=== PATIENT | female | born 1955 | race Hispanic/Latino ===

== ENCOUNTER 2017-07-20 14:37 | Outpatient (CLI) | payer OTHER | END 2017-07-20 14:38 | disposition home or self-care (01) | LOC: PET 14:37 | DX: C34.90 Malignant neoplasm of unspecified part of unspecified bronchus or lung (principal); J44.9 Chronic obstructive pulmonary disease, unspecified; Z98.51 Tubal ligation status | CPT/HCPCS: 82962 ==

== ENCOUNTER 2017-07-27 06:50 | Outpatient (CLI) | payer OTHER | END 2017-07-27 06:51 | disposition home or self-care (01) | LOC: PET 06:50 | DX: C34.90 Malignant neoplasm of unspecified part of unspecified bronchus or lung (principal); J44.9 Chronic obstructive pulmonary disease, unspecified; Z87.891 Personal history of nicotine dependence; Z98.51 Tubal ligation status | CPT/HCPCS: 82962 ==

== ENCOUNTER 2017-07-27 10:53 | Outpatient (CLI) | payer OTHER | END 2017-07-27 10:54 | disposition home or self-care (01) | LOC: LABHHL 10:53 | DX: C34.90 Malignant neoplasm of unspecified part of unspecified bronchus or lung (principal); Z87.891 Personal history of nicotine dependence; Z98.51 Tubal ligation status; J44.9 Chronic obstructive pulmonary disease, unspecified | CPT/HCPCS: 36415 ==

== ENCOUNTER 2017-08-04 06:33 | Day surgery (SDC) | payer OTHER ==
[2017-08-04 08:17] LABS: Basophils % (Auto) 0.9 % (0.0-1.8); Eosinophils # (Auto) 0.1 K/mm3 (0.0-0.4); Eosinophils % (Auto) 2.8 % (0.0-4.3); Hematocrit 39.2 % (30.3-42.9); Hemoglobin 12.6 gm/dl (10.1-14.3); Lymphocytes # (Auto) 0.4 K/mm3 (1.2-5.4); Lymphocytes % (Auto) 10.4 % (13.4-35.0); Mean Corpuscular HGB Conc 32 % (30-34); Mean Corpuscular Hemoglobin 29 pg (28-32); Mean Corpuscular Volume 91 fl (79-97); Monocytes # (Auto) 0.4 K/mm3 (0.0-0.8); Monocytes % (Auto) 11.5 % (0.0-7.3); Platelet Count 199 K/mm3 (140-440); Red Blood Count 4.31 M/mm3 (3.65-5.03); Red Cell Distribution Width 14.3 % (13.2-15.2)
[2017-08-04 08:28] LABS: INR 0.84 (0.87-1.13)
[2017-08-04 08:29] LABS: Partial Thromboplastin Time 22.5 Sec. (24.2-36.6)
[2017-08-04 08:31] LABS: BUN/Creatinine Ratio 24; Blood Urea Nitrogen 12 mg/dL (7-17); Calcium 8.5 mg/dL (8.4-10.2); Hemolysis Index 5
[2017-08-04] MEDS ORDERED: VERSED ONE (10:15)
[2017-08-04] MEDS ORDERED: NACL 0.9% 500 ML IR ONE (10:15)
[2017-08-04] MEDS ORDERED: XYLOCAINE 1%/ EPI 1:100,000 INFILTRATI ONE (10:16)
[2017-08-04] MEDS ORDERED: NACL 0.9% 250ML 250 ML ONE (10:16)
[2017-08-04] MEDS ORDERED: SUBLIMAZE ONE (10:16)
[2017-08-04] MEDS ORDERED: XYLOCAINE 2% INFILTRATI ONE (10:16)
[2017-08-04] MEDS ORDERED: VANCOMYCIN/NS 1 GM/250 ML 1 GM/250 ML BAG IV SCH (11:00)
[2017-08-04] MEDS ORDERED: ZOFRAN ONE ×2 (11:13→11:29)
--- NOTE | 2017-08-04 11:25 | Short Stay Summary ---
Short Stay Documentation Date of service: 08/04/17 Narrative H&P: 61 year old female with malignant right pleural effusion who presents for tunneled pleural catheter placement. - History Principal diagnosis: Malignant pleural effusion Past Medical History: cancer Social history: smoking - Allergies and Medications Current Medications: Allergies codeine Allergy (Verified 03/10/15 04:45) Hives Penicillins Allergy (Verified 03/10/15 04:45) Hives Home Medications Medication Instructions Recorded Confirmed Last Taken Type Acetaminophen [Acetaminophen TAB] 650 mg PO Q4H PRN #30 tablet 06/09/17 Unknown Rx Pravastatin [Pravachol] 20 mg PO QDAY #30 06/09/17 08/04/17 08/03/17 Rx Sertraline [Zoloft] 25 mg PO QDAY #30 06/09/17 08/04/17 08/03/17 Rx metFORMIN [Glucophage] 500 mg PO BID #60 tablet 06/09/17 08/04/17 08/03/17 Rx Furosemide [Lasix] 20 mg PO DAILY 08/04/17 08/04/17 08/03/17 History Glimepiride [Amaryl] 4 mg PO DAILY 08/04/17 08/04/17 08/03/17 History Ipratropium/Albuterol Sulfate 1 spray IH BID 08/04/17 08/04/17 08/03/17 History [Combivent Respimat] Active Medications Vancomycin HCl (Vancomycin/Ns 1 Gm/250 Ml) 1 gm in 250 mls @ 167.007 mls/hr IV PREOP CAREN; Protocol Stop: 08/04/17 23:59 - Physical exam General appearance: no acute distress (dysp) Lungs: Other (decreased right lung sounds) - Brief post op/procedure progress note Date of procedure: 08/04/17 Pre-op diagnosis: Malignant pleural effusion Post-op diagnosis: same Procedure: Tunneled catheter placement, right pleural cavity 850 mL fluid removed Anesthesia: local Surgeon: DELFINA ZARATE Estimated blood loss: minimal Condition: stable - Hospital course Hospital course: Tolerated procedure well. Can be discharged in 2 hrs. - Disposition Condition at discharge: Stable Disposition: [id number] TO HOME OR SELFCARE Short Stay Discharge Plan Activity: advance as tolerated Weight Bearing Status: Weight Bear as Tolerated Diet: regular Wound: keep clean and dry (CANNOT GET PLEURAL CATHETER WET, INCLUDED PACKET FOR PLEURAL FLUID REMOVAL, REMOVE FLUID DAILY OR EVERY OTHER DAY NEEDED), change dressing (DAILY) Follow up with: JUANPABLO MORALES MD [Primary Care Provider] - 7 Days
--- NOTE | 2017-08-04 11:26 | Operative Report ---
Operative Report Operative Report: EXAM: 1. Ultrasound-guided access of the right pleural cavity 2. Placement of a right sided tunneled cuffed pleural catheter (ASPIRA) 3. Removal of 850 mL of serous fluid from the right pleural cavity DATE: 08/04/17 KITCHEN DESIGNER: DELFINA ZARATE MD INDICATION: Breast cancer with malignant right-sided pleural effusion status post multiple thoracenteses with moderate right pleural effusion MEDICATIONS: Please see nursing report for full details. DEVICES: None CONTRAST: None PROCEDURE: The risks, benefits, and alternatives were discussed with the patient; written informed consent was obtained. The patient was brought to the angiography suite and placed in a supine oblique position with the right chest elevated. The patient was prepped and draped in a sterile fashion. The right pleural cavity was accessed with a 21-gauge micropuncture needle under direct ultrasound guidance. 0.018 inch wire was passed into the pleural cavity. 5 Greek transitional dilator was exchanged with the needle. Wire and inner dilator were removed. 0.035 inch Amplatz wire was advanced through the transitional dilator into the pleural cavity. Flow switch was advanced over the wire and used to lock the Amplatz wire on the transitional dilator to prevent gas exchange. An appropriate dermatotomy site was selected medial and inferior to the puncture site. The area was anesthetized with 1% lidocaine. The track was anesthetized with 1% lidocaine. Dermatotomy was made. The ASPIRA catheter was connected to the metal tunneler and used to tunnel from the dermatotomy to the pleural puncture site. Over the Amplatz wire, the pleural puncture site was dilated with ultimate placement of a peel-away sheath and removal of the wire and introducer. The catheter was advanced through the pleural peel-away sheath into the pleura. The sheath was peeled away. The catheter was clamped and the plastic stiffener was removed. The catheter was cut and attached to the appropriate hub. The puncture site was then closed with 3-0 Vicryl and 4-0 Vicryl with overlying Dermabond and Steri-Strips. Sterile dressing consisting of 4 x 4 and Tegaderm were applied. 850 mL of serous fluid was drained through the catheter. The patient had minimal residual fluid remaining. The catheter was secured with 2-0 Ethilon. Sterile dressing consisting of drain gauze and overlying gauze with Tegaderm were applied to the dermatotomy site. The patient tolerated the procedure well. No immediate postprocedural complications. FINDINGS: Please see procedure note above. Ultrasound guided access of the right pleural cavity and placement of a right sided tunneled cuffed pleural catheter was performed with fluoroscopic and sonographic guidance. IMPRESSION: 1. Successful placement of a right sided tunneled cuffed pleural catheter with sonography and fluoroscopy. 2. Removal of 850 mL of serous fluid from the right pleural cavity.
[2017-08-04 14:33] VITALS: BP 117/33
== END 2017-08-04 15:00 | disposition home or self-care (01) ==
LOC: CATHLABREC 06:33
PROVIDERS: ATTEND Radiology Diagnostic Radiology
DX: C50.919 Malignant neoplasm of unspecified site of unspecified female breast (principal); J91.0 Malignant pleural effusion; E11.9 Type 2 diabetes mellitus without complications; J44.9 Chronic obstructive pulmonary disease, unspecified; Z88.0 Allergy status to penicillin; Z88.5 Allergy status to narcotic agent; Z98.890 Other specified postprocedural states; Z87.891 Personal history of nicotine dependence; Z79.01 Long term (current) use of anticoagulants; Z79.84 Long term (current) use of oral hypoglycemic drugs
CPT/HCPCS: 32550; 32555; 36415; 76937; 80048; 85025; 85610; 85730; C1729; J2250; J2405; J3010; J3370; J7050

== ENCOUNTER 2017-10-30 23:44 | Inpatient (IN) | payer OTHER ==
[2017-10-31] MEDS ORDERED: NACL 0.9% 1000 ML 1,000 ML IV ONE (00:08)
[2017-10-31] MEDS ORDERED: NACL 0.9% 1000 ML IV ONE (00:20)
[2017-10-31] MEDS ORDERED: ZOFRAN IV ONE ×2 (00:22→02:21)
--- NOTE | 2017-10-31 00:38 | Emergency Department Report ---
ED N/V/D HPI - General Chief complaint: Abdominal Pain Stated complaint: Vomiting, Diarrhea Time Seen by Provider: 10/31/17 00:18 Source: patient, family, EMS Mode of arrival: Stretcher Limitations: Other - History of Present Illness Initial comments: 62-year-old female with history of bone cancer presents to ER with nausea, vomiting, diarrhea 1 week. Patient believes symptoms are due to chemotherapy pill that she is taking. Patient reports brief episode of abdominal pain, but attributes it to the multiple episodes of vomiting that she has had. Reports chills. Pt was hypotensive with EMS. Oncologist: Dr EKLSI TSANG complaint: nausea, vomiting, diarrhea, abdominal pain -: week(s) (1) Description of Vomiting: food contents, watery Description of Diarrhea: water Associated Abdominal Pain: Yes Location: diffuse Radiation: none Severity: severe Quality: cramping Consistency: constant Improves with: none Worsens with: eating Associated Symptoms: fever/chills, nausea/vomiting, weakness. denies: chest pain - Related Data Home Medications Medication Instructions Recorded Confirmed Last Taken Gilotrif 40 mg PO DAILY 09/11/17 10/31/17 1 Day Ago ~10/30/17 Sertraline [Zoloft] 25 mg PO DAILY 09/25/17 10/31/17 1 Day Ago ~10/30/17 ALBUTEROL NEB's [Proventil 0.083% 2.5 mg IH BID 09/29/17 10/31/17 09/28/17 NEBS] Previous Rx's Medication Instructions Recorded Last Taken Type Glimepiride [Amaryl] 4 mg PO DAILY #30 tablet 09/13/17 1 Day Ago Rx ~10/30/17 Pravastatin [Pravachol] 20 mg PO QDAY #30 tablet 09/13/17 1 Day Ago Rx ~10/30/17 metFORMIN [Glucophage] 500 mg PO BID #60 tablet 09/13/17 1 Day Ago Rx ~10/30/17 Allergies Allergy/AdvReac Type Severity Reaction Status Date / Time codeine Allergy Hives Verified 03/10/15 04:45 Penicillins Allergy Hives Verified 03/10/15 04:45 ED Review of Systems ROS: Stated complaint: [place]/FALL Other details as noted in HPI Comment: All other systems reviewed and negative Constitutional: chills. denies: fever Gastrointestinal: abdominal pain, nausea, vomiting, diarrhea ED Past Medical Hx - Past Medical History Previous Medical History?: Yes Hx Diabetes: Yes Hx COPD: Yes Hx HIV: No Additional medical history: bone cancer - Surgical History Past Surgical History?: Yes Additional Surgical History: TUBAL LIGATION - Social History Smoking Status: Former Smoker Substance Use Type: None - Medications Home Medications: Home Medications Medication Instructions Recorded Confirmed Last Taken Type Gilotrif 40 mg PO DAILY 09/11/17 10/31/17 1 Day Ago History ~10/30/17 Glimepiride [Amaryl] 4 mg PO DAILY #30 tablet 09/13/17 10/31/17 1 Day Ago Rx ~10/30/17 Pravastatin [Pravachol] 20 mg PO QDAY #30 tablet 09/13/17 10/31/17 1 Day Ago Rx ~10/30/17 metFORMIN [Glucophage] 500 mg PO BID #60 tablet 09/13/17 10/31/17 1 Day Ago Rx ~10/30/17 Sertraline [Zoloft] 25 mg PO DAILY 09/25/17 10/31/17 1 Day Ago History ~10/30/17 ALBUTEROL NEB's [Proventil 0.083% 2.5 mg IH BID 09/29/17 10/31/17 09/28/17 History NEBS] ED Physical Exam - General Limitations: Other General appearance: alert, other (appears uncomfortable) - Head Head exam: Present: atraumatic, normocephalic - Eye Eye exam: Present: normal appearance - Neck Neck exam: Present: normal inspection - Respiratory Respiratory exam: Present: normal lung sounds bilaterally. Absent: respiratory distress - Cardiovascular Cardiovascular Exam: Present: regular rate, tachycardia - GI/Abdominal GI/Abdominal exam: Present: soft. Absent: distended, tenderness - Extremities Exam Extremities exam: Present: normal inspection - Neurological Exam Neurological exam: Present: alert, oriented X3 - Psychiatric Psychiatric exam: Present: normal affect, normal mood - Skin Skin exam: Present: warm, dry, intact, normal color ED Course Vital Signs 10/31/17 10/31/17 10/31/17 00:00 00:02 00:36 Temperature 94.2 F L Pulse Rate 111 H 111 H Respiratory 22 24 20 Rate Blood Pressure 106/85 106/85 Blood Pressure 106/85 [Right] O2 Sat by Pulse 100 Oximetry 10/31/17 10/31/17 10/31/17 01:00 02:00 03:00 Temperature Pulse Rate 108 H 105 H 101 H Respiratory 15 20 18 Rate Blood Pressure 109/56 125/62 107/46 Blood Pressure [Right] O2 Sat by Pulse 100 100 Oximetry 10/31/17 10/31/17 10/31/17 03:08 04:00 05:02 Temperature 97.8 F Pulse Rate 97 H 91 H Respiratory 23 20 Rate Blood Pressure 93/47 Blood Pressure 115/56 [Right] O2 Sat by Pulse 100 100 Oximetry ED Medical Decision Making - Lab Data Result diagrams: 10/31/17 00:23 10/31/17 00:23 - Medical Decision Making 62-year-old female with intractable nausea, vomiting and diarrhea likely due to chemotherapeutic drugs. Patient had recent admission for same. Today's labs show hypokalemia and acute renal failure. IV fluids administered. Initially had elevation in lactic acid of 3, now improved to 1. Vital signs improved. Blood cultures drawn, antibiotics given. Pt admitted to hospitalist. - Differential Diagnosis dehydration, ARF hypokalemia, Critical Care Time: Yes Critical care time in (mins) excluding proc time.: 35 Critical care attestation.: If time is entered above; I have spent that time in minutes in the direct care of this critically ill patient, excluding procedure time. Critical Care Time: 35 minutes ED Disposition Clinical Impression: Intractable vomiting with nausea, Diarrhea, Hypokalemia, Acute renal failure ( ARF) Disposition: OP ADMIT IP TO THIS HOSP Is pt being admited?: Yes Condition: Fair Time of Disposition: 03:04
[2017-10-31 00:42] LABS: Basophils # (Auto) 0.1 K/mm3 (0.0-0.1); Basophils % (Auto) 0.5 % (0.0-1.8); Eosinophils % (Auto) 0.1 % (0.0-4.3); Hematocrit 41.4 % (30.3-42.9); Hemoglobin 14.4 gm/dl (10.1-14.3); Lymphocytes # (Auto) 0.9 K/mm3 (1.2-5.4); Lymphocytes % (Auto) 5.7 % (13.4-35.0); Mean Corpuscular HGB Conc 35 % (30-34); Mean Corpuscular Hemoglobin 30 pg (28-32); Mean Corpuscular Volume 86 fl (79-97); Monocytes # (Auto) 0.8 K/mm3 (0.0-0.8); Monocytes % (Auto) 5.5 % (0.0-7.3); Platelet Count 359 K/mm3 (140-440); Red Blood Count 4.84 M/mm3 (3.65-5.03); Red Cell Distribution Width 16.8 % (13.2-15.2)
--- NOTE | 2017-10-31 01:16 | XRay Report ---
FINAL REPORT EXAM: XR CHEST 1V AP HISTORY: weakness TECHNIQUE: A portable upright view the chest was obtained and compared to the study of 06/06/2017. FINDINGS: There are residual increased markings in the right lung base secondary to residual infiltrate versus scarring. The left lung is clear. The lungs are not congested. The heart size is normal. The bones and soft tissues otherwise do not show any acute changes. IMPRESSION: Residual increased markings left lung base representing either localized scarring versus residual infiltrate.
[2017-10-31 01:19] LABS: Calcium 7.2 mg/dL (8.4-10.2)
[2017-10-31] MEDS ORDERED: K-DUR PO ONE (01:43)
[2017-10-31] MEDS: KCL 10MEQ/100ML 10 MEQ/100 ML BAG IV SCH ×6 (02:28→16:51)
[2017-10-31] MEDS ORDERED: LEVAQUIN 500MG/100ML 500 MG/100 ML BAG IV ONE (02:51)
[2017-10-31] MEDS ORDERED: FLAGYL 500 MG/100 ML 500 MG/100 ML BAG IV ONE (02:53)
[2017-10-31 03:10] LABS: Bilirubin,Urine NEG (Negative); Blood,Urine NEG (Negative); Color,Urine Amber (Yellow); Mucus,Urine FEW /HPF; Urobilinogen,Urine < 2.0 mg/dL (<2.0)
[2017-10-31] MEDS ORDERED: TYLENOL PO PRN (04:16)
[2017-10-31] MEDS ORDERED: SODIUM CHLORIDE FLUSH SYRINGE 10 ML IV PRN (04:16)
--- NOTE | 2017-10-31 04:23 | History and Physical Report ---
History of Present Illness Date of examination: 10/31/17 History of present illness: 62-year-old white male with a history of metastatic lung cancer, diabetes, COPD , emergency room with complaints of nausea vomiting and diarrhea 5 days. She is unable to tolerate oral intake, as at least 10 episodes of diarrhea today, nonbloody. Patient states she was going to the bathroom today, sustaining a fall and passed out for less than 1 minute, complaining of generalized weakness Review of systems Constitutional: no weight loss, chills, fever Ears, eyes, nose, mouth and throat: no nasal congestion, no nasal discharge, no sinus pressure, no vision change, no red eye. Neck: No neck pain or rigidity. Cardiovascular: no chest pain, palpitations Respiratory: no cough, shortness of breath Gastrointestinal: no abdominal pain hematochezia Genitourinary : no frequency , no hematuria Musculoskeletal: no joint swelling or muscle ache Integumentary: no rash, no pruritis Neurological: no parathesias, no numbness, no focal weakness Endocrine: no cold or heat intolerance, no polyuria or polydipsia Hematologic/Lymphatic: no easy bruising, no easy bleeding, no gland swelling Allergic/Immunologic: no urticaria, no angioedema. PAST MEDICAL HISTORY: metastatic lung cancer, diabetes, COPD PAST SURGICAL HISTORY: Tubal ligation SOCIAL HISTORY: No alcohol, no drugs, tobacco FAMILY HISTORY: Hypertension Medications and Allergies Allergies Allergy/AdvReac Type Severity Reaction Status Date / Time codeine Allergy Hives Verified 03/10/15 04:45 Penicillins Allergy Hives Verified 03/10/15 04:45 Home Medications Medication Instructions Recorded Confirmed Last Taken Type Gilotrif 40 mg PO DAILY 09/11/17 10/31/17 1 Day Ago History ~10/30/17 Glimepiride [Amaryl] 4 mg PO DAILY #30 tablet 09/13/17 10/31/17 1 Day Ago Rx ~10/30/17 Pravastatin [Pravachol] 20 mg PO QDAY #30 tablet 09/13/17 10/31/17 1 Day Ago Rx ~10/30/17 metFORMIN [Glucophage] 500 mg PO BID #60 tablet 09/13/17 10/31/17 1 Day Ago Rx ~10/30/17 Sertraline [Zoloft] 25 mg PO DAILY 08/13/18 09/18/18 1 Day Ago History ~10/30/17 ALBUTEROL NEB's [Proventil 0.083% 2.5 mg IH BID 09/29/17 10/31/17 09/28/17 History NEBS] Active Meds: Active Medications Acetaminophen (Tylenol) 650 mg PO Q4H PRN PRN Reason: Pain MILD(1-3)/Fever >100.5/PIERSON Enoxaparin Sodium (Lovenox) 30 mg SUB-Q QDAY CAREN Sodium Chloride (Nacl 0.9% 1000 Ml) 1,000 mls @ 125 mls/hr IV DIRECT CAREN Levofloxacin/Dextrose (Levaquin 250mg/50ml) 250 mg in 50 mls @ 50 mls/hr IV Q48H CAREN; Protocol Metronidazole (Flagyl 500 Mg/100 Ml) 500 mg in 100 mls @ 100 mls/hr IV Q8HR CAREN ; Protocol Ondansetron HCl (Zofran) 4 mg IV Q4H PRN PRN Reason: Nausea And Vomiting Sodium Chloride (Sodium Chloride Flush Syringe 10 Ml) 10 ml IV BID CAREN Sodium Chloride (Sodium Chloride Flush Syringe 10 Ml) 10 ml IV PRN PRN PRN Reason: LINE FLUSH Exam - Physical Exam Narrative exam: Gen. appearance: Patient lying in bed, no apparent distress HEENT: Normocephalic, atraumatic, pupils equally round and reactive to light, extraocular movement intact, and no sclericterus,. No JVD or thyromegaly or nodule,neck supple, no carotid bruit ,mucous membranesdry no exudate or erythema Heart: S1, S2, regular rate and rhythm Lungs: Clear bilaterally, breathing comfortable Abdomen: Positive bowel sounds, non-tender, nondistended, no organomegaly Extremity:no edema cyanosis, clubbing Skin: no rash, dry, warm Neuro: Oriented 3, cranial nerves II-12 intact, speech is fluent, motor and sensory intact - Constitutional Vitals: Temp Pulse Resp BP Pulse Ox 94.2 F L 111 H 20 106/85 100 10/31/17 00:02 10/31/17 00:02 10/31/17 00:36 10/31/17 00:02 10/31/17 00:02 Results - Labs CBC & Chem 7: 10/31/17 00:23 10/31/17 00:23 Labs: Abnormal lab results 10/31/17 10/31/17 10/31/17 Range/Units 00:23 00:23 02:00 WBC 15.3 H (4.5-11.0) K/mm3 Hgb 14.4 H (10.1-14.3) gm/dl MCHC 35 H (30-34) % RDW 16.8 H (13.2-15.2) % Lymph % (Auto) 5.7 L (13.4-35.0) % Lymph # 0.9 L (1.2-5.4) K/mm3 Seg Neutrophils % 88.2 H (40.0-70.0) % Seg Neutrophils # 13.5 H (1.8-7.7) K/mm3 Potassium 2.2 L* (3.6-5.0) mmol/L Chloride 97.0 L (98-107) mmol/L Carbon Dioxide 11 L (22-30) mmol/L BUN 59 H (7-17) mg/dL Creatinine 8.4 H (0.7-1.2) mg/dL Glucose 300 H (65-100) mg/dL Lactic Acid 2.60 H* (0.7-2.0) mmol/L Calcium 7.2 L (8.4-10.2) mg/dL AST 46 H (5-40) units/L ALT 81 H (7-56) units/L Alkaline Phosphatase 224 H (35-129) units/L Urine WBC (Auto) (0.0-6.0) /HPF 10/31/17 10/31/17 Range/Units 02:05 02:54 WBC (4.5-11.0) K/mm3 Hgb (10.1-14.3) gm/dl MCHC (30-34) % RDW (13.2-15.2) % Lymph % (Auto) (13.4-35.0) % Lymph # (1.2-5.4) K/mm3 Seg Neutrophils % (40.0-70.0) % Seg Neutrophils # (1.8-7.7) K/mm3 Potassium (3.6-5.0) mmol/L Chloride (98-107) mmol/L Carbon Dioxide (22-30) mmol/L BUN (7-17) mg/dL Creatinine (0.7-1.2) mg/dL Glucose (65-100) mg/dL Lactic Acid 3.20 H* (0.7-2.0) mmol/L Calcium (8.4-10.2) mg/dL AST (5-40) units/L ALT (7-56) units/L Alkaline Phosphatase (35-129) units/L Urine WBC (Auto) 20.0 H (0.0-6.0) /HPF Assessment and Plan Assessment Acute renal failure Syncope secondary to dehydration Sepsis Gastroenteritis, probably viral Diabetes COPD Metastatic lung cancer Plan. Admits medicine Start IV fluid, obtain ultrasound of the kidneys, consult renal Check CT head, cardiac enzymes Start empiric Flagyl, Levaquin, follow cultures Check fingersticks, DVT prophylaxis
[2017-10-31] MEDS ORDERED: D50W (25GM) Syringe IV PRN (04:51)
[2017-10-31 05:17] LABS: Creatine Kinase MB 1.9 ng/mL (0.0-4.0)
[2017-10-31] MEDS ORDERED: REGLAN IV PRN (05:19)
--- NOTE | 2017-10-31 05:19 | Cat Scan Report ---
FINAL REPORT EXAM: CT HEAD/BRAIN WO CON HISTORY: syncope TECHNIQUE: Routine axial imaging was obtained of the brain without IV contrast. FINDINGS: There is mild volume loss. There no evidence of acute stroke or hemorrhage. The ventricular system is appropriate in size and is symmetric. The visualized sinuses are clear. The mastoid air cells reveal fluid in several of the right mastoid air cells. The left mastoid air cells are clear. The calvarium appears intact. IMPRESSION: Mild age related volume loss. No acute stroke or hemorrhage. Localized right mastoiditis.
[2017-10-31] MEDS: REGLAN IV PRN ×2 (05:48→22:37)
[2017-10-31] MEDS: NACL 0.9% 1000 ML 1,000 ML IV SCH ×2 (05:49→12:08)
[2017-10-31 06:43] LABS: Basophils % (Auto) 0.1 % (0.0-1.8); Eosinophils % (Auto) 0.1 % (0.0-4.3); Hemoglobin 11.8 gm/dl (10.1-14.3); Lymphocytes # (Auto) 0.9 K/mm3 (1.2-5.4); Lymphocytes % (Auto) 11.6 % (13.4-35.0); Mean Corpuscular HGB Conc 34 % (30-34); Mean Corpuscular Hemoglobin 29 pg (28-32); Mean Corpuscular Volume 85 fl (79-97); Monocytes # (Auto) 0.6 K/mm3 (0.0-0.8); Monocytes % (Auto) 7.9 % (0.0-7.3); Platelet Count 269 K/mm3 (140-440); Red Blood Count 4.11 M/mm3 (3.65-5.03); Red Cell Distribution Width 16.6 % (13.2-15.2)
[2017-10-31 07:16] LABS: Calcium 6.3 mg/dL (8.4-10.2)
[2017-10-31] MEDS ORDERED: MAGNESIUM SULFATE IV ONE (09:38)
[2017-10-31] MEDS ORDERED: SODIUM BICARBONATE IV ONE (09:39)
--- NOTE | 2017-10-31 09:41 | Progress Note ---
Assessment and Plan Assessment and plan: 62-year-old white male with a history of metastatic lung cancer, diabetes, COPD , emergency room with complaints of nausea vomiting and diarrhea 5 days. She is unable to tolerate oral intake, as at least 10 episodes of diarrhea today, nonbloody. Patient states she was going to the bathroom today, sustaining a fall and passed out for less than 1 minute, complaining of generalized weakness Acute renal failure Syncope secondary to dehydration Sepsis Gastroenteritis, probably viral- WITH Associated Diarrhea Recurrent fall with prior fracture Diabetes COPD Metastatic lung cancer Plan. Supportive care REPLACE ELECTROLYTES Give sodium bicarb xray right hip PT/TO EVAL CHECK STOOL FOR C-DIFF IV fluid, obtain ultrasound of the kidneys, consult renal Check CT head, cardiac enzymes Start empiric Flagyl, Levaquin, follow cultures Check fingersticks, DVT prophylaxis 20 extra minutes. The high probability of a clinically significant, sudden or life threatening deterioration of the [GI and Renal] system(s) required my full and direct attention, intervention and personal management. The aggregate critical care time was [35] minutes. This time is in addition to time spent performing reported procedures but includes the following: [X] Data Review and interpretation [X] Patient assessment and monitoring of vital signs [X] Documentation [X] Medication orders and management History Interval history: Patient seen and examined, continues to report diarrhea but improving, denies any further dizziness Hospitalist Physical - Physical exam Narrative exam: Gen. appearance: Patient lying in bed, Lethargic, PALE Appearing HEENT: Normocephalic, atraumatic, pupils equally round and reactive to light, extraocular movement intact, and no sclericterus,. No JVD or thyromegaly or nodule,neck supple, no carotid bruit ,mucous membranesdry no exudate or erythema Heart: S1, S2, regular rate and rhythm Lungs: Clear bilaterally, breathing comfortable Abdomen: Positive bowel sounds, non-tender, nondistended, no organomegaly Extremity:no edema cyanosis, clubbing Skin: no rash, dry, warm Neuro: Oriented 3, cranial nerves II-12 intact, speech is fluent, motor and sensory intac - Constitutional Vitals: Temp Pulse Resp BP Pulse Ox 97.9 F 84 18 105/45 100 10/31/17 08:10 10/31/17 08:10 10/31/17 08:10 10/31/17 08:10 10/31/17 08:10 Results - Labs CBC & Chem 7: 10/31/17 06:03 10/31/17 16:17 Labs: Laboratory Last Values WBC 7.5 K/mm3 (4.5-11.0) 10/31/17 06:03 RBC 4.11 M/mm3 (3.65-5.03) 10/31/17 06:03 Hgb 11.8 gm/dl (10.1-14.3) 10/31/17 06:03 Hct 35.0 % (30.3-42.9) D 10/31/17 06:03 MCV 85 fl (79-97) 10/31/17 06:03 MCH 29 pg (28-32) 10/31/17 06:03 MCHC 34 % (30-34) 10/31/17 06:03 RDW 16.6 % (13.2-15.2) H 10/31/17 06:03 Plt Count 269 K/mm3 (140-440) 10/31/17 06:03 Lymph % (Auto) 11.6 % (13.4-35.0) L 10/31/17 06:03 [place] % (Auto) 7.9 % (0.0-7.3) H 10/31/17 06:03 Eos % (Auto) 0.1 % (0.0-4.3) 10/31/17 06:03 Baso % (Auto) 0.1 % (0.0-1.8) 10/31/17 06:03 Lymph # 0.9 K/mm3 (1.2-5.4) L 10/31/17 06:03 [place] # 0.6 K/mm3 (0.0-0.8) 10/31/17 06:03 Eos # 0.0 K/mm3 (0.0-0.4) 10/31/17 06:03 Baso # 0.0 K/mm3 (0.0-0.1) 10/31/17 06:03 Seg Neutrophils % 80.3 % (40.0-70.0) H 10/31/17 06:03 Seg Neutrophils # 6.0 K/mm3 (1.8-7.7) 10/31/17 06:03 Sodium 142 mmol/L (137-145) 10/31/17 06:03 Potassium 2.5 mmol/L (3.6-5.0) L* 10/31/17 06:03 Chloride 109.5 mmol/L (98-107) H 10/31/17 06:03 Carbon Dioxide 10 mmol/L (22-30) L 10/31/17 06:03 Anion Gap 25 mmol/L 10/31/17 06:03 BUN 56 mg/dL (7-17) H 10/31/17 06:03 Creatinine 7.2 mg/dL (0.7-1.2) H 10/31/17 06:03 Estimated GFR 6 ml/min 10/31/17 06:03 BUN/Creatinine Ratio 8 % 10/31/17 06:03 Glucose 201 mg/dL (65-100) H 10/31/17 06:03 POC Glucose 198 (70-105) H 10/31/17 07:03 Lactic Acid 1.60 mmol/L (0.7-2.0) 10/31/17 04:43 Calcium 6.3 mg/dL (8.4-10.2) L 10/31/17 06:03 Total Bilirubin 0.70 mg/dL (0.1-1.2) 10/31/17 00:23 AST 46 units/L (5-40) H 10/31/17 00:23 ALT 81 units/L (7-56) H 10/31/17 00:23 Alkaline Phosphatase 224 units/L (35-129) H 10/31/17 00:23 Total Creatine Kinase 71 units/L (30-135) 10/31/17 04:43 CK-MB (CK-2) 1.9 ng/mL (0.0-4.0) 10/31/17 04:43 Troponin T 0.020 ng/mL (0.00-0.029) 10/31/17 04:43 Total Protein 7.4 g/dL (6.3-8.2) 10/31/17 00:23 Albumin 4.0 g/dL (3.9-5) 10/31/17 00:23 Albumin/Globulin Ratio 1.2 % 10/31/17 00:23 Urine Color [place] (Yellow) 10/31/17 02:05 Urine Turbidity Cloudy (Clear) 10/31/17 02:05 Urine pH 5.0 (5.0-7.0) 10/31/17 02:05 Ur Specific [place] 1.016 (1.003-1.030) 10/31/17 02:05 Urine Protein 100 mg/dl mg/dL (Negative) 10/31/17 02:05 Urine Glucose (UA) Neg mg/dL (Negative) 10/31/17 02:05 Urine Ketones Neg mg/dL (Negative) 10/31/17 02:05 Urine Blood Neg (Negative) 10/31/17 02:05 Urine Nitrite Neg (Negative) 10/31/17 02:05 Urine Bilirubin Neg (Negative) 10/31/17 02:05 Urine Urobilinogen < 2.0 mg/dL (<2.0) 10/31/17 02:05 Ur Leukocyte Esterase Neg (Negative) 10/31/17 02:05 Urine WBC (Auto) 20.0 /HPF (0.0-6.0) H 10/31/17 02:05 Urine RBC (Auto) 4.0 /HPF (0.0-6.0) 10/31/17 02:05 Urine Mucus Few /HPF 10/31/17 02:05 - Imaging and Cardiology Chest x-ray: image reviewed (SCARING LEFT LUNG BASE,) Imaging and Cardiology: XRAY HIP, SHOWING NUMEROUS OSTEOLYTIC LESSION. NO OCCULT FRACTURE
--- NOTE | 2017-10-31 10:01 | Consultation ---
History of Present Illness - Reason for Consult Consult date: 10/31/17 acute renal failure - History of Present Illness This is a 62 year old male who presented to the E.R with a chief complaint of Abdominal pain, Nausea, Vomiting and Diarrhea and weakness. Patient states that she has been having diarrhea, nausea and vomiting for 3 months now since she started chemotherapy but that it has gotten worse over the past 1 week. Patient reports she is on chemotherapy pill called Kushal and also received IV chemotherapy once per month and that this is her third month on chemotherapy for Lung cancer with metastasis to bone and believes that medication is causing her symptoms. Patient has history of Diabetes, COPD and Hyperlipidemia. On evaluation patient was found to be in severe renal failure with an elevated serum creatinine of 7.2 and with multiple electrolyte abnormalities. Baseline serum creatinine unknown. We are being consulted for management of this patient' s severe Acute Renal Failure. Past History Past Medical History: cancer, diabetes, hyperlipidemia, other (Fractured both ankles- no surgery was required) Past Surgical History: Other (Had drained placed in lungs and it was removed in September) Social history: no significant social history Family history: no significant family history Medications and Allergies Allergies Allergy/AdvReac Type Severity Reaction Status Date / Time codeine Allergy Hives Verified 03/10/15 04:45 Penicillins Allergy Hives Verified 03/10/15 04:45 Home Medications Medication Instructions Recorded Confirmed Last Taken Type Gilotrif 40 mg PO DAILY 09/11/17 10/31/17 1 Day Ago History ~10/30/17 Glimepiride [Amaryl] 4 mg PO DAILY #30 tablet 09/13/17 10/31/17 1 Day Ago Rx ~10/30/17 Pravastatin [Pravachol] 20 mg PO QDAY #30 tablet 09/13/17 10/31/17 1 Day Ago Rx ~10/30/17 metFORMIN [Glucophage] 500 mg PO BID #60 tablet 09/13/17 10/31/17 1 Day Ago Rx ~10/30/17 Sertraline [Zoloft] 25 mg PO DAILY 09/25/17 10/31/17 1 Day Ago History ~10/30/17 ALBUTEROL NEB's [Proventil 0.083% 2.5 mg IH BID 09/29/17 10/31/17 09/28/17 History NEBS] Active Meds: Active Medications Acetaminophen (Tylenol) 650 mg PO Q4H PRN PRN Reason: Pain MILD(1-3)/Fever >100.5/PIERSON Dextrose (D50w (25gm) Syringe) 50 ml IV PRN PRN PRN Reason: Hypoglycemia Enoxaparin Sodium (Lovenox) 30 mg SUB-Q QDAY CAREN Sodium Chloride (Nacl 0.9% 1000 Ml) 1,000 mls @ 125 mls/hr IV DIRECT CAREN Last Admin: 10/31/17 05:49 Dose: 125 mls/hr Levofloxacin/Dextrose (Levaquin 250mg/50ml) 250 mg in 50 mls @ 50 mls/hr IV Q48HR CAREN; Protocol Metronidazole (Flagyl 500 Mg/100 Ml) 500 mg in 100 mls @ 100 mls/hr IV Q8HR CAREN ; Protocol Potassium Chloride (Kcl 10meq/100ml) 10 meq in 100 mls @ 100 mls/hr IV Q1H CAREN Stop: 10/31/17 13:59 Magnesium Sulfate (Magnesium Sulfate) 1 gm IV ONCE ONE Stop: 10/31/17 09:39 Metoclopramide HCl (Reglan) 2.5 mg IV Q6H PRN PRN Reason: Nausea And Vomiting Last Admin: 10/31/17 05:48 Dose: 2.5 mg Ondansetron HCl (Zofran) 4 mg IV Q4H PRN PRN Reason: Nausea And Vomiting Sodium Bicarbonate (Sodium Bicarbonate) 50 meq IV ONCE ONE Stop: 10/31/17 09:40 Sodium Chloride (Sodium Chloride Flush Syringe 10 Ml) 10 ml IV BID CAREN Sodium Chloride (Sodium Chloride Flush Syringe 10 Ml) 10 ml IV PRN PRN PRN Reason: LINE FLUSH Review of Systems Constitutional: weight loss, fatigue, poor appetite, no fever, no chills, no sweats Ears, nose, mouth and throat: no ear pain, no ear discharge, no tinnitis, no decreased hearing, no nose pain, no nasal congestion, no nasal discharge Breasts: deferred Cardiovascular: no chest pain, no orthopnea, no palpitations, no rapid/ irregular heart beat, no edema, no syncope, no lightheadedness, no shortness of breath Respiratory: no cough, no cough with sputum, no excessive sputum, no hemoptysis , no shortness of breath, no dyspnea on exertion Gastrointestinal: abdominal pain, nausea, vomiting, diarrhea Genitourinary Female: no dysmenorrhea, no pelvic pain, no flank pain, no menorrhagia, no dysuria, no urinary frequency Rectal: no pain, no incontinence, no bleeding, no itching Musculoskeletal: no neck stiffness, no neck pain, no shooting arm pain, no arm numbness/tingling, no low back pain, no shooting leg pain Integumentary: no rash, no pruritis, no redness, no sores, no wounds, no jaundice Neurological: weakness, no head injury, no transient paralysis, no paralysis, no parathesias, no numbness, no tingling, no seizures Psychiatric: no anxiety, no memory loss, no change in sleep habits, no sleep disturbances, no insomnia, no hypersomnia, no change in appetite Endocrine: no cold intolerance, no heat intolerance, no polyphagia, no excessive thirst, no polydipsia, no polyuria Hematologic/Lymphatic: no easy bruising, no easy bleeding, no lymphadenopathy Allergic/Immunologic: no urticaria, no allergic rhinitis, no wheezing Exam - Vital Signs Vital signs: Vital Signs Pulse Resp BP 111 H 22 106/85 10/31/17 00:00 10/31/17 00:00 10/31/17 00:00 - General Appearance General appearance: well-developed, appears stated age, fatigue EENT: ATNC, PERRL, hearing intact, vision intact Neck: Present: neck supple, trachea midline Respiratory: Clear to Ascultation Heart: regular, S1S2 Gastrointestinal: Present: normoactive bowel sounds Integumentary: warm and dry Neurologic: alert and oriented x3 Musculoskeletal: Present: other (No edema. Has soreness to touch to left ankle where had fractuire in the past) Psychiatric: mood/affect appropriate, cooperative Results - Lab Results 10/31/17 06:03 10/31/17 06:03 Most recent lab results Calcium 6.3 mg/dL (8.4-10.2) L 10/31/17 06:03 Assessment and Plan Acute Renal Failure likely Prerenal secondary to Volume Depletion due to N/V/D: -Will obtain renal ultrasound to rule out obstruction -Obtain urine lytes-urine protein, urine creatinine and urine protein -Continue on IV hydration with NS@ 125 ml/hr, will switch to bicarb drip after potassium is repleted today -BMP level every 8 hours -Avoid Nephrotoxic agents -Monitor I/O's -Obtain daily weights -Will monitor renal function closely -No acute indication for FLIGHT NURSE Metabolic Acidosis: -S/P Sodium Bicarbonate 50 meq IV x 1 -Will need Sodium Bicarbonate drip after potassium is repleted today -Check BMP every 8 hours Hypokalemia: -To be repleted with KCl 10 meq IV x 4 doses -Check BMP every 8 hours -Mag level daily Hypocalcemia: -Calcium Gluconate 1 gram Iv x 1 -BMP every 8 hours Nausea/Vomiting/Diarrhea: -Likely secondary to Chemotherapy -On Flagyl and Levaquin empirically -On IV hydration -On Zofran prn -As per primary team -Syncope: -Head Ct- No acute stroke or hemorrhage -As per primary Metastatic Lung cancer: -On oral and IV chemotherapy outpatiently -Outpatient Oncologist is Dr. Gil
[2017-10-31] MEDS ORDERED: SODIUM BICARBONATE IV NR (10:30)
[2017-10-31 10:32] LABS: Creatine Kinase MB 2.5 ng/mL (0.0-4.0)
[2017-10-31 10:33] LABS: Albumin 3.5 g/dL (3.9-5); Bilirubin,Direct 0.2 mg/dL (0-0.2)
--- NOTE | 2017-10-31 10:59 | XRay Report ---
RIGHT HIP, 2 views: History: Fracture from fall. Osteopenia is evident. There are scattered sclerotic bony lesions throughout the pelvis and proximal femurs. No acute osseous injury or joint pathology is identified. IMPRESSION: Osteopenia. Numerous small sclerotic bony lesions concerning for metastatic process. No evidence for acute injury.
[2017-10-31] MEDS ORDERED: MAGNESIUM SULFATE 1 GM in NACL 0.9% 50 ML IV ONE (11:00)
[2017-10-31] MEDS ORDERED: CALCIUM GLUCONATE 1,000 MG in NACL 0.9% 100 ML IV ONE (12:00)
[2017-10-31] MEDS: LOVENOX SUB-Q SCH (12:05)
[2017-10-31] MEDS: ZOFRAN IV PRN (12:08)
[2017-10-31] MEDS: SODIUM CHLORIDE FLUSH SYRINGE 10 ML IV SCH ×2 (12:10→22:00)
[2017-10-31] MEDS: FLAGYL 500 MG/100 ML 500 MG/100 ML BAG IV SCH ×2 (16:50→21:32)
[2017-10-31 16:56] LABS: Calcium 6.6 mg/dL (8.4-10.2)
--- NOTE | 2017-10-31 17:53 | Ultrasound Report ---
FINAL REPORT EXAM: US RENAL BILAT HISTORY: arf TECHNIQUE: Grayscale and color-flow imaging of the kidneys was performed. Comparison: Ultrasound kidneys dated September 11, 2017 FINDINGS: Right kidney: Measures 10.2 centimeters x 5.3 centimeters x 4.4 centimeters. Cortical thickness measures 1.2 centimeters. Left kidney: Measures 10.8 centimeters x 5.2 centimeters x 4 centimeters. Cortical thickness measures 1 centimeter. There is increased echogenicity of the cortex bilaterally with prominence of the renal pyramids consistent with medical renal disease. There is no demonstration of hydronephrosis, renal calculi or renal mass of either kidney. The urinary bladder is decompressed which limits evaluation. IMPRESSION: 1. Findings consistent with medical renal disease similar in appearance to the previous study.
[2017-11-01] MEDS: KCL 10MEQ/100ML 10 MEQ/100 ML BAG IV SCH ×3 (02:09→04:57)
[2017-11-01] MEDS: FLAGYL 500 MG/100 ML 500 MG/100 ML BAG IV SCH ×3 (05:08→21:49)
[2017-11-01 06:40] LABS: Basophils % (Auto) 0.4 % (0.0-1.8); Eosinophils % (Auto) 0.4 % (0.0-4.3); Hematocrit 26.6 % (30.3-42.9); Hemoglobin 9.2 gm/dl (10.1-14.3); Lymphocytes # (Auto) 0.8 K/mm3 (1.2-5.4); Lymphocytes % (Auto) 15.1 % (13.4-35.0); Mean Corpuscular HGB Conc 34 % (30-34); Mean Corpuscular Hemoglobin 29 pg (28-32); Mean Corpuscular Volume 85 fl (79-97); Monocytes # (Auto) 0.5 K/mm3 (0.0-0.8); Monocytes % (Auto) 9.1 % (0.0-7.3); Platelet Count 225 K/mm3 (140-440); Red Blood Count 3.14 M/mm3 (3.65-5.03)
[2017-11-01 07:48] LABS: Albumin 3.3 g/dL (3.9-5); Calcium 6.8 mg/dL (8.4-10.2)
--- NOTE | 2017-11-01 09:58 | Progress Note ---
Assessment and Plan Assessment and plan: 62-year-old white male with a history of metastatic lung cancer, diabetes, COPD , emergency room with complaints of nausea vomiting and diarrhea 5 days. She is unable to tolerate oral intake, as at least 10 episodes of diarrhea today, nonbloody. Patient states she was going to the bathroom today, sustaining a fall and passed out for less than 1 minute, complaining of generalized weakness Acute renal failure Syncope secondary to dehydration Sepsis Gastroenteritis, probably viral- WITH Associated Diarrhea Recurrent fall with prior fracture Diabetes COPD Metastatic lung cancer Plan. Supportive care REPLACE ELECTROLYTES Start on D5W with bicarb drip and KCL xray right hip shows metatstatic disease and no acute fracture PT/TO EVAL CHECK STOOL FOR C-DIFF-SENT AND PENDING IV fluid, obtain ultrasound of the kidneys, consult renal Check CT head, cardiac enzymes Oncology consult Start empiric Flagyl, Levaquin, follow cultures Check fingersticks, DVT prophylaxis History Interval history: Patient seen and examined, continues to report diarrhea but improving and decreased frequency, denies any further dizziness Hospitalist Physical - Physical exam Narrative exam: Gen. appearance: Patient lying in bed, Lethargic, PALE Appearing HEENT: Normocephalic, atraumatic, pupils equally round and reactive to light, extraocular movement intact, and no sclericterus,. No JVD or thyromegaly or nodule,neck supple, no carotid bruit ,mucous membranesdry no exudate or erythema Heart: S1, S2, regular rate and rhythm Lungs: Clear bilaterally, breathing comfortable Abdomen: Positive bowel sounds, non-tender, nondistended, no organomegaly Extremity:no edema cyanosis, clubbing Skin: no rash, dry, warm Neuro: Oriented 3, cranial nerves II-12 intact, speech is fluent, motor and sensory intac - Constitutional Vitals: Temp Pulse Resp BP Pulse Ox 98.3 F 84 18 106/43 100 11/01/17 07:43 11/01/17 07:43 11/01/17 07:43 11/01/17 07:43 11/01/17 07:43 Results - Labs CBC & Chem 7: 11/01/17 06:22 11/01/17 17:16 Labs: Laboratory Last Values WBC 5.6 K/mm3 (4.5-11.0) 11/01/17 06:22 RBC 3.14 M/mm3 (3.65-5.03) L 11/01/17 06:22 Hgb 9.2 gm/dl (10.1-14.3) L 11/01/17 06:22 Hct 26.6 % (30.3-42.9) L D 11/01/17 06:22 MCV 85 fl (79-97) 11/01/17 06:22 MCH 29 pg (28-32) 11/01/17 06:22 MCHC 34 % (30-34) 11/01/17 06:22 RDW 17.0 % (13.2-15.2) H 11/01/17 06:22 Plt Count 225 K/mm3 (140-440) 11/01/17 06:22 Lymph % (Auto) 15.1 % (13.4-35.0) 11/01/17 06:22 [place] % (Auto) 9.1 % (0.0-7.3) H 11/01/17 06:22 Eos % (Auto) 0.4 % (0.0-4.3) 11/01/17 06:22 Baso % (Auto) 0.4 % (0.0-1.8) 11/01/17 06:22 Lymph # 0.8 K/mm3 (1.2-5.4) L 11/01/17 06:22 [place] # 0.5 K/mm3 (0.0-0.8) 11/01/17 06:22 Eos # 0.0 K/mm3 (0.0-0.4) 11/01/17 06:22 Baso # 0.0 K/mm3 (0.0-0.1) 11/01/17 06:22 Seg Neutrophils % 75.0 % (40.0-70.0) H 11/01/17 06:22 Seg Neutrophils # 4.2 K/mm3 (1.8-7.7) 11/01/17 06:22 Sodium 142 mmol/L (137-145) 11/01/17 06:22 Potassium 2.1 mmol/L (3.6-5.0) L* 11/01/17 06:22 Chloride 111.8 mmol/L (98-107) H 11/01/17 06:22 Carbon Dioxide 11 mmol/L (22-30) L 11/01/17 06:22 Anion Gap 21 mmol/L 11/01/17 06:22 BUN 58 mg/dL (7-17) H 11/01/17 06:22 Creatinine 7.7 mg/dL (0.7-1.2) H 11/01/17 06:22 Estimated GFR 5 ml/min 11/01/17 06:22 BUN/Creatinine Ratio 8 % 11/01/17 06:22 Glucose 125 mg/dL (65-100) H 11/01/17 06:22 POC Glucose 175 (70-105) H 10/31/17 22:29 Lactic Acid 1.60 mmol/L (0.7-2.0) 10/31/17 04:43 Calcium 6.8 mg/dL (8.4-10.2) L 11/01/17 06:22 Phosphorus 3.00 mg/dL (2.5-4.5) 11/01/17 06:22 Magnesium 1.80 mg/dL (1.7-2.3) 11/01/17 06:22 Total Bilirubin 0.40 mg/dL (0.1-1.2) 11/01/17 06:22 Direct Bilirubin 0.2 mg/dL (0-0.2) 10/31/17 09:47 Indirect Bilirubin 0.3 mg/dL 10/31/17 09:47 AST 19 units/L (5-40) 11/01/17 06:22 ALT 36 units/L (7-56) 11/01/17 06:22 Alkaline Phosphatase 144 units/L (35-129) H 11/01/17 06:22 Total Creatine Kinase 93 units/L (30-135) 10/31/17 09:47 CK-MB (CK-2) 2.5 ng/mL (0.0-4.0) 10/31/17 09:47 CK-MB (CK-2) Rel Index 2.6 (0-4) 10/31/17 09:47 Troponin T 0.022 ng/mL (0.00-0.029) 10/31/17 09:47 Total Protein 5.6 g/dL (6.3-8.2) L 11/01/17 06:22 Albumin 3.3 g/dL (3.9-5) L 11/01/17 06:22 Albumin/Globulin Ratio 1.4 % 11/01/17 06:22 Urine Color [place] (Yellow) 10/31/17 02:05 Urine Turbidity Cloudy (Clear) 10/31/17 02:05 Urine pH 5.0 (5.0-7.0) 10/31/17 02:05 Ur Specific [place] 1.016 (1.003-1.030) 10/31/17 02:05 Urine Protein 100 mg/dl mg/dL (Negative) 10/31/17 02:05 Urine Glucose (UA) Neg mg/dL (Negative) 10/31/17 02:05 Urine Ketones Neg mg/dL (Negative) 10/31/17 02:05 Urine Blood Neg (Negative) 10/31/17 02:05 Urine Nitrite Neg (Negative) 10/31/17 02:05 Urine Bilirubin Neg (Negative) 10/31/17 02:05 Urine Urobilinogen < 2.0 mg/dL (<2.0) 10/31/17 02:05 Ur Leukocyte Esterase Neg (Negative) 10/31/17 02:05 Urine WBC (Auto) 20.0 /HPF (0.0-6.0) H 10/31/17 02:05 Urine RBC (Auto) 4.0 /HPF (0.0-6.0) 10/31/17 02:05 Urine Mucus Few /HPF 10/31/17 02:05
[2017-11-01] MEDS ORDERED: SODIUM BICARBONATE 150 MEQ, KCL 20 MEQ in D5W 1,000 ML IV SCH ×2 (10:00)
[2017-11-01] MEDS ORDERED: D5W/0.45% NACL/KCL 30 MEQ 30 MEQ/1,000 ML BAG IV SCH (10:00)
--- NOTE | 2017-11-01 11:25 | Progress Note ---
Assessment and Plan Acute Renal Failure likely Prerenal secondary to Volume Depletion due to N/V/D vs Ischemic ATN: -Renal function reviewed. Serum creatinine 7.7, BUN 58 and GFR 5 ml/min -Renal ultrasound revealed- Medical renal disease noted -Obtain urine lytes-urine creatinine and urine sodium -Avoid Nephrotoxic agents -Monitor I/O's- ordered brown catheter to be placed for accurate I/O's measurement -Obtain daily weights -Will monitor renal function closely -BMP level every 8 hours -Will need hemodialysis initiation in the next 24 hours if renal function does not improve, discussed this with patient and her mother at bedside. Patient voiced understanding Metabolic Acidosis: -Switched fluids to D5W with 150 meq of Sodium Bicarbonate@75 ml/hr -Start Potassium Bicarbonate 25 meq po BID -Check BMP every 8 hours Hypokalemia: -Patient states she does not like IV potassium and prefers oral potassium -Start Potassium Bicarbonate 25 meq po BID for now -Check BMP every 8 hours -Mag level daily Hypocalcemia: -Calcium Gluconate 1 gram Iv x 1 -BMP every 8 hours Nausea/Vomiting/Diarrhea: -Likely secondary to Chemotherapy -On Flagyl and Levaquin empirically -On IV hydration -On Zofran prn -As per primary team -Syncope: -Head Ct- No acute stroke or hemorrhage -As per primary Metastatic Lung cancer: -On oral and IV chemotherapy outpatiently -Outpatient Oncologist is Dr. Gil Subjective Date of service: 11/01/17 Principal diagnosis: ARF Interval history: Patient seen sitting up in bed. Mother at bedside. Reviewed renal plan of care. Objective - Vital Signs Vital signs: Vital Signs - 12hr 10/31/17 11/01/17 11/01/17 23:32 00:32 05:23 Temperature 98.3 F 98.1 F Pulse Rate 89 85 Respiratory 20 20 Rate Blood Pressure 129/59 110/46 O2 Sat by Pulse 100 100 93 Oximetry 11/01/17 11/01/17 07:43 11:18 Temperature 98.3 F 97.9 F Pulse Rate 84 91 H Respiratory 18 18 Rate Blood Pressure 106/43 127/41 O2 Sat by Pulse 100 98 Oximetry - General Appearance General appearance: well-developed, appears stated age, fatigue EENT: ATNC, PERRL, hearing intact, vision intact Neck: no JVD, supple Respiratory: Present: Clear to Ascultation Cardiology: regular, S1S2 Gastrointestinal: normoactive bowel sounds Integumentary: warm and dry Neurologic: alert and oriented x3 Musculoskeletal: other (No edema ) Psychiatric: cooperative - Lab 11/01/17 06:22 11/01/17 06:22 Most recent lab results Calcium 6.8 mg/dL (8.4-10.2) L 11/01/17 06:22 Phosphorus 3.00 mg/dL (2.5-4.5) 11/01/17 06:22 Magnesium 1.80 mg/dL (1.7-2.3) 11/01/17 06:22
[2017-11-01] MEDS: LEVAQUIN 250MG/50ML 250 MG/50 ML BAG IV SCH (12:54)
[2017-11-01] MEDS: LOVENOX SUB-Q SCH (12:54)
[2017-11-01] MEDS: SODIUM CHLORIDE FLUSH SYRINGE 10 ML IV SCH ×2 (12:55→21:50)
[2017-11-01] MEDS ORDERED: KLOR-CON PO SCH (14:00)
[2017-11-01] MEDS ORDERED: SODIUM BICARBONATE 150 MEQ in D5W 1,000 ML IV SCH (14:00)
[2017-11-01] MEDS ORDERED: K-DUR PO SCH (14:00)
[2017-11-01] MEDS ORDERED: CALCIUM GLUCONATE 1,000 MG in NACL 0.9% 100 ML IV ONE (14:00)
[2017-11-01] MEDS: KLOR-CON PO SCH ×2 (15:40→21:49)
[2017-11-01 18:19] LABS: Calcium 7.1 mg/dL (8.4-10.2)
[2017-11-01] MEDS: ZOFRAN IV PRN (21:53)
--- NOTE | 2017-11-01 22:32 | Event Note ---
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
[2017-11-02 01:11] LABS: Calcium 7.5 mg/dL (8.4-10.2)
--- NOTE | 2017-11-02 06:01 | Consultation ---
REFERRING PHYSICIAN: Dr. Her. REASON FOR CONSULTATION: Lung cancer. HISTORY OF PRESENT ILLNESS: I saw the patient, a 62-year-old female in the medical floor. The patient is known to our practice. She had seen Dr. DOLAN for EGFR mutation positive, exon 21, lung cancer stage IV with bone mets, adenocarcinoma. The patient was diagnosed with nonsmall cell right lung adenocarcinoma in June 2017. She has been started on Gilotrif for the last 3 months. For the bone mets, she was also being placed on Zometa. She had renal impairment in the recent past and then prior to the subsequent Zometa on 10/18/2017, the creatinine was 1.36 and she came to the hospital. The patient also has diabetes, COPD. The patient came to the hospital because of nausea, vomiting, diarrhea for a few days. She was unable to tolerate oral intake and when she was going to the bathroom, she passed out for less than a minute with generalized weakness and she was brought to the hospital. At this time, no headache, no visual problems. Had loss of consciousness. Had history of vomiting, diarrhea. No chest pain, no abdominal pain, no hematemesis, no hematochezia, no hematuria. No cough, no shortness of breath. PAST MEDICAL HISTORY: As above. SURGICAL HISTORY: Tubal ligation. SOCIAL HISTORY: No history of tobacco or alcohol usage. FAMILY HISTORY: Hypertension. ALLERGIES: CODEINE AND PENICILLIN. MEDICATIONS: I reviewed the present medications and home medications. Home medications include Gilotrif. PHYSICAL EXAMINATION: VITAL SIGNS: Temperature 97.6, pulse 91, respirations 20, BP 114/35. HEENT: Mild pallor, no icterus. LYMPH NODES: No neck lymph nodes. HEART: S1, S2. LUNGS: Clear to auscultation anteriorly in the apical part. ABDOMEN: Soft. EXTREMITIES: No calf tenderness. NEUROLOGIC: Alert, awake, answers questions appropriately. Moves all 4 extremities. LABORATORY DATA: White cell 5.6, hemoglobin 9.2, MCV 85, platelet 225. Potassium 2.2, creatinine 7.8, calcium 7.1. RADIOLOGY: Head CT was done, no acute stroke or hemorrhage. Chest x-ray was done, left lung base marking. Renal ultrasound was done, medical renal disease. ASSESSMENT AND PLAN: 1. Stage IV non-small cell lung cancer, adenocarcinoma, EGFR positive. The patient on Gilotrif. 2. The patient had nausea, vomiting, and diarrhea, may be secondary to the medication. 3. History of renal impairment. Zometa may have a role. We will discontinue the same and look into Xgeva. 4. Diabetes. 5. Chronic obstructive pulmonary disease. 6. Electrolyte imbalance. 7. History of syncope. 8. Mild anemia. I will follow the patient during inpatient stay and then in the clinic setting. JOB# [id number] REGAN/SAIMA BAILEY
[2017-11-02 06:18] LABS: Calcium 7.9 mg/dL (8.4-10.2)
[2017-11-02] MEDS: FLAGYL 500 MG/100 ML 500 MG/100 ML BAG IV SCH ×3 (06:27→21:00)
[2017-11-02] MEDS ORDERED: POTASSIUM CHLORIDE FEEDTUBE NR (08:30)
[2017-11-02] MEDS: SODIUM CHLORIDE FLUSH SYRINGE 10 ML IV SCH ×2 (09:36→21:00)
[2017-11-02] MEDS: LOVENOX SUB-Q SCH (09:36)
[2017-11-02] MEDS: KLOR-CON PO SCH ×3 (09:38→20:59)
[2017-11-02] MEDS: KCL 10MEQ/100ML 10 MEQ/100 ML BAG IV SCH ×4 (11:17→14:47)
[2017-11-02 11:33] LABS: Bacteria,Urine 2+ /HPF (Negative); Bilirubin,Urine NEG (Negative); Blood,Urine LG (Negative); Color,Urine Amber (Yellow); Mucus,Urine FEW /HPF; Urobilinogen,Urine < 2.0 mg/dL (<2.0)
[2017-11-02 11:35] LABS: WBC,Urine > 182.0 /HPF (0.0-6.0)
--- NOTE | 2017-11-02 12:13 | Progress Note ---
Assessment and Plan Acute Renal Failure likely Prerenal secondary to Volume Depletion due to N/V/D vs Ischemic ATN: -cont to have severe renal failure, oliguric but cont to have severe diarrhea -no indication for collar closer lockstitch today but likely will need soon, discussed this with patient, she is agreeable if needed - will switch bicarb gtt to NS with KCl 04 meq @ 100 cc/h, will check CXR to assess change in volume status -Renal ultrasound revealed- Medical renal disease noted -Avoid Nephrotoxic agents -Monitor I/O's- oley catheter to be placed for accurate I/O's measurement -Obtain daily weights -Will monitor renal function closely Metabolic Acidosis: -improved with bicarb gtt - will need to stop for worsening hypokalemia - will increase potassium bicarb to TID Hypokalemia: -increase Potassium Bicarbonate 25 meq po to TID - start NS with KCl 40 meq as above -Check BMP every 8 hours -Mag level daily Hypocalcemia: -BMP every 8 hours Nausea/Vomiting/Diarrhea: -Likely secondary to Chemotherapy -On Flagyl and Levaquin empirically -On IV hydration -On Zofran prn -As per primary team -Syncope: -Head Ct- No acute stroke or hemorrhage -As per primary Metastatic Lung cancer: -On oral and IV chemotherapy outpatiently Subjective Date of service: 11/02/17 Principal diagnosis: ARF Interval history: cont to feel weak with severe diarrhea Objective - Vital Signs Vital signs: Vital Signs - 12hr 11/02/17 11/02/17 11/02/17 04:40 07:31 08:36 Temperature 97.7 F 97.8 F Pulse Rate 94 H 99 H Respiratory 20 18 16 Rate Blood Pressure 118/58 114/77 O2 Sat by Pulse 100 99 Oximetry 11/02/17 11:19 Temperature Pulse Rate Respiratory Rate Blood Pressure O2 Sat by Pulse 96 Oximetry - General Appearance General appearance: well-developed, well-nourished EENT: ATNC, PERRL, mucous membranes moist Neck: no JVD, no carotid bruit Respiratory: Present: Clear to Ascultation. Absent: Rales, Ronchi Cardiology: regular, S1S2 Gastrointestinal: normoactive bowel sounds, no tenderness, no distended Integumentary: no rash, warm and dry Neurologic: no focal deficit, no asterixis, alert and oriented x3 Musculoskeletal: other (no edema in BLE) Psychiatric: mood/affect appropriate, cooperative - Lab 11/01/17 06:22 11/02/17 05:23 Most recent lab results Calcium 7.9 mg/dL (8.4-10.2) L 11/02/17 05:23 Phosphorus 3.00 mg/dL (2.5-4.5) 11/01/17 06:22 Magnesium 1.80 mg/dL (1.7-2.3) 11/01/17 06:22
--- NOTE | 2017-11-02 12:30 | XRay Report ---
AP CHEST: HISTORY: Short of breath Normal heart and mediastinal structures. The lungs are mildly hyperinflated but clear. No evidence for pneumonia, pleural effusion or pneumothorax. Slightly prominent markings at the right lung base are stable and probably represent chronic interstitial changes in IMPRESSION: Hyperinflated lungs suggesting underlying emphysema. No acute change since 10/31/17.
[2017-11-02] MEDS: NS/KCL 40MEQ 40 MEQ/1,000 ML BAG IV SCH (12:38)
--- NOTE | 2017-11-02 15:00 | Hem/Onc Progress Note ---
Assessment and Plan 1. Stage IV non-small cell lung cancer, adenocarcinoma, EGFR positive. The patient on Gilotrif. 2. The patient had nausea, vomiting, and diarrhea, may be secondary to the medication. 3. History of renal impairment. Zometa/ diarrhea may have a role. We will discontinue zometa and look into Xgeva. 4. Diabetes. 5. Chronic obstructive pulmonary disease. 6. Electrolyte imbalance. 7. History of syncope. 8. Mild anemia. - Patient Problems (1) Lung cancer metastatic to bone Current Visit: No Status: Chronic Subjective Date of service: 11/02/17 Principal diagnosis: no chest pain, no SOB Interval history: pt's meeting planner still high - there is a discussion reg HD pt did not bring her tab girotif from home Objective - Constitutional Vitals: Last Vital Signs Temp 97.8 F 11/02/17 07:31 Pulse 94 H 11/02/17 12:29 Resp 20 11/02/17 12:28 BP 100/34 11/02/17 12:28 Pulse Ox 100 11/02/17 12:29 Pain Intensity (0-10): denies any pain General appearance: no acute distress Performance status: 3-limited selfcare - EENT Eyes: EOM intact ENT: clear oral mucosa Lymph node exam: negative cervical - Neck Neck: supple - Respiratory Respiratory effort: Positive: normal Respiratory: bilateral: CTA - Cardiovascular Heart Sounds: Present: S1 & S2 Extremities: No edema - Gastrointestinal General gastrointestinal: Present: soft, non-tender Rectal Exam: deferred - Genitourinary Female genitourinary: Present: deferred - Integumentary Integumentary: warm - Musculoskeletal Musculoskeletal: strength equal bilaterally - Neurologic Neurologic: moves all extremities - Psychiatric Psychiatric: appropriate mood/affect, cooperative - Allied health notes Allied health notes reviewed: nursing - Labs Lab Results: Laboratory Results - last 24 hr 11/01/17 11/01/17 11/02/17 17:16 22:07 00:06 Sodium 144 146 H Potassium 2.2 L* 2.8 L* D Chloride 109.5 H 108.3 H Carbon Dioxide 11 L 11 L Anion Gap 26 30 BUN 58 H 59 H Creatinine 7.8 H 7.9 H Estimated GFR 5 5 BUN/Creatinine Ratio 7 7 Glucose 160 H 180 H POC Glucose 163 H Calcium 7.1 L 7.5 L Urine Color Urine Turbidity Urine pH Ur Specific [place] Urine Protein Urine Glucose (UA) Urine Ketones Urine Blood Urine Nitrite Urine Bilirubin Urine Urobilinogen Ur Leukocyte Esterase Urine WBC (Auto) Urine RBC (Auto) Urine Bacteria (Auto) Urine WBC Clumps Urine Mucus Urine Yeast (Budding) 11/02/17 11/02/17 11/02/17 05:23 06:59 11:18 Sodium 145 Potassium 2.1 L* D Chloride 105.4 Carbon Dioxide 18 L D Anion Gap 24 BUN 57 H Creatinine 7.9 H Estimated GFR 5 BUN/Creatinine Ratio 7 Glucose 217 H POC Glucose 184 H Calcium 7.9 L Urine Color [place] Urine Turbidity Cloudy Urine pH 5.0 Ur Specific [place] 1.015 Urine Protein 100 mg/dl Urine Glucose (UA) Neg Urine Ketones Neg Urine Blood Lg Urine Nitrite Neg Urine Bilirubin Neg Urine Urobilinogen < 2.0 Ur Leukocyte Esterase Lg Urine WBC (Auto) > 182.0 H Urine RBC (Auto) 146.0 Urine Bacteria (Auto) 2+ Urine WBC Clumps 3+ Urine Mucus Few Urine Yeast (Budding) Not Reportable 11/02/17 12:28 Sodium Potassium Chloride Carbon Dioxide Anion Gap BUN Creatinine Estimated GFR BUN/Creatinine Ratio Glucose POC Glucose 213 H Calcium Urine Color Urine Turbidity Urine pH Ur Specific [place] Urine Protein Urine Glucose (UA) Urine Ketones Urine Blood Urine Nitrite Urine Bilirubin Urine Urobilinogen Ur Leukocyte Esterase Urine WBC (Auto) Urine RBC (Auto) Urine Bacteria (Auto) Urine WBC Clumps Urine Mucus Urine Yeast (Budding)
[2017-11-02 15:02] LABS: Calcium 7.9 mg/dL (8.4-10.2)
--- NOTE | 2017-11-02 18:57 | Progress Note ---
Assessment and Plan Assessment and plan: 62-year-old white male with a history of metastatic lung cancer, diabetes, COPD , emergency room with complaints of nausea vomiting and diarrhea 5 days. She is unable to tolerate oral intake, as at least 10 episodes of diarrhea today, nonbloody. Patient states she was going to the bathroom today, sustaining a fall and passed out for less than 1 minute, complaining of generalized weakness Acute renal failure Syncope secondary to dehydration Sepsis Gastroenteritis, probably viral- WITH Associated Diarrhea Recurrent fall with prior fracture Diabetes COPD Metastatic lung cancer Plan. Supportive care REPLACE ELECTROLYTES continue on D5W with bicarb drip and KCL xray right hip shows metatstatic disease and no acute fracture PT/TO EVAL start imodium ?need for temporarly dialysis CHECK STOOL FOR C-DIFF-SENT AND PENDING IV fluid, obtain ultrasound of the kidneys, consult renal Check CT head, cardiac enzymes Oncology consult Start empiric Flagyl, Levaquin, follow cultures Check fingersticks, DVT prophylaxis History Interval history: Patient seen and examined, continues to report diarrhea but improving and decreased frequency, denies any further dizziness Hospitalist Physical - Physical exam Narrative exam: Gen. appearance: Patient lying in bed, Lethargic, PALE Appearing HEENT: Normocephalic, atraumatic, pupils equally round and reactive to light, extraocular movement intact, and no sclericterus,. No JVD or thyromegaly or nodule,neck supple, no carotid bruit ,mucous membranesdry no exudate or erythema Heart: S1, S2, regular rate and rhythm Lungs: Clear bilaterally, breathing comfortable Abdomen: Positive bowel sounds, non-tender, nondistended, no organomegaly Extremity:no edema cyanosis, clubbing Skin: no rash, dry, warm Neuro: Oriented 3, cranial nerves II-12 intact, speech is fluent, motor and sensory intac - Constitutional Vitals: Temp Pulse Resp BP Pulse Ox 97.6 F 101 H 20 116/31 100 11/02/17 15:54 11/02/17 15:54 11/02/17 15:54 11/02/17 15:54 11/02/17 15:54 Results - Labs CBC & Chem 7: 11/03/17 04:54 11/03/17 04:54 Labs: Laboratory Last Values WBC 5.6 K/mm3 (4.5-11.0) 11/01/17 06:22 RBC 3.14 M/mm3 (3.65-5.03) L 11/01/17 06:22 Hgb 9.2 gm/dl (10.1-14.3) L 11/01/17 06:22 Hct 26.6 % (30.3-42.9) L D 11/01/17 06:22 MCV 85 fl (79-97) 11/01/17 06:22 MCH 29 pg (28-32) 11/01/17 06:22 MCHC 34 % (30-34) 11/01/17 06:22 RDW 17.0 % (13.2-15.2) H 11/01/17 06:22 Plt Count 225 K/mm3 (140-440) 11/01/17 06:22 Lymph % (Auto) 15.1 % (13.4-35.0) 11/01/17 06:22 [place] % (Auto) 9.1 % (0.0-7.3) H 11/01/17 06:22 Eos % (Auto) 0.4 % (0.0-4.3) 11/01/17 06:22 Baso % (Auto) 0.4 % (0.0-1.8) 11/01/17 06:22 Lymph # 0.8 K/mm3 (1.2-5.4) L 11/01/17 06:22 [place] # 0.5 K/mm3 (0.0-0.8) 11/01/17 06:22 Eos # 0.0 K/mm3 (0.0-0.4) 11/01/17 06:22 Baso # 0.0 K/mm3 (0.0-0.1) 11/01/17 06:22 Seg Neutrophils % 75.0 % (40.0-70.0) H 11/01/17 06:22 Seg Neutrophils # 4.2 K/mm3 (1.8-7.7) 11/01/17 06:22 Sodium 142 mmol/L (137-145) 11/02/17 14:00 Potassium 2.5 mmol/L (3.6-5.0) L* 11/02/17 14:00 Chloride 103.5 mmol/L (98-107) 11/02/17 14:00 Carbon Dioxide 16 mmol/L (22-30) L 11/02/17 14:00 Anion Gap 25 mmol/L 11/02/17 14:00 BUN 58 mg/dL (7-17) H 11/02/17 14:00 Creatinine 7.7 mg/dL (0.7-1.2) H 11/02/17 14:00 Estimated GFR 5 ml/min 11/02/17 14:00 BUN/Creatinine Ratio 8 % 11/02/17 14:00 Glucose 211 mg/dL (65-100) H 11/02/17 14:00 POC Glucose 225 (70-105) H 11/02/17 15:57 Lactic Acid 1.60 mmol/L (0.7-2.0) 10/31/17 04:43 Calcium 7.9 mg/dL (8.4-10.2) L 11/02/17 14:00 Phosphorus 3.00 mg/dL (2.5-4.5) 11/01/17 06:22 Magnesium 1.80 mg/dL (1.7-2.3) 11/01/17 06:22 Total Bilirubin 0.40 mg/dL (0.1-1.2) 11/01/17 06:22 Direct Bilirubin 0.2 mg/dL (0-0.2) 10/31/17 09:47 Indirect Bilirubin 0.3 mg/dL 10/31/17 09:47 AST 19 units/L (5-40) 11/01/17 06:22 ALT 36 units/L (7-56) 11/01/17 06:22 Alkaline Phosphatase 144 units/L (35-129) H 11/01/17 06:22 Total Creatine Kinase 93 units/L (30-135) 10/31/17 09:47 CK-MB (CK-2) 2.5 ng/mL (0.0-4.0) 10/31/17 09:47 CK-MB (CK-2) Rel Index 2.6 (0-4) 10/31/17 09:47 Troponin T 0.022 ng/mL (0.00-0.029) 10/31/17 09:47 Total Protein 5.6 g/dL (6.3-8.2) L 11/01/17 06:22 Albumin 3.3 g/dL (3.9-5) L 11/01/17 06:22 Albumin/Globulin Ratio 1.4 % 11/01/17 06:22 Urine Color [place] (Yellow) 11/02/17 11:18 Urine Turbidity Cloudy (Clear) 11/02/17 11:18 Urine pH 5.0 (5.0-7.0) 11/02/17 11:18 Ur Specific [place] 1.015 (1.003-1.030) 11/02/17 11:18 Urine Protein 100 mg/dl mg/dL (Negative) 11/02/17 11:18 Urine Glucose (UA) Neg mg/dL (Negative) 11/02/17 11:18 Urine Ketones Neg mg/dL (Negative) 11/02/17 11:18 Urine Blood Lg (Negative) 11/02/17 11:18 Urine Nitrite Neg (Negative) 11/02/17 11:18 Urine Bilirubin Neg (Negative) 11/02/17 11:18 Urine Urobilinogen < 2.0 mg/dL (<2.0) 11/02/17 11:18 Ur Leukocyte Esterase Lg (Negative) 11/02/17 11:18 Urine WBC (Auto) > 182.0 /HPF (0.0-6.0) H 11/02/17 11:18 Urine RBC (Auto) 146.0 /HPF (0.0-6.0) 11/02/17 11:18 Urine Bacteria (Auto) 2+ /HPF (Negative) 11/02/17 11:18 Urine WBC Clumps 3+ /HPF 11/02/17 11:18 Urine Mucus Few /HPF 11/02/17 11:18 Urine Yeast (Budding) Not Reportable 11/02/17 11:18 C. difficile Toxin A&B Negative (Negative) 10/31/17 10:15
[2017-11-02] MEDS: IMODIUM PO PRN (22:24)
[2017-11-02] MEDS: ZOFRAN IV PRN (22:24)
[2017-11-02] MEDS ORDERED: K-DUR PO ONE (23:05)
[2017-11-02] MEDS: REGLAN IV PRN (23:33)
[2017-11-03] MEDS: IMODIUM PO PRN ×4 (01:10→21:55)
[2017-11-03] MEDS: FLAGYL 500 MG/100 ML 500 MG/100 ML BAG IV SCH ×3 (05:07→21:46)
[2017-11-03] MEDS: ZOFRAN IV PRN ×2 (05:07→10:06)
[2017-11-03] MEDS: NS/KCL 40MEQ 40 MEQ/1,000 ML BAG IV SCH ×2 (05:08→13:07)
[2017-11-03 06:33] LABS: Hemoglobin 11.5 gm/dl (10.1-14.3); Mean Corpuscular HGB Conc 35 % (30-34); Mean Corpuscular Hemoglobin 29 pg (28-32); Mean Corpuscular Volume 84 fl (79-97); Platelet Count 286 K/mm3 (140-440); Red Blood Count 3.95 M/mm3 (3.65-5.03); Red Cell Distribution Width 17.4 % (13.2-15.2)
[2017-11-03 07:00] LABS: Calcium 7.7 mg/dL (8.4-10.2)
--- NOTE | 2017-11-03 07:22 | Hem/Onc Progress Note ---
Assessment and Plan 1. Stage IV non-small cell lung cancer, adenocarcinoma, EGFR positive. The patient on Gilotrif. bone mets 2. The patient had nausea, vomiting, and diarrhea, may be secondary to the medication. 3. History of renal impairment. Zometa/ diarrhea may have a role. We will discontinue zometa and look into Xgeva. 4. Diabetes. 5. Chronic obstructive pulmonary disease. 6. Electrolyte imbalance. 7. History of syncope. 8. Mild anemia. Dr Cespedes will cover me next week - pt will be seen in clinic by dr DOLAN after D/c scrap burner elevated - nephrology following - ? HD eval as per pt - Patient Problems (1) Lung cancer metastatic to bone Current Visit: No Status: Chronic Subjective Date of service: 11/03/17 Principal diagnosis: NSCLC stage IV with bone mets Interval history: pt's scrap burner still high - there is a discussion reg HD pt did not bring her tab girotif from home Objective - Constitutional Vitals: Last Vital Signs Temp 97.3 F L 11/03/17 00:00 Pulse 92 H 11/03/17 01:28 Resp 18 11/03/17 00:00 BP 111/44 11/03/17 00:00 Pulse Ox 98 11/03/17 00:00 Pain Intensity (0-10): denies any pain General appearance: no acute distress Performance status: 3-limited selfcare - EENT Eyes: PERRL ENT: clear oral mucosa Lymph node exam: negative cervical, negative supraclavicular - Neck Neck: supple - Respiratory Respiratory effort: Positive: normal Respiratory: bilateral: CTA - Cardiovascular Heart Sounds: Present: S1 & S2 Extremities: No edema - Gastrointestinal General gastrointestinal: Present: soft, non-tender Rectal Exam: deferred - Genitourinary Female genitourinary: Present: deferred - Integumentary Integumentary: warm - Musculoskeletal Musculoskeletal: strength equal bilaterally - Neurologic Neurologic: moves all extremities - Psychiatric Psychiatric: appropriate mood/affect, cooperative - Labs Lab Results: Laboratory Results - last 24 hr 11/02/17 11/02/17 11/02/17 11:18 12:28 14:00 WBC RBC Hgb Hct MCV MCH MCHC RDW Plt Count Sodium 142 Potassium 2.5 L* Chloride 103.5 Carbon Dioxide 16 L Anion Gap 25 BUN 58 H Creatinine 7.7 H Estimated GFR 5 BUN/Creatinine Ratio 8 Glucose 211 H POC Glucose 213 H Calcium 7.9 L Urine Color [place] Urine Turbidity Cloudy Urine pH 5.0 Ur Specific [place] 1.015 Urine Protein 100 mg/dl Urine Glucose (UA) Neg Urine Ketones Neg Urine Blood Lg Urine Nitrite Neg Urine Bilirubin Neg Urine Urobilinogen < 2.0 Ur Leukocyte Esterase Lg Urine WBC (Auto) > 182.0 H Urine RBC (Auto) 146.0 Urine Bacteria (Auto) 2+ Urine WBC Clumps 3+ Urine Mucus Few Urine Yeast (Budding) Not Reportable 11/02/17 11/02/17 11/02/17 15:57 20:52 21:37 WBC RBC Hgb Hct MCV MCH MCHC RDW Plt Count Sodium 145 Potassium 2.8 L* Chloride 102.9 Carbon Dioxide 21 L Anion Gap 24 BUN 57 H Creatinine 8.3 H Estimated GFR 5 BUN/Creatinine Ratio 7 Glucose 216 H POC Glucose 225 H 218 H Calcium 8.0 L Urine Color Urine Turbidity Urine pH Ur Specific [place] Urine Protein Urine Glucose (UA) Urine Ketones Urine Blood Urine Nitrite Urine Bilirubin Urine Urobilinogen Ur Leukocyte Esterase Urine WBC (Auto) Urine RBC (Auto) Urine Bacteria (Auto) Urine WBC Clumps Urine Mucus Urine Yeast (Budding) 11/03/17 11/03/17 11/03/17 04:54 04:54 05:53 WBC 9.8 RBC 3.95 Hgb 11.5 Hct 33.0 D MCV 84 MCH 29 MCHC 35 H RDW 17.4 H Plt Count 286 Sodium 148 H Potassium Chloride 107.5 H Carbon Dioxide 19 L Anion Gap 24 BUN 55 H Creatinine 8.3 H Estimated GFR 5 BUN/Creatinine Ratio 7 Glucose 154 H POC Glucose 169 H Calcium 7.7 L Urine Color Urine Turbidity Urine pH Ur Specific [place] Urine Protein Urine Glucose (UA) Urine Ketones Urine Blood Urine Nitrite Urine Bilirubin Urine Urobilinogen Ur Leukocyte Esterase Urine WBC (Auto) Urine RBC (Auto) Urine Bacteria (Auto) Urine WBC Clumps Urine Mucus Urine Yeast (Budding)
[2017-11-03] MEDS: LEVAQUIN 250MG/50ML 250 MG/50 ML BAG IV SCH (13:07)
[2017-11-03] MEDS: KLOR-CON PO SCH ×3 (13:08→21:46)
[2017-11-03] MEDS: LOVENOX SUB-Q SCH (13:08)
--- NOTE | 2017-11-03 13:29 | Progress Note ---
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, no signs of volume overload (CXR is negative for pulm congestion and cont to have severe diarrhea) and no uremia or severe electrolytes abnormality, but likely to need soon of improvement - will increase NS with KCl 04 meq to 125 cc/h -Avoid Nephrotoxic agents -Monitor I/O's- oley catheter to be placed for accurate I/O's measurement -Obtain daily weights -Will monitor renal function closely Metabolic Acidosis: - cont potassium bicarb to TID Hypokalemia: - cont Potassium Bicarbonate 25 meq po to TID - cont NS with KCl 40 meq as above - extra KCl 40 meq IV today -Mag level daily Nausea/Vomiting/Diarrhea: -Likely secondary to Chemotherapy -On Flagyl and Levaquin empirically -On IV hydration -On Zofran prn -As per primary team -Syncope: -Head Ct- No acute stroke or hemorrhage -As per primary Metastatic Lung cancer: -On oral and IV chemotherapy outpatiently Subjective Date of service: 11/03/17 Principal diagnosis: NSCLC stage IV with bone mets Interval history: cont to have severe diarrhea Objective - Vital Signs Vital signs: Vital Signs - 12hr 11/03/17 11/03/17 11/03/17 01:28 04:42 08:18 Temperature 97.6 F 98.3 F Pulse Rate 92 H 88 97 H Respiratory 16 18 Rate Blood Pressure 105/59 112/44 O2 Sat by Pulse 100 100 Oximetry 11/03/17 11/03/17 11:59 12:01 Temperature 97.9 F Pulse Rate 93 H 95 H Respiratory 18 Rate Blood Pressure 114/29 107/48 O2 Sat by Pulse 99 100 Oximetry - General Appearance General appearance: well-developed, well-nourished EENT: ATNC, PERRL, mucous membranes moist Neck: no JVD, no carotid bruit Respiratory: Present: Clear to Ascultation, Decreased Breath Sounds Cardiology: regular, S1S2 Gastrointestinal: normoactive bowel sounds Integumentary: no rash, warm and dry Neurologic: no focal deficit, no asterixis, alert and oriented x3 Musculoskeletal: other (no edema in BLE) Psychiatric: cooperative - Lab 11/03/17 04:54 11/03/17 04:54 Most recent lab results Calcium 7.7 mg/dL (8.4-10.2) L 11/03/17 04:54 Phosphorus 3.00 mg/dL (2.5-4.5) 11/01/17 06:22 Magnesium 1.80 mg/dL (1.7-2.3) 11/01/17 06:22
[2017-11-03] MEDS ORDERED: NACL 0.9% IV ONE (13:45)
[2017-11-03] MEDS ORDERED: KCL IV ONE (13:45)
[2017-11-03 16:43] LABS: Calcium 7.6 mg/dL (8.4-10.2)
[2017-11-03] MEDS: SODIUM CHLORIDE FLUSH SYRINGE 10 ML IV SCH ×2 (16:58→21:47)
--- NOTE | 2017-11-03 18:07 | Progress Note ---
Assessment and Plan Assessment and plan: 62-year-old white male with a history of metastatic lung cancer, diabetes, COPD , emergency room with complaints of nausea vomiting and diarrhea 5 days. She is unable to tolerate oral intake, as at least 10 episodes of diarrhea today, nonbloody. Patient states she was going to the bathroom today, sustaining a fall and passed out for less than 1 minute, complaining of generalized weakness Acute renal failure Syncope secondary to dehydration Sepsis Gastroenteritis, probably viral- WITH Associated Diarrhea Recurrent fall with prior fracture Diabetes COPD Metastatic lung cancer Plan. Supportive care REPLACE ELECTROLYTES continue on D5W with bicarb drip and KCL xray right hip shows metatstatic disease and no acute fracture Continue brown due to need for accurate I/O PT/TO EVAL continue imodium ?need for temporally dialysis CHECK STOOL FOR C-DIFF-SENT AND PENDING IV fluid, obtain ultrasound of the kidneys, consult renal Check CT head, cardiac enzymes Oncology consult Start empiric Flagyl, Levaquin, follow cultures Check fingersticks, DVT prophylaxis History Interval history: Patient seen and examined, continues to report diarrhea but improving and decreased frequency, denies any further dizziness. Discussed with Nephrology needs brown in place for accurate I/O Hospitalist Physical - Physical exam Narrative exam: Gen. appearance: Patient lying in bed, Lethargic, PALE Appearing HEENT: Normocephalic, atraumatic, pupils equally round and reactive to light, extraocular movement intact, and no sclericterus,. No JVD or thyromegaly or nodule,neck supple, no carotid bruit ,mucous membranesdry no exudate or erythema Heart: S1, S2, regular rate and rhythm Lungs: Clear bilaterally, breathing comfortable Abdomen: Positive bowel sounds, non-tender, nondistended, no organomegaly Extremity:no edema cyanosis, clubbing Skin: no rash, dry, warm Neuro: Oriented 3, cranial nerves II-12 intact, speech is fluent, motor and sensory intac - Constitutional Vitals: Temp Pulse Resp BP Pulse Ox 98.0 F 108 H 18 106/51 96 11/03/17 17:00 11/03/17 17:00 11/03/17 17:00 11/03/17 17:00 11/03/17 17:00 Results - Labs CBC & Chem 7: 11/03/17 04:54 11/03/17 15:53 Labs: Laboratory Last Values WBC 9.8 K/mm3 (4.5-11.0) 11/03/17 04:54 RBC 3.95 M/mm3 (3.65-5.03) 11/03/17 04:54 Hgb 11.5 gm/dl (10.1-14.3) 11/03/17 04:54 Hct 33.0 % (30.3-42.9) D 11/03/17 04:54 MCV 84 fl (79-97) 11/03/17 04:54 MCH 29 pg (28-32) 11/03/17 04:54 MCHC 35 % (30-34) H 11/03/17 04:54 RDW 17.4 % (13.2-15.2) H 11/03/17 04:54 Plt Count 286 K/mm3 (140-440) 11/03/17 04:54 Lymph % (Auto) 15.1 % (13.4-35.0) 11/01/17 06:22 [place] % (Auto) 9.1 % (0.0-7.3) H 11/01/17 06:22 Eos % (Auto) 0.4 % (0.0-4.3) 11/01/17 06:22 Baso % (Auto) 0.4 % (0.0-1.8) 11/01/17 06:22 Lymph # 0.8 K/mm3 (1.2-5.4) L 11/01/17 06:22 [place] # 0.5 K/mm3 (0.0-0.8) 11/01/17 06:22 Eos # 0.0 K/mm3 (0.0-0.4) 11/01/17 06:22 Baso # 0.0 K/mm3 (0.0-0.1) 11/01/17 06:22 Seg Neutrophils % 75.0 % (40.0-70.0) H 11/01/17 06:22 Seg Neutrophils # 4.2 K/mm3 (1.8-7.7) 11/01/17 06:22 Sodium 145 mmol/L (137-145) 11/03/17 15:53 Potassium 3.5 mmol/L (3.6-5.0) L D 11/03/17 15:53 Chloride 108.6 mmol/L (98-107) H 11/03/17 15:53 Carbon Dioxide 17 mmol/L (22-30) L 11/03/17 15:53 Anion Gap 23 mmol/L 11/03/17 15:53 BUN 55 mg/dL (7-17) H 11/03/17 15:53 Creatinine 8.0 mg/dL (0.7-1.2) H 11/03/17 15:53 Estimated GFR 5 ml/min 11/03/17 15:53 BUN/Creatinine Ratio 7 % 11/03/17 15:53 Glucose 241 mg/dL (65-100) H 11/03/17 15:53 POC Glucose 191 (70-105) H 11/03/17 16:59 Lactic Acid 1.60 mmol/L (0.7-2.0) 10/31/17 04:43 Calcium 7.6 mg/dL (8.4-10.2) L 11/03/17 15:53 Phosphorus 3.00 mg/dL (2.5-4.5) 11/01/17 06:22 Magnesium 1.80 mg/dL (1.7-2.3) 11/01/17 06:22 Total Bilirubin 0.40 mg/dL (0.1-1.2) 11/01/17 06:22 Direct Bilirubin 0.2 mg/dL (0-0.2) 10/31/17 09:47 Indirect Bilirubin 0.3 mg/dL 10/31/17 09:47 AST 19 units/L (5-40) 11/01/17 06:22 ALT 36 units/L (7-56) 11/01/17 06:22 Alkaline Phosphatase 144 units/L (35-129) H 11/01/17 06:22 Total Creatine Kinase 93 units/L (30-135) 10/31/17 09:47 CK-MB (CK-2) 2.5 ng/mL (0.0-4.0) 10/31/17 09:47 CK-MB (CK-2) Rel Index 2.6 (0-4) 10/31/17 09:47 Troponin T 0.022 ng/mL (0.00-0.029) 10/31/17 09:47 Total Protein 5.6 g/dL (6.3-8.2) L 11/01/17 06:22 Albumin 3.3 g/dL (3.9-5) L 11/01/17 06:22 Albumin/Globulin Ratio 1.4 % 11/01/17 06:22 Urine Color [place] (Yellow) 11/02/17 11:18 Urine Turbidity Cloudy (Clear) 11/02/17 11:18 Urine pH 5.0 (5.0-7.0) 11/02/17 11:18 Ur Specific [place] 1.015 (1.003-1.030) 11/02/17 11:18 Urine Protein 100 mg/dl mg/dL (Negative) 11/02/17 11:18 Urine Glucose (UA) Neg mg/dL (Negative) 11/02/17 11:18 Urine Ketones Neg mg/dL (Negative) 11/02/17 11:18 Urine Blood Lg (Negative) 11/02/17 11:18 Urine Nitrite Neg (Negative) 11/02/17 11:18 Urine Bilirubin Neg (Negative) 11/02/17 11:18 Urine Urobilinogen < 2.0 mg/dL (<2.0) 11/02/17 11:18 Ur Leukocyte Esterase Lg (Negative) 11/02/17 11:18 Urine WBC (Auto) > 182.0 /HPF (0.0-6.0) H 11/02/17 11:18 Urine RBC (Auto) 146.0 /HPF (0.0-6.0) 11/02/17 11:18 Urine Bacteria (Auto) 2+ /HPF (Negative) 11/02/17 11:18 Urine WBC Clumps 3+ /HPF 11/02/17 11:18 Urine Mucus Few /HPF 11/02/17 11:18 Urine Yeast (Budding) Not Reportable 11/02/17 11:18 Urine Creatinine 191.0 mg/dL (0.1-20.0) H 11/02/17 11:18 Urine Sodium 15 mmol/L 11/02/17 11:18 C. difficile Toxin A&B Negative (Negative) 10/31/17 10:15
[2017-11-03] MEDS: KCL 10MEQ/100ML 10 MEQ/100 ML BAG IV SCH ×2 (20:44→20:45)
[2017-11-04] MEDS: NS/KCL 40MEQ 40 MEQ/1,000 ML BAG IV SCH ×2 (00:53→10:53)
[2017-11-04 04:40] LABS: Hematocrit 29.7 % (30.3-42.9); Hemoglobin 10.4 gm/dl (10.1-14.3); Mean Corpuscular HGB Conc 35 % (30-34); Mean Corpuscular Hemoglobin 29 pg (28-32); Mean Corpuscular Volume 84 fl (79-97); Platelet Count 224 K/mm3 (140-440); Red Blood Count 3.54 M/mm3 (3.65-5.03); Red Cell Distribution Width 17.9 % (13.2-15.2)
[2017-11-04 05:12] LABS: Calcium 6.8 mg/dL (8.4-10.2)
[2017-11-04] MEDS: FLAGYL 500 MG/100 ML 500 MG/100 ML BAG IV SCH (05:42)
--- NOTE | 2017-11-04 07:41 | Progress Note ---
Assessment and Plan Acute Renal Failure likely prerenal secondary to volume depletion due to vomiting, diarrhea, possible Ischemic ATN: - Renal function reviewed, SCr level decreased to 7.4 today, yesterday's SCr level was 8.0 - No acute indication for initiation of COLON AND RECTAL SURGEON today, but may require initiation of COLON AND RECTAL SURGEON during this hospitalization if no significant improvement in renal function. Pt states she is agreeable to starting COLON AND RECTAL SURGEON if needed - On 0.9% NS + 40 mEq KCl infusion at 125 ml/hr - Monitor daily electrolytes - Avoid Nephrotoxic agents - Trinh Catheter: Yes - Intake= 2220 ml Output= 1650 ml ( Net= 570 ml) - Renal plan d/w Dr Page Metabolic Acidosis: - On potassium bicarbonate 25 mEq orally TID Hypokalemia: - On potassium bicarbonate 25 meq orally TID - On 0.9% NS with KCl 40 mEq infusion at 125 ml/hr - Magnesium level pending Hypernatremia: -Encouraged free water intake -Monitor labs daily Nausea/Vomiting/Diarrhea: -Suspect secondary to chemotherapy -On flagyl and levaquin -Blood and urine cultures showed NGTD -MRSA of nares was negative -On IV fluids -On imodium -On PRN zofran and reglan -As per primary team -Syncope: -Head CT w/o contrast showed no acute stroke or hemorrhage, localized right mastoiditis -As per primary Metastatic Lung cancer: -On chemotherapy as outpatient Subjective Date of service: 11/04/17 Principal diagnosis: NSCLC stage IV with bone mets Interval history: Pt reports she had approximately 10 episodes of diarrhea yesterday which she states is an improvement from before admission. Pt states her stool was initially very dark (couldn't tell if black or dark green), but states her stool is now torres colored. Pt denies shortness of breath, no acute distress. No family at bedside Objective - Vital Signs Vital signs: Vital Signs - 12hr 11/03/17 11/03/17 11/03/17 20:13 20:31 21:25 Temperature 97.8 F Pulse Rate 63 Respiratory 20 20 Rate Blood Pressure 123/67 [Right] O2 Sat by Pulse 90 97 Oximetry 11/04/17 11/04/17 11/04/17 00:11 00:26 05:09 Temperature 98.2 F 97.6 F Pulse Rate 90 79 100 H Respiratory 18 20 Rate Blood Pressure 115/51 110/62 [Right] O2 Sat by Pulse 100 98 Oximetry - General Appearance General appearance: other (awake, alert, no acute distress) EENT: ATNC Neck: no JVD Respiratory: Present: Clear to Ascultation Cardiology: regular, S1S2 Gastrointestinal: normoactive bowel sounds, no tenderness, other (: Trinh to gravity draining jonathan colored urine) Integumentary: warm and dry Neurologic: alert and oriented x3 Musculoskeletal: other (no edema to both lower extremities) Psychiatric: mood/affect appropriate, cooperative - Lab 11/04/17 04:03 11/04/17 04:03 Most recent lab results Calcium 6.8 mg/dL (8.4-10.2) L 11/04/17 04:03 Phosphorus 3.00 mg/dL (2.5-4.5) 11/01/17 06:22 Magnesium 1.80 mg/dL (1.7-2.3) 11/01/17 06:22 Urine Creatinine 191.0 mg/dL (0.1-20.0) H 11/02/17 11:18 Urine Sodium 15 mmol/L 11/02/17 11:18
[2017-11-04] MEDS: KLOR-CON PO SCH ×3 (10:54→19:28)
[2017-11-04] MEDS: LOVENOX SUB-Q SCH (10:54)
[2017-11-04] MEDS: SODIUM CHLORIDE FLUSH SYRINGE 10 ML IV SCH ×2 (10:55→21:58)
--- NOTE | 2017-11-04 12:00 | Progress Note ---
Assessment and Plan Assessment and plan: 62-year-old white male with a history of metastatic lung cancer, diabetes, COPD , emergency room with complaints of nausea vomiting and diarrhea 5 days. She is unable to tolerate oral intake, as at least 10 episodes of diarrhea today, nonbloody. Patient states she was going to the bathroom today, sustaining a fall and passed out for less than 1 minute, complaining of generalized weakness Acute renal failure Syncope secondary to dehydration Sepsis Gastroenteritis, probably viral- WITH Associated Diarrhea Recurrent fall with prior fracture Diabetes COPD Metastatic lung cancer Plan. Supportive care REPLACE ELECTROLYTES continue on D5W with bicarb drip and KCL xray right hip shows metatstatic disease and no acute fracture Continue brown due to need for accurate I/O PT/TO EVAL continue imodium ?need for temporally dialysis CHECK STOOL FOR C-DIFF-SENT AND PENDING IV fluid, obtain ultrasound of the kidneys, consult renal Check CT head, cardiac enzymes Oncology consult Start empiric Flagyl, Levaquin, follow cultures Check fingersticks, DVT prophylaxis History Interval history: Patient seen and examined, continues to report diarrhea decreasing, denies any further dizziness. Discussed with Nephrology needs brown in place for accurate I /O Hospitalist Physical - Physical exam Narrative exam: Gen. appearance: Patient lying in bed, Lethargic, PALE Appearing HEENT: Normocephalic, atraumatic, pupils equally round and reactive to light, extraocular movement intact, and no sclericterus,. No JVD or thyromegaly or nodule,neck supple, no carotid bruit ,mucous membranesdry no exudate or erythema Heart: S1, S2, regular rate and rhythm Lungs: Clear bilaterally, breathing comfortable Abdomen: Positive bowel sounds, non-tender, nondistended, no organomegaly Extremity:no edema cyanosis, clubbing Skin: no rash, dry, warm Neuro: Oriented 3, cranial nerves II-12 intact, speech is fluent, motor and sensory intac - Constitutional Vitals: Temp Pulse Resp BP Pulse Ox 97.5 F L 90 20 107/54 100 11/04/17 08:00 11/04/17 08:00 11/04/17 08:00 11/04/17 08:00 11/04/17 08:00 Results - Labs CBC & Chem 7: 11/04/17 04:03 11/05/17 07:14 Labs: Laboratory Last Values WBC 8.5 K/mm3 (4.5-11.0) 11/04/17 04:03 RBC 3.54 M/mm3 (3.65-5.03) L 11/04/17 04:03 Hgb 10.4 gm/dl (10.1-14.3) 11/04/17 04:03 Hct 29.7 % (30.3-42.9) L 11/04/17 04:03 MCV 84 fl (79-97) 11/04/17 04:03 MCH 29 pg (28-32) 11/04/17 04:03 MCHC 35 % (30-34) H 11/04/17 04:03 RDW 17.9 % (13.2-15.2) H 11/04/17 04:03 Plt Count 224 K/mm3 (140-440) 11/04/17 04:03 Lymph % (Auto) 15.1 % (13.4-35.0) 11/01/17 06:22 Snyder % (Auto) 9.1 % (0.0-7.3) H 11/01/17 06:22 Eos % (Auto) 0.4 % (0.0-4.3) 11/01/17 06:22 Baso % (Auto) 0.4 % (0.0-1.8) 11/01/17 06:22 Lymph # 0.8 K/mm3 (1.2-5.4) L 11/01/17 06:22 Snyder # 0.5 K/mm3 (0.0-0.8) 11/01/17 06:22 Eos # 0.0 K/mm3 (0.0-0.4) 11/01/17 06:22 Baso # 0.0 K/mm3 (0.0-0.1) 11/01/17 06:22 Seg Neutrophils % 75.0 % (40.0-70.0) H 11/01/17 06:22 Seg Neutrophils # 4.2 K/mm3 (1.8-7.7) 11/01/17 06:22 Sodium 146 mmol/L (137-145) H 11/04/17 04:03 Potassium 3.7 mmol/L (3.6-5.0) 11/04/17 04:03 Chloride 110.9 mmol/L (98-107) H 11/04/17 04:03 Carbon Dioxide 15 mmol/L (22-30) L 11/04/17 04:03 Anion Gap 24 mmol/L 11/04/17 04:03 BUN 49 mg/dL (7-17) H 11/04/17 04:03 Creatinine 7.4 mg/dL (0.7-1.2) H 11/04/17 04:03 Estimated GFR 6 ml/min 11/04/17 04:03 BUN/Creatinine Ratio 7 % 11/04/17 04:03 Glucose 144 mg/dL (65-100) H 11/04/17 04:03 POC Glucose 187 (70-105) H 11/04/17 11:42 Lactic Acid 1.60 mmol/L (0.7-2.0) 10/31/17 04:43 Calcium 6.8 mg/dL (8.4-10.2) L 11/04/17 04:03 Phosphorus 3.00 mg/dL (2.5-4.5) 11/01/17 06:22 Magnesium 1.70 mg/dL (1.7-2.3) 11/04/17 04:03 Total Bilirubin 0.40 mg/dL (0.1-1.2) 11/01/17 06:22 Direct Bilirubin 0.2 mg/dL (0-0.2) 10/31/17 09:47 Indirect Bilirubin 0.3 mg/dL 10/31/17 09:47 AST 19 units/L (5-40) 11/01/17 06:22 ALT 36 units/L (7-56) 11/01/17 06:22 Alkaline Phosphatase 144 units/L (35-129) H 11/01/17 06:22 Total Creatine Kinase 93 units/L (30-135) 10/31/17 09:47 CK-MB (CK-2) 2.5 ng/mL (0.0-4.0) 10/31/17 09:47 CK-MB (CK-2) Rel Index 2.6 (0-4) 10/31/17 09:47 Troponin T 0.022 ng/mL (0.00-0.029) 10/31/17 09:47 Total Protein 5.6 g/dL (6.3-8.2) L 11/01/17 06:22 Albumin 3.3 g/dL (3.9-5) L 11/01/17 06:22 Albumin/Globulin Ratio 1.4 % 11/01/17 06:22 Urine Color Ashlyn (Yellow) 11/02/17 11:18 Urine Turbidity Cloudy (Clear) 11/02/17 11:18 Urine pH 5.0 (5.0-7.0) 11/02/17 11:18 Ur Specific [place] 1.015 (1.003-1.030) 11/02/17 11:18 Urine Protein 100 mg/dl mg/dL (Negative) 11/02/17 11:18 Urine Glucose (UA) Neg mg/dL (Negative) 11/02/17 11:18 Urine Ketones Neg mg/dL (Negative) 11/02/17 11:18 Urine Blood Lg (Negative) 11/02/17 11:18 Urine Nitrite Neg (Negative) 11/02/17 11:18 Urine Bilirubin Neg (Negative) 11/02/17 11:18 Urine Urobilinogen < 2.0 mg/dL (<2.0) 11/02/17 11:18 Ur Leukocyte Esterase Lg (Negative) 11/02/17 11:18 Urine WBC (Auto) > 182.0 /HPF (0.0-6.0) H 11/02/17 11:18 Urine RBC (Auto) 146.0 /HPF (0.0-6.0) 11/02/17 11:18 Urine Bacteria (Auto) 2+ /HPF (Negative) 11/02/17 11:18 Urine WBC Clumps 3+ /HPF 11/02/17 11:18 Urine Mucus Few /HPF 11/02/17 11:18 Urine Yeast (Budding) Not Reportable 11/02/17 11:18 Urine Creatinine 191.0 mg/dL (0.1-20.0) H 11/02/17 11:18 Urine Sodium 15 mmol/L 11/02/17 11:18 Urine Total Protein 103.5 mg/dL (5-11.8) H 11/02/17 11:18 C. difficile Toxin A&B Negative (Negative) 10/31/17 10:15
[2017-11-04] MEDS: ZOFRAN IV PRN (13:25)
[2017-11-04] MEDS: FLAGYL PO SCH ×2 (17:09→21:58)
[2017-11-04] MEDS: IMODIUM PO PRN (19:34)
--- NOTE | 2017-11-04 22:39 | Hem/Onc Progress Note ---
Assessment and Plan 1. Stage IV non-small cell lung cancer, adenocarcinoma, EGFR positive. The patient on Gilotrif. bone mets 2. The patient had nausea, vomiting, and diarrhea, may be secondary to the medication. 3. History of renal impairment. Zometa/ diarrhea may have a role. We will discontinue zometa and look into Xgeva. 4. Diabetes. 5. Chronic obstructive pulmonary disease. 6. Electrolyte imbalance. 7. History of syncope. 8. Mild anemia. Dr Cespedes has kindly agreed to cover me next week - pt will be seen in clinic by dr DOLAN after D/c hat lining paster elevated - nephrology following - ? 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 Interval history: pt's hat lining paster still high - there is a discussion reg HD pt did not bring her tab girotif from home Objective - Constitutional Vitals: Last Vital Signs Temp 97.8 F 11/04/17 19:41 Pulse 123 H 11/04/17 22:31 Resp 22 11/04/17 19:48 BP 117/44 11/04/17 19:41 Pulse Ox 100 11/04/17 22:02 Pain Intensity (0-10): denies any pain General appearance: no acute distress Performance status: 2- selfcare, ambulatory - EENT Eyes: PERRL ENT: clear oral mucosa Lymph node exam: negative cervical, negative supraclavicular - Neck Neck: supple - Respiratory Respiratory effort: Positive: normal Respiratory: bilateral: CTA - Cardiovascular Heart Sounds: Present: S1 & S2 Extremities: No edema - Gastrointestinal General gastrointestinal: Present: soft, non-tender Rectal Exam: deferred - Genitourinary Female genitourinary: Present: deferred - Integumentary Integumentary: warm - Musculoskeletal Musculoskeletal: strength equal bilaterally - Neurologic Neurologic: moves all extremities - Psychiatric Psychiatric: appropriate mood/affect, cooperative - Labs Lab Results: Laboratory Results - last 24 hr 11/02/17 11/04/17 11/04/17 11:18 04:03 04:03 WBC 8.5 RBC 3.54 L Hgb 10.4 Hct 29.7 L MCV 84 MCH 29 MCHC 35 H RDW 17.9 H Plt Count 224 Sodium 146 H Potassium 3.7 Chloride 110.9 H Carbon Dioxide 15 L Anion Gap 24 BUN 49 H Creatinine 7.4 H Estimated GFR 6 BUN/Creatinine Ratio 7 Glucose 144 H POC Glucose Calcium 6.8 L Magnesium Urine Total Protein 103.5 H 11/04/17 11/04/17 11/04/17 04:03 06:00 08:14 WBC RBC Hgb Hct MCV MCH MCHC RDW Plt Count Sodium Potassium Chloride Carbon Dioxide Anion Gap BUN Creatinine Estimated GFR BUN/Creatinine Ratio Glucose POC Glucose 153 H 154 H Calcium Magnesium 1.70 Urine Total Protein 11/04/17 11/04/17 11/04/17 11:42 15:30 21:16 WBC RBC Hgb Hct MCV MCH MCHC RDW Plt Count Sodium Potassium Chloride Carbon Dioxide Anion Gap BUN Creatinine Estimated GFR BUN/Creatinine Ratio Glucose POC Glucose 187 H 179 H 168 H Calcium Magnesium Urine Total Protein
[2017-11-05] MEDS ORDERED: PREPARATION H PR PRN (03:03)
[2017-11-05] MEDS: NS/KCL 40MEQ 40 MEQ/1,000 ML BAG IV SCH (03:16)
[2017-11-05] MEDS: FLAGYL PO SCH ×3 (05:34→21:35)
[2017-11-05 07:59] LABS: Calcium 6.5 mg/dL (8.4-10.2)
[2017-11-05 08:01] LABS: Calcium 6.6 mg/dL (8.4-10.2)
[2017-11-05] MEDS ORDERED: SODIUM PHOSPHATE 30 MMOL in NACL 0.9% 500 ML 500 ML IV ONE (09:05)
[2017-11-05] MEDS ORDERED: MAGNESIUM SULFATE IV ONE (09:05)
[2017-11-05] MEDS ORDERED: LEVAQUIN PO SCH (10:00)
[2017-11-05] MEDS ORDERED: MAGNESIUM SULFATE 2 GM in NACL 0.9% 50 ML IV ONE (10:00)
[2017-11-05] MEDS ORDERED: NACL 0.9% 500 ML 500 ML IV ONE (10:00)
--- NOTE | 2017-11-05 10:48 | Progress Note ---
Assessment and Plan - Patient Problems (1) Acute renal failure (ARF) Current Visit: Yes Status: Acute Plan to address problem: Follow renal /and you. (2) Intractable vomiting with nausea Current Visit: Yes Status: Acute Plan to address problem: Related to meds, see notes. (3) Acute kidney injury (nontraumatic) Current Visit: No Status: Acute Plan to address problem: Follow you/Renal. (4) Lung cancer Current Visit: Yes Status: Acute Plan to address problem: See notes above. 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 Patient seen, resting in bed, records reviewed , as well as notes. No new issues since 24hrs ago. REC remains the same, and further interventions, will follow if/when needed.Labs remains stable. Objective - Constitutional Vitals: Vital Signs - 12hr 11/05/17 11/05/17 01:00 05:14 Temperature 97.8 F 98.6 F Pulse Rate 103 H 91 H Respiratory 20 18 Rate Blood Pressure 107/59 108/68 [Right] O2 Sat by Pulse 99 98 Oximetry General appearance: Present: no acute distress - EENT Eyes: PERRL, EOM intact ENT: hearing intact, clear oral mucosa Ears: bilateral: normal - Neck Neck: supple, normal ROM - Respiratory Respiratory: bilateral: rhonchi - Breasts Breasts: deferred - Cardiovascular Rhythm: regular Heart Sounds: Present: S1 & S2. Absent: gallop, rub Extremities: pulses intact, No edema, normal color, Full ROM - Gastrointestinal General gastrointestinal: Present: soft, non-tender, non-distended, normal bowel sounds Rectal Exam: deferred - Genitourinary Female genitourinary: deferred - Integumentary Integumentary: clear, warm, dry - Musculoskeletal Musculoskeletal: 1, strength equal bilaterally - Neurologic Neurologic: moves all extremities - Psychiatric Psychiatric: memory intact, appropriate mood/affect, intact judgment & insight - Labs CBC & Chem 7: 11/04/17 04:03 11/05/17 07:14 Labs: Abnormal lab results 11/04/17 11/04/17 11/04/17 Range/Units 11:42 15:30 21:16 Chloride (98-107) mmol/L Carbon Dioxide (22-30) mmol/L BUN (7-17) mg/dL Creatinine (0.7-1.2) mg/dL POC Glucose 187 H 179 H 168 H (70-105) Calcium (8.4-10.2) mg/dL Phosphorus (2.5-4.5) mg/dL Magnesium (1.7-2.3) mg/dL 11/05/17 11/05/17 Range/Units 07:14 07:14 Chloride 118.3 H 118.1 H (98-107) mmol/L Carbon Dioxide 16 L 17 L (22-30) mmol/L BUN 36 H 36 H (7-17) mg/dL Creatinine 4.1 H 4.1 H (0.7-1.2) mg/dL POC Glucose (70-105) Calcium 6.5 L 6.6 L (8.4-10.2) mg/dL Phosphorus 1.80 L (2.5-4.5) mg/dL Magnesium 1.10 L (1.7-2.3) mg/dL
--- NOTE | 2017-11-05 11:07 | Progress Note ---
Assessment and Plan Acute Renal Failure likely prerenal secondary to volume depletion due to vomiting, diarrhea, hypotension, possible Ischemic ATN: - Renal function reviewed, SCr level decreased to 4.1 today, yesterday's SCr level was 7.4 - No acute indication for initiation of GLASS BEVELLER today, but may require initiation of GLASS BEVELLER during this hospitalization if no significant improvement in renal function. Pt states she is agreeable to starting GLASS BEVELLER if needed - D/C 0.9% NS + 40 mEq KCl infusion at 125 ml/hr - Start 0.9% NS infusion at 100 ml/hr - Monitor daily electrolytes - Avoid Nephrotoxic agents - Trinh Catheter: Yes - Intake= 3108 ml Output= 700 ml ( Net= 2408 ml) - Renal plan d/w Dr Page Metabolic Acidosis: - On potassium bicarbonate 25 mEq orally TID - Monitor repeat labs, will adjust if needed Hypokalemia: Hypomagnesemia: Hypophosphatemia: - Replete - Repeat BMP at 1700 - Switch to 0.9% NS infusion at 100 ml/hr given potassium level at high end of normal range - Monitor labs daily Hypernatremia: -Encouraged free water intake -Monitor labs daily Nausea/Vomiting/Diarrhea: -Suspect secondary to chemotherapy -On flagyl and levaquin -Blood and urine cultures showed NGTD -MRSA of nares was negative -On IV fluids -On imodium -On PRN zofran and reglan -As per primary team -Syncope: -Head CT w/o contrast showed no acute stroke or hemorrhage, localized right mastoiditis -As per primary Metastatic Lung cancer: -On chemotherapy as outpatient Subjective Date of service: 11/05/17 Principal diagnosis: lung ca with bone mets - 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 Pt mentioned she had about 10 episodes of diarrhea yesterday. Pt mentioned her blood pressure was low this morning. Pt denies shortness of breath, no acute distress. No family at bedside Objective - Vital Signs Vital signs: Vital Signs - 12hr 11/05/17 11/05/17 01:00 05:14 Temperature 97.8 F 98.6 F Pulse Rate 103 H 91 H Respiratory 20 18 Rate Blood Pressure 107/59 108/68 [Right] O2 Sat by Pulse 99 98 Oximetry - Lab 11/04/17 04:03 11/05/17 07:14 Most recent lab results Calcium 6.6 mg/dL (8.4-10.2) L 11/05/17 07:14 Phosphorus 1.80 mg/dL (2.5-4.5) L 11/05/17 07:14 Magnesium 1.10 mg/dL (1.7-2.3) L 11/05/17 07:14 Urine Creatinine 191.0 mg/dL (0.1-20.0) H 11/02/17 11:18 Urine Sodium 15 mmol/L 11/02/17 11:18 Urine Total Protein 103.5 mg/dL (5-11.8) H 11/02/17 11:18
[2017-11-05] MEDS ORDERED: NACL 0.9% 1000 ML 1,000 ML IV SCH (12:00)
[2017-11-05] MEDS: IMODIUM PO PRN (12:43)
[2017-11-05] MEDS: SODIUM CHLORIDE FLUSH SYRINGE 10 ML IV SCH ×2 (12:44→21:35)
[2017-11-05] MEDS: LOVENOX SUB-Q SCH (12:45)
[2017-11-05] MEDS: KLOR-CON PO SCH ×3 (12:45→20:43)
--- NOTE | 2017-11-05 16:03 | Progress Note ---
Assessment and Plan Assessment and plan: 62-year-old white male with a history of metastatic lung cancer, diabetes, COPD , emergency room with complaints of nausea vomiting and diarrhea 5 days. She is unable to tolerate oral intake, as at least 10 episodes of diarrhea today, nonbloody. Patient states she was going to the bathroom today, sustaining a fall and passed out for less than 1 minute, complaining of generalized weakness Acute renal failure Secodnary to vasomotor nephropathy Syncope secondary to dehydration Sepsis Gastroenteritis, probably viral- WITH Associated Diarrhea with also contributing factor coming from chemotherapy agents Recurrent fall with prior fracture Diabetes COPD Metastatic lung cancer Plan. Supportive care REPLACE ELECTROLYTES Renal function improving. continue on D5W with bicarb drip and KCL xray right hip shows metatstatic disease and no acute fracture Continue brown due to need for accurate I/O PT/TO EVAL continue imodium ?need for temporally dialysis CHECK STOOL FOR C-DIFF-SENT AND PENDING IV fluid, obtain ultrasound of the kidneys, consult renal Check CT head, cardiac enzymes Oncology consult Start empiric Flagyl, Levaquin, follow cultures Check fingersticks, DVT prophylaxis History Interval history: Patient seen and examined, sTILL WITH DIARRHEA, NO NEW COMPLAINTS. Hospitalist Physical - Physical exam Narrative exam: Gen. appearance: Patient lying in bed, HEENT: Normocephalic, atraumatic, pupils equally round and reactive to light, extraocular movement intact, and no sclericterus,. No JVD or thyromegaly or nodule,neck supple, no carotid bruit ,mucous membranesdry no exudate or erythema Heart: S1, S2, regular rate and rhythm Lungs: Clear bilaterally, breathing comfortable Abdomen: Positive bowel sounds, non-tender, nondistended, no organomegaly Extremity:no edema cyanosis, clubbing Skin: no rash, dry, warm Neuro: Oriented 3, cranial nerves II-12 intact, speech is fluent, motor and sensory intac - Constitutional Vitals: Temp Pulse Resp BP Pulse Ox 98.6 F 91 H 18 108/68 98 11/05/17 05:14 11/05/17 05:14 11/05/17 05:14 11/05/17 05:14 11/05/17 05:14 General appearance: Present: no acute distress Results - Labs CBC & Chem 7: 11/04/17 04:03 11/05/17 07:14 Labs: Laboratory Last Values WBC 8.5 K/mm3 (4.5-11.0) 11/04/17 04:03 RBC 3.54 M/mm3 (3.65-5.03) L 11/04/17 04:03 Hgb 10.4 gm/dl (10.1-14.3) 11/04/17 04:03 Hct 29.7 % (30.3-42.9) L 11/04/17 04:03 MCV 84 fl (79-97) 11/04/17 04:03 MCH 29 pg (28-32) 11/04/17 04:03 MCHC 35 % (30-34) H 11/04/17 04:03 RDW 17.9 % (13.2-15.2) H 11/04/17 04:03 Plt Count 224 K/mm3 (140-440) 11/04/17 04:03 Lymph % (Auto) 15.1 % (13.4-35.0) 11/01/17 06:22 Coleman % (Auto) 9.1 % (0.0-7.3) H 11/01/17 06:22 Eos % (Auto) 0.4 % (0.0-4.3) 11/01/17 06:22 Baso % (Auto) 0.4 % (0.0-1.8) 11/01/17 06:22 Lymph # 0.8 K/mm3 (1.2-5.4) L 11/01/17 06:22 Coleman # 0.5 K/mm3 (0.0-0.8) 11/01/17 06:22 Eos # 0.0 K/mm3 (0.0-0.4) 11/01/17 06:22 Baso # 0.0 K/mm3 (0.0-0.1) 11/01/17 06:22 Seg Neutrophils % 75.0 % (40.0-70.0) H 11/01/17 06:22 Seg Neutrophils # 4.2 K/mm3 (1.8-7.7) 11/01/17 06:22 Sodium 143 mmol/L (137-145) 11/05/17 07:14 Potassium 5.0 mmol/L (3.6-5.0) D 11/05/17 07:14 Chloride 118.1 mmol/L (98-107) H 11/05/17 07:14 Carbon Dioxide 17 mmol/L (22-30) L 11/05/17 07:14 Anion Gap 13 mmol/L 11/05/17 07:14 BUN 36 mg/dL (7-17) H 11/05/17 07:14 Creatinine 4.1 mg/dL (0.7-1.2) H 11/05/17 07:14 Estimated GFR 11 ml/min 11/05/17 07:14 BUN/Creatinine Ratio 9 % 11/05/17 07:14 Glucose 99 mg/dL (65-100) 11/05/17 07:14 POC Glucose 168 (70-105) H 11/04/17 21:16 Lactic Acid 1.60 mmol/L (0.7-2.0) 10/31/17 04:43 Calcium 6.6 mg/dL (8.4-10.2) L 11/05/17 07:14 Phosphorus 1.80 mg/dL (2.5-4.5) L 11/05/17 07:14 Magnesium 1.10 mg/dL (1.7-2.3) L 11/05/17 07:14 Total Bilirubin 0.40 mg/dL (0.1-1.2) 11/01/17 06:22 Direct Bilirubin 0.2 mg/dL (0-0.2) 10/31/17 09:47 Indirect Bilirubin 0.3 mg/dL 10/31/17 09:47 AST 19 units/L (5-40) 11/01/17 06:22 ALT 36 units/L (7-56) 11/01/17 06:22 Alkaline Phosphatase 144 units/L (35-129) H 11/01/17 06:22 Total Creatine Kinase 93 units/L (30-135) 10/31/17 09:47 CK-MB (CK-2) 2.5 ng/mL (0.0-4.0) 10/31/17 09:47 CK-MB (CK-2) Rel Index 2.6 (0-4) 10/31/17 09:47 Troponin T 0.022 ng/mL (0.00-0.029) 10/31/17 09:47 Total Protein 5.6 g/dL (6.3-8.2) L 11/01/17 06:22 Albumin 3.3 g/dL (3.9-5) L 11/01/17 06:22 Albumin/Globulin Ratio 1.4 % 11/01/17 06:22 Urine Color Ashlyn (Yellow) 11/02/17 11:18 Urine Turbidity Cloudy (Clear) 11/02/17 11:18 Urine pH 5.0 (5.0-7.0) 11/02/17 11:18 Ur Specific [place] 1.015 (1.003-1.030) 11/02/17 11:18 Urine Protein 100 mg/dl mg/dL (Negative) 11/02/17 11:18 Urine Glucose (UA) Neg mg/dL (Negative) 11/02/17 11:18 Urine Ketones Neg mg/dL (Negative) 11/02/17 11:18 Urine Blood Lg (Negative) 11/02/17 11:18 Urine Nitrite Neg (Negative) 11/02/17 11:18 Urine Bilirubin Neg (Negative) 11/02/17 11:18 Urine Urobilinogen < 2.0 mg/dL (<2.0) 11/02/17 11:18 Ur Leukocyte Esterase Lg (Negative) 11/02/17 11:18 Urine WBC (Auto) > 182.0 /HPF (0.0-6.0) H 11/02/17 11:18 Urine RBC (Auto) 146.0 /HPF (0.0-6.0) 11/02/17 11:18 Urine Bacteria (Auto) 2+ /HPF (Negative) 11/02/17 11:18 Urine WBC Clumps 3+ /HPF 11/02/17 11:18 Urine Mucus Few /HPF 11/02/17 11:18 Urine Yeast (Budding) Not Reportable 11/02/17 11:18 Urine Creatinine 191.0 mg/dL (0.1-20.0) H 11/02/17 11:18 Urine Sodium 15 mmol/L 11/02/17 11:18 Urine Total Protein 103.5 mg/dL (5-11.8) H 11/02/17 11:18 C. difficile Toxin A&B Negative (Negative) 10/31/17 10:15
[2017-11-05 18:13] LABS: Calcium 5.9 mg/dL (8.4-10.2)
[2017-11-05] MEDS ORDERED: CALCIUM GLUCONATE 2,000 MG in NACL 0.9% 100 ML IV ONE (19:48)
[2017-11-05] MEDS: TUMS PO SCH (21:35)
[2017-11-06] MEDS: FLAGYL PO SCH (05:39)
[2017-11-06 06:58] LABS: Calcium 6.4 mg/dL (8.4-10.2)
[2017-11-06] MEDS: KLOR-CON PO SCH (10:45)
[2017-11-06] MEDS: TUMS PO SCH (10:47)
[2017-11-06] MEDS: SODIUM CHLORIDE FLUSH SYRINGE 10 ML IV SCH (11:09)
[2017-11-06] MEDS: LOVENOX SUB-Q SCH (11:09)
--- NOTE | 2017-11-06 11:53 | Progress Note ---
Assessment and Plan Acute Renal Failure likely prerenal secondary to volume depletion due to vomiting, diarrhea, hypotension, possible Ischemic ATN: - Cr cont to improve, good UOP - will d/c brown - cont 0.9% NS infusion at 100 ml/hr - Monitor daily electrolytes - Avoid Nephrotoxic agents - Brown Catheter: Yes Metabolic Acidosis: - On potassium bicarbonate 25 mEq orally TID - Monitor repeat labs, will adjust if needed Hypokalemia: Hypomagnesemia: Hypophosphatemia: - Monitor labs daily Hypernatremia: -resolved Nausea/Vomiting/Diarrhea: -Suspect secondary to chemotherapy -On flagyl and levaquin -Blood and urine cultures showed NGTD -MRSA of nares was negative -On IV fluids -On imodium -On PRN zofran and reglan -As per primary team -Syncope: -Head CT w/o contrast showed no acute stroke or hemorrhage, localized right mastoiditis -As per primary Metastatic Lung cancer: -On chemotherapy as outpatient Subjective Date of service: 11/06/17 Principal diagnosis: lung ca with bone mets - 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 Absent: Rales, Ronchi Cardiology: regular, S1S2 Gastrointestinal: normoactive bowel sounds, no tenderness, no distended Integumentary: no rash, warm and dry Neurologic: no focal deficit, no asterixis, alert and oriented x3 Musculoskeletal: other (no edema in BLE) Psychiatric: mood/affect appropriate, cooperative - Lab 11/04/17 04:03 11/06/17 05:21 Most recent lab results Calcium 6.4 mg/dL (8.4-10.2) L 11/06/17 05:21 Phosphorus 3.50 mg/dL (2.5-4.5) D 11/06/17 05:21 Magnesium 1.30 mg/dL (1.7-2.3) L 11/06/17 05:21 Urine Creatinine 191.0 mg/dL (0.1-20.0) H 11/02/17 11:18 Urine Sodium 15 mmol/L 11/02/17 11:18 Urine Total Protein 103.5 mg/dL (5-11.8) H 11/02/17 11:18
--- NOTE | 2017-11-06 13:04 | Discharge Summary ---
Providers - Providers Date of Admission: 10/31/17 04:45 Attending physician: NAHOMI ACOSTA MD 10/31/17 04:16 Consult to Physician [CONS] Routine Comment: Consulting Provider: BRADFORD CASTILLO Physician Instructions: Reason For Exam: arf 10/31/17 09:39 Occupational Therapy Evaluate and Treat [CONS] Routine Comment: Reason For Exam: ATAXIA Physical Therapy Evaluation and Treat [CONS] Routine Comment: Reason For Exam: ATAXIA 10/31/17 18:20 Consult to Physician [CONS] Routine Comment: Consulting Provider: KATHERINE SUMNER Physician Instructions: Reason For Exam: Cancer WITH METS. Primary care physician: LLOYD SCHILLING Hospitalization Reason for admission: diarreha Condition: Fair Hospital course: 62-year-old white male with a history of metastatic lung cancer, diabetes, COPD , emergency room with complaints of nausea vomiting and diarrhea 5 days. She is unable to tolerate oral intake, as at least 10 episodes of diarrhea today, nonbloody. Patient states she was going to the bathroom today, sustaining a fall and passed out for less than 1 minute, complaining of generalized weakness. Patient was noted to have profuse diarrhea with gross electrolyte abnormality. This was felt due to her Cancer medication and supportive care was provided. Her renal function improved, she was advised against nephrotoxic agents. imaging studies showed metastatic disease in the right hip area. Acute renal failure Secodnary to vasomotor nephropathy Syncope secondary to dehydration Metabolic acidosis Sepsis Gastroenteritis, probably viral- WITH Associated Diarrhea with also contributing factor coming from chemotherapy agents Recurrent fall with prior fracture Diabetes COPD Metastatic lung cancer Right hip shows metatstatic Disposition: [id number] HOME UNDER HOME [facility] Time spent for discharge: 35 mins Core Measure Documentation - Palliative Care Palliative Care/ Comfort Measures: Not Applicable - Core Measures Any of the following diagnoses?: none - VTE Discharge Requirements Deep Vein Thrombosis/Pulmonary Embolism Present on Admission: No Exam - Physical Exam Narrative exam: Gen. appearance: Patient lying in bed, HEENT: Normocephalic, atraumatic, pupils equally round and reactive to light, extraocular movement intact, and no sclericterus,. No JVD or thyromegaly or nodule,neck supple, no carotid bruit ,mucous membranesdry no exudate or erythema Heart: S1, S2, regular rate and rhythm Lungs: Clear bilaterally, breathing comfortable Abdomen: Positive bowel sounds, non-tender, nondistended, no organomegaly Extremity:no edema cyanosis, clubbing Skin: no rash, dry, warm Neuro: Oriented 3, cranial nerves II-12 intact, speech is fluent, motor and sensory intac - Constitutional Vitals: Temp Pulse Resp BP Pulse Ox 98.6 F 83 16 92/40 99 11/06/17 05:44 11/06/17 05:44 11/06/17 10:00 11/06/17 05:44 11/06/17 05:44 Plan Activity: advance as tolerated, fall precautions Diet: low cholesterol, other (increase fiber in diet) Special Instructions: record daily weights, record daily BP diary Durable Medical Equipment Needed Upon Discharge: Bedside Commode Additional Instructions: restart metformin after seeing your PCP in 2 days Follow up with: LLOYD SCHILLING MD [Primary Care Provider] - 3-5 Days KATHERINE SUMNER MD [Staff Physician] - 7 Days BRADFORD CASTILLO MD [Staff Physician] - 7 Days Prescriptions: Calcium Carbonate [Tums] 1,000 mg PO BID #30 tablet Loperamide [Imodium] 2 mg PO Q2H PRN #30 capsule PRN Reason: Diarrhea metroNIDAZOLE [Flagyl TAB] 500 mg PO Q8HR #10 tablet levoFLOXacin [Levaquin TAB] 250 mg PO Q48HR #3 tablet
[2017-11-06 13:27] VITALS: BP 82/38
== END 2017-11-06 16:15 | disposition home health service (06) | DRG 871 ==
LOC: ED 23:44 → 4A 10-31 04:45 → 3A 11-05 20:23
PROVIDERS: ADMIT Internal Medicine; ATTEND Internal Medicine
DX: A41.9 Sepsis, unspecified organism (principal); N17.0 Acute kidney failure with tubular necrosis; C34.90 Malignant neoplasm of unspecified part of unspecified bronchus or lung; E87.0 Hyperosmolality and hypernatremia; C79.51 Secondary malignant neoplasm of bone; R55 Syncope and collapse; E11.9 Type 2 diabetes mellitus without complications; J44.9 Chronic obstructive pulmonary disease, unspecified; A08.4 Viral intestinal infection, unspecified; E86.0 Dehydration; E87.6 Hypokalemia; E83.42 Hypomagnesemia; E83.39 Other disorders of phosphorus metabolism; E87.8 Other disorders of electrolyte and fluid balance, not elsewhere classified; D64.9 Anemia, unspecified; W18.39XA Other fall on same level, initial encounter; E83.51 Hypocalcemia; Y93.89 Activity, other specified; Y92.091 Bathroom in other non-institutional residence as the place of occurrence of the external cause; Y99.8 Other external cause status; Z88.5 Allergy status to narcotic agent; Z88.0 Allergy status to penicillin; Z79.899 Other long term (current) drug therapy; Z98.51 Tubal ligation status; Z82.49 Family history of ischemic heart disease and other diseases of the circulatory system
CPT/HCPCS: 36415; 70450; 71045; 76770; 80048; 80053; 80074; 81001; 82140; 82550; 82553; 82570; 82962; 83735; 84100; 84132; 84156; 84300; 84484; 85025; 85027; 87040; 87086; 87116; 87324; 94760; 96365; 96366; 96375; 96376; J0610; J1650; J1956; J2405; J2765; J3475; J3480; J7030; J7040; J7070

== ENCOUNTER 2018-02-24 11:03 | Inpatient (IN) | payer OTHER ==
[2018-02-24] MEDS ORDERED: NACL 0.9% 1000 ML IV ONE (11:20)
[2018-02-24] MEDS ORDERED: ZOVIRAX 800 MG in NACL 0.9% 100 ML IV STA (11:20)
[2018-02-24] MEDS ORDERED: KEPPRA 1,000 MG/NS 0.75% 100ML 1,000 MG/100 ML BAG IV ONE (11:20)
[2018-02-24] MEDS ORDERED: VANCOMYCIN 1,000 MG in NACL 0.9% 500 ML 500 ML IV ONE (11:20)
[2018-02-24] MEDS ORDERED: DECADRON IV ONE (11:24)
[2018-02-24] MEDS ORDERED: TYLENOL PR ONE (11:26)
--- NOTE | 2018-02-24 11:26 | Emergency Department Report ---
ED General Adult HPI - General Chief complaint: Altered Mental Status Stated complaint: ALTERED MENTAL STATUS Time Seen by Provider: 02/24/18 11:11 Source: family, EMS (ems notes not available at time of chart dictation), RN notes reviewed, old records reviewed Mode of arrival: Stretcher Limitations: Altered Mental Status, Other (patient is delirious) - History of Present Illness Initial comments: Primary care Dr.: Patient's daughter does not know Oncology: Dr Leona Cox Pulmonology: Dr Galvan Past medical history: This is a 62-year-old female, with a history of chronic respiratory failure, on home oxygen, lung cancer, as per daughter, not currently on chemotherapy, history of pleural effusion, renal insufficiency The patient is brought to the hospital today by EMS for altered mental status and weakness. Unknown exactly when her last known well time his. The emergency room, patient found to be febrile and tachycardic and had a seizure which resolved spontaneously. Apparently she had a seizure at home. Patient's daughter is at the bedside; Miss Lien Villa; [phone] She reports the patient is "not acting herself." She does endorse a possible seizure at home. Last known well time is not known. Advanced directives and goals of care have not been clarified, as per the patient's daughter. The patient is altered, and is unable to describe exacerbating or relieving factors, radiation, or qualitative nature of her symptoms. -: unknown Associated Symptoms: confusion, fever/chills, weakness - Related Data Previous Rx's Medication Instructions Recorded Last Taken Type Pravastatin [Pravachol] 20 mg PO QDAY #30 tablet 09/13/17 1 Day Ago Rx ~10/30/17 ALBUTEROL Inhaler(NF) [VENTOLIN 1 puff IH Q4H PRN #1 inha 12/10/17 Unknown Rx Inhaler(NF)] Acetaminophen [Acetaminophen TAB] 650 mg PO Q4H PRN #15 tablet 12/10/17 Unknown Rx Citric Acid/Sod Citrate [Bicitra] 30 ml PO QID 30 Days oral.liqd 12/10/17 Un known Rx Famotidine [Pepcid] 10 mg PO BID #30 tablet 12/10/17 Unknown Rx Gilotrif 40 mg PO Q48H #30 12/10/17 1 Day Ago Rx ~10/30/17 Potassium Chloride [K-Dur] 20 meq PO QDAY #30 tablet 12/10/17 Unknown Rx Sertraline [Zoloft] 25 mg PO DAILY tablet 12/10/17 Unknown Rx Allergies Allergy/AdvReac Type Severity Reaction Status Date / Time codeine Allergy Hives Verified 02/24/18 11:22 Penicillins Allergy Hives Verified 02/24/18 11:22 ED Review of Systems ROS: Stated complaint: ALTERED MENTAL STATUS Other details as noted in HPI Comment: Unobtainable due to pts medical conditions ED Past Medical Hx - Past Medical History Hx Hypertension: No Hx Heart Attack/AMI: No Hx Congestive Heart Failure: No Hx Diabetes: Yes Hx Deep Vein Thrombosis: No Hx Pulmonary Embolism: No Hx Liver Disease: No Hx Renal Disease: No Hx Sickle Cell Disease: No Hx Arthritis: No Hx Seizures: No Hx Kidney Stones: No Hx Asthma: No Hx COPD: Yes Hx Tuberculosis: No Hx Dementia: No Hx HIV: No Additional medical history: bone cancer - Surgical History Hx Coronary Stent: No Hx Pacemaker: No Hx Internal Defibrillator: No Additional Surgical History: TUBAL LIGATION - Social History Smoking Status: Former Smoker - Medications Home Medications: Home Medications Medication Instructions Recorded Confirmed Last Taken Type Pravastatin [Pravachol] 20 mg PO QDAY #30 tablet 09/13/17 12/07/17 1 Day Ago Rx ~10/30/17 ALBUTEROL Inhaler(NF) [VENTOLIN 1 puff IH Q4H PRN #1 inha 12/10/17 Unknown Rx Inhaler(NF)] Acetaminophen [Acetaminophen TAB] 650 mg PO Q4H PRN #15 tablet 12/10/17 Unknown Rx Citric Acid/Sod Citrate [Bicitra] 30 ml PO QID 30 Days oral.liqd 12/10/17 Unknown Rx Famotidine [Pepcid] 10 mg PO BID #30 tablet 12/10/17 Unknown Rx Gilotrif 40 mg PO Q48H #30 12/10/17 12/07/17 1 Day Ago Rx ~10/30/17 Potassium Chloride [K-Dur] 20 meq PO QDAY #30 tablet 12/10/17 Unknown Rx Sertraline [Zoloft] 25 mg PO DAILY tablet 12/10/17 Unknown Rx ED Physical Exam - General Limitations: Altered Mental Status, Other General appearance: in no apparent distress - Head Head exam: Present: atraumatic, normocephalic - Eye Eye exam: Present: normal appearance - ENT ENT exam: Present: mucous membranes dry, normal external ear exam - Neck Neck exam: Present: normal inspection, full ROM. Absent: tenderness, meningismus - Respiratory Respiratory exam: Present: respiratory distress, rhonchi (rhonchi noted in the right lung field) - Cardiovascular Cardiovascular Exam: Present: normal rhythm, tachycardia, normal heart sounds. Absent: systolic murmur, diastolic murmur, rubs, gallop - GI/Abdominal GI/Abdominal exam: Present: soft. Absent: distended, tenderness, guarding, rebound, rigid, pulsatile mass - Rectal Rectal exam: Present: normal inspection (chaperoned by nurse Dolores Tapia) - Extremities Exam Extremities exam: Present: normal inspection, full ROM, pedal edema, other (2+ pulses noted in the bilateral upper, lower extremities. Compartments soft. No long bony tenderness. The pelvis is stable.). Absent: calf tenderness - Back Exam Back exam: Present: normal inspection, full ROM. Absent: tenderness, CVA tenderness (R), paraspinal tenderness, vertebral tenderness - Neurological Exam Neurological exam: Present: altered, other (moving 4 extremities. No facial droop. Not able to complete detailed neurologic examination secondary to patien t's altered mental status) - Psychiatric Psychiatric exam: Present: other (patient is nonverbal) - Skin Skin exam: Present: warm, ecchymosis ED Course Vital Signs 02/24/18 02/24/18 02/24/18 11:10 11:45 13:34 Temperature 100.7 F H 99.3 F Temperature [ Pre-Procedure] Pulse Rate 112 H 106 H Pulse Rate [ Intra-Procedure ] Pulse Rate [ Post-Procedure] Pulse Rate [Pre -Procedure] Respiratory 16 16 14 Rate Respiratory Rate [Intra- Procedure] Respiratory Rate [Post- Procedure] Respiratory Rate [Pre- Procedure] Blood Pressure 194/54 Blood Pressure [Intra- Procedure] Blood Pressure [Post-Procedure ] Blood Pressure [Pre-Procedure] Blood Pressure 153/97 [Right] O2 Sat by Pulse 97 100 Oximetry O2 Sat by Pulse Oximetry [ Intra-Procedure ] O2 Sat by Pulse Oximetry [Post -Procedure] O2 Sat by Pulse Oximetry [Pre- Procedure] 02/24/18 02/24/18 02/24/18 14:02 14:05 14:10 Temperature Temperature [ 99.3 F Pre-Procedure] Pulse Rate Pulse Rate [ 94 H 91 H Intra-Procedure ] Pulse Rate [ Post-Procedure] Pulse Rate [Pre 104 H -Procedure] Respiratory Rate Respiratory 16 14 Rate [Intra- Procedure] Respiratory Rate [Post- Procedure] Respiratory 16 Rate [Pre- Procedure] Blood Pressure Blood Pressure 201/77 173/96 [Intra- Procedure] Blood Pressure [Post-Procedure ] Blood Pressure 180/95 [Pre-Procedure] Blood Pressure [Right] O2 Sat by Pulse Oximetry O2 Sat by Pulse 100 100 Oximetry [ Intra-Procedure ] O2 Sat by Pulse Oximetry [Post -Procedure] O2 Sat by Pulse 100 Oximetry [Pre- Procedure] 02/24/18 02/24/18 02/24/18 14:15 14:20 14:25 Temperature Temperature [ Pre-Procedure] Pulse Rate Pulse Rate [ 90 90 87 Intra-Procedure ] Pulse Rate [ Post-Procedure] Pulse Rate [Pre -Procedure] Respiratory Rate Respiratory 12 12 12 Rate [Intra- Procedure] Respiratory Rate [Post- Procedure] Respiratory Rate [Pre- Procedure] Blood Pressure Blood Pressure 142/100 162/64 113/91 [Intra- Procedure] Blood Pressure [Post-Procedure ] Blood Pressure [Pre-Procedure] Blood Pressure [Right] O2 Sat by Pulse Oximetry O2 Sat by Pulse 100 100 100 Oximetry [ Intra-Procedure ] O2 Sat by Pulse Oximetry [Post -Procedure] O2 Sat by Pulse Oximetry [Pre- Procedure] 02/24/18 14:30 Temperature Temperature [ Pre-Procedure] Pulse Rate Pulse Rate [ Intra-Procedure ] Pulse Rate [ 92 H Post-Procedure] Pulse Rate [Pre -Procedure] Respiratory Rate Respiratory Rate [Intra- Procedure] Respiratory 12 Rate [Post- Procedure] Respiratory Rate [Pre- Procedure] Blood Pressure Blood Pressure [Intra- Procedure] Blood Pressure 173/63 [Post-Procedure ] Blood Pressure [Pre-Procedure] Blood Pressure [Right] O2 Sat by Pulse Oximetry O2 Sat by Pulse Oximetry [ Intra-Procedure ] O2 Sat by Pulse 100 Oximetry [Post -Procedure] O2 Sat by Pulse Oximetry [Pre- Procedure] - Reevaluation(s) Reevaluation #1: 02/24/18 12:11 Differential diagnosis, including not limited to: Meningitis, encephalitis, pneumonia, bacteremia, urinary tract infection, intracranial mass lesion Assessment and plan: 62-year-old female with acute febrile delirium, protecting her airway at this time, status post one or 2 seizures, does not exhibit decision-making capacity at this time. Patient most likely has medical delirium, concerning for meningitis or encephalitis. Patient we resuscitated according to the sepsis pathway with appropriate antibiotics. "Allergy" to penicillin includes rash. As a third generation cephalosporin, ceftriaxone is statistically unlikely to cause anaphylactic or anaphylactoid reaction, and given concern for meningitis, it is my opinion that the patient will benefit from aggressive broad-spectrum antibiotics, steroids, antivirals empirically. Specifically discussed delirium with daughter, and daughter has given verbal permission for chemical and physical restraints if necessary. Also discussed spinal tap with daughter, who verbalized understanding. Patient also loaded with Keppra. 02/24/18 15:12 Reevaluation #2: 02/24/18 14:32 Laboratory studies reviewed and appreciated. CT scan of the brain, x-ray of the chest interpretation reviewed and appreciated. Given fever, altered mental status, clinical history, recommended spinal tap with moderate sedation for acquisition of spinal tap to patient's daughter and sister. Risks of spinal tap, including bleeding, headache, spinal cord injury were discussed with the family, who have provided informed consent for spinal tap. Given complex medical history and high level of acuity, anesthesiology consultation was requested for sedation, and the anesthesiologist, Dr. Alvarado graciously agreed to assist. Spinal tap was performed with difficulty, ultimately by Dr. Alvarado, CSF studies have been sent to the lab, and the hospital physician, Dr. Kilpatrick, who has agreed to admit the patient to the medical service for further evaluation and workup. 02/24/18 14:33 - Lumbar Puncture Consent Obtained: verbal consent, written consent, emergent situation (consent obtained from family) Time Out Performed: Yes Indication for Procedure: fever work up, change in mental status Patient Position: Sitting Upright/Leaning F Skin Prep: Povidone-Iodine 1% Local Anesthetic Used: Lidocaine 1% Amount of anesthesia used (mls): 10 Spinal Needle Gauge: Other (18 g) Spinal Needle Length: 3in Interspace Used: L4-L5 Fluid Initially Obtained: clear Complications: unable to tolerate, unable to obtain CSF, bleeding Patient Tolerated Procedure: other (Dr Weathers able to perform tap) ED Medical Decision Making - Lab Data Result diagrams: 02/24/18 11:40 02/24/18 11:40 Vital Signs 02/24/18 02/24/18 11:10 11:45 Temperature 100.7 F H Pulse Rate 112 H Respiratory 16 16 Rate Blood Pressure 194/54 O2 Sat by Pulse 97 Oximetry Critical Care Time: Yes Critical care time in (mins) excluding proc time.: 35 Critical care attestation.: If time is entered above; I have spent that time in minutes in the direct care of this critically ill patient, excluding procedure time. ED Disposition Clinical Impression: SIRS (systemic inflammatory response syndrome), Encephalopathy Disposition: DC-[id number] OP ADMIT IP TO THIS HOSP Is pt being admited?: Yes Condition: Poor Referrals: PRIMARY CARE, [Primary Care Provider] - 3-5 Days
[2018-02-24] MEDS ORDERED: NACL 0.9% 500 ML 500 ML ONE (11:36)
[2018-02-24] MEDS ORDERED: ATIVAN IV ONE ×2 (11:49→17:20)
[2018-02-24] MEDS ORDERED: VANCOMYCIN/NS 1 GM/250 ML 1 GM/250 ML BAG IV ONE (12:00)
[2018-02-24 12:10] LABS: Hematocrit 37.2 % (30.3-42.9); Mean Corpuscular HGB Conc 32 % (30-34); Mean Corpuscular Volume 91 fl (79-97); Platelet Count 312 K/mm3 (140-440); Red Cell Distribution Width 14.5 % (13.2-15.2)
[2018-02-24 12:23] LABS: INR 0.97 (0.87-1.13)
[2018-02-24 12:24] LABS: Albumin 3.9 g/dL (3.9-5)
[2018-02-24] MEDS: ROCEPHIN/NS 2 GM/100 ML 2 GM/100 ML BAG IV SCH (12:38)
[2018-02-24 13:28] LABS: Bilirubin,Urine NEG (Negative); Blood,Urine NEG (Negative); Color,Urine Yellow (Yellow); Hyaline Casts,Urine 1 /LPF; Urobilinogen,Urine < 2.0 mg/dL (<2.0)
[2018-02-24] MEDS ORDERED: XYLOCAINE 2%/ EPI 1:200,000 INFILTRATI ONE (13:29)
[2018-02-24] MEDS ORDERED: NACL 0.9% 100 ML ONE (13:44)
[2018-02-24] MEDS ORDERED: DEXMEDETOMIDINE IV ONE (13:44)
--- NOTE | 2018-02-24 13:49 | XRay Report ---
FINAL REPORT EXAM: XR CHEST 1V AP HISTORY: sepsis fever TECHNIQUE: Frontal chest radiograph. PRIORS: 10/30/2017. FINDINGS: The cardiomediastinal silhouette is normal. Mild increased ground-glass opacities are seen in the right lower lobe. No pleural effusion. No pneumothorax. No acute osseous abnormality. IMPRESSION: Mild right lower lobe opacities may reflect pneumonia versus aspiration or possibly a chronic interst itial process.
--- NOTE | 2018-02-24 14:08 | Cat Scan Report ---
FINAL REPORT EXAM: CT HEAD/BRAIN WO CON HISTORY: ams fever, POSS MENINGITIS TECHNIQUE: CT of the head was performed without intravenous contrast. PRIORS: 10/31/2017 FINDINGS: The ventricles are normal in shape and position. The ventricles are nondilated. No intracranial hemo rrhage, mass, mass effect, or midline shift. The basilar cisterns are patent. There is a focal area o f low attenuation in the right superior frontal/parietal lobes. There is also some heterogeneous low attenuation in the posterior occipital lobes. The paranasal sinuses are clear. The extracranial soft tissues demonstrate no abnormality. The calvar ium is intact. The orbits are intact. The mastoid air cells are clear. Extensive tiny sclerotic lesio ns are seen within the skeleton. These are unchanged from the prior study. IMPRESSION: 1. Focal areas of low-attenuation in the posterior aspect of the cerebrum may represent posterior rev ersible encephalopathy syndrome versus other etiologies. Consider further evaluation with MRI of the brain. 2. Extensive sclerotic skeletal lesions seen on the previous study may represent metastatic disease.
[2018-02-24] MEDS ORDERED: DIPRIVAN 10 MG/ML IV ONE ×4 (14:10→14:19)
[2018-02-24] MEDS ORDERED: PROVENTIL IH PRN (14:30)
[2018-02-24] MEDS ORDERED: SODIUM CHLORIDE FLUSH SYRINGE 10 ML IV PRN (14:30)
--- NOTE | 2018-02-24 14:32 | History and Physical Report ---
History of Present Illness Chief complaint: Confused History of present illness: 62 YO Female with DM, COPD, Lung Cancer S/P Pleural Catheter placement, Chronic Respiratory Failure presents to ED for evaluation. Pt is lethargic and unable to provide detailed history. Pt history provided by family who is at bedside during exam and interview. As per family, the patient has experienced progressive weakness and confusion over the past 3 days with worsening symptoms over the same time frame. per family, the patient experienced a witnessed seizure in her home. EMS notified and patient transported to [facility] for further care and evaluation. Pt seen and evaluated in ED and found to have Encephalopathy, SRIS, Acidosis. Pt admitted to medical floor. No further history obtainable. Pt underwent Lumbar Puncture in ED. Past History Past Medical History: cancer, COPD, diabetes Past Surgical History: Other (pleurex catheter, tubal ligation) Social history: other (Tubal ligation, Pleurex Catheter) Family history: hypertension Medications and Allergies Allergies Allergy/AdvReac Type Severity Reaction Status Date / Time codeine Allergy Hives Verified 02/24/18 11:22 Penicillins Allergy Hives Verified 02/24/18 11:22 Home Medications Medication Instructions Recorded Confirmed Last Taken Type Pravastatin [Pravachol] 20 mg PO QDAY #30 tablet 09/13/17 12/07/17 1 Day Ago Rx ~10/30/17 ALBUTEROL Inhaler(NF) [VENTOLIN 1 puff IH Q4H PRN #1 inha 12/10/17 Unknown Rx Inhaler(NF)] Acetaminophen [Acetaminophen TAB] 650 mg PO Q4H PRN #15 tablet 12/10/17 Unknown Rx Citric Acid/Sod Citrate [Bicitra] 30 ml PO QID 30 Days oral.liqd 12/10/17 Unknown Rx Famotidine [Pepcid] 10 mg PO BID #30 tablet 12/10/17 Unknown Rx Gilotrif 40 mg PO Q48H #30 12/10/17 12/07/17 1 Day Ago Rx ~10/30/17 Potassium Chloride [K-Dur] 20 meq PO QDAY #30 tablet 12/10/17 Unknown Rx Sertraline [Zoloft] 25 mg PO DAILY tablet 12/10/17 Unknown Rx Active Meds: Active Medications Ceftriaxone Sodium (Rocephin/Ns 2 Gm/100 Ml) 2 gm in 100 mls @ 200 mls/hr IV NOW CAREN; Protocol Last Admin: 02/24/18 12:38 Dose: 200 mls/hr Documented by: Review of Systems ROS unobtainable: due to mental status Exam - Constitutional Vitals: Temp Pulse Resp BP Pulse Ox 99.3 F 106 H 14 153/97 100 02/24/18 13:34 02/24/18 13:34 02/24/18 13:34 02/24/18 13:34 02/24/18 13:34 General appearance: Present: mild distress - EENT Eyes: Present: miosis - Neck Neck: Present: supple, normal ROM - Respiratory Respiratory effort: normal Respiratory: bilateral: CTA - Cardiovascular Heart Sounds: Present: S1 & S2. Absent: rub, click - Extremities Extremities: pulses symmetrical, No edema Peripheral Pulses: within normal limits - Abdominal General gastrointestinal: Present: soft, non-tender, non-distended, normal bowel sounds Female genitourinary: Present: normal - Integumentary Integumentary: Present: clear, dry, clammy, decreased turgor - Musculoskeletal Musculoskeletal: generalized weakness - Psychiatric Psychiatric: no appropriate mood/affect, no intact judgment & insight, no memory intact - Neurologic Neurologic: CNII-XII intact, moves all extremities, no gait normal Results - Labs CBC & Chem 7: 02/24/18 11:40 02/24/18 11:40 Labs: Abnormal lab results 02/24/18 02/24/18 02/24/18 Range/Units 11:40 11:40 11:40 APTT 20.0 L (24.2-36.6) Sec. Chloride 95.0 L (98-107) mmol/L Creatinine 1.3 H (0.7-1.2) mg/dL Glucose 233 H (65-100) mg/dL Lactic Acid 7.80 H* (0.7-2.0) mmol/L Urine pH (5.0-7.0) 02/24/18 02/24/18 Range/Units 12:53 12:54 APTT (24.2-36.6) Sec. Chloride (98-107) mmol/L Creatinine (0.7-1.2) mg/dL Glucose (65-100) mg/dL Lactic Acid 2.70 H* (0.7-2.0) mmol/L Urine pH 8.0 H (5.0-7.0) Assessment and Plan - Patient Problems (1) Encephalopathy Current Visit: Yes Status: Acute Plan to address problem: CT Head, Neuro checks, aspiration precautions, seizure precautions, MRI brain, (2) Acidosis Current Visit: Yes Status: Acute Plan to address problem: IVF resuscitation therapy, supportive care, (3) SIRS (systemic inflammatory response syndrome) Current Visit: Yes Status: Acute Plan to address problem: Empiric antibiotic therapy, CBC, CMP, Lumbar puncture (4) Diabetes Current Visit: No Status: Acute Plan to address problem: ADA diet, insulin, accu check (5) Seizure disorder Current Visit: Yes Status: Acute Plan to address problem: Keppra loading in ED, EEG, keppra bid, seizure precautions. (6) DVT prophylaxis Current Visit: No Status: Acute Plan to address problem: SCD to BLE while in bed.
--- NOTE | 2018-02-24 14:57 | Anesthesia Day of Surgery ---
Anesthesia Day of Surgery - Day of Surgery Patient Examined: Yes Patient H&P Reviewed: Yes Patient is NPO: Yes
--- NOTE | 2018-02-24 14:58 | Anesthesia Consultation ---
Anesthesia Consult and Med Hx Date of service: 02/24/18 - Airway ROM Head & Neck: Adequate Mental/Hyoid Distance: Adequate Mallampati Class: Class III Intubation Access Assessment: Possibly Difficult - Pulmonary Exam CTA: Yes - Cardiac Exam Cardiac Exam: RRR - Pre-Operative Health Status ASA Pre-Surgery Classification: ASA4, Emergency Proposed Anesthetic Plan: MAC (COPD, HTN, AMS- unable to sign consent, No CAD, hx of Breast CA , no radiation, chemo) - Pulmonary Hx Smoking: Yes Hx Asthma: No COPD: Yes Hx Pneumonia: No Hx Sleep Apnea: No - Cardiovascular System Hx Hypertension: No Hx Coronary Artery Disease: No Hx Heart Attack/AMI: No Hx Angina: No Hx Percutaneous Transluminal Coronary Angioplasty (PTCA): No Hx Pacemaker: No Hx Internal Defibrillator: No Hx Valvular Heart Disease: No Hx Heart Murmur: No Hx Peripheral Vascular Disease: No - Central Nervous System Hx Seizures: No CVA: No Hx Psychiatric Problems: No - Gastrointestinal Hx Ulcer: No - Endocrine Hx Renal Disease: No Hx End Stage Renal Disease: No Hx Cirrhosis: No Hx Liver Disease: No Hx Non-Insulin Dependent Diabetes: Yes Hx Hypothyroidism: No Hx Hyperthyroidism: No - Hematic Hx Anemia: No Hx Sickle Cell Disease: No - Other Systems Hx Cancer: No
[2018-02-24 15:12] LABS: Basophils % (Manual) 0 % (0.0-1.8); Eosinophils % (Manual) 0 % (0.0-4.3); Tear Drop Cells Few; Total Cells Counted 100
[2018-02-24 15:13] LABS: Platelet Estimate Consistent w Auto
[2018-02-24 15:14] LABS: Glucose,CSF 121 mg/dL
[2018-02-24 16:09] LABS: Appearance,CSF Clear; White Blood Cell,CSF 1 /mm3 (1-10)
[2018-02-24 17:22] LABS: Basophils CSF 0 %; Red Blood Cell,CSF 1 /mm3 (0-0); Total Cells Counted 4 /mm3
--- NOTE | 2018-02-24 18:00 | Consultation ---
History of Present Illness Consult date: 02/24/18 Requesting physician: EFRAÍN OWEN History of present illness: HISTORY PER MEDICAL RECORDS. AT THE TIME OF MY EVALUATION SHE WAS ENCEPHALOAPTHI C, NO FAMILY AT THE BEDSIDE 62 YO Female with DM, COPD, Lung Cancer S/P Pleurx catheter, Chronic Respiratory Failure presents to ED for evaluation. Pt is lethargic and unable to provide detailed history. Pt history provided by family who is at bedside during exam and interview. As per family, the patient has experienced progressive weakness and confusion over the past 3 days with worsening symptoms over the same time frame. EMS notified and patient transported to [facility] for further care and evalua tion. Pt seen and evaluated in ED and found to have Encephalopathy, SRIS, Acidosis. Pt admitted to medical floor. No further history obtainable. Pt underwent Lumbar Puncture in ED. She remains encephaloapthic and so a decision was made to admit her to the ICU for closer monitoring. I have been consulted for critical care management. Patient was seen and examined. Vitals, labs, medications, chart reviewed. She is unresponsive, apparently received propofol and precedex for the LP. Discussed with ED physician Past History Past Medical History: cancer, COPD, diabetes Past Surgical History: Other (pleurex catheter, tubal ligation) Social history: other (Tubal ligation, Pleurex Catheter) Family history: hypertension Medications and Allergies Allergies Allergy/AdvReac Type Severity Reaction Status Date / Time codeine Allergy Hives Verified 02/24/18 11:22 Penicillins Allergy Hives Verified 02/24/18 11:22 Home Medications Medication Instructions Recorded Confirmed Last Taken Type Pravastatin [Pravachol] 20 mg PO QDAY #30 tablet 09/13/17 12/07/17 1 Day Ago Rx ~10/30/17 ALBUTEROL Inhaler(NF) [VENTOLIN 1 puff IH Q4H PRN #1 inha 12/10/17 Unknown Rx Inhaler(NF)] Acetaminophen [Acetaminophen TAB] 650 mg PO Q4H PRN #15 tablet 12/10/17 Unknown Rx Citric Acid/Sod Citrate [Bicitra] 30 ml PO QID 30 Days oral.liqd 12/10/17 Unknown Rx Famotidine [Pepcid] 10 mg PO BID #30 tablet 12/10/17 Unknown Rx Gilotrif 40 mg PO Q48H #30 12/10/17 12/07/17 1 Day Ago Rx ~10/30/17 Potassium Chloride [K-Dur] 20 meq PO QDAY #30 tablet 12/10/17 Unknown Rx Sertraline [Zoloft] 25 mg PO DAILY tablet 12/10/17 Unknown Rx Active Meds: Active Medications Albuterol (Proventil) 2.5 mg IH Q3HRT PRN PRN Reason: Shortness Of Breath Ceftriaxone Sodium (Rocephin/Ns 2 Gm/100 Ml) 2 gm in 100 mls @ 200 mls/hr IV NOW CAREN; Protocol Last Admin: 02/24/18 12:38 Dose: 200 mls/hr Documented by: Levetiracetam (Keppra) 500 mg PO BID CAREN Sodium Chloride (Sodium Chloride Flush Syringe 10 Ml) 10 ml IV BID CAREN Sodium Chloride (Sodium Chloride Flush Syringe 10 Ml) 10 ml IV PRN PRN PRN Reason: LINE FLUSH Review of Systems ROS unobtainable: due to mental status Physical Examination Vital signs: Vital Signs Temp Pulse Resp BP Pulse Ox 100.7 F H 112 H 16 194/54 97 02/24/18 11:10 02/24/18 11:10 02/24/18 11:10 02/24/18 11:10 02/24/18 11:10 General appearance: Present: mild distress, chronically ill looking - EENT Eyes: Present: miosis - Neck Neck: Present: supple, normal ROM - Respiratory Respiratory effort: normal Respiratory: bilateral: CTA - Cardiovascular Heart Sounds: Present: S1 & S2. Absent: rub, click - Extremities Extremities: pulses symmetrical, No edema Peripheral Pulses: within normal limits - Abdominal General gastrointestinal: Present: soft, non-tender, non-distended, normal bowel sounds Female genitourinary: Present: normal - Integumentary Integumentary: Present: clear, dry, clammy, decreased turgor - Musculoskeletal Musculoskeletal: generalized weakness - Psychiatric Psychiatric: UNABLE TO ASSESS - Neurologic Neurologic: withdraws to sternal rub, moans and groans Results - Laboratory Findings CBC and BMP: 02/24/18 11:40 02/24/18 11:40 PT/INR, D-dimer PT 13.3 Sec. (12.2-14.9) 02/24/18 11:40 INR 0.97 (0.87-1.13) 02/24/18 11:40 Abnormal lab findings: Abnormal Labs 02/24/18 02/24/18 02/24/18 11:40 11:40 11:40 Seg Neuts % (Manual) 96.0 H Lymphocytes % (Manual) 3.0 L Seg Neutrophils # Man 8.4 H Lymphocytes # (Manual) 0.3 L APTT Chloride 95.0 L Creatinine 1.3 H Glucose 233 H Lactic Acid 7.80 H* Urine pH Salicylates Acetaminophen 02/24/18 02/24/18 02/24/18 11:40 12:53 12:54 Seg Neuts % (Manual) Lymphocytes % (Manual) Seg Neutrophils # Man Lymphocytes # (Manual) APTT 20.0 L Chloride Creatinine Glucose Lactic Acid 2.70 H* Urine pH 8.0 H Salicylates Acetaminophen 02/24/18 02/24/18 14:45 14:45 Seg Neuts % (Manual) Lymphocytes % (Manual) Seg Neutrophils # Man Lymphocytes # (Manual) APTT Chloride Creatinine Glucose Lactic Acid Urine pH Salicylates < 0.3 L Acetaminophen < 5.0 L - Diagnostic Findings Chest x-ray: image reviewed (Small right basilar infiltrate) Assessment and Plan Acute Encephalopathy (toxic, metabolic) SIRS Right lung cancer on immunotherapy HTN Type 2 Diabetes Seizure disorder -Admit ICU -Get ABG -Neurochecks q2 -Aspiration precautions -Supplemental oxygen to keep O2 sats 88-90 -Keep NPO for now -Bronchodilators as indicated -Empiric antibiotics, follow cultures and adjust/deescalate as indicated -Needs MRI of the brain -Seizure precautions -Blood pressure control and monitoring -Accucheck with glycemic control -VTE prophylaxis -Influenza and pneumonia vaccination per protocol CONDITION: GUARDED CODE STATUS: FULL CODE
[2018-02-24] MEDS: SODIUM CHLORIDE FLUSH SYRINGE 10 ML IV SCH (22:11)
[2018-02-24] MEDS: KEPPRA PO SCH (22:11)
[2018-02-24] MEDS ORDERED: KEPPRA 500 MG in NACL 0.9% 100 ML IV ONE (22:30)
--- NOTE | 2018-02-25 09:16 | Progress Note ---
Assessment and Plan Assessment and plan: Acute encephalopathy. Follow-up MRI of the brain. Neurology consultation. Patient may be post ictal from seizure. Follow-up LP results SIRS. Continue empiric antibiotic therapy. No obvious signs of infection at this time. Diabetes mellitus type 2. Continue ADA diet, Accu-Cheks and sliding scale insulin. Seizure disorder. Continue Keppra. Check EEG. Seizure precautions. DVT prophylaxis. Continue SCDs. History Interval history: 62 YO Female with DM, COPD, Lung Cancer S/P Pleural Catheter placement, Chronic Respiratory Failure presents to ED for evaluation of lethargy/AMS. Nursing reports patient is agitated and required restraints. Hospitalist Physical - Constitutional Vitals: Temp Pulse Resp BP Pulse Ox 98.7 F 96 H 18 145/52 100 02/25/18 08:00 02/25/18 08:30 02/25/18 08:30 02/25/18 08:30 02/25/18 08:30 General appearance: Present: mild distress - EENT Eyes: Present: PERRL, EOM intact ENT: hearing intact, clear oral mucosa, dentition normal - Neck Neck: Present: supple, normal ROM - Respiratory Respiratory effort: normal Respiratory: bilateral: CTA - Cardiovascular Rhythm: regular Heart Sounds: Present: S1 & S2. Absent: gallop, rub - Extremities Extremities: no ischemia, No edema, Full ROM - Abdominal General gastrointestinal: soft, non-tender, non-distended, normal bowel sounds - Integumentary Integumentary: Present: clear, warm, dry - Neurologic Neurologic: CNII-XII intact, moves all extremities Results - Labs CBC & Chem 7: 02/24/18 11:40 02/24/18 11:40 Labs: Laboratory Last Values WBC 8.7 K/mm3 (4.5-11.0) 02/24/18 11:40 RBC 4.10 M/mm3 (3.65-5.03) 02/24/18 11:40 Hgb 12.0 gm/dl (10.1-14.3) 02/24/18 11:40 Hct 37.2 % (30.3-42.9) 02/24/18 11:40 MCV 91 fl (79-97) 02/24/18 11:40 MCH 29 pg (28-32) 02/24/18 11:40 MCHC 32 % (30-34) 02/24/18 11:40 RDW 14.5 % (13.2-15.2) 02/24/18 11:40 Plt Count 312 K/mm3 (140-440) 02/24/18 11:40 Add Manual Diff Complete 02/24/18 11:40 Total Counted 100 02/24/18 11:40 Seg Neutrophils % Packaging Design Engineer 02/24/18 11:40 Seg Neuts % (Manual) 96.0 % (40.0-70.0) H 02/24/18 11:40 Band Neutrophils % 0 % 02/24/18 11:40 Lymphocytes % (Manual) 3.0 % (13.4-35.0) L 02/24/18 11:40 Reactive Lymphs % (Man) 0 % 02/24/18 11:40 Monocytes % (Manual) 1.0 % (0.0-7.3) 02/24/18 11:40 Eosinophils % (Manual) 0 % (0.0-4.3) 02/24/18 11:40 Basophils % (Manual) 0 % (0.0-1.8) 02/24/18 11:40 Metamyelocytes % 0 % 02/24/18 11:40 Myelocytes % 0 % 02/24/18 11:40 Promyelocytes % 0 % 02/24/18 11:40 Blast Cells % 0 % 02/24/18 11:40 Nucleated RBC % Not Reportable 02/24/18 11:40 Seg Neutrophils # Man 8.4 K/mm3 (1.8-7.7) H 02/24/18 11:40 Band Neutrophils # 0.0 K/mm3 02/24/18 11:40 Lymphocytes # (Manual) 0.3 K/mm3 (1.2-5.4) L 02/24/18 11:40 Abs React Lymphs (Man) 0.0 K/mm3 02/24/18 11:40 Monocytes # (Manual) 0.1 K/mm3 (0.0-0.8) 02/24/18 11:40 Eosinophils # (Manual) 0.0 K/mm3 (0.0-0.4) 02/24/18 11:40 Basophils # (Manual) 0.0 K/mm3 (0.0-0.1) 02/24/18 11:40 Metamyelocytes # 0.0 K/mm3 02/24/18 11:40 Myelocytes # 0.0 K/mm3 02/24/18 11:40 Promyelocytes # 0.0 K/mm3 02/24/18 11:40 Blast Cells # 0.0 K/mm3 02/24/18 11:40 WBC Morphology Not Reportable 02/24/18 11:40 Hypersegmented Neuts Not Reportable 02/24/18 11:40 Hyposegmented Neuts Not Reportable 02/24/18 11:40 Hypogranular Neuts Not Reportable 02/24/18 11:40 Smudge Cells Not Reportable 02/24/18 11:40 Toxic Granulation Not Reportable 02/24/18 11:40 Toxic Vacuolation Not Reportable 02/24/18 11:40 Dohle Bodies Not Reportable 02/24/18 11:40 Pelger-Huet Anomaly Not Reportable 02/24/18 11:40 Jc Rods Not Reportable 02/24/18 11:40 Platelet Estimate Consistent w auto 02/24/18 11:40 Clumped Platelets Not Reportable 02/24/18 11:40 Plt Clumps, EDTA Not Reportable 02/24/18 11:40 Large Platelets Not Reportable 02/24/18 11:40 Giant Platelets Not Reportable 02/24/18 11:40 Platelet Satelliting Not Reportable 02/24/18 11:40 Plt Morphology Comment Not Reportable 02/24/18 11:40 RBC Morphology Not Reportable 02/24/18 11:40 Dimorphic RBCs Not Reportable 02/24/18 11:40 Polychromasia Not Reportable 02/24/18 11:40 Hypochromasia Not Reportable 02/24/18 11:40 Poikilocytosis Not Reportable 02/24/18 11:40 Anisocytosis Not Reportable 02/24/18 11:40 Microcytosis Not Reportable 02/24/18 11:40 Macrocytosis Not Reportable 02/24/18 11:40 Spherocytes Not Reportable 02/24/18 11:40 Pappenheimer Bodies Not Reportable 02/24/18 11:40 Sickle Cells Not Reportable 02/24/18 11:40 Target Cells Not Reportable 02/24/18 11:40 Tear Drop Cells Few 02/24/18 11:40 Ovalocytes Not Reportable 02/24/18 11:40 Helmet Cells Not Reportable 02/24/18 11:40 [place] Bodies Not Reportable 02/24/18 11:40 [place] Rings Not Reportable 02/24/18 11:40 [place] Cells Not Reportable 02/24/18 11:40 Bite Cells Not Reportable 02/24/18 11:40 Crenated Cell Not Reportable 02/24/18 11:40 Elliptocytes Not Reportable 02/24/18 11:40 Acanthocytes (Spur) Not Reportable 02/24/18 11:40 Rouleaux Not Reportable 02/24/18 11:40 Hemoglobin C Crystals Not Reportable 02/24/18 11:40 Schistocytes Not Reportable 02/24/18 11:40 Malaria parasites Not Reportable 02/24/18 11:40 [place] Bodies Not Reportable 02/24/18 11:40 Hem Pathologist Commnt No 02/24/18 11:40 PT 13.3 Sec. (12.2-14.9) 02/24/18 11:40 INR 0.97 (0.87-1.13) 02/24/18 11:40 APTT 20.0 Sec. (24.2-36.6) L 02/24/18 11:40 POC ABG pH 7.377 (7.35-7.45) 02/24/18 19:10 POC ABG pCO2 47.8 (35-45) H 02/24/18 19:10 POC ABG pO2 131 (80-105) H 02/24/18 19:10 POC ABG HCO3 28.1 02/24/18 19:10 POC ABG Total CO2 30 02/24/18 19:10 POC ABG O2 Sat 99 02/24/18 19:10 POC ABG Base Excess 3 02/24/18 19:10 FiO2 28 % 02/24/18 19:10 Sodium 141 mmol/L (137-145) 02/24/18 11:40 Potassium 4.4 mmol/L (3.6-5.0) 02/24/18 11:40 Chloride 95.0 mmol/L (98-107) L 02/24/18 11:40 Carbon Dioxide 26 mmol/L (22-30) 02/24/18 11:40 Anion Gap 24 mmol/L 02/24/18 11:40 BUN 15 mg/dL (7-17) 02/24/18 11:40 Creatinine 1.3 mg/dL (0.7-1.2) H 02/24/18 11:40 Estimated GFR 41 ml/min 02/24/18 11:40 BUN/Creatinine Ratio 12 % 02/24/18 11:40 Glucose 233 mg/dL (65-100) H 02/24/18 11:40 POC Glucose 121 (70-105) H 02/24/18 23:38 Lactic Acid 0.70 mmol/L (0.7-2.0) 02/24/18 Unknown Calcium 9.0 mg/dL (8.4-10.2) 02/24/18 11:40 Magnesium 2.10 mg/dL (1.7-2.3) 02/24/18 11:40 Total Bilirubin 0.50 mg/dL (0.1-1.2) 02/24/18 11:40 AST 23 units/L (5-40) 02/24/18 11:40 ALT 10 units/L (7-56) 02/24/18 11:40 Alkaline Phosphatase 109 units/L (35-129) 02/24/18 11:40 Total Creatine Kinase 97 units/L (30-135) 02/24/18 11:40 Total Protein 6.9 g/dL (6.3-8.2) 02/24/18 11:40 Albumin 3.9 g/dL (3.9-5) 02/24/18 11:40 Albumin/Globulin Ratio 1.3 % 02/24/18 11:40 Urine Color Yellow (Yellow) 02/24/18 12:54 Urine Turbidity Clear (Clear) 02/24/18 12:54 Urine pH 8.0 (5.0-7.0) H 02/24/18 12:54 Ur Specific [place] 1.010 (1.003-1.030) 02/24/18 12:54 Urine Protein 100 mg/dl mg/dL (Negative) 02/24/18 12:54 Urine Glucose (UA) 50 mg/dL (Negative) 02/24/18 12:54 Urine Ketones Tr mg/dL (Negative) 02/24/18 12:54 Urine Blood Neg (Negative) 02/24/18 12:54 Urine Nitrite Neg (Negative) 02/24/18 12:54 Urine Bilirubin Neg (Negative) 02/24/18 12:54 Urine Urobilinogen < 2.0 mg/dL (<2.0) 02/24/18 12:54 Ur Leukocyte Esterase Neg (Negative) 02/24/18 12:54 Urine WBC (Auto) 1.0 /HPF (0.0-6.0) 02/24/18 12:54 Urine RBC (Auto) 1.0 /HPF (0.0-6.0) 02/24/18 12:54 U Epithel Cells (Auto) 1.0 /HPF (0-13.0) 02/24/18 12:54 Hyaline Casts 1 /LPF 02/24/18 12:54 CSF Appearance Clear 02/24/18 14:35 CSF Color Colorless 02/24/18 14:35 CSF WBC 1 /mm3 (1-10) 02/24/18 14:35 CSF RBC 1 /mm3 (0-0) 02/24/18 14:35 CSF Seg Neutrophils 2 % (0-6) 02/24/18 14:35 CSF Lymphocytes % 1 % (40-80) 02/24/18 14:35 CSF Reactive Lymphs 0 % 02/24/18 14:35 CSF Monocytes % 1 % (15-45) 02/24/18 14:35 CSF Eosinophils % 0 % 02/24/18 14:35 CSF Basophils 0 % 02/24/18 14:35 CSF Comment Less than 10 02/24/18 14:35 CSF Pathologist Review C 02/24/18 14:35 CSF Glucose 121 mg/dL 02/24/18 14:30 CSF Total Protein 80 mg/dL 02/24/18 14:30 Salicylates < 0.3 mg/dL (2.8-20.0) L 02/24/18 14:45 Acetaminophen < 5.0 ug/mL (10.0-30.0) L 02/24/18 14:45 Plasma/Serum Alcohol < 0.01 % (0-0.07) 02/24/18 14:45 Influenza A (Rapid) Negative (Negative) 02/24/18 14:30 Influenza B (Rapid) Negative (Negative) 02/24/18 14:30
[2018-02-25] MEDS ORDERED: HALDOL IM PRN (09:54)
[2018-02-25] MEDS: SODIUM CHLORIDE FLUSH SYRINGE 10 ML IV SCH ×2 (11:18→21:45)
[2018-02-25] MEDS: ROCEPHIN/NS 2 GM/100 ML 2 GM/100 ML BAG IV SCH (11:19)
[2018-02-25] MEDS: KEPPRA PO SCH ×2 (11:19→21:53)
--- NOTE | 2018-02-25 14:28 | Progress Note ---
Assessment and Plan Acute Encephalopathy (toxic, metabolic) SIRS Right lung cancer on immunotherapy HTN Type 2 Diabetes Seizure disorder -blood pressure control. Start amlodipine -Aspiration precautions, bedside swallow, if she does well initiate diabetic diet -Supplemental oxygen to keep O2 sats 88-90 -Bronchodilators as indicated -Empiric antibiotics, follow cultures and adjust/deescalate as indicated -Needs MRI of the brain -Seizure precautions -Blood pressure control and monitoring -Accucheck with glycemic control -VTE prophylaxis -Influenza and pneumonia vaccination per protocol Disucssed with the daughter at the bedside. Updated her. Will transfer care to Dr. Galvan's group. CONDITION: GUARDED CODE STATUS: FULL CODE Subjective Date of service: 02/25/18 Interval history: Patient is seen today for: new onset seizures, acute encenphaloapthy; h/o lung cancer Seen and examined at bedside; 24hour events reviewed; nursing and respiratory care staff consulted; no adverse overnight events reported to me; Daughter at the bedside and gave more history: patient had a witnessed seizure, at home, in the setting of elevated BP. On further questioning, daughter states that her mother's computing services director is Dr. Galvan. Objective Vital Signs - 12hr 02/25/18 02/25/18 02/25/18 02:30 02:40 02:50 Temperature Pulse Rate 87 88 88 Pulse Rate [ From Monitor] Respiratory 22 22 22 Rate Blood Pressure 141/61 141/61 141/61 O2 Sat by Pulse 100 100 100 Oximetry 02/25/18 02/25/18 02/25/18 03:00 03:10 03:20 Temperature Pulse Rate 86 89 89 Pulse Rate [ From Monitor] Respiratory 23 24 22 Rate Blood Pressure 150/62 150/62 141/61 O2 Sat by Pulse 100 100 100 Oximetry 02/25/18 02/25/18 02/25/18 03:30 03:40 03:50 Temperature Pulse Rate 88 87 86 Pulse Rate [ From Monitor] Respiratory 24 21 22 Rate Blood Pressure 141/61 141/61 141/61 O2 Sat by Pulse 100 100 100 Oximetry 02/25/18 02/25/18 02/25/18 04:00 04:10 04:20 Temperature 98.9 F Pulse Rate 85 86 83 Pulse Rate [ From Monitor] Respiratory 21 20 23 Rate Blood Pressure 125/51 125/51 150/62 O2 Sat by Pulse 100 100 100 Oximetry 02/25/18 02/25/18 02/25/18 04:30 04:40 04:50 Temperature Pulse Rate 84 84 84 Pulse Rate [ From Monitor] Respiratory 22 23 22 Rate Blood Pressure 150/62 150/62 150/62 O2 Sat by Pulse 100 100 100 Oximetry 02/25/18 02/25/18 02/25/18 05:00 05:10 05:20 Temperature Pulse Rate 85 84 84 Pulse Rate [ From Monitor] Respiratory 23 22 21 Rate Blood Pressure 133/62 133/62 133/62 O2 Sat by Pulse 100 100 100 Oximetry 02/25/18 02/25/18 02/25/18 05:30 05:40 05:50 Temperature Pulse Rate 83 81 117 H Pulse Rate [ From Monitor] Respiratory 22 21 24 Rate Blood Pressure 133/62 133/62 133/62 O2 Sat by Pulse 100 100 94 Oximetry 02/25/18 02/25/18 02/25/18 06:00 06:10 06:20 Temperature Pulse Rate 108 H 100 H 92 H Pulse Rate [ From Monitor] Respiratory 26 H 26 H 21 Rate Blood Pressure 133/62 164/69 164/69 O2 Sat by Pulse 100 Oximetry 02/25/18 02/25/18 02/25/18 06:30 06:40 06:50 Temperature Pulse Rate 90 90 88 Pulse Rate [ From Monitor] Respiratory 19 23 22 Rate Blood Pressure 164/69 164/69 164/69 O2 Sat by Pulse Oximetry 02/25/18 02/25/18 02/25/18 07:00 07:10 07:20 Temperature Pulse Rate 86 85 82 Pulse Rate [ From Monitor] Respiratory 22 21 21 Rate Blood Pressure 164/69 140/59 140/59 O2 Sat by Pulse Oximetry 02/25/18 02/25/18 02/25/18 07:30 07:40 07:50 Temperature Pulse Rate 85 85 85 Pulse Rate [ From Monitor] Respiratory 22 22 24 Rate Blood Pressure 140/59 140/59 140/59 O2 Sat by Pulse Oximetry 02/25/18 02/25/18 02/25/18 08:00 08:10 08:20 Temperature 98.7 F Pulse Rate 84 97 H 103 H Pulse Rate [ 86 From Monitor] Respiratory 23 20 27 H Rate Blood Pressure 140/59 145/52 145/52 O2 Sat by Pulse 100 99 Oximetry 02/25/18 08:30 Temperature Pulse Rate 96 H Pulse Rate [ From Monitor] Respiratory 18 Rate Blood Pressure 145/52 O2 Sat by Pulse 100 Oximetry Constitutional: alert, other (mild respiratory distress, chronically ill looking) Eyes: non-icteric ENT: oropharynx moist Neck: supple, no lymphadenopathy Effort: mildly labored Ascultation: Bilateral: diminished breath sounds Cardiovascular: regular rate and rhythm, other (S1,S2, no murmurs, gallops or rubs) Gastrointestinal: normoactive bowel sounds, soft, non-tender, non-distended Integumentary: normal Extremities: no cyanosis, no edema, pink and warm, pulses normal Neurologic: normal mental status, non-focal exam, pupils equal and round, motor strength normal and Psychiatric: mood appropriate, affect normal CBC and BMP: 02/24/18 11:40 02/24/18 11:40 ABG, PT/INR, D-dimer: ABG POC ABG pH 7.377 (7.35-7.45) 02/24/18 19:10 POC ABG pCO2 47.8 (35-45) H 02/24/18 19:10 POC ABG pO2 131 (80-105) H 02/24/18 19:10 POC ABG HCO3 28.1 02/24/18 19:10 POC ABG Total CO2 30 02/24/18 19:10 POC ABG O2 Sat 99 02/24/18 19:10 PT/INR, D-dimer PT 13.3 Sec. (12.2-14.9) 02/24/18 11:40 INR 0.97 (0.87-1.13) 02/24/18 11:40 Abnormal lab findings: Abnormal Labs 02/24/18 02/24/18 02/24/18 11:40 11:40 11:40 Seg Neuts % (Manual) 96.0 H Lymphocytes % (Manual) 3.0 L Seg Neutrophils # Man 8.4 H Lymphocytes # (Manual) 0.3 L APTT POC ABG pCO2 POC ABG pO2 Chloride 95.0 L Creatinine 1.3 H Glucose 233 H POC Glucose Lactic Acid 7.80 H* Urine pH Salicylates Acetaminophen 02/24/18 02/24/18 02/24/18 11:40 12:53 12:54 Seg Neuts % (Manual) Lymphocytes % (Manual) Seg Neutrophils # Man Lymphocytes # (Manual) APTT 20.0 L POC ABG pCO2 POC ABG pO2 Chloride Creatinine Glucose POC Glucose Lactic Acid 2.70 H* Urine pH 8.0 H Salicylates Acetaminophen 02/24/18 02/24/18 02/24/18 14:45 14:45 19:10 Seg Neuts % (Manual) Lymphocytes % (Manual) Seg Neutrophils # Man Lymphocytes # (Manual) APTT POC ABG pCO2 47.8 H POC ABG pO2 131 H Chloride Creatinine Glucose POC Glucose Lactic Acid Urine pH Salicylates < 0.3 L Acetaminophen < 5.0 L 02/24/18 23:38 Seg Neuts % (Manual) Lymphocytes % (Manual) Seg Neutrophils # Man Lymphocytes # (Manual) APTT POC ABG pCO2 POC ABG pO2 Chloride Creatinine Glucose POC Glucose 121 H Lactic Acid Urine pH Salicylates Acetaminophen Chest x-ray: image reviewed
[2018-02-25] MEDS: NORVASC PO SCH (17:02)
[2018-02-26 04:21] LABS: Basophils % (Auto) 0.9 % (0.0-1.8); Eosinophils # (Auto) 0.2 K/mm3 (0.0-0.4); Eosinophils % (Auto) 6.5 % (0.0-4.3); Hematocrit 29.6 % (30.3-42.9); Hemoglobin 9.6 gm/dl (10.1-14.3); Lymphocytes # (Auto) 0.6 K/mm3 (1.2-5.4); Lymphocytes % (Auto) 16.1 % (13.4-35.0); Mean Corpuscular HGB Conc 32 % (30-34); Mean Corpuscular Volume 91 fl (79-97); Monocytes # (Auto) 0.4 K/mm3 (0.0-0.8); Monocytes % (Auto) 11.7 % (0.0-7.3); Platelet Count 208 K/mm3 (140-440); Red Blood Count 3.26 M/mm3 (3.65-5.03); Red Cell Distribution Width 14.8 % (13.2-15.2)
[2018-02-26 04:29] LABS: Calcium 8.2 mg/dL (8.4-10.2)
[2018-02-26] MEDS: ROCEPHIN/NS 2 GM/100 ML 2 GM/100 ML BAG IV SCH (10:07)
[2018-02-26] MEDS: NORVASC PO SCH (10:08)
[2018-02-26] MEDS: KEPPRA PO SCH ×2 (10:08→22:18)
[2018-02-26] MEDS: SODIUM CHLORIDE FLUSH SYRINGE 10 ML IV SCH ×2 (10:19→22:18)
[2018-02-26] MEDS ORDERED: K-DUR PO ONE ×2 (11:00→17:00)
--- NOTE | 2018-02-26 11:34 | Progress Note ---
Assessment and Plan Assessment and plan: Toxic metabolic encephalopathy. Follow-up MRI of the brain. Neurology consultation pending. Follow-up LP results SIRS. Continue empiric antibiotic therapy. No obvious signs of infection at this time. Diabetes mellitus type 2. Continue ADA diet, Accu-Cheks and sliding scale insulin. Seizure disorder. Continue Keppra. Check EEG. Seizure precautions. Right lung CA on immunotherapy. Hypertension. Continue antihypertensive medications. DVT prophylaxis. Continue SCDs. Disposition. Patient will be transferred to the floor. History Interval history: 62 YO Female with DM, COPD, Lung Cancer S/P Pleural Catheter placement, Chronic Respiratory Failure presents to ED for evaluation of lethargy/AMS. No new issues overnight. Hospitalist Physical - Constitutional Vitals: Temp Pulse Resp BP Pulse Ox 98.3 F 80 21 143/61 100 02/26/18 08:00 02/26/18 08:40 02/26/18 08:40 02/26/18 08:40 02/26/18 09:28 General appearance: Present: no acute distress - EENT Eyes: Present: PERRL, EOM intact ENT: hearing intact, clear oral mucosa, dentition normal - Neck Neck: Present: supple, normal ROM - Respiratory Respiratory effort: normal Respiratory: bilateral: CTA - Cardiovascular Rhythm: regular Heart Sounds: Present: S1 & S2. Absent: gallop, rub - Extremities Extremities: no ischemia, No edema, Full ROM - Abdominal General gastrointestinal: soft, non-tender, non-distended, normal bowel sounds - Integumentary Integumentary: Present: clear, warm, dry - Neurologic Neurologic: CNII-XII intact, moves all extremities Results - Labs CBC & Chem 7: 02/26/18 03:53 02/26/18 03:53 Labs: Laboratory Last Values WBC 3.5 K/mm3 (4.5-11.0) L 02/26/18 03:53 RBC 3.26 M/mm3 (3.65-5.03) L 02/26/18 03:53 Hgb 9.6 gm/dl (10.1-14.3) L 02/26/18 03:53 Hct 29.6 % (30.3-42.9) L D 02/26/18 03:53 MCV 91 fl (79-97) 02/26/18 03:53 MCH 29 pg (28-32) 02/26/18 03:53 MCHC 32 % (30-34) 02/26/18 03:53 RDW 14.8 % (13.2-15.2) 02/26/18 03:53 Plt Count 208 K/mm3 (140-440) 02/26/18 03:53 Lymph % (Auto) 16.1 % (13.4-35.0) 02/26/18 03:53 [place] % (Auto) 11.7 % (0.0-7.3) H 02/26/18 03:53 Eos % (Auto) 6.5 % (0.0-4.3) H 02/26/18 03:53 Baso % (Auto) 0.9 % (0.0-1.8) 02/26/18 03:53 Lymph # 0.6 K/mm3 (1.2-5.4) L 02/26/18 03:53 [place] # 0.4 K/mm3 (0.0-0.8) 02/26/18 03:53 Eos # 0.2 K/mm3 (0.0-0.4) 02/26/18 03:53 Baso # 0.0 K/mm3 (0.0-0.1) 02/26/18 03:53 Add Manual Diff Complete 02/24/18 11:40 Total Counted 100 02/24/18 11:40 Seg Neutrophils % 64.8 % (40.0-70.0) 02/26/18 03:53 Seg Neuts % (Manual) 96.0 % (40.0-70.0) H 02/24/18 11:40 Band Neutrophils % 0 % 02/24/18 11:40 Lymphocytes % (Manual) 3.0 % (13.4-35.0) L 02/24/18 11:40 Reactive Lymphs % (Man) 0 % 02/24/18 11:40 Monocytes % (Manual) 1.0 % (0.0-7.3) 02/24/18 11:40 Eosinophils % (Manual) 0 % (0.0-4.3) 02/24/18 11:40 Basophils % (Manual) 0 % (0.0-1.8) 02/24/18 11:40 Metamyelocytes % 0 % 02/24/18 11:40 Myelocytes % 0 % 02/24/18 11:40 Promyelocytes % 0 % 02/24/18 11:40 Blast Cells % 0 % 02/24/18 11:40 Nucleated RBC % Not Reportable 02/24/18 11:40 Seg Neutrophils # 2.3 K/mm3 (1.8-7.7) 02/26/18 03:53 Seg Neutrophils # Man 8.4 K/mm3 (1.8-7.7) H 02/24/18 11:40 Band Neutrophils # 0.0 K/mm3 02/24/18 11:40 Lymphocytes # (Manual) 0.3 K/mm3 (1.2-5.4) L 02/24/18 11:40 Abs React Lymphs (Man) 0.0 K/mm3 02/24/18 11:40 Monocytes # (Manual) 0.1 K/mm3 (0.0-0.8) 02/24/18 11:40 Eosinophils # (Manual) 0.0 K/mm3 (0.0-0.4) 02/24/18 11:40 Basophils # (Manual) 0.0 K/mm3 (0.0-0.1) 02/24/18 11:40 Metamyelocytes # 0.0 K/mm3 02/24/18 11:40 Myelocytes # 0.0 K/mm3 02/24/18 11:40 Promyelocytes # 0.0 K/mm3 02/24/18 11:40 Blast Cells # 0.0 K/mm3 02/24/18 11:40 WBC Morphology Not Reportable 02/24/18 11:40 Hypersegmented Neuts Not Reportable 02/24/18 11:40 Hyposegmented Neuts Not Reportable 02/24/18 11:40 Hypogranular Neuts Not Reportable 02/24/18 11:40 Smudge Cells Not Reportable 02/24/18 11:40 Toxic Granulation Not Reportable 02/24/18 11:40 Toxic Vacuolation Not Reportable 02/24/18 11:40 Dohle Bodies Not Reportable 02/24/18 11:40 Pelger-Huet Anomaly Not Reportable 02/24/18 11:40 Jc Rods Not Reportable 02/24/18 11:40 Platelet Estimate Consistent w auto 02/24/18 11:40 Clumped Platelets Not Reportable 02/24/18 11:40 Plt Clumps, EDTA Not Reportable 02/24/18 11:40 Large Platelets Not Reportable 02/24/18 11:40 Giant Platelets Not Reportable 02/24/18 11:40 Platelet Satelliting Not Reportable 02/24/18 11:40 Plt Morphology Comment Not Reportable 02/24/18 11:40 RBC Morphology Not Reportable 02/24/18 11:40 Dimorphic RBCs Not Reportable 02/24/18 11:40 Polychromasia Not Reportable 02/24/18 11:40 Hypochromasia Not Reportable 02/24/18 11:40 Poikilocytosis Not Reportable 02/24/18 11:40 Anisocytosis Not Reportable 02/24/18 11:40 Microcytosis Not Reportable 02/24/18 11:40 Macrocytosis Not Reportable 02/24/18 11:40 Spherocytes Not Reportable 02/24/18 11:40 Pappenheimer Bodies Not Reportable 02/24/18 11:40 Sickle Cells Not Reportable 02/24/18 11:40 Target Cells Not Reportable 02/24/18 11:40 Tear Drop Cells Few 02/24/18 11:40 Ovalocytes Not Reportable 02/24/18 11:40 Helmet Cells Not Reportable 02/24/18 11:40 Cook-Clementon Bodies Not Reportable 02/24/18 11:40 [place] Rings Not Reportable 02/24/18 11:40 Kurt Cells Not Reportable 02/24/18 11:40 Bite Cells Not Reportable 02/24/18 11:40 Crenated Cell Not Reportable 02/24/18 11:40 Elliptocytes Not Reportable 02/24/18 11:40 Acanthocytes (Spur) Not Reportable 02/24/18 11:40 Rouleaux Not Reportable 02/24/18 11:40 Hemoglobin C Crystals Not Reportable 02/24/18 11:40 Schistocytes Not Reportable 02/24/18 11:40 Malaria parasites Not Reportable 02/24/18 11:40 [place]ino Bodies Not Reportable 02/24/18 11:40 Hem Pathologist Commnt No 02/24/18 11:40 PT 13.3 Sec. (12.2-14.9) 02/24/18 11:40 INR 0.97 (0.87-1.13) 02/24/18 11:40 APTT 20.0 Sec. (24.2-36.6) L 02/24/18 11:40 POC ABG pH 7.377 (7.35-7.45) 02/24/18 19:10 POC ABG pCO2 47.8 (35-45) H 02/24/18 19:10 POC ABG pO2 131 (80-105) H 02/24/18 19:10 POC ABG HCO3 28.1 02/24/18 19:10 POC ABG Total CO2 30 02/24/18 19:10 POC ABG O2 Sat 99 02/24/18 19:10 POC ABG Base Excess 3 02/24/18 19:10 FiO2 28 % 02/24/18 19:10 Sodium 146 mmol/L (137-145) H 02/26/18 03:53 Potassium 3.4 mmol/L (3.6-5.0) L D 02/26/18 03:53 Chloride 106.1 mmol/L (98-107) 02/26/18 03:53 Carbon Dioxide 30 mmol/L (22-30) 02/26/18 03:53 Anion Gap 13 mmol/L 02/26/18 03:53 BUN 14 mg/dL (7-17) 02/26/18 03:53 Creatinine 1.1 mg/dL (0.7-1.2) 02/26/18 03:53 Estimated GFR 50 ml/min 02/26/18 03:53 BUN/Creatinine Ratio 13 % 02/26/18 03:53 Glucose 82 mg/dL (65-100) 02/26/18 03:53 POC Glucose 59 (70-105) L 02/26/18 07:46 Lactic Acid 0.70 mmol/L (0.7-2.0) 02/24/18 Unknown Calcium 8.2 mg/dL (8.4-10.2) L 02/26/18 03:53 Magnesium 2.10 mg/dL (1.7-2.3) 02/24/18 11:40 Total Bilirubin 0.50 mg/dL (0.1-1.2) 02/24/18 11:40 AST 23 units/L (5-40) 02/24/18 11:40 ALT 10 units/L (7-56) 02/24/18 11:40 Alkaline Phosphatase 109 units/L (35-129) 02/24/18 11:40 Total Creatine Kinase 97 units/L (30-135) 02/24/18 11:40 Total Protein 6.9 g/dL (6.3-8.2) 02/24/18 11:40 Albumin 3.9 g/dL (3.9-5) 02/24/18 11:40 Albumin/Globulin Ratio 1.3 % 02/24/18 11:40 Urine Color Yellow (Yellow) 02/24/18 12:54 Urine Turbidity Clear (Clear) 02/24/18 12:54 Urine pH 8.0 (5.0-7.0) H 02/24/18 12:54 Ur Specific [place] 1.010 (1.003-1.030) 02/24/18 12:54 Urine Protein 100 mg/dl mg/dL (Negative) 02/24/18 12:54 Urine Glucose (UA) 50 mg/dL (Negative) 02/24/18 12:54 Urine Ketones Tr mg/dL (Negative) 02/24/18 12:54 Urine Blood Neg (Negative) 02/24/18 12:54 Urine Nitrite Neg (Negative) 02/24/18 12:54 Urine Bilirubin Neg (Negative) 02/24/18 12:54 Urine Urobilinogen < 2.0 mg/dL (<2.0) 02/24/18 12:54 Ur Leukocyte Esterase Neg (Negative) 02/24/18 12:54 Urine WBC (Auto) 1.0 /HPF (0.0-6.0) 02/24/18 12:54 Urine RBC (Auto) 1.0 /HPF (0.0-6.0) 02/24/18 12:54 U Epithel Cells (Auto) 1.0 /HPF (0-13.0) 02/24/18 12:54 Hyaline Casts 1 /LPF 02/24/18 12:54 CSF Appearance Clear 02/24/18 14:35 CSF Color Colorless 02/24/18 14:35 CSF WBC 1 /mm3 (1-10) 02/24/18 14:35 CSF RBC 1 /mm3 (0-0) 02/24/18 14:35 CSF Seg Neutrophils 2 % (0-6) 02/24/18 14:35 CSF Lymphocytes % 1 % (40-80) 02/24/18 14:35 CSF Reactive Lymphs 0 % 02/24/18 14:35 CSF Monocytes % 1 % (15-45) 02/24/18 14:35 CSF Eosinophils % 0 % 02/24/18 14:35 CSF Basophils 0 % 02/24/18 14:35 CSF Comment Less than 10 02/24/18 14:35 CSF Pathologist Review C 02/24/18 14:35 CSF Glucose 121 mg/dL 02/24/18 14:30 CSF Total Protein 80 mg/dL 02/24/18 14:30 Salicylates < 0.3 mg/dL (2.8-20.0) L 02/24/18 14:45 Acetaminophen < 5.0 ug/mL (10.0-30.0) L 02/24/18 14:45 Plasma/Serum Alcohol < 0.01 % (0-0.07) 02/24/18 14:45 Influenza A (Rapid) Negative (Negative) 02/24/18 14:30 Influenza B (Rapid) Negative (Negative) 02/24/18 14:30
--- NOTE | 2018-02-26 11:50 | Consultation ---
History of Present Illness Consult date: 02/26/18 Requesting physician: GABRIELA TAM Reason for consult: other (altered mental state) History of present illness: 62 y/o female with stage IV adenocarcinoma of the lung, admitted to ICU secondary to altered mental state. Etiology unknown. Patient stable on 2 liters NC, hemodynamics are normal. Per nursing AMS improved within hours of being admitted to the unit. Past History Past Medical History: cancer, COPD, diabetes Past Surgical History: Other (pleurex catheter, tubal ligation) Social history: other (Tubal ligation, Pleurex Catheter) Family history: hypertension Medications and Allergies Allergies Allergy/AdvReac Type Severity Reaction Status Date / Time codeine Allergy Hives Verified 02/24/18 11:22 Penicillins Allergy Hives Verified 02/24/18 11:22 Home Medications Medication Instructions Recorded Confirmed Last Taken Type Pravastatin [Pravachol] 20 mg PO QDAY #30 tablet 09/13/17 12/07/17 1 Day Ago Rx ~10/30/17 ALBUTEROL Inhaler(NF) [VENTOLIN 1 puff IH Q4H PRN #1 inha 12/10/17 Unknown Rx Inhaler(NF)] Acetaminophen [Acetaminophen TAB] 650 mg PO Q4H PRN #15 tablet 12/10/17 Unknown Rx Citric Acid/Sod Citrate [Bicitra] 30 ml PO QID 30 Days oral.liqd 12/10/17 Unknown Rx Famotidine [Pepcid] 10 mg PO BID #30 tablet 12/10/17 Unknown Rx Gilotrif 40 mg PO Q48H #30 12/10/17 12/07/17 1 Day Ago Rx ~10/30/17 Potassium Chloride [K-Dur] 20 meq PO QDAY #30 tablet 12/10/17 Unknown Rx Sertraline [Zoloft] 25 mg PO DAILY tablet 12/10/17 Unknown Rx Active Meds: Active Medications Albuterol (Proventil) 2.5 mg IH Q3HRT PRN PRN Reason: Shortness Of Breath Amlodipine Besylate (Norvasc) 10 mg PO QDAY [facility] Last Admin: 02/26/18 10:08 Dose: 10 mg Documented by: Haloperidol Lactate (Haldol) 5 mg IM Q6H PRN PRN Reason: Agitation Levetiracetam (Keppra) 500 mg PO BID [facility] Last Admin: 02/26/18 10:08 Dose: 500 mg Documented by: Sodium Chloride (Sodium Chloride Flush Syringe 10 Ml) 10 ml IV BID [facility] Last Admin: 02/26/18 10:19 Dose: 10 ml Documented by: Sodium Chloride (Sodium Chloride Flush Syringe 10 Ml) 10 ml IV PRN PRN PRN Reason: LINE FLUSH Review of Systems All systems: negative Physical Examination Vital signs: Vital Signs Temp Pulse Resp BP Pulse Ox 100.7 F H 112 H 16 194/54 97 02/24/18 11:10 02/24/18 11:10 02/24/18 11:10 02/24/18 11:10 02/24/18 11:10 General appearance: no acute distress, alert Ascultation: Bilateral: diminished breath sounds Results - Laboratory Findings CBC and BMP: 02/26/18 03:53 02/26/18 03:53 ABG POC ABG pH 7.377 (7.35-7.45) 02/24/18 19:10 POC ABG pCO2 47.8 (35-45) H 02/24/18 19:10 POC ABG pO2 131 (80-105) H 02/24/18 19:10 POC ABG HCO3 28.1 02/24/18 19:10 POC ABG Total CO2 30 02/24/18 19:10 POC ABG O2 Sat 99 02/24/18 19:10 PT/INR, D-dimer PT 13.3 Sec. (12.2-14.9) 02/24/18 11:40 INR 0.97 (0.87-1.13) 02/24/18 11:40 Abnormal lab findings: Abnormal Labs 02/24/18 02/24/18 02/24/18 11:40 11:40 11:40 WBC RBC Hgb Hct [place] % (Auto) Eos % (Auto) Lymph # Seg Neuts % (Manual) 96.0 H Lymphocytes % (Manual) 3.0 L Seg Neutrophils # Man 8.4 H Lymphocytes # (Manual) 0.3 L APTT POC ABG pCO2 POC ABG pO2 Sodium Potassium Chloride 95.0 L Creatinine 1.3 H Glucose 233 H POC Glucose Lactic Acid 7.80 H* Calcium Urine pH Salicylates Acetaminophen 02/24/18 02/24/18 02/24/18 11:40 12:53 12:54 WBC RBC Hgb Hct [place] % (Auto) Eos % (Auto) Lymph # Seg Neuts % (Manual) Lymphocytes % (Manual) Seg Neutrophils # Man Lymphocytes # (Manual) APTT 20.0 L POC ABG pCO2 POC ABG pO2 Sodium Potassium Chloride Creatinine Glucose POC Glucose Lactic Acid 2.70 H* Calcium Urine pH 8.0 H Salicylates Acetaminophen 02/24/18 02/24/18 02/24/18 14:45 14:45 19:10 WBC RBC Hgb Hct [place] % (Auto) Eos % (Auto) Lymph # Seg Neuts % (Manual) Lymphocytes % (Manual) Seg Neutrophils # Man Lymphocytes # (Manual) APTT POC ABG pCO2 47.8 H POC ABG pO2 131 H Sodium Potassium Chloride Creatinine Glucose POC Glucose Lactic Acid Calcium Urine pH Salicylates < 0.3 L Acetaminophen < 5.0 L 02/24/18 02/26/18 02/26/18 23:38 03:53 03:53 WBC 3.5 L RBC 3.26 L Hgb 9.6 L Hct 29.6 L D [place] % (Auto) 11.7 H Eos % (Auto) 6.5 H Lymph # 0.6 L Seg Neuts % (Manual) Lymphocytes % (Manual) Seg Neutrophils # Man Lymphocytes # (Manual) APTT POC ABG pCO2 POC ABG pO2 Sodium 146 H Potassium 3.4 L D Chloride Creatinine Glucose POC Glucose 121 H Lactic Acid Calcium 8.2 L Urine pH Salicylates Acetaminophen 02/26/18 07:46 WBC RBC Hgb Hct [place] % (Auto) Eos % (Auto) Lymph # Seg Neuts % (Manual) Lymphocytes % (Manual) Seg Neutrophils # Man Lymphocytes # (Manual) APTT POC ABG pCO2 POC ABG pO2 Sodium Potassium Chloride Creatinine Glucose POC Glucose 59 L Lactic Acid Calcium Urine pH Salicylates Acetaminophen - Diagnostic Findings Chest x-ray: image reviewed Assessment and Plan 62 y/o female with altered mental state, stage IV lung CA and COPD with chronic respiratory failure. 1. Does not meet ICU criteria, will transfer out 2. Will follow up with patient and family in regards to mets to brain and if patient has had an MRI in the past or not 3. Continue supplemental O2 4. Continue anti-epileptic therapy.
--- NOTE | 2018-02-27 08:17 | Progress Note ---
Assessment and Plan 62 y/o female with altered mental state, stage IV lung CA and COPD with chronic respiratory failure. 1. Stable pulm status 2. Will sign off. 3. Mental status and epileptic therapy per primary team. Subjective Date of service: 02/27/18 Interval history: Transferred out of the unit. Pulm status is stable, unchanged. Objective Vital Signs - 12hr 02/26/18 02/27/18 21:58 05:30 Temperature 99.7 F H 99.3 F Pulse Rate 85 82 Respiratory 28 H 28 H Rate Blood Pressure 133/47 145/56 O2 Sat by Pulse 95 98 Oximetry Constitutional: no acute distress, alert Eyes: non-icteric ENT: oropharynx moist Neck: supple, no lymphadenopathy Effort: mildly labored Ascultation: Bilateral: diminished breath sounds Cardiovascular: regular rate and rhythm, other (S1,S2, no murmurs, gallops or rubs) Gastrointestinal: normoactive bowel sounds, soft, non-tender, non-distended Integumentary: normal Extremities: no cyanosis, no edema, pink and warm, pulses normal Neurologic: normal mental status, non-focal exam, pupils equal and round, motor strength normal and Psychiatric: mood appropriate, affect normal CBC and BMP: 02/26/18 03:53 02/26/18 03:53 ABG, PT/INR, D-dimer: ABG POC ABG pH 7.377 (7.35-7.45) 02/24/18 19:10 POC ABG pCO2 47.8 (35-45) H 02/24/18 19:10 POC ABG pO2 131 (80-105) H 02/24/18 19:10 POC ABG HCO3 28.1 02/24/18 19:10 POC ABG Total CO2 30 02/24/18 19:10 POC ABG O2 Sat 99 02/24/18 19:10 PT/INR, D-dimer PT 13.3 Sec. (12.2-14.9) 02/24/18 11:40 INR 0.97 (0.87-1.13) 02/24/18 11:40 Abnormal lab findings: Abnormal Labs 02/24/18 02/24/18 02/24/18 11:40 11:40 11:40 WBC RBC Hgb Hct [place] % (Auto) Eos % (Auto) Lymph # Seg Neuts % (Manual) 96.0 H Lymphocytes % (Manual) 3.0 L Seg Neutrophils # Man 8.4 H Lymphocytes # (Manual) 0.3 L APTT POC ABG pCO2 POC ABG pO2 Sodium Potassium Chloride 95.0 L Creatinine 1.3 H Glucose 233 H POC Glucose Lactic Acid 7.80 H* Calcium Urine pH Salicylates Acetaminophen 02/24/18 02/24/18 02/24/18 11:40 12:53 12:54 WBC RBC Hgb Hct [place] % (Auto) Eos % (Auto) Lymph # Seg Neuts % (Manual) Lymphocytes % (Manual) Seg Neutrophils # Man Lymphocytes # (Manual) APTT 20.0 L POC ABG pCO2 POC ABG pO2 Sodium Potassium Chloride Creatinine Glucose POC Glucose Lactic Acid 2.70 H* Calcium Urine pH 8.0 H Salicylates Acetaminophen 02/24/18 02/24/18 02/24/18 14:45 14:45 19:10 WBC RBC Hgb Hct [place] % (Auto) Eos % (Auto) Lymph # Seg Neuts % (Manual) Lymphocytes % (Manual) Seg Neutrophils # Man Lymphocytes # (Manual) APTT POC ABG pCO2 47.8 H POC ABG pO2 131 H Sodium Potassium Chloride Creatinine Glucose POC Glucose Lactic Acid Calcium Urine pH Salicylates < 0.3 L Acetaminophen < 5.0 L 02/24/18 02/26/18 02/26/18 23:38 03:53 03:53 WBC 3.5 L RBC 3.26 L Hgb 9.6 L Hct 29.6 L D [place] % (Auto) 11.7 H Eos % (Auto) 6.5 H Lymph # 0.6 L Seg Neuts % (Manual) Lymphocytes % (Manual) Seg Neutrophils # Man Lymphocytes # (Manual) APTT POC ABG pCO2 POC ABG pO2 Sodium 146 H Potassium 3.4 L D Chloride Creatinine Glucose POC Glucose 121 H Lactic Acid Calcium 8.2 L Urine pH Salicylates Acetaminophen 02/26/18 02/26/18 02/26/18 07:46 12:24 16:11 WBC RBC Hgb Hct [place] % (Auto) Eos % (Auto) Lymph # Seg Neuts % (Manual) Lymphocytes % (Manual) Seg Neutrophils # Man Lymphocytes # (Manual) APTT POC ABG pCO2 POC ABG pO2 Sodium Potassium Chloride Creatinine Glucose POC Glucose 59 L 117 H 202 H Lactic Acid Calcium Urine pH Salicylates Acetaminophen
[2018-02-27] MEDS: KEPPRA PO SCH ×2 (09:56→21:11)
[2018-02-27] MEDS: SODIUM CHLORIDE FLUSH SYRINGE 10 ML IV SCH ×2 (09:56→21:11)
[2018-02-27] MEDS: NORVASC PO SCH (09:56)
--- NOTE | 2018-02-27 10:55 | Progress Note ---
Assessment and Plan Assessment and plan: Toxic metabolic encephalopathy. For MRI Brain to r/o stroke SIRS. Continue empiric antibiotic therapy. No obvious signs of infection at this time. Diabetes mellitus type 2. Continue ADA diet, Accu-Cheks and sliding scale insulin. Seizure disorder. Continue Keppra. Check EEG. Seizure precautions. Right lung CA on immunotherapy. Hypertension. Continue antihypertensive medications. DVT prophylaxis. Continue SCDs. D History Interval history: Altered mental status improved Hospitalist Physical - Physical exam Narrative exam: GEN: Not in acute distress,lying in bed HEENT: Normocephalic, atraumatic, Neck: supple, No JVD Lungs: Clear to auscultation, no wheeze Heart:S1 and S2 regular, no murmurs, rubs or gallop, Abd:soft, non tender, non distended, normal bowel sounds Ext: No edema, no clubbing or cyanosis Neuro: Awake,alert, oriented x 3, moves all ext, No focal signs Psych:Normal mood - Constitutional Vitals: Temp Pulse Resp BP Pulse Ox 99.3 F 92 H 28 H 136/45 98 02/27/18 05:30 02/27/18 10:00 02/27/18 05:30 02/27/18 09:56 02/27/18 05:30 General appearance: Present: no acute distress Results - Labs CBC & Chem 7: 02/28/18 05:31 02/28/18 05:31 Labs: Laboratory Last Values WBC 3.5 K/mm3 (4.5-11.0) L 02/26/18 03:53 RBC 3.26 M/mm3 (3.65-5.03) L 02/26/18 03:53 Hgb 9.6 gm/dl (10.1-14.3) L 02/26/18 03:53 Hct 29.6 % (30.3-42.9) L D 02/26/18 03:53 MCV 91 fl (79-97) 02/26/18 03:53 MCH 29 pg (28-32) 02/26/18 03:53 MCHC 32 % (30-34) 02/26/18 03:53 RDW 14.8 % (13.2-15.2) 02/26/18 03:53 Plt Count 208 K/mm3 (140-440) 02/26/18 03:53 Lymph % (Auto) 16.1 % (13.4-35.0) 02/26/18 03:53 [place] % (Auto) 11.7 % (0.0-7.3) H 02/26/18 03:53 Eos % (Auto) 6.5 % (0.0-4.3) H 02/26/18 03:53 Baso % (Auto) 0.9 % (0.0-1.8) 02/26/18 03:53 Lymph # 0.6 K/mm3 (1.2-5.4) L 02/26/18 03:53 [place] # 0.4 K/mm3 (0.0-0.8) 02/26/18 03:53 Eos # 0.2 K/mm3 (0.0-0.4) 02/26/18 03:53 Baso # 0.0 K/mm3 (0.0-0.1) 02/26/18 03:53 Add Manual Diff Complete 02/24/18 11:40 Total Counted 100 02/24/18 11:40 Seg Neutrophils % 64.8 % (40.0-70.0) 02/26/18 03:53 Seg Neuts % (Manual) 96.0 % (40.0-70.0) H 02/24/18 11:40 Band Neutrophils % 0 % 02/24/18 11:40 Lymphocytes % (Manual) 3.0 % (13.4-35.0) L 02/24/18 11:40 Reactive Lymphs % (Man) 0 % 02/24/18 11:40 Monocytes % (Manual) 1.0 % (0.0-7.3) 02/24/18 11:40 Eosinophils % (Manual) 0 % (0.0-4.3) 02/24/18 11:40 Basophils % (Manual) 0 % (0.0-1.8) 02/24/18 11:40 Metamyelocytes % 0 % 02/24/18 11:40 Myelocytes % 0 % 02/24/18 11:40 Promyelocytes % 0 % 02/24/18 11:40 Blast Cells % 0 % 02/24/18 11:40 Nucleated RBC % Not Reportable 02/24/18 11:40 Seg Neutrophils # 2.3 K/mm3 (1.8-7.7) 02/26/18 03:53 Seg Neutrophils # Man 8.4 K/mm3 (1.8-7.7) H 02/24/18 11:40 Band Neutrophils # 0.0 K/mm3 02/24/18 11:40 Lymphocytes # (Manual) 0.3 K/mm3 (1.2-5.4) L 02/24/18 11:40 Abs React Lymphs (Man) 0.0 K/mm3 02/24/18 11:40 Monocytes # (Manual) 0.1 K/mm3 (0.0-0.8) 02/24/18 11:40 Eosinophils # (Manual) 0.0 K/mm3 (0.0-0.4) 02/24/18 11:40 Basophils # (Manual) 0.0 K/mm3 (0.0-0.1) 02/24/18 11:40 Metamyelocytes # 0.0 K/mm3 02/24/18 11:40 Myelocytes # 0.0 K/mm3 02/24/18 11:40 Promyelocytes # 0.0 K/mm3 02/24/18 11:40 Blast Cells # 0.0 K/mm3 02/24/18 11:40 WBC Morphology Not Reportable 02/24/18 11:40 Hypersegmented Neuts Not Reportable 02/24/18 11:40 Hyposegmented Neuts Not Reportable 02/24/18 11:40 Hypogranular Neuts Not Reportable 02/24/18 11:40 Smudge Cells Not Reportable 02/24/18 11:40 Toxic Granulation Not Reportable 02/24/18 11:40 Toxic Vacuolation Not Reportable 02/24/18 11:40 Dohle Bodies Not Reportable 02/24/18 11:40 Pelger-Huet Anomaly Not Reportable 02/24/18 11:40 Jc Rods Not Reportable 02/24/18 11:40 Platelet Estimate Consistent w auto 02/24/18 11:40 Clumped Platelets Not Reportable 02/24/18 11:40 Plt Clumps, EDTA Not Reportable 02/24/18 11:40 Large Platelets Not Reportable 02/24/18 11:40 Giant Platelets Not Reportable 02/24/18 11:40 Platelet Satelliting Not Reportable 02/24/18 11:40 Plt Morphology Comment Not Reportable 02/24/18 11:40 RBC Morphology Not Reportable 02/24/18 11:40 Dimorphic RBCs Not Reportable 02/24/18 11:40 Polychromasia Not Reportable 02/24/18 11:40 Hypochromasia Not Reportable 02/24/18 11:40 Poikilocytosis Not Reportable 02/24/18 11:40 Anisocytosis Not Reportable 02/24/18 11:40 Microcytosis Not Reportable 02/24/18 11:40 Macrocytosis Not Reportable 02/24/18 11:40 Spherocytes Not Reportable 02/24/18 11:40 Pappenheimer Bodies Not Reportable 02/24/18 11:40 Sickle Cells Not Reportable 02/24/18 11:40 Target Cells Not Reportable 02/24/18 11:40 Tear Drop Cells Few 02/24/18 11:40 Ovalocytes Not Reportable 02/24/18 11:40 Helmet Cells Not Reportable 02/24/18 11:40 Cook-[place] Bodies Not Reportable 02/24/18 11:40 Christine Rings Not Reportable 02/24/18 11:40 [place] Cells Not Reportable 02/24/18 11:40 Bite Cells Not Reportable 02/24/18 11:40 Crenated Cell Not Reportable 02/24/18 11:40 Elliptocytes Not Reportable 02/24/18 11:40 Acanthocytes (Spur) Not Reportable 02/24/18 11:40 Rouleaux Not Reportable 02/24/18 11:40 Hemoglobin C Crystals Not Reportable 02/24/18 11:40 Schistocytes Not Reportable 02/24/18 11:40 Malaria parasites Not Reportable 02/24/18 11:40 Lino Bodies Not Reportable 02/24/18 11:40 Hem Pathologist Commnt No 02/24/18 11:40 PT 13.3 Sec. (12.2-14.9) 02/24/18 11:40 INR 0.97 (0.87-1.13) 02/24/18 11:40 APTT 20.0 Sec. (24.2-36.6) L 02/24/18 11:40 POC ABG pH 7.377 (7.35-7.45) 02/24/18 19:10 POC ABG pCO2 47.8 (35-45) H 02/24/18 19:10 POC ABG pO2 131 (80-105) H 02/24/18 19:10 POC ABG HCO3 28.1 02/24/18 19:10 POC ABG Total CO2 30 02/24/18 19:10 POC ABG O2 Sat 99 02/24/18 19:10 POC ABG Base Excess 3 02/24/18 19:10 FiO2 28 % 02/24/18 19:10 Sodium 146 mmol/L (137-145) H 02/26/18 03:53 Potassium 3.4 mmol/L (3.6-5.0) L D 02/26/18 03:53 Chloride 106.1 mmol/L (98-107) 02/26/18 03:53 Carbon Dioxide 30 mmol/L (22-30) 02/26/18 03:53 Anion Gap 13 mmol/L 02/26/18 03:53 BUN 14 mg/dL (7-17) 02/26/18 03:53 Creatinine 1.1 mg/dL (0.7-1.2) 02/26/18 03:53 Estimated GFR 50 ml/min 02/26/18 03:53 BUN/Creatinine Ratio 13 % 02/26/18 03:53 Glucose 82 mg/dL (65-100) 02/26/18 03:53 POC Glucose 73 (70-105) 02/27/18 07:33 Lactic Acid 0.70 mmol/L (0.7-2.0) 02/24/18 Unknown Calcium 8.2 mg/dL (8.4-10.2) L 02/26/18 03:53 Magnesium 2.10 mg/dL (1.7-2.3) 02/24/18 11:40 Total Bilirubin 0.50 mg/dL (0.1-1.2) 02/24/18 11:40 AST 23 units/L (5-40) 02/24/18 11:40 ALT 10 units/L (7-56) 02/24/18 11:40 Alkaline Phosphatase 109 units/L (35-129) 02/24/18 11:40 Total Creatine Kinase 97 units/L (30-135) 02/24/18 11:40 Total Protein 6.9 g/dL (6.3-8.2) 02/24/18 11:40 Albumin 3.9 g/dL (3.9-5) 02/24/18 11:40 Albumin/Globulin Ratio 1.3 % 02/24/18 11:40 Urine Color Yellow (Yellow) 02/24/18 12:54 Urine Turbidity Clear (Clear) 02/24/18 12:54 Urine pH 8.0 (5.0-7.0) H 02/24/18 12:54 Ur Specific [place] 1.010 (1.003-1.030) 02/24/18 12:54 Urine Protein 100 mg/dl mg/dL (Negative) 02/24/18 12:54 Urine Glucose (UA) 50 mg/dL (Negative) 02/24/18 12:54 Urine Ketones Tr mg/dL (Negative) 02/24/18 12:54 Urine Blood Neg (Negative) 02/24/18 12:54 Urine Nitrite Neg (Negative) 02/24/18 12:54 Urine Bilirubin Neg (Negative) 02/24/18 12:54 Urine Urobilinogen < 2.0 mg/dL (<2.0) 02/24/18 12:54 Ur Leukocyte Esterase Neg (Negative) 02/24/18 12:54 Urine WBC (Auto) 1.0 /HPF (0.0-6.0) 02/24/18 12:54 Urine RBC (Auto) 1.0 /HPF (0.0-6.0) 02/24/18 12:54 U Epithel Cells (Auto) 1.0 /HPF (0-13.0) 02/24/18 12:54 Hyaline Casts 1 /LPF 02/24/18 12:54 CSF Appearance Clear 02/24/18 14:35 CSF Color Colorless 02/24/18 14:35 CSF WBC 1 /mm3 (1-10) 02/24/18 14:35 CSF RBC 1 /mm3 (0-0) 02/24/18 14:35 CSF Seg Neutrophils 2 % (0-6) 02/24/18 14:35 CSF Lymphocytes % 1 % (40-80) 02/24/18 14:35 CSF Reactive Lymphs 0 % 02/24/18 14:35 CSF Monocytes % 1 % (15-45) 02/24/18 14:35 CSF Eosinophils % 0 % 02/24/18 14:35 CSF Basophils 0 % 02/24/18 14:35 CSF Comment Less than 10 02/24/18 14:35 CSF Pathologist Review C 02/24/18 14:35 CSF Glucose 121 mg/dL 02/24/18 14:30 CSF Total Protein 80 mg/dL 02/24/18 14:30 Salicylates < 0.3 mg/dL (2.8-20.0) L 02/24/18 14:45 Acetaminophen < 5.0 ug/mL (10.0-30.0) L 02/24/18 14:45 Plasma/Serum Alcohol < 0.01 % (0-0.07) 02/24/18 14:45 Influenza A (Rapid) Negative (Negative) 02/24/18 14:30 Influenza B (Rapid) Negative (Negative) 02/24/18 14:30
[2018-02-27] MEDS: TYLENOL PO PRN (17:57)
--- NOTE | 2018-02-27 18:20 | Consultation ---
History of Present Illness Consult date: 02/27/18 Requesting physician: JOVANI ALBRECHT Reason for Consult: Seizures, lung cancer History of present illness: This is a 62 yr old rt. handed female with diagnoses of DM, COPD, Lung Cancer S/P Pleural Catheter placement, Chronic Respiratory Failure. She presented to ED with altered mental status and witnessed seizure. She presented for her usual chemotherapy to oncology clinic on 02/23/18. Starting on Sat., 01/31, she began to note worsening headache and nausea. Family felt that she was not acting her usual self. Daughter witnessed a seizure at home on 02/24/18, called EMS and she ws brought to the ED, where another generalized seizure was witnessed. The pt. has no recollection of events from Sat. on. She has never had seizures before. CT brain has areas of low attenuation, an LP was performed in the ER and was unremarkable except for elevated protein of 80. Today the pt. is feeling back to normal. She is noting the build up of another headache. She denies ever having problems with her vision, numbness or weakness of the extremities, or balance problems. Past History Past Medical History: cancer, COPD, diabetes Past Surgical History: Other (pleurex catheter, tubal ligation) Social history: other Family history: hypertension Medications and Allergies Allergies Allergy/AdvReac Type Severity Reaction Status Date / Time codeine Allergy Hives Verified 02/24/18 11:22 Penicillins Allergy Hives Verified 02/24/18 11:22 Home Medications Medication Instructions Recorded Confirmed Last Taken Type Pravastatin [Pravachol] 20 mg PO QDAY #30 tablet 09/13/17 12/07/17 1 Day Ago Rx ~10/30/17 ALBUTEROL Inhaler(NF) [VENTOLIN 1 puff IH Q4H PRN #1 inha 12/10/17 Unknown Rx Inhaler(NF)] Acetaminophen [Acetaminophen TAB] 650 mg PO Q4H PRN #15 tablet 12/10/17 Unknown Rx Citric Acid/Sod Citrate [Bicitra] 30 ml PO QID 30 Days oral.liqd 12/10/17 Unknown Rx Famotidine [Pepcid] 10 mg PO BID #30 tablet 12/10/17 Unknown Rx Gilotrif 40 mg PO Q48H #30 12/10/17 12/07/17 1 Day Ago Rx ~10/30/17 Potassium Chloride [K-Dur] 20 meq PO QDAY #30 tablet 12/10/17 Unknown Rx Sertraline [Zoloft] 25 mg PO DAILY tablet 12/10/17 Unknown Rx Active Meds: Active Medications Acetaminophen (Tylenol) 650 mg PO Q6H PRN PRN Reason: Pain, Mild (1-3) Last Admin: 02/27/18 17:57 Dose: 650 mg Documented by: Albuterol (Proventil) 2.5 mg IH Q3HRT PRN PRN Reason: Shortness Of Breath Amlodipine Besylate (Norvasc) 10 mg PO QDAY [facility] Last Admin: 02/27/18 09:56 Dose: 10 mg Documented by: Haloperidol Lactate (Haldol) 5 mg IM Q6H PRN PRN Reason: Agitation Levetiracetam (Keppra) 500 mg PO BID [facility] Last Admin: 02/27/18 09:56 Dose: 500 mg Documented by: Sodium Chloride (Sodium Chloride Flush Syringe 10 Ml) 10 ml IV BID [facility] Last Admin: 02/27/18 09:56 Dose: 10 ml Documented by: Sodium Chloride (Sodium Chloride Flush Syringe 10 Ml) 10 ml IV PRN PRN PRN Reason: LINE FLUSH Review of Systems All systems: negative (headache) Physical Examination - Vital Signs Vital Signs: Vital Signs Temp Pulse Resp BP Pulse Ox 100.7 F H 112 H 16 194/54 97 02/24/18 11:10 02/24/18 11:10 02/24/18 11:10 02/24/18 11:10 02/24/18 11:10 - Physical Exam Narrative exam: Neurological exam - Speech fluent, relates her history well. Daughter supplied history for last few days. 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 Sensory - intact to touch and pin Cerebellar - intact FTN, Wes, and fine finger movements. Results - Laboratory Findings CBC and BMP: 02/26/18 03:53 02/26/18 03:53 Abnormal Lab Findings: Abnormal Labs 02/24/18 02/24/18 02/24/18 11:40 11:40 11:40 WBC RBC Hgb Hct [place] % (Auto) Eos % (Auto) Lymph # Seg Neuts % (Manual) 96.0 H Lymphocytes % (Manual) 3.0 L Seg Neutrophils # Man 8.4 H Lymphocytes # (Manual) 0.3 L APTT POC ABG pCO2 POC ABG pO2 Sodium Potassium Chloride 95.0 L Creatinine 1.3 H Glucose 233 H POC Glucose Lactic Acid 7.80 H* Calcium Urine pH Salicylates Acetaminophen 02/24/18 02/24/18 02/24/18 11:40 12:53 12:54 WBC RBC Hgb Hct [place] % (Auto) Eos % (Auto) Lymph # Seg Neuts % (Manual) Lymphocytes % (Manual) Seg Neutrophils # Man Lymphocytes # (Manual) APTT 20.0 L POC ABG pCO2 POC ABG pO2 Sodium Potassium Chloride Creatinine Glucose POC Glucose Lactic Acid 2.70 H* Calcium Urine pH 8.0 H Salicylates Acetaminophen 02/24/18 02/24/18 02/24/18 14:45 14:45 19:10 WBC RBC Hgb Hct [place] % (Auto) Eos % (Auto) Lymph # Seg Neuts % (Manual) Lymphocytes % (Manual) Seg Neutrophils # Man Lymphocytes # (Manual) APTT POC ABG pCO2 47.8 H POC ABG pO2 131 H Sodium Potassium Chloride Creatinine Glucose POC Glucose Lactic Acid Calcium Urine pH Salicylates < 0.3 L Acetaminophen < 5.0 L 02/24/18 02/26/18 02/26/18 23:38 03:53 03:53 WBC 3.5 L RBC 3.26 L Hgb 9.6 L Hct 29.6 L D [place] % (Auto) 11.7 H Eos % (Auto) 6.5 H Lymph # 0.6 L Seg Neuts % (Manual) Lymphocytes % (Manual) Seg Neutrophils # Man Lymphocytes # (Manual) APTT POC ABG pCO2 POC ABG pO2 Sodium 146 H Potassium 3.4 L D Chloride Creatinine Glucose POC Glucose 121 H Lactic Acid Calcium 8.2 L Urine pH Salicylates Acetaminophen 02/26/18 02/26/18 02/26/18 07:46 12:24 16:11 WBC RBC Hgb Hct [place] % (Auto) Eos % (Auto) Lymph # Seg Neuts % (Manual) Lymphocytes % (Manual) Seg Neutrophils # Man Lymphocytes # (Manual) APTT POC ABG pCO2 POC ABG pO2 Sodium Potassium Chloride Creatinine Glucose POC Glucose 59 L 117 H 202 H Lactic Acid Calcium Urine pH Salicylates Acetaminophen 02/27/18 02/27/18 11:40 16:14 WBC RBC Hgb Hct [place] % (Auto) Eos % (Auto) Lymph # Seg Neuts % (Manual) Lymphocytes % (Manual) Seg Neutrophils # Man Lymphocytes # (Manual) APTT POC ABG pCO2 POC ABG pO2 Sodium Potassium Chloride Creatinine Glucose POC Glucose 123 H 128 H Lactic Acid Calcium Urine pH Salicylates Acetaminophen Assessment and Plan 62 yr old female with hx of lung cancer, diabetes, hypertension presented with headache and seizures. CT is suspicious for brain lesions. MRI is pending. Plan - await MRI results. Continue Flor
[2018-02-28 06:00] LABS: Hematocrit 29.7 % (30.3-42.9); Hemoglobin 9.5 gm/dl (10.1-14.3); Mean Corpuscular HGB Conc 32 % (30-34); Mean Corpuscular Volume 91 fl (79-97); Platelet Count 192 K/mm3 (140-440); Red Blood Count 3.28 M/mm3 (3.65-5.03); Red Cell Distribution Width 14.4 % (13.2-15.2)
[2018-02-28 06:19] LABS: Calcium 8.3 mg/dL (8.4-10.2)
--- NOTE | 2018-02-28 09:50 | Progress Note ---
Assessment and Plan Assessment and plan: Toxic metabolic encephalopathy. MRI Brain abnormal. Multifocal subcortical T2 [id number]. Neurology to evaluate SIRS. Continue empiric antibiotic therapy. No obvious signs of infection at this time. Diabetes mellitus type 2. Continue ADA diet, Accu-Cheks and sliding scale insulin. Seizure disorder. Continue Keppra. Check EEG. Seizure precautions. Right lung CA on Immunotherapy. Hypertension. Continue antihypertensive medications. DVT prophylaxis. Continue SCDs. History Interval history: Altered mental status resolved, Asking when she is going home Hospitalist Physical - Physical exam Narrative exam: GEN: Not in acute distress,lying in bed HEENT: Normocephalic, atraumatic, Neck: supple, No JVD Lungs: Clear to auscultation, no wheeze Heart:S1 and S2 regular, no murmurs, rubs or gallop, Abd:soft, non tender, non distended, normal bowel sounds Ext: No edema, no clubbing or cyanosis Neuro: Awake,alert, oriented x 3, moves all ext, No focal signs Psych:Normal mood - Constitutional Vitals: Temp Pulse Resp BP Pulse Ox 98.2 F 81 18 160/55 97 02/28/18 04:09 02/28/18 04:09 02/28/18 04:09 02/28/18 04:09 02/28/18 04:09 General appearance: Present: no acute distress Results - Labs CBC & Chem 7: 02/28/18 05:31 02/28/18 05:31 Labs: Laboratory Last Values WBC 4.1 K/mm3 (4.5-11.0) L 02/28/18 05:31 RBC 3.28 M/mm3 (3.65-5.03) L 02/28/18 05:31 Hgb 9.5 gm/dl (10.1-14.3) L 02/28/18 05:31 Hct 29.7 % (30.3-42.9) L 02/28/18 05:31 MCV 91 fl (79-97) 02/28/18 05:31 MCH 29 pg (28-32) 02/28/18 05:31 MCHC 32 % (30-34) 02/28/18 05:31 RDW 14.4 % (13.2-15.2) 02/28/18 05:31 Plt Count 192 K/mm3 (140-440) 02/28/18 05:31 Lymph % (Auto) 16.1 % (13.4-35.0) 02/26/18 03:53 [place] % (Auto) 11.7 % (0.0-7.3) H 02/26/18 03:53 Eos % (Auto) 6.5 % (0.0-4.3) H 02/26/18 03:53 Baso % (Auto) 0.9 % (0.0-1.8) 02/26/18 03:53 Lymph # 0.6 K/mm3 (1.2-5.4) L 02/26/18 03:53 [place] # 0.4 K/mm3 (0.0-0.8) 02/26/18 03:53 Eos # 0.2 K/mm3 (0.0-0.4) 02/26/18 03:53 Baso # 0.0 K/mm3 (0.0-0.1) 02/26/18 03:53 Add Manual Diff Complete 02/24/18 11:40 Total Counted 100 02/24/18 11:40 Seg Neutrophils % 64.8 % (40.0-70.0) 02/26/18 03:53 Seg Neuts % (Manual) 96.0 % (40.0-70.0) H 02/24/18 11:40 Band Neutrophils % 0 % 02/24/18 11:40 Lymphocytes % (Manual) 3.0 % (13.4-35.0) L 02/24/18 11:40 Reactive Lymphs % (Man) 0 % 02/24/18 11:40 Monocytes % (Manual) 1.0 % (0.0-7.3) 02/24/18 11:40 Eosinophils % (Manual) 0 % (0.0-4.3) 02/24/18 11:40 Basophils % (Manual) 0 % (0.0-1.8) 02/24/18 11:40 Metamyelocytes % 0 % 02/24/18 11:40 Myelocytes % 0 % 02/24/18 11:40 Promyelocytes % 0 % 02/24/18 11:40 Blast Cells % 0 % 02/24/18 11:40 Nucleated RBC % Not Reportable 02/24/18 11:40 Seg Neutrophils # 2.3 K/mm3 (1.8-7.7) 02/26/18 03:53 Seg Neutrophils # Man 8.4 K/mm3 (1.8-7.7) H 02/24/18 11:40 Band Neutrophils # 0.0 K/mm3 02/24/18 11:40 Lymphocytes # (Manual) 0.3 K/mm3 (1.2-5.4) L 02/24/18 11:40 Abs React Lymphs (Man) 0.0 K/mm3 02/24/18 11:40 Monocytes # (Manual) 0.1 K/mm3 (0.0-0.8) 02/24/18 11:40 Eosinophils # (Manual) 0.0 K/mm3 (0.0-0.4) 02/24/18 11:40 Basophils # (Manual) 0.0 K/mm3 (0.0-0.1) 02/24/18 11:40 Metamyelocytes # 0.0 K/mm3 02/24/18 11:40 Myelocytes # 0.0 K/mm3 02/24/18 11:40 Promyelocytes # 0.0 K/mm3 02/24/18 11:40 Blast Cells # 0.0 K/mm3 02/24/18 11:40 WBC Morphology Not Reportable 02/24/18 11:40 Hypersegmented Neuts Not Reportable 02/24/18 11:40 Hyposegmented Neuts Not Reportable 02/24/18 11:40 Hypogranular Neuts Not Reportable 02/24/18 11:40 Smudge Cells Not Reportable 02/24/18 11:40 Toxic Granulation Not Reportable 02/24/18 11:40 Toxic Vacuolation Not Reportable 02/24/18 11:40 Dohle Bodies Not Reportable 02/24/18 11:40 Pelger-Huet Anomaly Not Reportable 02/24/18 11:40 Jc Rods Not Reportable 02/24/18 11:40 Platelet Estimate Consistent w auto 02/24/18 11:40 Clumped Platelets Not Reportable 02/24/18 11:40 Plt Clumps, EDTA Not Reportable 02/24/18 11:40 Large Platelets Not Reportable 02/24/18 11:40 Giant Platelets Not Reportable 02/24/18 11:40 Platelet Satelliting Not Reportable 02/24/18 11:40 Plt Morphology Comment Not Reportable 02/24/18 11:40 RBC Morphology Not Reportable 02/24/18 11:40 Dimorphic RBCs Not Reportable 02/24/18 11:40 Polychromasia Not Reportable 02/24/18 11:40 Hypochromasia Not Reportable 02/24/18 11:40 Poikilocytosis Not Reportable 02/24/18 11:40 Anisocytosis Not Reportable 02/24/18 11:40 Microcytosis Not Reportable 02/24/18 11:40 Macrocytosis Not Reportable 02/24/18 11:40 Spherocytes Not Reportable 02/24/18 11:40 Pappenheimer Bodies Not Reportable 02/24/18 11:40 Sickle Cells Not Reportable 02/24/18 11:40 Target Cells Not Reportable 02/24/18 11:40 Tear Drop Cells Few 02/24/18 11:40 Ovalocytes Not Reportable 02/24/18 11:40 Helmet Cells Not Reportable 02/24/18 11:40 Cook-[place] Bodies Not Reportable 02/24/18 11:40 [place] Rings Not Reportable 02/24/18 11:40 [place] Cells Not Reportable 02/24/18 11:40 Bite Cells Not Reportable 02/24/18 11:40 Crenated Cell Not Reportable 02/24/18 11:40 Elliptocytes Not Reportable 02/24/18 11:40 Acanthocytes (Spur) Not Reportable 02/24/18 11:40 Rouleaux Not Reportable 02/24/18 11:40 Hemoglobin C Crystals Not Reportable 02/24/18 11:40 Schistocytes Not Reportable 02/24/18 11:40 Malaria parasites Not Reportable 02/24/18 11:40 Lino Bodies Not Reportable 02/24/18 11:40 Hem Pathologist Commnt No 02/24/18 11:40 PT 13.3 Sec. (12.2-14.9) 02/24/18 11:40 INR 0.97 (0.87-1.13) 02/24/18 11:40 APTT 20.0 Sec. (24.2-36.6) L 02/24/18 11:40 POC ABG pH 7.377 (7.35-7.45) 02/24/18 19:10 POC ABG pCO2 47.8 (35-45) H 02/24/18 19:10 POC ABG pO2 131 (80-105) H 02/24/18 19:10 POC ABG HCO3 28.1 02/24/18 19:10 POC ABG Total CO2 30 02/24/18 19:10 POC ABG O2 Sat 99 02/24/18 19:10 POC ABG Base Excess 3 02/24/18 19:10 FiO2 28 % 02/24/18 19:10 Sodium 146 mmol/L (137-145) H 02/28/18 05:31 Potassium 4.4 mmol/L (3.6-5.0) D 02/28/18 05:31 Chloride 104.8 mmol/L (98-107) 02/28/18 05:31 Carbon Dioxide 35 mmol/L (22-30) H 02/28/18 05:31 Anion Gap 11 mmol/L 02/28/18 05:31 BUN 11 mg/dL (7-17) 02/28/18 05:31 Creatinine 1.1 mg/dL (0.7-1.2) 02/28/18 05:31 Estimated GFR 50 ml/min 02/28/18 05:31 BUN/Creatinine Ratio 10 % 02/28/18 05:31 Glucose 101 mg/dL (65-100) H 02/28/18 05:31 POC Glucose 186 (70-105) H 02/28/18 08:59 Lactic Acid 0.70 mmol/L (0.7-2.0) 02/24/18 Unknown Calcium 8.3 mg/dL (8.4-10.2) L 02/28/18 05:31 Magnesium 2.10 mg/dL (1.7-2.3) 02/24/18 11:40 Total Bilirubin 0.50 mg/dL (0.1-1.2) 02/24/18 11:40 AST 23 units/L (5-40) 02/24/18 11:40 ALT 10 units/L (7-56) 02/24/18 11:40 Alkaline Phosphatase 109 units/L (35-129) 02/24/18 11:40 Total Creatine Kinase 97 units/L (30-135) 02/24/18 11:40 Total Protein 6.9 g/dL (6.3-8.2) 02/24/18 11:40 Albumin 3.9 g/dL (3.9-5) 02/24/18 11:40 Albumin/Globulin Ratio 1.3 % 02/24/18 11:40 Urine Color Yellow (Yellow) 02/24/18 12:54 Urine Turbidity Clear (Clear) 02/24/18 12:54 Urine pH 8.0 (5.0-7.0) H 02/24/18 12:[address] 1[address]010 (1.003-1.030) 02/24/18 12:54 Urine Protein 100 mg/dl mg/dL (Negative) 02/24/18 12:54 Urine Glucose (UA) 50 mg/dL (Negative) 02/24/18 12:54 Urine Ketones Tr mg/dL (Negative) 02/24/18 12:54 Urine Blood Neg (Negative) 02/24/18 12:54 Urine Nitrite Neg (Negative) 02/24/18 12:54 Urine Bilirubin Neg (Negative) 02/24/18 12:54 Urine Urobilinogen < 2.0 mg/dL (<2.0) 02/24/18 12:54 Ur Leukocyte Esterase Neg (Negative) 02/24/18 12:54 Urine WBC (Auto) 1.0 /HPF (0.0-6.0) 02/24/18 12:54 Urine RBC (Auto) 1.0 /HPF (0.0-6.0) 02/24/18 12:54 U Epithel Cells (Auto) 1.0 /HPF (0-13.0) 02/24/18 12:54 Hyaline Casts 1 /LPF 02/24/18 12:54 CSF Appearance Clear 02/24/18 14:35 CSF Color Colorless 02/24/18 14:35 CSF WBC 1 /mm3 (1-10) 02/24/18 14:35 CSF RBC 1 /mm3 (0-0) 02/24/18 14:35 CSF Seg Neutrophils 2 % (0-6) 02/24/18 14:35 CSF Lymphocytes % 1 % (40-80) 02/24/18 14:35 CSF Reactive Lymphs 0 % 02/24/18 14:35 CSF Monocytes % 1 % (15-45) 02/24/18 14:35 CSF Eosinophils % 0 % 02/24/18 14:35 CSF Basophils 0 % 02/24/18 14:35 CSF Comment Less than 10 02/24/18 14:35 CSF Pathologist Review C 02/24/18 14:35 CSF Glucose 121 mg/dL 02/24/18 14:30 CSF Total Protein 80 mg/dL 02/24/18 14:30 Salicylates < 0.3 mg/dL (2.8-20.0) L 02/24/18 14:45 Acetaminophen < 5.0 ug/mL (10.0-30.0) L 02/24/18 14:45 Plasma/Serum Alcohol < 0.01 % (0-0.07) 02/24/18 14:45 Influenza A (Rapid) Negative (Negative) 02/24/18 14:30 Influenza B (Rapid) Negative (Negative) 02/24/18 14:30
[2018-02-28] MEDS: KEPPRA PO SCH ×2 (12:59→21:53)
[2018-02-28] MEDS: NORVASC PO SCH (12:59)
[2018-02-28] MEDS: SODIUM CHLORIDE FLUSH SYRINGE 10 ML IV SCH ×2 (12:59→21:54)
[2018-02-28] MEDS: TYLENOL PO PRN ×2 (13:00→20:10)
--- NOTE | 2018-02-28 16:24 | Discharge Summary ---
Providers - Providers Date of Admission: 02/24/18 16:05 Date of discharge: 02/28/18 Attending physician: JOVANI ALBRECHT 02/24/18 13:28 Consult to Physician [CONS] Urgent Comment: DR CASTILLO SAW PT IN ER Consulting Provider: CIERRA CASTILLO Physician Instructions: Reason For Exam: sedation for spinal tap 02/27/18 15:34 Consult to Physician [CONS] Routine Comment: Consulting Provider: KATHERINE LYNNE Physician Instructions: Reason For Exam: Altered mental status 02/27/18 18:44 Physical Therapy Evaluation and Treat [CONS] Routine Comment: Reason For Exam: fall risk. seizures. Primary care physician: BUS ESCORT Hospitalization Condition: Poor Hospital course: Patient is 62 yo Female with DM, COPD, Lung Cancer S/P Pleural Catheter placement, Chronic Respiratory Failure presents to ED for evaluation. Pt is lethargic and unable to provide detailed history. Pt history provided by family who is at bedside during exam and interview. As per family, the patient has experienced progressive weakness and confusion over the past 3 days with worsening symptoms over the same time frame. per family, the patient exper ienced a witnessed seizure in her home. EMS notified and patient transported here to [facility]. Patient was evaluated in ED and then admitted. Pulmonology and Neurology were consulted. MRI revealed multifocal subcortical white matter T2 hyperintensity suggestive of nonspecific edema. Neurologist, Dr. Lynne reviewed films and recommended continue Keppra and follow up with Neurology. 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 2.Follow up with Oncologist in 3-5 days for lung cancer. 3.No driving for 6 mths and until cleared by Physician. 4.Follow up with neurology in 1 week Follow up with: PRIMARY CARE, [Primary Care Provider] - 3-5 Days Prescriptions: amLODIPine [Norvasc] 10 mg PO QDAY #30 tablet levETIRAcetam [Keppra TAB] 500 mg PO BID #60 tablet
--- NOTE | 2018-02-28 16:56 | Magnetic Resonance Report ---
FINAL REPORT EXAM: MR BRAIN WO/W CON HISTORY: SEIZUREinpatient TECHNIQUE: Multiplanar multisequence brain MR imaging before and after IV contrast. PRIORS: None. FINDINGS: Patient motion artifact degrades image quality and limits the examination. There is nonspecific subcortical FLAIR and T2 hyperintensity involving the right temporal lobe, right parietal lobe, and bilateral occipital lobes, right more than left. No associated mass or mass effec t. No corresponding abnormal T1 signal to suggest hemorrhage. No midline shift. No restricted diffusi on to suggest acute infarct. No abnormal enhancement with IV contrast. No acute air-fluid level visualized in the included air-filled sinuses. Bone windows demonstrate no acute fracture. There is ventricular and sulcal prominence compatible with global cerebrocortical atrophy. The brain contains no mass, mass effect, hemorrhage, or acute infarct. There is no extra-axial intracranial bleed. There is no midline shift or abnormal enhancement with IV contrast. IMPRESSION: Multifocal subcortical white matter T2 hyperintensity suggestive of nonspecific edema. There is no as sociated mass, infarct, or hemorrhage. This may be postictal or could reflect mild ischemia. It could even be chronic edema. Consider follow-up in 3 months to evaluate for persistence
[2018-03-01] MEDS ORDERED: TYLENOL PO PRN (11:03)
[2018-03-01] MEDS ORDERED: KEPPRA PO SCH (12:00)
[2018-03-01] MEDS ORDERED: NORVASC PO SCH (12:00)
--- NOTE | 2018-03-01 15:24 | Progress Note ---
Assessment and Plan 62 yr old female with hx of lung cancer, diabetes, hypertension presented with headache and seizures. The pt. has been on the chemotherapeutic agent, everolimus. MRI scan reveals multifocal white matter changes in bilateral occipital lobes, rt. parietal and temporal lobe. The differential for this includes PML (progressive multifocal leukoencephalopathy), PRES, or encephalitis. There are no enhancing lesions. CSF results were normal except for elevated protein of 80. The pt. is feeling back to baseline and ready to be discharged. Plan - Continue on Keppra 500 mg BID Pt. will be seen by her oncologist 03/23/18. A call is being placed to him to explain our findings. Subjective Date of service: 03/01/18 Principal diagnosis: Seizure, lung cancer Interval history: 62 yr old female with hx of lung cancer, diagnosed in Jun, 2017. She started feeling ill over the weekend before admission, then suffered a generalized seizure on the day of admission. She has had no further seizures and is feeling back to baseline. Objective - Exam Narrative Exam: Neurological exam - Speech fluent, relates her history well. Motor - 5/5 throughout Reflexes - +1 bilaterally. Sensory - intact to touch and pin Cerebellar - intact FTN, Wes, and fine finger movements. - Vital Sign Vital Signs - 12hr 03/01/18 03/01/18 03/01/18 05:21 10:00 10:21 Temperature 98.4 F Pulse Rate 78 82 Respiratory 24 Rate Blood Pressure 145/55 O2 Sat by Pulse 100 99 Oximetry 03/01/18 13:07 Temperature Pulse Rate 81 Respiratory Rate Blood Pressure 153/39 O2 Sat by Pulse Oximetry - Laboratory Findings CBC and BMP: 02/28/18 05:31 02/28/18 05:31 Abnormal Lab Findings: Abnormal Labs 02/24/18 02/24/18 02/24/18 11:40 11:40 11:40 WBC RBC Hgb Hct [place] % (Auto) Eos % (Auto) Lymph # Seg Neuts % (Manual) 96.0 H Lymphocytes % (Manual) 3.0 L Seg Neutrophils # Man 8.4 H Lymphocytes # (Manual) 0.3 L APTT POC ABG pCO2 POC ABG pO2 Sodium Potassium Chloride 95.0 L Carbon Dioxide Creatinine 1.3 H Glucose 233 H POC Glucose Lactic Acid 7.80 H* Calcium Urine pH Salicylates Acetaminophen 02/24/18 02/24/18 02/24/18 11:40 12:53 12:54 WBC RBC Hgb Hct [place] % (Auto) Eos % (Auto) Lymph # Seg Neuts % (Manual) Lymphocytes % (Manual) Seg Neutrophils # Man Lymphocytes # (Manual) APTT 20.0 L POC ABG pCO2 POC ABG pO2 Sodium Potassium Chloride Carbon Dioxide Creatinine Glucose POC Glucose Lactic Acid 2.70 H* Calcium Urine pH 8.0 H Salicylates Acetaminophen 02/24/18 02/24/18 02/24/18 14:45 14:45 19:10 WBC RBC Hgb Hct [place] % (Auto) Eos % (Auto) Lymph # Seg Neuts % (Manual) Lymphocytes % (Manual) Seg Neutrophils # Man Lymphocytes # (Manual) APTT POC ABG pCO2 47.8 H POC ABG pO2 131 H Sodium Potassium Chloride Carbon Dioxide Creatinine Glucose POC Glucose Lactic Acid Calcium Urine pH Salicylates < 0.3 L Acetaminophen < 5.0 L 02/24/18 02/26/18 02/26/18 23:38 03:53 03:53 WBC 3.5 L RBC 3.26 L Hgb 9.6 L Hct 29.6 L D [place] % (Auto) 11.7 H Eos % (Auto) 6.5 H Lymph # 0.6 L Seg Neuts % (Manual) Lymphocytes % (Manual) Seg Neutrophils # Man Lymphocytes # (Manual) APTT POC ABG pCO2 POC ABG pO2 Sodium 146 H Potassium 3.4 L D Chloride Carbon Dioxide Creatinine Glucose POC Glucose 121 H Lactic Acid Calcium 8.2 L Urine pH Salicylates Acetaminophen 02/26/18 02/26/18 02/26/18 07:46 12:24 16:11 WBC RBC Hgb Hct [place] % (Auto) Eos % (Auto) Lymph # Seg Neuts % (Manual) Lymphocytes % (Manual) Seg Neutrophils # Man Lymphocytes # (Manual) APTT POC ABG pCO2 POC ABG pO2 Sodium Potassium Chloride Carbon Dioxide Creatinine Glucose POC Glucose 59 L 117 H 202 H Lactic Acid Calcium Urine pH Salicylates Acetaminophen 02/27/18 02/27/18 02/28/18 11:40 16:14 05:31 WBC 4.1 L RBC 3.28 L Hgb 9.5 L Hct 29.7 L [place] % (Auto) Eos % (Auto) Lymph # Seg Neuts % (Manual) Lymphocytes % (Manual) Seg Neutrophils # Man Lymphocytes # (Manual) APTT POC ABG pCO2 POC ABG pO2 Sodium Potassium Chloride Carbon Dioxide Creatinine Glucose POC Glucose 123 H 128 H Lactic Acid Calcium Urine pH Salicylates Acetaminophen 02/28/18 02/28/18 02/28/18 05:31 08:59 17:18 WBC RBC Hgb Hct [place] % (Auto) Eos % (Auto) Lymph # Seg Neuts % (Manual) Lymphocytes % (Manual) Seg Neutrophils # Man Lymphocytes # (Manual) APTT POC ABG pCO2 POC ABG pO2 Sodium 146 H Potassium Chloride Carbon Dioxide 35 H Creatinine Glucose 101 H POC Glucose 186 H 174 H Lactic Acid Calcium 8.3 L Urine pH Salicylates Acetaminophen 02/28/18 03/01/18 21:16 12:58 WBC RBC Hgb Hct [place] % (Auto) Eos % (Auto) Lymph # Seg Neuts % (Manual) Lymphocytes % (Manual) Seg Neutrophils # Man Lymphocytes # (Manual) APTT POC ABG pCO2 POC ABG pO2 Sodium Potassium Chloride Carbon Dioxide Creatinine Glucose POC Glucose 113 H 186 H Lactic Acid Calcium Urine pH Salicylates Acetaminophen
[2018-03-01 19:40] VITALS: BP 116/59
== END 2018-03-01 20:15 | disposition home or self-care (01) | DRG 100 ==
LOC: ED 11:03 → CC1 16:05 → 3A 02-26 14:29 → UNDODISIN 02-28 19:20
PROVIDERS: ADMIT Internal Medicine; ATTEND Internal Medicine
PROC: 009U3ZX Drainage of Spinal Canal, Percutaneous Approach, Diagnostic (ICD-10-PCS; principal; 2018-02-24)
PROC: 4A033R1 Measurement of Arterial Saturation, Peripheral, Percutaneous Approach (ICD-10-PCS; 2018-02-24)
DX: G40.909 Epilepsy, unspecified, not intractable, without status epilepticus (principal); J96.22 Acute and chronic respiratory failure with hypercapnia; N17.0 Acute kidney failure with tubular necrosis; G92 Toxic encephalopathy; E87.2 Acidosis; R65.10 Systemic inflammatory response syndrome (SIRS) of non-infectious origin without acute organ dysfunction; C34.90 Malignant neoplasm of unspecified part of unspecified bronchus or lung; I10 Essential (primary) hypertension; J44.9 Chronic obstructive pulmonary disease, unspecified; E11.9 Type 2 diabetes mellitus without complications; Z82.49 Family history of ischemic heart disease and other diseases of the circulatory system; Z88.5 Allergy status to narcotic agent; Z88.0 Allergy status to penicillin; Z79.899 Other long term (current) drug therapy; Z98.51 Tubal ligation status
CPT/HCPCS: 36415; 36600; 70450; 70553; 71045; 80048; 80053; 80320; 81001; 82140; 82550; 82803; 82947; 82962; 83735; 84160; 85007; 85025; 85027; 85610; 85730; 86403; 87040; 87086; 87116; 87400; 89051; 93005; 93010; 94760; 95819; G0378; A9577; G0480; J0133; J0696; J1100; J1953; J2060; J2704; J3370; J7030; J7040

== ENCOUNTER 2018-04-10 20:53 | Inpatient (IN) | payer OTHER ==
--- NOTE | 2018-04-10 21:27 | Emergency Department Report ---
Blank Doc - Documentation Documentation: This is a 62 y.o. female that presents to ER for abnormal labs. History of lung cancer and currently taking chemotherapy. Patient states she received a call from her penology teacher today stating potassium was severally low and she need to f/u in ER. Patient is on home oxygen 2L. Ordered: labs Main ED for further evaluation.
[2018-04-10 21:57] LABS: Basophils # (Auto) 0.1 K/mm3 (0.0-0.1); Basophils % (Auto) 0.9 % (0.0-1.8); Eosinophils # (Auto) 0.3 K/mm3 (0.0-0.4); Eosinophils % (Auto) 3.7 % (0.0-4.3); Hematocrit 39.6 % (30.3-42.9); Hemoglobin 13.7 gm/dl (10.1-14.3); Lymphocytes # (Auto) 1.2 K/mm3 (1.2-5.4); Lymphocytes % (Auto) 16.4 % (13.4-35.0); Mean Corpuscular HGB Conc 35 % (30-34); Mean Corpuscular Volume 80 fl (79-97); Monocytes # (Auto) 0.6 K/mm3 (0.0-0.8); Monocytes % (Auto) 8.2 % (0.0-7.3); Platelet Count 287 K/mm3 (140-440); Red Blood Count 4.96 M/mm3 (3.65-5.03); Red Cell Distribution Width 16.2 % (13.2-15.2)
--- NOTE | 2018-04-10 21:58 | Emergency Department Report ---
<JOVANI AMEZQUITA - Last Filed: 04/11/18 02:05> ED Medical Clearance HPI - General Chief complaint: Recheck/Abnormal Lab/Rx Stated complaint: LOW POTASSIUM Time Seen by Provider: 04/10/18 21:21 Source: patient, RN notes reviewed, old records reviewed Mode of arrival: Ambulatory Limitations: No Limitations - History of Present Illness Initial comments: This is a 62-year-old female. Past medical history includes chronic respiratory failure, on chronic home oxygen, lung cancer, history of pleural effusion, renal insufficiency, admitted to the hospital by myself last month. The patient was followed up with her outpatient oncologist recently, and was reportedly found to have hypokalemia. The patient reports generalized weakness, mild nausea, now resolved, dry mouth, dry lip lesions, chronic shortness of breath, no abdominal pain, no irritative or obstructive urinary symptoms, denies severe headache, neck pain, chest pain. The patient reports compliance with her outpatient medications, and reports that she would like to be discharged to follow-up if possible. Symptoms are intermittent, painless, did not radiate anywhere, and do not have exacerbating or relieving factors. Her main complaint is to "check my potassium." MD Complaint: medical clearance request, other Reason for Medical Clearance: laboratory abnormality Alledged Intoxication: No Compliant with Home Medications: Yes Traumatic Symptoms: denies traumatic injury Home medications: Home Medications Medication Instructions Recorded Confirmed Last Taken Glimepiride [Amaryl] 04/10/18 04/10/18 Previous Rx's Medication Instructions Recorded Last Taken Type ALBUTEROL Inhaler(NF) [VENTOLIN 1 puff IH Q4H PRN #1 inha 12/10/17 Unknown Rx Inhaler(NF)] Potassium Chloride 20 meq PO BID #20 packet 04/11/18 Unknown Rx Allergies/Adverse reactions: Allergies Allergy/AdvReac Type Severity Reaction Status Date / Time codeine Allergy Hives Verified 02/24/18 11:22 Penicillins Allergy Hives Verified 02/24/18 11:22 ED Review of Systems Constitutional: malaise. denies: fever Eyes: denies: eye discharge, vision change ENT: denies: epistaxis Respiratory: shortness of breath (chronic) Cardiovascular: denies: chest pain Gastrointestinal: denies: abdominal pain, nausea, vomiting Genitourinary: denies: dysuria Musculoskeletal: arthralgia Skin: denies: lesions Neurological: weakness (chronic) Hematological/Lymphatic: denies: easy bleeding ED Past Medical Hx - Past Medical History Previous Medical History?: Yes Hx Hypertension: No Hx Heart Attack/AMI: No Hx Congestive Heart Failure: No Hx Diabetes: Yes Hx Deep Vein Thrombosis: No Hx Pulmonary Embolism: No Hx Liver Disease: No Hx Renal Disease: No Hx of Cancer: Yes (Bone and lung) Hx Sickle Cell Disease: No Hx Arthritis: No Hx Seizures: No Hx Kidney Stones: No Hx Asthma: No Hx COPD: Yes Hx Tuberculosis: No Hx Dementia: No Hx HIV: No Additional medical history: bone cancer - Surgical History Past Surgical History?: Yes Hx Coronary Stent: No Hx Pacemaker: No Hx Internal Defibrillator: No Additional Surgical History: TUBAL LIGATION. chest tubex2 - Social History Smoking Status: Former Smoker Substance Use Type: None - Medications Home Medications: Home Medications Medication Instructions Recorded Confirmed Last Taken Type ALBUTEROL Inhaler(NF) [VENTOLIN 1 puff IH Q4H PRN #1 inha 12/10/17 04/10/18 Unknown Rx Inhaler(NF)] Glimepiride [Amaryl] 04/10/18 04/10/18 History Potassium Chloride 20 meq PO BID #20 packet 04/11/18 Unknown Rx ED Physical Exam - General Limitations: No Limitations General appearance: alert, in no apparent distress - Head Head exam: Present: atraumatic, normocephalic - Eye Eye exam: Present: normal appearance, EOMI. Absent: nystagmus - ENT ENT exam: Present: mucous membranes dry, normal external ear exam - Neck Neck exam: Present: normal inspection, full ROM. Absent: tenderness, meningismus - Respiratory Respiratory exam: Present: decreased breath sounds. Absent: respiratory distress, wheezes, rales, rhonchi, stridor - Cardiovascular Cardiovascular Exam: Present: regular rate, normal rhythm, normal heart sounds. Absent: bradycardia, tachycardia, irregular rhythm, systolic murmur, diastolic murmur, rubs, gallop - GI/Abdominal GI/Abdominal exam: Present: soft. Absent: distended, tenderness, guarding, rebound, rigid, pulsatile mass - Extremities Exam Extremities exam: Present: normal inspection, full ROM, other (2+ pulses noted in the bilateral upper, lower extremities. Compartments soft. No long bony tenderness. The pelvis is stable.). Absent: pedal edema, joint swelling, calf tenderness - Back Exam Back exam: Present: normal inspection, full ROM. Absent: tenderness, CVA tenderness (R), paraspinal tenderness, vertebral tenderness - Neurological Exam Neurological exam: Present: alert, oriented X3, normal gait, other (Extraocular movements intact. Tongue midline. No facial droop. Facial sensation intact to light touch in the V1, V2, V3 distribution bilaterally. 5 and 5 strength in 4 extremities.. Sensation is intact to light touch in 4 extremities.). Absent: motor sensory deficit - Psychiatric Psychiatric exam: Present: normal affect, normal mood - Skin Skin exam: Present: warm, dry ED Course - Reevaluation(s) Reevaluation #1: 04/10/18 22:03 Differential diagnosis, including not limited to: Renal insufficiency, hypokalemia, hypomagnesemia, laboratory abnormality Assessment and plan: 62-year-old female presented to the emergency room for potassium recheck. She has multiple chronic medical conditions, however they do not appear to be acutely decompensated at this time. The patient appears much improved when compared to my prior evaluation. Her mentation is sharp and lucid, and her cognition is appropriate for age, and she certainly possesses decision-making capacity. Screening laboratory studies, EKG pending, we have added on a magnesium level. Reevaluation #2: 04/11/18 00:53 Found to have mild renal insufficiency, and mild hypokalemia. Patient has had this degree of renal insufficiency in the past. IV fluids, oral potassium, IV potassium ordered. Patient prefers to be treated in the emergency room and subsequently discharged. No active vomiting since my last evaluation, and the documented pulse ox of 3 is most likely an error. Patient so far has been reevaluated multiple times by myself BuSpar while in the department, and is resting and in no acute distress. Reevaluation #3: 04/11/18 02:05 Patient is resting comfortably, and in no acute distress. Repeat basic metabolic panel is pending. Care will be transferred to the overnight physician, Dr. Dominick Cheema, to follow-up on repeat laboratory studies. If no significant improvement noted, would admit to the medical service. ED Medical Decision Making - Lab Data Result diagrams: 04/10/18 21:48 04/10/18 21:48 Vital Signs 04/10/18 04/10/18 21:01 21:21 Temperature 98.3 F 98.3 F Pulse Rate 100 H 100 H Respiratory 18 20 Rate Blood Pressure 109/57 Blood Pressure 109/57 [Left] O2 Sat by Pulse 98 98 Oximetry Lab Results 04/10/18 Range/Units 21:48 WBC 7.5 (4.5-11.0) K/mm3 RBC 4.96 (3.65-5.03) M/mm3 Hgb 13.7 (10.1-14.3) gm/dl Hct 39.6 (30.3-42.9) % MCV 80 (79-97) fl MCH 28 (28-32) pg MCHC 35 H (30-34) % RDW 16.2 H (13.2-15.2) % Plt Count 287 (140-440) K/mm3 Lymph % (Auto) 16.4 (13.4-35.0) % [place] % (Auto) 8.2 H (0.0-7.3) % Eos % (Auto) 3.7 (0.0-4.3) % Baso % (Auto) 0.9 (0.0-1.8) % Lymph # 1.2 (1.2-5.4) K/mm3 [place] # 0.6 (0.0-0.8) K/mm3 Eos # 0.3 (0.0-0.4) K/mm3 Baso # 0.1 (0.0-0.1) K/mm3 Seg Neutrophils % 70.8 H (40.0-70.0) % Seg Neutrophils # 5.3 (1.8-7.7) K/mm3 Lab Results 04/10/18 04/10/18 04/10/18 Range/Units 21:48 21:48 Unknown WBC 7.5 (4.5-11.0) K/mm3 RBC 4.96 (3.65-5.03) M/mm3 Hgb 13.7 (10.1-14.3) gm/dl Hct 39.6 (30.3-42.9) % MCV 80 (79-97) fl MCH 28 (28-32) pg MCHC 35 H (30-34) % RDW 16.2 H (13.2-15.2) % Plt Count 287 (140-440) K/mm3 Lymph % (Auto) 16.4 (13.4-35.0) % [place] % (Auto) 8.2 H (0.0-7.3) % Eos % (Auto) 3.7 (0.0-4.3) % Baso % (Auto) 0.9 (0.0-1.8) % Lymph # 1.2 (1.2-5.4) K/mm3 [place] # 0.6 (0.0-0.8) K/mm3 Eos # 0.3 (0.0-0.4) K/mm3 Baso # 0.1 (0.0-0.1) K/mm3 Seg Neutrophils % 70.8 H (40.0-70.0) % Seg Neutrophils # 5.3 (1.8-7.7) K/mm3 Sodium 135 L (137-145) mmol/L Potassium 2.4 L* (3.6-5.0) mmol/L Chloride 92.1 L (98-107) mmol/L Carbon Dioxide 27 (22-30) mmol/L Anion Gap 18 mmol/L BUN 56 H (7-17) mg/dL Creatinine 3.3 H (0.7-1.2) mg/dL Estimated GFR 14 ml/min BUN/Creatinine Ratio 17 % Glucose 120 H (65-100) mg/dL Calcium 8.7 (8.4-10.2) mg/dL Magnesium 2.10 (1.7-2.3) mg/dL Total Bilirubin 0.30 (0.1-1.2) mg/dL AST 13 (5-40) units/L ALT 5 L (7-56) units/L Alkaline Phosphatase 112 (35-129) units/L Total Protein 6.7 (6.3-8.2) g/dL Albumin 4.3 (3.9-5) g/dL Albumin/Globulin Ratio 1.8 % Vital Signs 04/10/18 04/10/18 04/10/18 21:01 21:21 22:05 Temperature 98.3 F 98.3 F Pulse Rate 100 H 100 H Respiratory 18 20 24 Rate Blood Pressure 109/57 Blood Pressure 109/57 [Left] O2 Sat by Pulse 98 98 3 L Oximetry - EKG Data -: EKG Interpreted by [facility] EKG shows normal: sinus rhythm Rate: normal - EKG Data 04/11/18 00:54 Sinus, 86 bpm, QTc 45 ms, left axis deviation, motion artifact, poor R-wave progression, abnormal EKG, not consistent with ST elevation myocardial infarction ED Disposition Clinical Impression: Hypokalemia, Acute kidney injury (nontraumatic) Disposition: OP ADMIT IP TO THIS HOSP Is pt being admited?: No Does the pt Need Aspirin: No Condition: Good Additional Instructions: Take potassium supplements and as directed. Follow up with the primary care doctor or nephrology doctor within the next 7-10 days. Return to the emergency room right away with new, worsening or different symptoms. Continue current outpatient medications. Avoid consumption of Motrin, ibuprofen, Naprosyn, Aleve Prescriptions: Potassium Chloride 20 meq PO BID #20 packet Referrals: BRADFORD CASTILLO MD [Staff Physician] - 3-5 Days <NIELS HOWARD - Last Filed: 04/11/18 03:51> ED Review of Systems ROS: Stated complaint: LOW POTASSIUM Other details as noted in HPI ED Course Vital Signs 04/10/18 04/10/18 04/10/18 21:01 21:21 21:56 Temperature 98.3 F 98.3 F Pulse Rate 100 H 100 H Respiratory 18 20 Rate Blood Pressure 109/57 Blood Pressure 109/57 [Left] O2 Sat by Pulse 98 98 98 Oximetry 04/10/18 04/10/18 04/10/18 22:00 22:05 22:15 Temperature Pulse Rate 93 H 92 H Respiratory 19 24 19 Rate Blood Pressure 97/57 Blood Pressure [Left] O2 Sat by Pulse 100 98 Oximetry 04/10/18 04/10/18 04/10/18 22:30 22:45 23:01 Temperature Pulse Rate 91 H 92 H 118 H Respiratory 20 18 30 H Rate Blood Pressure 93/47 93/47 104/38 Blood Pressure [Left] O2 Sat by Pulse 99 Oximetry 04/10/18 04/10/18 04/10/18 23:15 23:31 23:45 Temperature Pulse Rate 93 H 89 83 Respiratory 16 27 H 19 Rate Blood Pressure 104/38 116/36 116/36 Blood Pressure [Left] O2 Sat by Pulse 100 Oximetry 04/11/18 04/11/18 04/11/18 00:00 00:15 00:30 Temperature Pulse Rate 79 79 77 Respiratory 20 19 22 Rate Blood Pressure 106/28 106/28 101/50 Blood Pressure [Left] O2 Sat by Pulse Oximetry 04/11/18 04/11/18 04/11/18 00:45 01:00 01:15 Temperature Pulse Rate 75 74 77 Respiratory 19 17 19 Rate Blood Pressure 101/50 95/29 95/29 Blood Pressure [Left] O2 Sat by Pulse 100 100 100 Oximetry 04/11/18 04/11/18 04/11/18 01:30 01:45 02:00 Temperature Pulse Rate 74 76 75 Respiratory 19 19 22 Rate Blood Pressure 99/24 99/24 104/29 Blood Pressure [Left] O2 Sat by Pulse 100 100 Oximetry ED Medical Decision Making - Lab Data Result diagrams: 04/10/18 21:48 04/11/18 01:48 - Medical Decision Making Patient received 40 mg sodium chloride IV and 40 mg sodium chloride by mouth, her potassium went up slightly from 2.4-2.5. I discussed the patient is , she agreed to admit the patient to medical service. ED Disposition Is pt being admited?: Yes
[2018-04-10 22:21] LABS: Albumin 4.3 g/dL (3.9-5); Calcium 8.7 mg/dL (8.4-10.2)
[2018-04-10] MEDS ORDERED: NACL 0.9% 1000 ML 1,000 ML IV ONE (22:41)
[2018-04-10] MEDS ORDERED: K-DUR PO ONE (22:41)
[2018-04-10] MEDS: KCL 10MEQ/100ML 10 MEQ/100 ML BAG IV SCH (23:26)
[2018-04-11] MEDS: KCL 10MEQ/100ML 10 MEQ/100 ML BAG IV SCH ×6 (00:31→08:00)
[2018-04-11 02:13] LABS: Calcium 7.4 mg/dL (8.4-10.2)
[2018-04-11] MEDS ORDERED: NACL 0.9% 1000 ML 1,000 ML IV ONE ×2 (02:33→05:06)
[2018-04-11 04:58] LABS: Bilirubin,Urine NEG (Negative); Blood,Urine NEG (Negative); Color,Urine Yellow (Yellow); Mucus,Urine FEW /HPF; Protein,Urine <15 mg/dL mg/dL (Negative); Urobilinogen,Urine < 2.0 mg/dL (<2.0)
[2018-04-11] MEDS ORDERED: SODIUM CHLORIDE FLUSH SYRINGE 10 ML IV PRN (05:03)
[2018-04-11] MEDS ORDERED: PROVENTIL IH PRN (05:03)
[2018-04-11] MEDS ORDERED: ZOFRAN IV PRN (05:03)
[2018-04-11] MEDS ORDERED: TYLENOL PO PRN (05:03)
--- NOTE | 2018-04-11 05:35 | History and Physical Report ---
History of Present Illness Date of examination: 04/11/18 Chief complaint: "I was told by my doctor that my potassium level was very low" History of present illness: Patient is a 62-year-old female with a history of stage IV lung cancer on current chemotherapy who was told by her oncologist to come to the ED because the lab she recently did was significant for very low potassium level. Patient admits to several months of nausea with vomiting and diarrhea since she started the chemotherapy in July 2017. According to the patient, her diarrhea has resolved and she is currently constipated. She has associated lightheadedness and generalized weakness. She denies abdominal pain, bleeding from any orifice, dysuria or frequency. No chest pain, shortness of breath, palpitation, fever, chills, cough, sore throat, runny nose or congestion, leg swelling, orthopnea or PND. No headaches, syncope or loss of consciousness. Past History Past Medical History: COPD (on home oxygen, 2 L), diabetes, other (stage IV lung cancer on chemotherapy) Past Surgical History: , Other (pleural tube placement) Social history: other (patient is an ex cigarette smoker. She smoked for 30 years but quit about 19 years ago. She denies alcohol or illicit drug use) Family history: other (reviewed and noncontributory) Medications and Allergies Allergies Allergy/AdvReac Type Severity Reaction Status Date / Time codeine Allergy Hives Verified 02/24/18 11:22 Penicillins Allergy Hives Verified 02/24/18 11:22 Home Medications Medication Instructions Recorded Confirmed Last Taken Type ALBUTEROL Inhaler(NF) [VENTOLIN 1 puff IH Q4H PRN #1 inha 12/10/17 04/10/18 Unknown Rx Inhaler(NF)] Glimepiride [Amaryl] 04/10/18 04/10/18 History Potassium Chloride 20 meq PO BID #20 packet 04/11/18 Unknown Rx Active Meds: Active Medications Acetaminophen (Tylenol) 650 mg PO Q4H PRN PRN Reason: Pain MILD(1-3)/Fever >100.5/PIERSON Albuterol (Proventil) 2.5 mg IH Q4HRT PRN PRN Reason: Shortness Of Breath Heparin Sodium (Porcine) (Heparin) 5,000 unit SUB-Q Q8HR CAREN Sodium Chloride (Nacl 0.9% 1000 Ml) 1,000 mls @ 250 mls/hr IV ONCE ONE Stop: 04/11/18 06:32 Last Admin: 04/11/18 02:54 Dose: 250 mls/hr Documented by: Sodium Chloride (Nacl 0.9% 1000 Ml) 1,000 mls @ 125 mls/hr IV DIRECT CAREN Sodium Chloride (Nacl 0.9% 1000 Ml) 1,000 mls @ 999 mls/hr IV BOLUS ONE Stop: 04/11/18 06:06 Potassium Chloride (Kcl 10meq/100ml) 10 meq in 100 mls @ 100 mls/hr IV Q1H CAREN Stop: 04/11/18 07:59 Ondansetron HCl (Zofran) 4 mg IV Q8H PRN PRN Reason: Nausea And Vomiting Sodium Chloride (Sodium Chloride Flush Syringe 10 Ml) 10 ml IV BID CAREN Sodium Chloride (Sodium Chloride Flush Syringe 10 Ml) 10 ml IV PRN PRN PRN Reason: LINE FLUSH Review of Systems All systems: negative (except as documented in the HPI, all other systems were reviewed and negative) Exam - Constitutional Vitals: Temp Pulse Resp BP Pulse Ox 98.3 F 75 22 104/29 100 04/10/18 21:21 04/11/18 02:00 04/11/18 02:00 04/11/18 02:00 04/11/18 01:45 General appearance: Present: no acute distress - EENT Eyes: Present: PERRL, EOM intact ENT: hearing intact, clear oral mucosa - Neck Neck: Present: supple, normal ROM - Respiratory Respiratory effort: normal Respiratory: bilateral: CTA - Cardiovascular Rhythm: regular Heart Sounds: Present: S1 & S2. Absent: rub, click - Extremities Extremities: No edema Peripheral Pulses: within normal limits - Abdominal General gastrointestinal: Present: soft, non-tender, non-distended, normal bowel sounds Female genitourinary: Present: deferred - Integumentary Integumentary: Present: clear, warm, dry - Musculoskeletal Musculoskeletal: gait normal, strength equal bilaterally - Psychiatric Psychiatric: appropriate mood/affect, intact judgment & insight - Neurologic Neurologic: CNII-XII intact, moves all extremities Results - Labs CBC & Chem 7: 04/10/18 21:48 04/11/18 01:48 Labs: Laboratory Last Values WBC 7.5 K/mm3 (4.5-11.0) 04/10/18 21:48 RBC 4.96 M/mm3 (3.65-5.03) 04/10/18 21:48 Hgb 13.7 gm/dl (10.1-14.3) 04/10/18 21:48 Hct 39.6 % (30.3-42.9) 04/10/18 21:48 MCV 80 fl (79-97) 04/10/18 21:48 MCH 28 pg (28-32) 04/10/18 21:48 MCHC 35 % (30-34) H 04/10/18 21:48 RDW 16.2 % (13.2-15.2) H 04/10/18 21:48 Plt Count 287 K/mm3 (140-440) 04/10/18 21:48 Lymph % (Auto) 16.4 % (13.4-35.0) 04/10/18 21:48 Hale % (Auto) 8.2 % (0.0-7.3) H 04/10/18 21:48 Eos % (Auto) 3.7 % (0.0-4.3) 04/10/18 21:48 Baso % (Auto) 0.9 % (0.0-1.8) 04/10/18 21:48 Lymph # 1.2 K/mm3 (1.2-5.4) 04/10/18 21:48 Hale # 0.6 K/mm3 (0.0-0.8) 04/10/18 21:48 Eos # 0.3 K/mm3 (0.0-0.4) 04/10/18 21:48 Baso # 0.1 K/mm3 (0.0-0.1) 04/10/18 21:48 Seg Neutrophils % 70.8 % (40.0-70.0) H 04/10/18 21:48 Seg Neutrophils # 5.3 K/mm3 (1.8-7.7) 04/10/18 21:48 Sodium 134 mmol/L (137-145) L 04/11/18 01:48 Potassium 2.5 mmol/L (3.6-5.0) L* 04/11/18 01:48 Chloride 97.7 mmol/L (98-107) L 04/11/18 01:48 Carbon Dioxide 23 mmol/L (22-30) 04/11/18 01:48 Anion Gap 16 mmol/L 04/11/18 01:48 BUN 52 mg/dL (7-17) H 04/11/18 01:48 Creatinine 3.1 mg/dL (0.7-1.2) H 04/11/18 01:48 Estimated GFR 15 ml/min 04/11/18 01:48 BUN/Creatinine Ratio 17 % 04/11/18 01:48 Glucose 124 mg/dL (65-100) H 04/11/18 01:48 Calcium 7.4 mg/dL (8.4-10.2) L 04/11/18 01:48 Magnesium 2.10 mg/dL (1.7-2.3) 04/10/18 Unknown Total Bilirubin 0.30 mg/dL (0.1-1.2) 04/10/18 21:48 AST 13 units/L (5-40) 04/10/18 21:48 ALT 5 units/L (7-56) L 04/10/18 21:48 Alkaline Phosphatase 112 units/L (35-129) 04/10/18 21:48 Total Protein 6.7 g/dL (6.3-8.2) 04/10/18 21:48 Albumin 4.3 g/dL (3.9-5) 04/10/18 21:48 Albumin/Globulin Ratio 1.8 % 04/10/18 21:48 Urine Color Yellow (Yellow) 04/11/18 Unknown Urine Turbidity Clear (Clear) 04/11/18 Unknown Urine pH 6.0 (5.0-7.0) 04/11/18 Unknown Ur Specific [place] 1.015 (1.003-1.030) 04/11/18 Unknown Urine Protein <15 mg/dl mg/dL (Negative) 04/11/18 Unknown Urine Glucose (UA) Neg mg/dL (Negative) 04/11/18 Unknown Urine Ketones Neg mg/dL (Negative) 04/11/18 Unknown Urine Blood Neg (Negative) 04/11/18 Unknown Urine Nitrite Neg (Negative) 04/11/18 Unknown Urine Bilirubin Neg (Negative) 04/11/18 Unknown Urine Urobilinogen < 2.0 mg/dL (<2.0) 04/11/18 Unknown Ur Leukocyte Esterase Neg (Negative) 04/11/18 Unknown Urine WBC (Auto) 1.0 /HPF (0.0-6.0) 04/11/18 Unknown Urine RBC (Auto) 1.0 /HPF (0.0-6.0) 04/11/18 Unknown U Epithel Cells (Auto) < 1.0 /HPF (0-13.0) 04/11/18 Unknown Urine Mucus Few /HPF 04/11/18 Unknown Urine Creatinine 116.0 mg/dL (0.1-20.0) H 04/11/18 Unknown Urine Sodium 129 mmol/L 04/11/18 Unknown Assessment and Plan Assessment and plan: Severe hypokalemia -We will replete and monitor K level -Magnesium level is normal UZIEL, likely prerenal azotemia -On IV fluid, will monitor creatinine level -Consult nephrology Hypotension, likely secondary to dehydration -On IV fluid, will monitor blood pressure Mild hyponatremia -On IV fluid, will monitor sodium level History of COPD -No acute exacerbation -On PRN duonebs Chronic respiratory failure with hypoxia on home oxygen 2 L -Continue oxygen supplementation as needed DM2 -Controlled -On SSI Stage IV lung cancer -For outpatient follow-up DVT prophylaxis with heparin Disposition: Patient will be admitted on inpatient status. Discharge will depend on clinical course Time spent: 38 minutes
[2018-04-11] MEDS ORDERED: D50W (25GM) Syringe IV PRN (05:48)
[2018-04-11] MEDS: NACL 0.9% 1000 ML 1,000 ML IV SCH ×3 (07:50→22:16)
[2018-04-11] MEDS: HEPARIN SUB-Q SCH ×3 (07:50→21:14)
[2018-04-11] MEDS: HumuLIN R SUB-Q SCH ×4 (07:52→22:16)
[2018-04-11] MEDS ORDERED: K-DUR PO ONE (07:54)
--- NOTE | 2018-04-11 08:45 | Consultation ---
History of Present Illness - History of Present Illness patient is currently being follwed by Dr Morocho He is already aware of this consult Past History Past Medical History: COPD (on home oxygen, 2 L), diabetes, other (stage IV lung cancer on chemotherapy) Past Surgical History: , Other (pleural tube placement) Social history: other (patient is an ex cigarette smoker. She smoked for 30 years but quit about 19 years ago. She denies alcohol or illicit drug use) Family history: other (reviewed and noncontributory) Medications and Allergies Allergies Allergy/AdvReac Type Severity Reaction Status Date / Time codeine Allergy Hives Verified 02/24/18 11:22 Penicillins Allergy Hives Verified 02/24/18 11:22 Home Medications Medication Instructions Recorded Confirmed Last Taken Type ALBUTEROL Inhaler(NF) [VENTOLIN 1 puff IH Q4H PRN #1 inha 12/10/17 04/10/18 Unknown Rx Inhaler(NF)] Glimepiride [Amaryl] 04/10/18 04/10/18 History Potassium Chloride 20 meq PO BID #20 packet 04/11/18 Unknown Rx Active Meds: Active Medications Acetaminophen (Tylenol) 650 mg PO Q4H PRN PRN Reason: Pain MILD(1-3)/Fever >100.5/PIERSON Albuterol (Proventil) 2.5 mg IH Q4HRT PRN PRN Reason: Shortness Of Breath Dextrose (D50w (25gm) Syringe) 50 ml IV PRN PRN PRN Reason: Hypoglycemia Heparin Sodium (Porcine) (Heparin) 5,000 unit SUB-Q Q8HR CAREN Last Admin: 04/11/18 07:50 Dose: 5,000 unit Documented by: Sodium Chloride (Nacl 0.9% 1000 Ml) 1,000 mls @ 125 mls/hr IV DIRECT CAREN Last Admin: 04/11/18 07:50 Dose: 125 mls/hr Documented by: Insulin Human Regular (Humulin R) 0 units SUB-Q ACHS CAREN; Protocol Last Admin: 04/11/18 07:52 Dose: Not Given Documented by: Ondansetron HCl (Zofran) 4 mg IV Q8H PRN PRN Reason: Nausea And Vomiting Potassium Chloride (K-Dur) 40 meq PO Q3H CAREN Stop: 04/11/18 11:01 Sodium Chloride (Sodium Chloride Flush Syringe 10 Ml) 10 ml IV BID CAREN Sodium Chloride (Sodium Chloride Flush Syringe 10 Ml) 10 ml IV PRN PRN PRN Reason: LINE FLUSH Exam - Vital Signs Vital signs: Vital Signs Temp Pulse Resp BP Pulse Ox 98.3 F 100 H 18 109/57 98 04/10/18 21:01 04/10/18 21:01 04/10/18 21:01 04/10/18 21:01 04/10/18 21:01 Results - Lab Results 04/10/18 21:48 04/11/18 09:33 Most recent lab results Calcium 7.4 mg/dL (8.4-10.2) L 04/11/18 01:48 Magnesium 2.10 mg/dL (1.7-2.3) 04/10/18 Unknown Urine Creatinine 116.0 mg/dL (0.1-20.0) H 04/11/18 Unknown Urine Sodium 129 mmol/L 04/11/18 Unknown
[2018-04-11] MEDS: K-DUR PO SCH ×2 (09:21→12:10)
[2018-04-11] MEDS: SODIUM CHLORIDE FLUSH SYRINGE 10 ML IV SCH ×2 (11:03→21:17)
--- NOTE | 2018-04-11 12:21 | Consultation ---
History of Present Illness - Reason for Consult Consult date: 04/11/18 acute renal failure, chronic renal failure - History of Present Illness This is a 62 year old female who was referred to this E.R by her Oncologist for management of Hypokalemia that was discovered on her outpatient lab. Patient is known to us. On admission her potassium level was noted to be 2.4 and serum creatinine elevated at 3.3. Patient has history of Lung Cancer and is on chemotherapy under her Oncologist Dr. Ware. Patient states she was on Gilotrif tablets (Chemo) for over 1 year and believes that is causing her nausea and vomiting and diarrhea and now blisters over her top lip and under her nose, as a result she stopped Gilotrif on her own last week and so her Oncologist has started her on Xgeva. Patient is currently on Xgeva injections monthly for chemotherapy and she got the first dose on Monday and is scheduled to get her second dose on 05/03/18. Patient was previously admitted here in October for the nausea and vomiting and diarrhea. States diarrhea has improved but remains with nausea and vomiting. Patient also has history of multiple ARF episodes, CKD stage 4 and Diabetes Mellitus. We are being consulted for management of this patient's Acute on Chronic Kidney Disease. Past History Past Medical History: COPD (on home oxygen, 2 L), diabetes, other (stage IV lung cancer on chemotherapy) Past Surgical History: , Other (pleural tube placement) Social history: other (patient is an ex cigarette smoker. She smoked for 30 years but quit about 19 years ago. She denies alcohol or illicit drug use) Family history: other (reviewed and noncontributory) Medications and Allergies Allergies Allergy/AdvReac Type Severity Reaction Status Date / Time codeine Allergy Hives Verified 02/24/18 11:22 Penicillins Allergy Hives Verified 02/24/18 11:22 Home Medications Medication Instructions Recorded Confirmed Last Taken Type ALBUTEROL Inhaler(NF) [VENTOLIN 1 puff IH Q4H PRN #1 inha 12/10/17 04/10/18 Unknown Rx Inhaler(NF)] Glimepiride [Amaryl] 04/10/18 04/10/18 History Potassium Chloride 20 meq PO BID #20 packet 04/11/18 Unknown Rx Active Meds: Active Medications Acetaminophen (Tylenol) 650 mg PO Q4H PRN PRN Reason: Pain MILD(1-3)/Fever >100.5/PIERSON Albuterol (Proventil) 2.5 mg IH Q4HRT PRN PRN Reason: Shortness Of Breath Dextrose (D50w (25gm) Syringe) 50 ml IV PRN PRN PRN Reason: Hypoglycemia Heparin Sodium (Porcine) (Heparin) 5,000 unit SUB-Q Q8HR [facility] Last Admin: 04/11/18 07:50 Dose: 5,000 unit Documented by: Sodium Chloride (Nacl 0.9% 1000 Ml) 1,000 mls @ 125 mls/hr IV DIRECT [facility] Last Admin: 04/11/18 07:50 Dose: 125 mls/hr Documented by: Insulin Human Regular (Humulin R) 0 units SUB-Q ACHS [facility]; Protocol Last Admin: 04/11/18 12:10 Dose: Not Given Documented by: Ondansetron HCl (Zofran) 4 mg IV Q8H PRN PRN Reason: Nausea And Vomiting Sodium Chloride (Sodium Chloride Flush Syringe 10 Ml) 10 ml IV BID [facility] Last Admin: 04/11/18 11:03 Dose: 10 ml Documented by: Sodium Chloride (Sodium Chloride Flush Syringe 10 Ml) 10 ml IV PRN PRN PRN Reason: LINE FLUSH Review of Systems Constitutional: fatigue, poor appetite, no weight loss, no weight gain, no fever, no chills, no sweats Ears, nose, mouth and throat: other (blisters to top lip and under nose), no ear pain, no ear discharge, no tinnitis, no decreased hearing, no nose pain Cardiovascular: no chest pain, no orthopnea, no palpitations, no rapid/irregular heart beat, no edema Respiratory: no cough, no cough with sputum, no excessive sputum, no hemoptysis, no shortness of breath, no dyspnea on exertion Gastrointestinal: no abdominal pain, no nausea, no vomiting, no diarrhea, no c onstipation, no change in bowel habits Rectal: no pain, no incontinence, no bleeding, no itching Musculoskeletal: no neck stiffness, no neck pain, no shooting arm pain, no arm numbness/tingling, no low back pain, no shooting leg pain Integumentary: blisters, no rash, no pruritis, no redness, no sores, no wounds, no jaundice Neurological: weakness, no transient paralysis, no paralysis, no parathesias, no numbness, no tingling Psychiatric: no memory loss, no change in sleep habits, no sleep disturbances, no insomnia Endocrine: no cold intolerance, no heat intolerance, no polyphagia, no excessive thirst Hematologic/Lymphatic: no easy bruising, no easy bleeding Exam - Vital Signs Vital signs: Vital Signs Temp Pulse Resp BP Pulse Ox 98.3 F 100 H 18 109/57 98 04/10/18 21:01 04/10/18 21:01 04/10/18 21:01 04/10/18 21:01 04/10/18 21:01 - General Appearance General appearance: well-developed, appears stated age, fatigue EENT: ATNC, PERRL, hearing intact, vision intact Neck: Present: neck supple, trachea midline Respiratory: Clear to Ascultation Heart: regular, S1S2 Gastrointestinal: Present: normoactive bowel sounds Integumentary: warm and dry Neurologic: alert and oriented x3 Musculoskeletal: Present: other (No edema) Results - Lab Results 04/10/18 21:48 04/11/18 09:33 Most recent lab results Calcium 7.4 mg/dL (8.4-10.2) L 04/11/18 01:48 Phosphorus 1.30 mg/dL (2.5-4.5) L 04/11/18 09:33 Magnesium 1.70 mg/dL (1.7-2.3) 04/11/18 09:33 Urine Creatinine 116.0 mg/dL (0.1-20.0) H 04/11/18 Unknown Urine Sodium 129 mmol/L 04/11/18 Unknown Assessment and Plan Acute Renal Failure secondary to Ischemic ATN from Volume Depletion due to N/V/D on Chronic Kidney Disease secondary to Diabetic Nephropathy: Hypotension: - Has multiple Acute Kidney Injury in the past secondary to ischemic ATN from volume depletion on underlying CKD from DM - Current Serum creatinine 3.1 with a GFR level of 15 ml/min - Serum creatinine sometimes decreases when on IV hydration but baseline serum creatinine is~3-4 - Obtain renal ultrasound - Obtain urine lytes - Continue on IV hydration with NS@125 ml/hr - Strict I&O monitoring - Obtain daily weights - Renally dose medications - Will monitor renal function closely - No acute indication for HD at this time Hypokalemia: -Replete as needed -BMP and Mag daily Hyperphosphatemia: -Replete with IV KPhos 15 mmol x 1 -Phos level daily Chronic respiratory failure with hypoxia: COPD: -On Albuterol prn -On portable home oxygen@ 2 L -As per primary team Diabetes Mellitus type II: -On insulin -As per primary Stage IV lung cancer: -Stopped Gilotrif 1 week ago -Now on Xgeva injection monthly, next dose on 05/03/18 -Follows with Oncologist Dr. Ware outpatiently
[2018-04-11] MEDS ORDERED: KPHOS 15 MMOL in NACL 0.9% 250ML 250 ML IV ONE (15:00)
--- NOTE | 2018-04-11 15:12 | Event Note ---
Date: 04/11/18 Patient admitted earlier this morning for some management of acute renal failure, hypotension and hypokalemia. Nephrology was consulted. Continue management for H&P.
[2018-04-11 16:19] LABS: Calcium 6.8 mg/dL (8.4-10.2)
[2018-04-11 18:29] LABS: Creatinine,Urine 61.7 mg/dL (0.1-20.0); Protein/Creatinine Ratio,Urine 0.19
--- NOTE | 2018-04-12 00:45 | Ultrasound Report ---
FINAL REPORT PROCEDURE: US RENAL BILAT TECHNIQUE: Real-time sonography in multiple planes of the kidneys, ureters and urinary bladder was p erformed with image documentation. CPT 75424 HISTORY: renal failure COMPARISON: No prior studies are available for comparison. FINDINGS: RIGHT kidney: The kidney is echogenic. There is a nonobstructing stone measuring 3 millimeters. There is no hydronephrosis.. Length: 9.7 cm. LEFT kidney: The kidney is echogenic. There is a nonobstructing stone in the lower pole measuring 11 millimeters. There is no hydronephrosis per. Length: 9.7cm. Bladder: Normal. IMPRESSION: Bilateral medical renal disease evident by renal atrophy and echogenic cortex. There are bilateral ki dney stones without hydronephrosis..
[2018-04-12] MEDS: HEPARIN SUB-Q SCH ×3 (05:33→21:40)
[2018-04-12] MEDS: HumuLIN R SUB-Q SCH ×4 (08:00→21:40)
[2018-04-12 08:05] LABS: Calcium 6.3 mg/dL (8.4-10.2)
[2018-04-12] MEDS ORDERED: K-DUR PO ONE (08:26)
--- NOTE | 2018-04-12 09:26 | Progress Note ---
Assessment and Plan Acute Renal Failure secondary to Ischemic ATN from Volume Depletion due to N/V/D on Chronic Kidney Disease secondary to Diabetic Nephropathy: Hypotension: - Has multiple Acute Kidney Injury in the past secondary to ischemic ATN from volume depletion on underlying CKD from DM - Serum creatinine trend down to 2.0 today from 3.1 yesterday - Patient's serum creatinine often decreases on IV hydration but baseline serum creatinine is~3-4 - Renal ultrasound- Bilateral nonobstructing kidney stones. No Hydronephrosis. Medical renal disease. - Switch IVF to add potassium- Start NS with 30 meq of KCl @100 ml/hr - Strict I&O monitoring - Obtain daily weights - Renally dose medications - Will monitor renal function closely - No acute indication for HD at this time Multiple electrolyte abnormality is likely due to Xgeva: Hyperphosphatemia: Hypocalcemia: Hypokalemia: Hypomagnesia: -Replete Phos with IV Kphos 30 mmol x1 -Magnesium in repletion with 2 gram of IV Mag Sulfate -Replete calcium with Calcium Gluconate 2 gram IV x 1 -Potassium in repletion with K-Dur 40 meq po x 2 and will add 30 meq KCl to IVF -Potassium loss will remain high due to low mag levels, replete mag aggressively -Recheck potassium and mag level at 1800 today -Check BMP and Mag level daily Chronic respiratory failure with hypoxia: COPD: -On Albuterol prn -On portable home oxygen@ 2 L -As per primary team Diabetes Mellitus type II: -On insulin -As per primary Stage IV lung cancer: -Patient stopped Gilotrif 1 week ago -Now on Xgeva injection monthly, next dose on 05/03/18 -Follows with Oncologist Dr. Ware outpatiently Subjective Date of service: 04/12/18 Principal diagnosis: Multiple electrolyte abnormalities, ARF on CKD Interval history: Patient seen sitting up in bed. States diarrhea started again today. Reviewed renal plan of care. No family at bedside. Objective - Vital Signs Vital signs: Vital Signs - 12hr 04/11/18 04/12/18 22:10 05:22 Temperature 99.0 F 98.1 F Pulse Rate 70 66 Respiratory 24 24 Rate Blood Pressure 99/45 100/34 O2 Sat by Pulse 99 99 Oximetry - General Appearance General appearance: well-developed, appears stated age, fatigue EENT: ATNC, PERRL, hearing intact, vision intact Neck: no JVD, supple Respiratory: Present: Decreased Breath Sounds Cardiology: regular, S1S2 Gastrointestinal: normoactive bowel sounds Integumentary: warm and dry Neurologic: alert and oriented x3 Musculoskeletal: other (No edema) Psychiatric: cooperative - Lab 04/10/18 21:48 04/12/18 05:58 Most recent lab results Calcium 6.3 mg/dL (8.4-10.2) L 04/12/18 05:58 Phosphorus 1.90 mg/dL (2.5-4.5) L D 04/12/18 05:58 Magnesium 1.50 mg/dL (1.7-2.3) L 04/12/18 05:58 Urine Creatinine 116.0 mg/dL (0.1-20.0) H 04/11/18 Unknown Urine Sodium 129 mmol/L 04/11/18 Unknown Urine Total Protein 12 mg/dL (5-11.8) H 04/11/18 18:00 Medications & Allergies - Medications Allergies/Adverse Reactions: Allergies codeine Allergy (Verified 02/24/18 11:22) Hives Penicillins Allergy (Verified 02/24/18 11:22) Hives Home Medications: Home Medications Medication Instructions Recorded Confirmed Last Taken Type ALBUTEROL Inhaler(NF) [VENTOLIN 1 puff IH Q4H PRN #1 inha 12/10/17 04/10/18 Unknown Rx Inhaler(NF)] Glimepiride [Amaryl] 04/10/18 04/10/18 History Potassium Chloride 20 meq PO BID #20 packet 04/11/18 Unknown Rx Active Medications: Generic Name Dose Route Start Last Admin Trade Name Freq PRN Reason Stop Dose Admin Acetaminophen 650 mg 04/11/18 05:03 Tylenol PO Q4H PRN Pain MILD(1-3)/Fever >100.5/PIERSON Albuterol 2.5 mg 04/11/18 05:03 Proventil IH Q4HRT PRN Shortness Of Breath Dextrose 50 ml 04/11/18 05:48 D50w (25gm) Syringe IV PRN PRN Hypoglycemia Heparin Sodium (Porcine) 5,000 unit 04/11/18 06:00 04/12/18 05:33 Heparin SUB-Q 5,000 unit Q8HR CAREN Administration Sodium Chloride 1,000 mls @ 125 mls/hr 04/11/18 06:00 04/11/18 22:16 Nacl 0.9% 1000 Ml IV 125 mls/hr DIRECT CAREN Administration Magnesium Sulfate 2 gm in 50 mls @ 25 mls/hr 04/12/18 10:00 Magnesium Sulfate 2gm/50ml IV 04/12/18 11:59 ONCE ONE Insulin Human Regular 0 units 04/11/18 07:30 04/12/18 08:00 Humulin R SUB-Q Not Given ACHS [facility] Protocol Ondansetron HCl 4 mg 04/11/18 05:03 04/11/18 13:16 Zofran IV 4 mg Q8H PRN Administration Nausea And Vomiting Potassium Chloride 40 meq 04/12/18 09:00 K-Dur PO 04/12/18 11:01 Q2H CAREN Sodium Chloride 10 ml 04/11/18 10:00 04/11/18 21:17 Sodium Chloride Flush Syringe 10 Ml IV 10 ml BID CAREN Administration Sodium Chloride 10 ml 04/11/18 05:03 Sodium Chloride Flush Syringe 10 Ml IV PRN PRN LINE FLUSH
[2018-04-12] MEDS: K-DUR PO SCH ×2 (09:52→12:02)
[2018-04-12] MEDS: SODIUM CHLORIDE FLUSH SYRINGE 10 ML IV SCH ×2 (09:53→21:40)
[2018-04-12] MEDS ORDERED: MAGNESIUM SULFATE 2GM/50ML 2 GM/50 ML BAG IV ONE (10:00)
[2018-04-12] MEDS ORDERED: CALCIUM GLUCONATE 2,000 MG in NACL 0.9% 250ML 250 ML IV ONE (10:30)
[2018-04-12] MEDS ORDERED: KPHOS 30 MMOL in NACL 0.9% 500 ML 500 ML IV ONE (11:30)
[2018-04-12] MEDS: KCL 30 MEQ in NACL 0.9% 1000 ML 1,000 ML IV SCH (11:45)
--- NOTE | 2018-04-12 16:25 | Progress Note ---
Assessment and Plan Assessment and plan: Severe hypokalemia - Repleted as sedated despite that it was low this morning and I given a dose of 80 MEQ of potassium and will check at 6:00 PM - Magnesium was low and repleted - Neurology is following UZIEL, likely prerenal azotemia -On IV fluid, will monitor creatinine level -Nephrology following Hypotension, likely secondary to dehydration -Corrected with IV fluids Mild hyponatremia -Corrected History of COPD -No acute exacerbation -On PRN duonebs Chronic respiratory failure with hypoxia on home oxygen 2 L -Continue oxygen supplementation as needed DM2 -Controlled -On SSI Stage IV lung cancer -For outpatient follow-up DVT prophylaxis with heparin Discharge once potassium level was corrected. History Interval history: Patient was seen and evaluated this morning, patient didn't have any complaints. Patient didn't have any nausea, vomiting or diarrhea. Hospitalist Physical - Physical exam Narrative exam: Not in cardiopulmonary distress. The patient appeared emaciated. Vital signs as documented. Head exam is unremarkable. No scleral icterus . Neck is without jugular venous distension, thyromegaly, or carotid bruits. Lungs are clear to auscultation. Cardiac exam reveals regular rate and Rhythm. Abdominal exam reveals normal bowel sounds. Extremities are nonedematous and both femoral and pedal pulses are normal. DIRECTOR STRATEGIC PLANNING: Alert and oriented 3. No focal weakness. - Constitutional Vitals: Temp Pulse Resp BP Pulse Ox 97.7 F 65 18 96/39 98 04/12/18 15:54 04/12/18 15:54 04/12/18 15:54 04/12/18 15:54 04/12/18 15:54 General appearance: Present: no acute distress Results - Labs CBC & Chem 7: 04/10/18 21:48 04/12/18 05:58 Labs: Laboratory Last Values WBC 7.5 K/mm3 (4.5-11.0) 04/10/18 21:48 RBC 4.96 M/mm3 (3.65-5.03) 04/10/18 21:48 Hgb 13.7 gm/dl (10.1-14.3) 04/10/18 21:48 Hct 39.6 % (30.3-42.9) 04/10/18 21:48 MCV 80 fl (79-97) 04/10/18 21:48 MCH 28 pg (28-32) 04/10/18 21:48 MCHC 35 % (30-34) H 04/10/18 21:48 RDW 16.2 % (13.2-15.2) H 04/10/18 21:48 Plt Count 287 K/mm3 (140-440) 04/10/18 21:48 Lymph % (Auto) 16.4 % (13.4-35.0) 04/10/18 21:48 [place] % (Auto) 8.2 % (0.0-7.3) H 04/10/18 21:48 Eos % (Auto) 3.7 % (0.0-4.3) 04/10/18 21:48 Baso % (Auto) 0.9 % (0.0-1.8) 04/10/18 21:48 Lymph # 1.2 K/mm3 (1.2-5.4) 04/10/18 21:48 [place] # 0.6 K/mm3 (0.0-0.8) 04/10/18 21:48 Eos # 0.3 K/mm3 (0.0-0.4) 04/10/18 21:48 Baso # 0.1 K/mm3 (0.0-0.1) 04/10/18 21:48 Seg Neutrophils % 70.8 % (40.0-70.0) H 04/10/18 21:48 Seg Neutrophils # 5.3 K/mm3 (1.8-7.7) 04/10/18 21:48 Sodium 141 mmol/L (137-145) 04/12/18 05:58 Potassium 2.9 mmol/L (3.6-5.0) L* 04/12/18 05:58 Chloride 111.6 mmol/L (98-107) H 04/12/18 05:58 Carbon Dioxide 18 mmol/L (22-30) L 04/12/18 05:58 Anion Gap 14 mmol/L 04/12/18 05:58 BUN 26 mg/dL (7-17) H 04/12/18 05:58 Creatinine 2.0 mg/dL (0.7-1.2) H 04/12/18 05:58 Estimated GFR 25 ml/min 04/12/18 05:58 BUN/Creatinine Ratio 13 % 04/12/18 05:58 Glucose 90 mg/dL (65-100) 04/12/18 05:58 POC Glucose 90 (70-105) 04/12/18 12:10 Osmolality 295 Mosm/kg 04/11/18 09:33 Uric Acid 6.0 mg/dL (3.5-7.6) 04/11/18 09:33 Calcium 6.3 mg/dL (8.4-10.2) L 04/12/18 05:58 Phosphorus 1.90 mg/dL (2.5-4.5) L D 04/12/18 05:58 Magnesium 1.50 mg/dL (1.7-2.3) L 04/12/18 05:58 Total Bilirubin 0.30 mg/dL (0.1-1.2) 04/10/18 21:48 AST 13 units/L (5-40) 04/10/18 21:48 ALT 5 units/L (7-56) L 04/10/18 21:48 Alkaline Phosphatase 112 units/L (35-129) 04/10/18 21:48 Total Creatine Kinase 64 units/L (30-135) 04/11/18 09:33 Total Protein 6.7 g/dL (6.3-8.2) 04/10/18 21:48 Albumin 4.3 g/dL (3.9-5) 04/10/18 21:48 Albumin/Globulin Ratio 1.8 % 04/10/18 21:48 Urine Color Yellow (Yellow) 04/11/18 Unknown Urine Turbidity Clear (Clear) 04/11/18 Unknown Urine pH 6.0 (5.0-7.0) 04/11/18 Unknown Ur Specific [place] 1.015 (1.003-1.030) 04/11/18 Unknown Urine Protein <15 mg/dl mg/dL (Negative) 04/11/18 Unknown Urine Glucose (UA) Neg mg/dL (Negative) 04/11/18 Unknown Urine Ketones Neg mg/dL (Negative) 04/11/18 Unknown Urine Blood Neg (Negative) 04/11/18 Unknown Urine Nitrite Neg (Negative) 04/11/18 Unknown Urine Bilirubin Neg (Negative) 04/11/18 Unknown Urine Urobilinogen < 2.0 mg/dL (<2.0) 04/11/18 Unknown Ur Leukocyte Esterase Neg (Negative) 04/11/18 Unknown Urine WBC (Auto) 1.0 /HPF (0.0-6.0) 04/11/18 Unknown Urine RBC (Auto) 1.0 /HPF (0.0-6.0) 04/11/18 Unknown U Epithel Cells (Auto) < 1.0 /HPF (0-13.0) 04/11/18 Unknown Urine Mucus Few /HPF 04/11/18 Unknown Urine Creatinine 116.0 mg/dL (0.1-20.0) H 04/11/18 Unknown Protein/Creatinin Ratio 0.19 04/11/18 18:00 Urine Sodium 129 mmol/L 04/11/18 Unknown Urine Total Protein 12 mg/dL (5-11.8) H 04/11/18 18:00
[2018-04-13] MEDS: KCL 30 MEQ in NACL 0.9% 1000 ML 1,000 ML IV SCH (01:45)
[2018-04-13 05:26] LABS: Calcium 6.1 mg/dL (8.4-10.2)
[2018-04-13] MEDS: HEPARIN SUB-Q SCH ×2 (06:24→13:54)
[2018-04-13] MEDS: HumuLIN R SUB-Q SCH ×2 (08:09→12:00)
[2018-04-13] MEDS: SODIUM CHLORIDE FLUSH SYRINGE 10 ML IV SCH (09:15)
--- NOTE | 2018-04-13 10:11 | Discharge Summary ---
Providers - Providers Date of Admission: 04/11/18 05:03 Attending physician: SUSAN WOOD MD 04/11/18 05:49 Consult to Physician [CONS] Routine Comment: patient saw Dr Castillo in the office Consulting Provider: BRADFORD CASTILLO Physician Instructions: Reason For Exam: UZIEL Primary care physician: LLOYD SCHILLING Hospitalization Reason for admission: UZIEL, hypokalemia Condition: Good Pertinent studies: Renal ultrasound IMPRESSION: Bilateral medical renal disease evident by renal atrophy and echogenic cortex. There are bilateral kidney stones without hydronephrosis. Hospital course: History of present illness: Patient is a 62-year-old female with a history of stage IV lung cancer on current chemotherapy who was told by her oncologist to come to the ED because the lab she recently did was significant for very low potassium level. Patient admits to several months of nausea with vomiting and diarrhea since she started the chemotherapy in July 2017. According to the patient, her diarrhea has resolved and she is currently constipated. She has associated lighthe adedness and generalized weakness. She denies abdominal pain, bleeding from any orifice, dysuria or frequency. No chest pain, shortness of breath, palpitation, fever, chills, cough, sore throat, runny nose or congestion, leg swelling, orthopnea or PND. No headaches, syncope or loss of consciousness. Patient was admitted to the floor and was managed for acute kidney injury and severe hyperkalemia, for magnesium. Patient was given IV fluids and electrolytes were repleted and corrected. Nephrology consulted, creatinine showed some improvement. Nephrology recommended to discharge the patient with potassium and calcium carbonate. Patient will see neurology as an outpatient within 2 weeks. Patient was hemodynamically stable at the time of discharge. I have discussed patient's concerns and questions as a time of discharge. Disposition: -01 TO HOME OR SELFCARE Time spent for discharge: 32 minutes - Discharge Diagnoses (1) Acute kidney injury (nontraumatic) Status: Acute (2) Hypokalemia Status: Acute (3) Acidosis Status: Acute Core Measure Documentation - Palliative Care Palliative Care/ Comfort Measures: Not Applicable - Core Measures Any of the following diagnoses?: none Exam - Physical Exam Narrative exam: Not in cardiopulmonary distress. The patient appeared emaciated. Vital signs as documented. Head exam is unremarkable. No scleral icterus . Neck is without jugular venous distension, thyromegaly, or carotid bruits. Lungs are clear to auscultation. Cardiac exam reveals regular rate and Rhythm. Abdominal exam reveals normal bowel sounds. Extremities are nonedematous and both femoral and pedal pulses are normal. ONCOLOGY REP: Alert and oriented 3. No focal weakness. - Constitutional Vitals: Temp Pulse Resp BP Pulse Ox 99.3 F 73 24 102/28 99 04/12/18 21:34 04/12/18 21:34 04/12/18 21:34 04/12/18 21:34 04/12/18 21:34 Plan Activity: no restrictions Weight Bearing Status: Full Weight Bearing Diet: regular Follow up with: BRADFORD CASTILLO MD [Staff Physician] - 14 Days Prescriptions: Calcium Carbonate [Tums] 2,000 mg PO Q8HR #180 tab Potassium Chloride 20 meq PO BID #20 packet
[2018-04-13 12:03] VITALS: BP 94/35
--- NOTE | 2018-04-13 13:24 | Progress Note ---
Assessment and Plan Acute Renal Failure secondary to Ischemic ATN from Volume Depletion due to N/V/D on Chronic Kidney Disease secondary to Diabetic Nephropathy: Hypotension: - improving - to be followed in my office upon discharge - Strict I&O monitoring - Obtain daily weights - Renally dose medications Multiple electrolyte abnormality is likely due to Xgeva: Hyperphosphatemia: Hypocalcemia: Hypokalemia: Hypomagnesia: -discharge with KCl 20 meq qday and calcium carbonate 2000 mg TID between meals Chronic respiratory failure with hypoxia: COPD: -On Albuterol prn -On portable home oxygen@ 2 L -As per primary team Diabetes Mellitus type II: -On insulin -As per primary Stage IV lung cancer: -Patient stopped Gilotrif 1 week ago -Now on Xgeva injection monthly, next dose on 05/03/18 -Follows with Oncologist Dr. Ware outpatiently Subjective Date of service: 04/13/18 Principal diagnosis: Multiple electrolyte abnormalities, ARF on CKD Interval history: feels better and she is ready to go home Objective - Vital Signs Vital signs: Vital Signs - 12hr 04/13/18 05:17 Temperature 98.4 F Pulse Rate 67 Respiratory 24 Rate Blood Pressure 94/35 O2 Sat by Pulse 100 Oximetry - General Appearance General appearance: well-developed, well-nourished EENT: ATNC, PERRL, mucous membranes moist Neck: no JVD, no carotid bruit Respiratory: Present: Clear to Ascultation. Absent: Rales, Ronchi Cardiology: regular, S1S2 Gastrointestinal: normoactive bowel sounds, no absent bowel sounds, no tenderness Integumentary: no rash, warm and dry Neurologic: no focal deficit, no asterixis, alert and oriented x3 Musculoskeletal: other (no edema in BLE) Psychiatric: mood/affect appropriate, cooperative - Lab 04/10/18 21:48 04/13/18 04:26 Most recent lab results Calcium 6.1 mg/dL (8.4-10.2) L 04/13/18 04:26 Phosphorus 2.50 mg/dL (2.5-4.5) D 04/13/18 04:26 Magnesium 1.90 mg/dL (1.7-2.3) 04/13/18 04:26 Urine Creatinine 116.0 mg/dL (0.1-20.0) H 04/11/18 Unknown Urine Sodium 129 mmol/L 04/11/18 Unknown Urine Total Protein 12 mg/dL (5-11.8) H 04/11/18 18:00 Medications & Allergies - Medications Allergies/Adverse Reactions: Allergies codeine Allergy (Verified 02/24/18 11:22) Hives Penicillins Allergy (Verified 02/24/18 11:22) Hives Home Medications: Home Medications Medication Instructions Recorded Confirmed Last Taken Type ALBUTEROL Inhaler(NF) [VENTOLIN 1 puff IH Q4H PRN #1 inha 12/10/17 04/10/18 Unknown Rx Inhaler(NF)] Glimepiride [Amaryl] 4 mg PO DAILY 04/10/18 04/12/18 04/10/18 History Potassium Chloride 20 meq PO BID #20 packet 04/11/18 Unknown Rx Active Medications: Generic Name Dose Route Start Last Admin Trade Name Freq PRN Reason Stop Dose Admin Acetaminophen 650 mg 04/11/18 05:03 Tylenol PO Q4H PRN Pain MILD(1-3)/Fever >100.5/PIERSON Albuterol 2.5 mg 04/11/18 05:03 Proventil IH Q4HRT PRN Shortness Of Breath Dextrose 50 ml 04/11/18 05:48 D50w (25gm) Syringe IV PRN PRN Hypoglycemia Heparin Sodium (Porcine) 5,000 unit 04/11/18 06:00 04/13/18 06:24 Heparin SUB-Q 5,000 unit Q8HR CAREN Administration Potassium Chloride 30 meq/ 1,015 mls @ 100 mls/hr 04/12/18 12:00 04/13/18 01:45 Sodium Chloride IV 100 mls/hr DIRECT CAREN Administration Insulin Human Regular 0 units 04/11/18 07:30 04/13/18 08:09 Humulin R SUB-Q Not Given ACHS CAREN Protocol Ondansetron HCl 4 mg 04/11/18 05:03 04/11/18 13:16 Zofran IV 4 mg Q8H PRN Administration Nausea And Vomiting Sodium Chloride 10 ml 04/11/18 10:00 04/13/18 09:15 Sodium Chloride Flush Syringe 10 Ml IV 10 ml BID CAREN Administration Sodium Chloride 10 ml 04/11/18 05:03 Sodium Chloride Flush Syringe 10 Ml IV PRN PRN LINE FLUSH
== END 2018-04-13 15:00 | disposition home health service (06) | DRG 683 ==
LOC: ED 20:53 → 3A 04-11 05:03
PROVIDERS: ADMIT Internal Medicine; ATTEND Internal Medicine
DX: N17.0 Acute kidney failure with tubular necrosis (principal); E87.1 Hypo-osmolality and hyponatremia; J96.11 Chronic respiratory failure with hypoxia; C34.90 Malignant neoplasm of unspecified part of unspecified bronchus or lung; E87.2 Acidosis; I95.9 Hypotension, unspecified; E87.6 Hypokalemia; E11.21 Type 2 diabetes mellitus with diabetic nephropathy; E83.39 Other disorders of phosphorus metabolism; E83.51 Hypocalcemia; E83.42 Hypomagnesemia; J44.9 Chronic obstructive pulmonary disease, unspecified; E11.22 Type 2 diabetes mellitus with diabetic chronic kidney disease; N18.4 Chronic kidney disease, stage 4 (severe); Z88.5 Allergy status to narcotic agent; Z88.0 Allergy status to penicillin; Z79.899 Other long term (current) drug therapy; Z87.891 Personal history of nicotine dependence; Z98.51 Tubal ligation status
CPT/HCPCS: 36415; 76770; 80048; 80053; 81001; 82550; 82570; 82962; 83735; 83930; 84100; 84132; 84156; 84300; 84550; 85025; 87116; 93005; 93010; 96361; 96365; 96367; G0378; J0610; J1644; J2405; J3475; J3480; J7030; J7040; J7050

== ENCOUNTER 2018-06-19 09:41 | Outpatient (CLI) | payer OTHER ==
[2018-06-22 15:02] LABS: Vitamin D, 25-OH, D2 <4 ng/mL
== END 2018-06-19 09:42 | disposition home or self-care (01) ==
LOC: LAB 09:41
PROVIDERS: ATTEND Internal Medicine Nephrology
DX: E83.42 Hypomagnesemia (principal); E83.51 Hypocalcemia; J44.9 Chronic obstructive pulmonary disease, unspecified
CPT/HCPCS: 36415; 82306; 82330; 83735; 83970; 84100

== ENCOUNTER 2018-08-23 06:51 | Outpatient (CLI) | payer OTHER ==
--- NOTE | 2018-08-23 10:18 | Cat Scan Report ---
CT CHEST WITHOUT CONTRAST INDICATION / CLINICAL INFORMATION: C34.80 MALIGNANT NEOPLASM OF OVERLAPPING SITES OF UNSPECIFIEDBRON. Lung cancer. TECHNIQUE: Axial CT images were obtained through the chest without contrast. Sagittal and coronal reformatted im ages. All CT scans at this location are performed using CT dose reduction for ALARA by means of autom ated exposure control. COMPARISON: 10/02/2017 FINDINGS: HEART: No significant abnormality. THORACIC AORTA: No significant abnormality. Minimal scattered calcified plaques. MEDIASTINUM and ERICKA: No significant abnormality. Mildly enlarged anterior mediastinal, right paratra cheal and subcarinal lymph nodes have resolved. LUNGS: Moderate right pleural effusion and consolidation/atelectasis throughout the right middle and lower lobes has resolved. There is a platelike area of opacification in the posterior right lower lob e measuring 2.2 x 2.1 x 1.0 cm. This has the appearance of a scar. Interstitial markings in the right lower lobe are increased which may be related to radiation changes. The remainder the lungs are geri r. No additional pulmonary abnormality. PLEURA: No significant pleural effusion. No pneumothorax. ADDITIONAL FINDINGS: Enlarged left axillary lymph nodes have decreased by 50% and are now within norm al limits. UPPER ABDOMEN: No significant abnormality. SKELETAL SYSTEM: Diffuse sclerotic bony lesions are identified throughout the spine, thoracic cage, b ilateral scapula and proximal humeri consistent with metastatic disease. Bony lesions have progressed by 50% since the previous exam. IMPRESSION: 2.2 x 2.1 x 1.0 cm airspace opacity in the right lower lobe which resembles a scar. This could also represent residual tumor. Radiation changes are suspected in the right lower lung. No new pulmonary l esion is appreciated. Decreased mediastinal and left axillary adenopathy. Increased bony metastasis. Signer Name: Mitch Pagan Jr, MD Signed: 08/23/2018 10:14 AM Workstation Name: [id number]
== END 2018-08-23 06:52 | disposition home or self-care (01) ==
LOC: CT 06:51
PROVIDERS: ATTEND Internal Medicine Hematology & Oncology
DX: C79.51 Secondary malignant neoplasm of bone (principal); C34.80 Malignant neoplasm of overlapping sites of unspecified bronchus and lung; E11.9 Type 2 diabetes mellitus without complications; J44.9 Chronic obstructive pulmonary disease, unspecified
CPT/HCPCS: 71250

== ENCOUNTER 2018-09-13 12:34 | Outpatient (CLI) | payer OTHER ==
--- NOTE | 2018-09-13 17:24 | PET Report ---
PET/CT Scan 09/13/2018 09/13/2018 2:17 PM INDICATION: Restaging of lung cancer. TECHNIQUE: 14.958 mCi of F18-FDG was injected at 13:18. Imaging was performed at 14:18. Glucose level is 142 m g/dl just prior to the exam. Imaging is performed from the skull base to the proximal thighs. CT i maging is obtained for attenuation correction and anatomic localization. COMPARISON: PET/CT from 08/03/2017. CT of the chest without contrast from 08/23/2018. FINDINGS: Head/neck: No suspicious metabolic activity or significant CT abnormality. Chest: The previously described area of possible nodular scarring along the right lower lobe is stabl e without abnormally increased metabolic activity. No sites of suspicious metabolic activity are note d elsewhere. No other significant CT abnormality is seen. Abdomen/pelvis: No suspicious sites of metabolic activity. There is extensive sigmoid colonic diverti culosis without evidence of diverticulitis. No additional significant CT abnormality is seen. Size: No suspicious sites of metabolic activity or significant CT abnormalities. Bones: There are innumerable sclerotic metastases along the axial and appendicular skeleton. No sites of suspicious metabolic activity are identified. IMPRESSION: 1. No suspicious embolic activity is seen along the recently described right lower lobe abnormality. This finding is consistent with scarring. 2. Innumerable skeletal metastases without associated abnormally increased metabolic activity. 3. No additional sites of FDG avid neoplastic disease. Signer Name: Marc Ramirez MD Signed: 09/13/2018 5:20 PM Workstation Name: [id number]
== END 2018-09-13 12:35 | disposition home or self-care (01) ==
LOC: PET 12:34
PROVIDERS: ATTEND Internal Medicine Hematology & Oncology
DX: C79.51 Secondary malignant neoplasm of bone (principal); C34.80 Malignant neoplasm of overlapping sites of unspecified bronchus and lung; D50.0 Iron deficiency anemia secondary to blood loss (chronic); J44.9 Chronic obstructive pulmonary disease, unspecified; E11.9 Type 2 diabetes mellitus without complications
CPT/HCPCS: 78815; 82962; A9552

== ENCOUNTER 2018-09-21 10:08 | Outpatient (CLI) | payer OTHER ==
[2018-09-21 10:37] LABS: Hematocrit 29.6 % (30.3-42.9); Hemoglobin 9.5 gm/dl (10.1-14.3); Mean Corpuscular HGB Conc 32 % (30-34); Mean Corpuscular Volume 84 fl (79-97); Platelet Count 170 K/mm3 (140-440); Red Blood Count 3.51 M/mm3 (3.65-5.03); Red Cell Distribution Width 17.5 % (13.2-15.2)
[2018-09-21 10:41] LABS: Bacteria,Urine 1+ /HPF (Negative); Bilirubin,Urine NEG (Negative); Blood,Urine NEG (Negative); Color,Urine Yellow (Yellow); Mucus,Urine FEW /HPF; Protein,Urine <15 mg/dL mg/dL (Negative); Urobilinogen,Urine < 2.0 mg/dL (<2.0)
[2018-09-21 11:01] LABS: Calcium 9.1 mg/dL (8.4-10.2)
[2018-09-21 11:39] LABS: Creatinine,Urine 379.1 mg/dL (0.1-20.0); Protein/Creatinine Ratio,Urine 0.14
== END 2018-09-21 10:09 | disposition home or self-care (01) ==
LOC: LAB 10:08
PROVIDERS: ATTEND Internal Medicine Nephrology
DX: N18.3 Chronic kidney disease, stage 3 (moderate) (principal); E83.42 Hypomagnesemia
CPT/HCPCS: 36415; 80048; 81001; 82570; 83735; 84156; 85027

== ENCOUNTER 2018-12-31 11:58 | Outpatient (CLI) | payer OTHER, MEDICARE ==
[2018-12-31 12:26] LABS: Hematocrit 33.1 % (30.3-42.9); Hemoglobin 10.8 gm/dl (10.1-14.3); Mean Corpuscular HGB Conc 33 % (30-34); Mean Corpuscular Volume 87 fl (79-97); Platelet Count 131 K/mm3 (140-440); Red Cell Distribution Width 16.4 % (13.2-15.2)
[2018-12-31 12:27] LABS: Bilirubin,Urine NEG (Negative); Blood,Urine SM (Negative); Color,Urine Yellow (Yellow); Mucus,Urine FEW /HPF; Protein,Urine <15 mg/dL mg/dL (Negative); Urobilinogen,Urine < 2.0 mg/dL (<2.0)
[2018-12-31 12:51] LABS: Calcium 9.2 mg/dL (8.4-10.2)
[2018-12-31 13:17] LABS: Creatinine,Urine 143.2 mg/dL (0.1-20.0); Protein/Creatinine Ratio,Urine 0.1
[2019-01-03 12:01] LABS: Vitamin D, 25-OH, D2 75 ng/mL
== END 2018-12-31 11:59 | disposition home or self-care (01) ==
LOC: LAB 11:58
PROVIDERS: ATTEND Internal Medicine Nephrology
DX: E11.22 Type 2 diabetes mellitus with diabetic chronic kidney disease (principal); N18.3 Chronic kidney disease, stage 3 (moderate); E83.51 Hypocalcemia; E83.42 Hypomagnesemia; Z88.0 Allergy status to penicillin; Z88.5 Allergy status to narcotic agent
CPT/HCPCS: 36415; 80048; 81001; 82306; 82330; 82570; 83735; 83970; 84100; 84156; 85027

== ENCOUNTER 2019-03-26 11:07 | Outpatient (CLI) | payer OTHER, MEDICARE ==
[2019-03-26 11:36] LABS: Hematocrit 37.6 % (30.3-42.9); Hemoglobin 12.3 gm/dl (10.1-14.3); Mean Corpuscular HGB Conc 33 % (30-34); Mean Corpuscular Volume 91 fl (79-97); Platelet Count 200 K/mm3 (140-440); Red Blood Count 4.15 M/mm3 (3.65-5.03); Red Cell Distribution Width 15.2 % (13.2-15.2)
[2019-03-26 11:39] LABS: Bilirubin,Urine NEG (Negative); Blood,Urine SM (Negative); Color,Urine Yellow (Yellow); Mucus,Urine FEW /HPF; Protein,Urine <15 mg/dL mg/dL (Negative); Urobilinogen,Urine < 2.0 mg/dL (<2.0)
[2019-03-26 11:49] LABS: Creatinine,Urine 142.1 mg/dL (0.1-20.0); Protein/Creatinine Ratio,Urine 0.08
[2019-03-26 12:25] LABS: Calcium 9.3 mg/dL (8.4-10.2)
== END 2019-03-26 11:08 | disposition home or self-care (01) ==
LOC: LAB 11:07
PROVIDERS: ATTEND Internal Medicine Nephrology
DX: E83.42 Hypomagnesemia (principal); E83.51 Hypocalcemia; N18.3 Chronic kidney disease, stage 3 (moderate)
CPT/HCPCS: 36415; 80048; 81001; 82330; 82570; 83735; 84156; 85027

== ENCOUNTER 2019-04-18 11:52 | Outpatient (CLI) | payer OTHER, MEDICARE ==
--- NOTE | 2019-04-18 15:53 | PET Report ---
PET/CT HISTORY: C34.80. Restaging of lung cancer and bone cancer. TECHNIQUE: The patient's fasting blood glucose was 119. The patient weighed 139 lbs. The patient w as injected with 14.74 mCi of FDG in the right hand at 1255 and imaging was started at 1340. The pat ient was imaged from the skull base to the thighs. All CT scans at this location are performed using CT dose reduction for ALARA by means of automated exposure control. Images were reviewed on a worksta tion. COMPARISON: 09/13/2018 FINDINGS: IMAGED BRAIN: [Physiologic FDG uptake] NECK: [Physiologic FDG uptake]. Brown fat uptake is noted. CHEST WALL: [Physiologic FDG uptake] MEDIASTINUM: [Physiologic FDG uptake] LUNGS: [Physiologic FDG uptake]. Hypometabolic 1.6 cm lesion in the right lower lobe is unchanged. M ax SUV of this lesion measures 2.3. No new pulmonary nodule or mass. Stable mild emphysematous change s. HEPATOBILIARY: [Physiologic FDG uptake]. Liver uptake measures 4.5. PANCREAS: [Physiologic FDG uptake SPLEEN: [Physiologic FDG uptake] KIDNEYS/BLADDER: [Physiologic FDG uptake] ADRENAL GLANDS: [Physiologic FDG uptake] GI/MESENTERY: [Physiologic FDG uptake] PELVIC VISCERA: [Physiologic FDG uptake] LYMPH NODES: [Physiologic FDG uptake] OSSEOUS STRUCTURES: [Diffuse blastic bony lesions throughout the axial and proximal appendicular ske leton is again noted and unchanged. These lesions remain hypometabolic with max SUV measuring less th an 2.5.] ADDITIONAL FINDINGS: [None] IMPRESSION: Stable findings since 09/13/2018 examination. Stable scarring in the right lower lobe at the site of a right lung mass. Stable diffuse blastic bony lesions without hypermetabolic activity. No FDG avid di sease is identified on today's exam. Signer Name: Mitch Pagan Jr, MD Signed: 04/18/2019 3:49 PM Workstation Name: [id number]
== END 2019-04-18 11:53 | disposition home or self-care (01) ==
LOC: PET 11:52
PROVIDERS: ATTEND Internal Medicine Hematology & Oncology
DX: C34.80 Malignant neoplasm of overlapping sites of unspecified bronchus and lung (principal); J98.4 Other disorders of lung
CPT/HCPCS: 78815; 82962; A9552

== ENCOUNTER 2019-07-17 10:45 | Outpatient (CLI) | payer OTHER, MEDICARE ==
[2019-07-17 11:47] LABS: Bilirubin,Urine NEG (Negative); Blood,Urine SM (Negative); Color,Urine Yellow (Yellow); Mucus,Urine FEW /HPF; Protein,Urine <15 mg/dL mg/dL (Negative); Urobilinogen,Urine < 2.0 mg/dL (<2.0)
[2019-07-17 11:49] LABS: Calcium 9.4 mg/dL (8.4-10.2)
[2019-07-17 12:17] LABS: Hematocrit 35.2 % (30.3-42.9); Hemoglobin 11.5 gm/dl (10.1-14.3); Mean Corpuscular HGB Conc 33 % (30-34); Mean Corpuscular Volume 93 fl (79-97); Platelet Count 114 K/mm3 (140-440); Red Blood Count 3.77 M/mm3 (3.65-5.03); Red Cell Distribution Width 14.2 % (13.2-15.2)
[2019-07-17 12:36] LABS: Creatinine,Urine 321.5 mg/dL (0.1-20.0); Protein/Creatinine Ratio,Urine 0.09
== END 2019-07-17 10:46 | disposition home or self-care (01) ==
LOC: LAB 10:45
PROVIDERS: ATTEND Internal Medicine Nephrology
DX: E83.42 Hypomagnesemia (principal); E83.51 Hypocalcemia; N18.3 Chronic kidney disease, stage 3 (moderate)
CPT/HCPCS: 36415; 80048; 81001; 82570; 83735; 83970; 84156; 85027

== ENCOUNTER 2019-10-30 11:21 | Outpatient (CLI) | payer OTHER ==
[2019-10-30 12:37] LABS: Basophils % (Auto) 0.7 % (0.0-1.8); Eosinophils # (Auto) 0.1 K/mm3 (0.0-0.4); Eosinophils % (Auto) 2.8 % (0.0-4.3); Hematocrit 33.1 % (30.3-42.9); Hemoglobin 10.8 gm/dl (10.1-14.3); Lymphocytes # (Auto) 0.5 K/mm3 (1.2-5.4); Lymphocytes % (Auto) 15.8 % (13.4-35.0); Mean Corpuscular HGB Conc 33 % (30-34); Mean Corpuscular Volume 93 fl (79-97); Monocytes # (Auto) 0.3 K/mm3 (0.0-0.8); Monocytes % (Auto) 10.4 % (0.0-7.3); Platelet Count 109 K/mm3 (140-440); Red Blood Count 3.58 M/mm3 (3.65-5.03); Red Cell Distribution Width 14.6 % (13.2-15.2)
[2019-10-30 12:40] LABS: Bilirubin,Urine NEG (Negative); Blood,Urine SM (Negative); Color,Urine Yellow (Yellow); Protein,Urine <15 mg/dL mg/dL (Negative); Urobilinogen,Urine < 2.0 mg/dL (<2.0)
[2019-10-30 13:05] LABS: Calcium 8.9 mg/dL (8.4-10.2)
== END 2019-10-30 11:22 | disposition home or self-care (01) ==
LOC: LAB 11:21 → XRAY 11:21 → LAB 11:22
PROVIDERS: ATTEND Internal Medicine Nephrology
DX: E83.42 Hypomagnesemia (principal); E83.51 Hypocalcemia; N18.3 Chronic kidney disease, stage 3 (moderate)
CPT/HCPCS: 36415; 80048; 81001; 82306; 83735; 83970; 84100; 85025

== ENCOUNTER 2020-01-24 12:01 | Outpatient (CLI) | payer OTHER ==
[2020-01-24 12:43] LABS: Basophils % (Auto) 0.5 % (0.0-1.8); Eosinophils # (Auto) 0.1 K/mm3 (0.0-0.4); Eosinophils % (Auto) 2.5 % (0.0-4.3); Hematocrit 34.4 % (30.3-42.9); Hemoglobin 11.5 gm/dl (10.1-14.3); Lymphocytes # (Auto) 0.6 K/mm3 (1.2-5.4); Lymphocytes % (Auto) 19.4 % (13.4-35.0); Mean Corpuscular HGB Conc 33 % (30-34); Mean Corpuscular Volume 92 fl (79-97); Monocytes # (Auto) 0.3 K/mm3 (0.0-0.8); Monocytes % (Auto) 8.7 % (0.0-7.3); Platelet Count 120 K/mm3 (140-440); Red Blood Count 3.76 M/mm3 (3.65-5.03); Red Cell Distribution Width 14.5 % (13.2-15.2)
[2020-01-24 12:54] LABS: Bilirubin,Urine NEG (Negative); Blood,Urine SM (Negative); Color,Urine Yellow (Yellow); Mucus,Urine FEW /HPF; Urobilinogen,Urine < 2.0 mg/dL (<2.0)
[2020-01-24 13:08] LABS: Creatinine,Urine 426.3 mg/dL (0.1-20.0); Protein/Creatinine Ratio,Urine 0.1
[2020-01-24 13:31] LABS: Calcium 9.2 mg/dL (8.4-10.2)
[2020-01-27 13:27] LABS: Vitamin D, 25-OH, D2 30 ng/mL
== END 2020-01-24 12:02 | disposition home or self-care (01) ==
LOC: LAB 12:01
PROVIDERS: ATTEND Internal Medicine Nephrology
DX: N18.30 Chronic kidney disease, stage 3 unspecified (principal); E83.51 Hypocalcemia; E83.42 Hypomagnesemia
CPT/HCPCS: 36415; 80048; 81001; 82306; 82330; 82570; 83735; 83970; 84100; 84156; 85025

== ENCOUNTER 2020-05-05 12:23 | Outpatient (CLI) | payer OTHER ==
[2020-05-05 13:03] LABS: Hematocrit 32.2 % (30.3-42.9); Hemoglobin 10.6 gm/dl (10.1-14.3); Mean Corpuscular HGB Conc 33 % (30-34); Mean Corpuscular Volume 91 fl (79-97); Platelet Count 113 K/mm3 (140-440); Red Blood Count 3.54 M/mm3 (3.65-5.03); Red Cell Distribution Width 14.8 % (13.2-15.2)
[2020-05-05 13:15] LABS: Calcium 8.5 mg/dL (8.4-10.2)
[2020-05-05 13:15] LABS: Bilirubin,Urine NEG (Negative); Blood,Urine SM (Negative); Color,Urine Yellow (Yellow); Mucus,Urine FEW /HPF; Urobilinogen,Urine < 2.0 mg/dL (<2.0)
[2020-05-05 14:02] LABS: Creatinine,Urine 317.4 mg/dL (0.1-20.0); Protein/Creatinine Ratio,Urine 0.14
== END 2020-05-05 12:24 | disposition home or self-care (01) ==
LOC: LAB 12:23
PROVIDERS: ATTEND Internal Medicine Nephrology
DX: N18.4 Chronic kidney disease, stage 4 (severe) (principal)
CPT/HCPCS: 36415; 80048; 81001; 82570; 82652; 82728; 83550; 84156; 85027

== ENCOUNTER 2020-07-02 08:54 | Outpatient (CLI) | payer OTHER ==
--- NOTE | 2020-07-02 10:05 | Mammography Report ---
DIGITAL SCREENING MAMMOGRAM WITH CAD, 07/02/2020 CLINICAL INFORMATION / INDICATION: Routine screening TECHNIQUE: Digital bilateral 2D mammography was obtained in the craniocaudal and mediolateral obliqu e projections. This examination was interpreted with the benefit of Computer-Aided Detection analysis . COMPARISON: None available FINDINGS: Breast Density: There are scattered areas of fibroglandular density. No dominant mass, suspicious calcifications, or architectural distortion in either breast. Benign-appearing calcifications are seen, partly within a scarlike complex on the left and likely are dystrophic. IMPRESSION: No mammographic evidence of malignancy. Follow up recommendation: Routine yearly BI-RADS Category 2: Benign. A "normal" or negative report should not discourage follow up or biopsy of a clinically significant f inding. A written summary of these findings will be mailed to the patient. The patient will be entered into a mammography reporting system which will generate a reminder letter for the patient's next appointmen t at the appropriate interval. The [employer] recommends yearly mammograms starting at age 40 and continuing as l ning as a woman is in good health. Breast MRI is recommended for women with an approximate 20-25% or greater lifetime risk of breast cancer, including women with a strong family history of breast or ova corazon cancer or who have been treated for Hodgkin's disease. Signer Name: Benjamin Richmond MD Signed: 07/02/2020 10:01 AM Workstation Name: [id number]
== END 2020-07-02 08:55 | disposition home or self-care (01) ==
LOC: MAMMO 08:54
PROVIDERS: ATTEND Internal Medicine Hematology & Oncology
DX: Z12.31 Encounter for screening mammogram for malignant neoplasm of breast (principal); N64.89 Other specified disorders of breast
CPT/HCPCS: 77067

== ENCOUNTER 2020-07-29 21:48 | Inpatient (IN) | payer OTHER ==
[2020-07-29 23:18] LABS: Basophils % (Auto) 0.4 % (0.0-1.8); Eosinophils # (Auto) 0.1 K/mm3 (0.0-0.4); Eosinophils % (Auto) 0.7 % (0.0-4.3); Hematocrit 36.6 % (30.3-42.9); Hemoglobin 12.1 gm/dl (10.1-14.3); Lymphocytes # (Auto) 0.7 K/mm3 (1.2-5.4); Lymphocytes % (Auto) 8.5 % (13.4-35.0); Mean Corpuscular HGB Conc 33 % (30-34); Mean Corpuscular Volume 91 fl (79-97); Monocytes # (Auto) 0.7 K/mm3 (0.0-0.8); Monocytes % (Auto) 9.4 % (0.0-7.3); Platelet Count 151 K/mm3 (140-440); Red Blood Count 4.04 M/mm3 (3.65-5.03); Red Cell Distribution Width 15.5 % (13.2-15.2)
[2020-07-29 23:35] LABS: Calcium 8.4 mg/dL (8.4-10.2)
--- NOTE | 2020-07-29 23:58 | XRay Report ---
CHEST 2 VIEWS, 07/29/2020 10:12 PM INDICATION: Cough COMPARISON: Chest radiograph, 02/24/2018 FINDINGS: Support devices: None. Heart: The cardiac silhouette is normal in size. Lungs/pleura: The lungs are clear of focal airspace disease or significant pleural effusion. Additional findings: Mottled sclerotic appearance of the visualized bony structures is consistent wit h patient's known history of known bony metastatic disease. IMPRESSION: 1. No evidence of acute cardiopulmonary process. Signer Name: Alisha Ballard MD Signed: 07/29/2020 11:53 PM Workstation Name: [id number]
[2020-07-30] MEDS ORDERED: AZITHROMYCIN/NS 500 MG/250 ML 500 MG/250 ML BAG IV ONE (03:35)
[2020-07-30] MEDS ORDERED: IPRATROPIUM/ALBUTEROL SULFATE 3 ML AMPUL.NEB IH ONE (03:35)
[2020-07-30] MEDS ORDERED: dexAMETHasone 4 MG/ML VIAL IV ONE (03:35)
--- NOTE | 2020-07-30 03:37 | Emergency Department Report ---
ED Shortness of Breath HPI - General Chief Complaint: Dyspnea/Respdistress Stated Complaint: VIR[place]IE/BACK PAIN Time Seen by Provider: 07/30/20 03:33 Source: patient Mode of arrival: Ambulatory Limitations: No Limitations - History of Present Illness Initial Comments: Patient is a 64-year-old female who presents emergency room with complaints of shortness of breath, difficulty breathing, fever, cough. Patient states she has a wet cough with yellow sputum. Patient states she has been going on for 2 to 3 days. Patient states her symptoms are worsening. Patient states it is hard for her to catch her breath. Patient states her fever was only for 1 to 2 days. Patient patient states she is not had a Covid vaccine. Patient states she is not sure if she had a Covid exposure. Patient denies loss of smell. Patient denies diarrhea. Patient states she has a history of COPD, diabetes. Patient states been taking her nebulizer treatments more often. MD Complaint: shortness of breath -: Sudden Severity: severe Consistency: constant Improves With: oxygen, rest, bronchodilators Worsens With: exertion Known History Of: COPD Context: recent URI Associated Symptoms: fever, cough Treatments Prior to Arrival: oxygen, bronchodilator - Related Data Home Oxygen Therapy: Yes Home Oxygen Amount: 2 Liters Home Medications Medication Instructions Recorded Confirmed Last Taken Glimepiride [Amaryl] 4 mg PO DAILY 04/10/18 04/12/18 04/10/18 Previous Rx's Medication Instructions Recorded Last Taken Type ALBUTEROL Inhaler(NF) [VENTOLIN 1 puff IH Q4H PRN #1 inha 12/10/17 Unknown Rx Inhaler(NF)] Potassium Chloride 20 meq PO BID #20 packet 04/11/18 Unknown Rx Calcium Carbonate [Tums 500MG CHEW] 2,000 mg PO Q8HR #180 tab 04/13/18 Unknown Rx Allergies Allergy/AdvReac Type Severity Reaction Status Date / Time codeine Allergy Hives Verified 02/24/18 11:22 Penicillins Allergy Hives Verified 02/24/18 11:22 ED Review of Systems ROS: Stated complaint: VIRGNIIE/BACK PAIN Other details as noted in HPI Constitutional: see HPI, chills, fever Eyes: denies: eye pain, eye discharge, vision change ENT: denies: ear pain, throat pain Respiratory: see HPI, cough, shortness of breath, SOB with exertion, SOB at rest. denies: wheezing Cardiovascular: denies: chest pain, palpitations Endocrine: no symptoms reported Gastrointestinal: denies: abdominal pain, nausea, diarrhea Genitourinary: denies: urgency, dysuria, discharge Musculoskeletal: denies: back pain, joint swelling, arthralgia Skin: denies: rash, lesions Neurological: denies: headache, weakness, paresthesias Psychiatric: denies: anxiety, depression Hematological/Lymphatic: denies: easy bleeding, easy bruising ED Past Medical Hx - Past Medical History Previous Medical History?: Yes Hx Hypertension: No Hx Heart Attack/AMI: No Hx Congestive Heart Failure: No Hx Diabetes: Yes Hx Deep Vein Thrombosis: No Hx Pulmonary Embolism: No Hx Liver Disease: No Hx Renal Disease: No Hx Sickle Cell Disease: No Hx Arthritis: No Hx Seizures: No Hx Kidney Stones: No Hx Asthma: No Hx COPD: Yes Hx Tuberculosis: No Hx Dementia: No Hx HIV: No Additional medical history: bone cancer - Surgical History Past Surgical History?: Yes Hx Coronary Stent: No Hx Pacemaker: No Hx Internal Defibrillator: No Additional Surgical History: TUBAL LIGATION. chest tubex2 - Family History Family history: no significant - Social History Smoking Status: Former Smoker Substance Use Type: None - Medications Home Medications: Home Medications Medication Instructions Recorded Confirmed Last Taken Type ALBUTEROL Inhaler(NF) [VENTOLIN 1 puff IH Q4H PRN #1 inha 12/10/17 04/10/18 Unknown Rx Inhaler(NF)] Glimepiride [Amaryl] 4 mg PO DAILY 04/10/18 04/12/18 04/10/18 History Potassium Chloride 20 meq PO BID #20 packet 04/11/18 Unknown Rx Calcium Carbonate [Tums 500MG CHEW] 2,000 mg PO Q8HR #180 tab 04/13/18 Unknown Rx ED Physical Exam - General Limitations: No Limitations General appearance: alert, in no apparent distress - Head Head exam: Present: atraumatic, normocephalic - Eye Eye exam: Present: normal appearance - ENT ENT exam: Present: mucous membranes moist - Neck Neck exam: Present: normal inspection - Respiratory Respiratory exam: Present: respiratory distress, wheezes, decreased breath sounds - Cardiovascular Cardiovascular Exam: Present: regular rate, normal rhythm. Absent: systolic murmur, diastolic murmur, rubs, gallop - GI/Abdominal GI/Abdominal exam: Present: soft, normal bowel sounds. Absent: distended, tenderness, guarding - Extremities Exam Extremities exam: Present: normal inspection - Back Exam Back exam: Present: normal inspection - Neurological Exam Neurological exam: Present: alert, oriented X3 - Psychiatric Psychiatric exam: Present: normal affect, normal mood - Skin Skin exam: Present: warm, dry, intact, normal color. Absent: rash ED Course Vital Signs 07/29/20 07/30/20 07/30/20 21:58 03:32 04:00 Temperature 98.5 F Pulse Rate 117 H 105 H Pulse Rate [ Bilateral] Respiratory 18 22 Rate Respiratory Rate [Bilateral ] Blood Pressure 121/66 145/46 O2 Sat by Pulse 94 100 100 Oximetry 07/30/20 04:22 Temperature Pulse Rate Pulse Rate [ 102 H Bilateral] Respiratory Rate Respiratory 18 Rate [Bilateral ] Blood Pressure O2 Sat by Pulse Oximetry - Reevaluation(s) Reevaluation #1: Patient's work to breathe has improved slightly. Patient is still having wheezi ng. 07/30/20 04:34 Reevaluation #2: Patient is still having wheezing. Patient will be given magnesium. I discussed all results with patient. I discussed plan of care with patient. Patient agrees with plan of care and admission. Patient to be admitted to the hospitalist service. 07/30/20 05:35 - Consultations Consultation #1: Hospitalist consulted for admission. Hospitalist to admit patient. 07/30/20 05:35 ED Medical Decision Making - Lab Data Result diagrams: 07/29/20 22:49 07/30/20 03:58 - Radiology Data Radiology results: report reviewed interpreted by me: Chest x-ray: No pneumonia, no pneumothorax, no foreign body, no osseous findings, no acute findings CHEST 2 VIEWS, 07/29/2020 10:12 PM INDICATION: Cough COMPARISON: Chest radiograph, 02/24/2018 FINDINGS: Support devices: None. Heart: The cardiac silhouette is normal in size. Lungs/pleura: The lungs are clear of focal airspace disease or significant pleural effusion. Additional findings: Mottled sclerotic appearance of the visualized bony structures is consistent with patient's known history of known bony metastatic disease. IMPRESSION: 1. No evidence of acute cardiopulmonary process. - Medical Decision Making Patient is a 64-year-old female with complaints of shortness of breath, cough, fever, chills, difficulty breathing. Patient history of COPD. Patient found to be wheezing and having decreased lung sounds. Patient given nebulizer and Decadron. Wheezing slightly improved. Patient was then given magnesium. Patient has not received her vaccine and has symptoms. Patient had a Covid panel done inflammatory markers. Patient's labs her labs were elevated. Junior momin's labs are essentially unremarkable except for elevated Covid markers. Patient's chest x-ray was negative for acute findings. I personally reviewed the chest x-ray. Patient admitted to the hospital for further evaluation treatment. Critical care time documented due to the multiple reassessments, prolonged time at the bedside, interpretation of diagnostics and labs. - Differential Diagnosis Pneumonia, Covid, PUI, fever, chills, cough, SOB, COPD exacerbation Critical Care Time: Yes Critical care time in (mins) excluding proc time.: 35 Critical care attestation.: If time is entered above; I have spent that time in minutes in the direct care of this critically ill patient, excluding procedure time. Critical Care Time: 35 MINUTES ED Disposition Clinical Impression: COPD exacerbation, Shortness of breath, Person under investigation for COVID-19 Fever Qualifiers: Fever type: unspecified Qualified Code(s): R50.9 - Fever, unspecified Disposition: OP ADMIT IP TO THIS HOSP Is pt being admited?: Yes Does the pt Need Aspirin: No Condition: Critical Instructions: Chronic Obstructive Pulmonary Disease (ED) Time of Disposition: 05:39
[2020-07-30 04:37] LABS: C-Reactive Protein 10.8 mg/dL (0.00-1.30)
[2020-07-30] MEDS ORDERED: MAGNESIUM SULFATE 2 GM/50 ML BAG IV ONE (05:35)
[2020-07-30] MEDS ORDERED: ONDANSETRON 4 MG/2 ML INJ IV PRN (06:18)
[2020-07-30] MEDS ORDERED: ALBUTEROL 2.5 MG/3 ML NEBU IH PRN (06:18)
[2020-07-30] MEDS ORDERED: DEXTROSE 50% IN WATER (25GM) 50 ML SYRINGE IV PRN (06:18)
[2020-07-30] MEDS ORDERED: ACETAMINOPHEN 325 MG TAB PO PRN (06:18)
[2020-07-30] MEDS ORDERED: ALBUTEROL 8.5 GM MDI INHALATION IH PRN (06:22)
[2020-07-30] MEDS ORDERED: hydrALAZINE 20 MG/1 ML INJ IV PRN (06:22)
--- NOTE | 2020-07-30 06:27 | History and Physical Report ---
History of Present Illness Date of examination: 07/30/20 Date of admission: 07/30/20 05:28 Chief complaint: Dyspnea Respiratory distress History of present illness: 64-year-old female with history of COPD and diabetes was brought to the emergency room because of shortness of breath, difficulty breathing, fever, cough with yellow sputum for 2 to 3 days. Patient states her symptoms are worsening. Patient states it is hard for her to catch her breath. Patient st ates her fever was only for 1 to 2 days. Patient patient states she is not had a Covid vaccine. Patient states she is not sure if she had a Covid exposure. Patient denies loss of smell. Patient denies diarrhea. Patient states she has a history of COPD, diabetes. Patient states been taking her nebulizer treatments more often. Past History Past Medical History: COPD, diabetes Medications and Allergies Allergies Allergy/AdvReac Type Severity Reaction Status Date / Time codeine Allergy Hives Verified 02/24/18 11:22 Penicillins Allergy Hives Verified 02/24/18 11:22 Home Medications Medication Instructions Recorded Confirmed Last Taken Type ALBUTEROL Inhaler(NF) [VENTOLIN 1 puff IH Q4H PRN #1 inha 12/10/17 04/10/18 Unknown Rx Inhaler(NF)] Glimepiride [Amaryl] 4 mg PO DAILY 04/10/18 04/12/18 04/10/18 History Potassium Chloride 20 meq PO BID #20 packet 04/11/18 Unknown Rx Calcium Carbonate [Tums 500MG CHEW] 2,000 mg PO Q8HR #180 tab 04/13/18 Unknown Rx Active Meds: Active Medications Acetaminophen (Acetaminophen 325 Mg Tab) 650 mg PO Q4H PRN PRN Reason: Pain MILD(1-3)/Fever >100.5/PIERSON Albuterol (Albuterol 2.5 Mg/3 Ml Nebu) 2.5 mg IH Q4HRT PRN PRN Reason: Shortness Of Breath Albuterol (Albuterol 8.5 Gm Mdi Inhalation) 1 puff IH Q4H PRN PRN Reason: Shortness Of Breath Calcium Carbonate/Glycine (Calcium Carbonate 500 Mg Tab Chew) 2,000 mg PO Q8HR CRAEN Dextrose (Dextrose 50% In Water (25gm) 50 Ml Syringe) 50 ml IV Q30MIN PRN; Protocol PRN Reason: Hypoglycemia Famotidine (Famotidine 20 Mg Tab) 20 mg PO BID [facility] Glimepiride (Glimepiride 4 Mg Tab) 4 mg PO DAILY [facility] Heparin Sodium (Porcine) (Heparin 5,000 Unit/1 Ml Vial) 5,000 unit SUB-Q Q8HR CAREN Hydralazine HCl (Hydralazine 20 Mg/1 Ml Inj) 10 mg IV Q6H PRN PRN Reason: htn Sodium Chloride (Nacl 0.45% 1000 Ml) 1,000 mls @ 75 mls/hr IV DIRECT CAREN Levofloxacin/Dextrose (Levaquin 750mg/150ml) 750 mg in 150 mls @ 100 mls/hr IV Q24H [facility]EN; Protocol Insulin Human Lispro (Insulin Lispro 100 Unit/Ml) 0 unit SUB-Q ACHS [facility]; Protocol Ondansetron HCl (Ondansetron 4 Mg/2 Ml Inj) 4 mg IV Q8H PRN PRN Reason: Nausea And Vomiting Sodium Chloride (Sodium Chloride 0.9% 10 Ml Flush Syringe) 10 ml IV BID CAREN Sodium Chloride (Sodium Chloride 0.9% 10 Ml Flush Syringe) 10 ml IV PRN PRN PRN Reason: LINE FLUSH Review of Systems Cardiovascular: shortness of breath, dyspnea on exertion Respiratory: cough, cough with sputum, shortness of breath, dyspnea on exertion Exam - Constitutional Vitals: Temp Pulse Resp BP Pulse Ox 98.5 F 87 22 129/61 100 07/29/20 21:58 07/30/20 05:30 07/30/20 05:30 07/30/20 05:30 07/30/20 05:30 General appearance: Present: no acute distress, well-nourished - EENT Eyes: Present: PERRL ENT: hearing intact, clear oral mucosa - Neck Neck: Present: supple, normal ROM - Respiratory Respiratory effort: normal Respiratory: bilateral: wheezing - Cardiovascular Heart Sounds: Present: S1 & S2. Absent: rub, click - Extremities Extremities: pulses symmetrical, No edema Peripheral Pulses: within normal limits - Abdominal General gastrointestinal: Present: soft, non-tender, non-distended, normal bowel sounds Female genitourinary: Present: normal - Integumentary Integumentary: Present: clear, warm, dry - Musculoskeletal Musculoskeletal: gait normal, strength equal bilaterally - Psychiatric Psychiatric: appropriate mood/affect, intact judgment & insight - Neurologic Neurologic: CNII-XII intact, moves all extremities Results - Labs CBC & Chem 7: 07/29/20 22:49 07/30/20 03:58 Labs: Laboratory Last Values WBC 7.8 K/mm3 (4.5-11.0) 07/29/20 22:49 RBC 4.04 M/mm3 (3.65-5.03) 07/29/20 22:49 Hgb 12.1 gm/dl (10.1-14.3) 07/29/20 22:49 Hct 36.6 % (30.3-42.9) 07/29/20 22:49 MCV 91 fl (79-97) 07/29/20 22:49 MCH 30 pg (28-32) 07/29/20 22:49 MCHC 33 % (30-34) 07/29/20 22:49 RDW 15.5 % (13.2-15.2) H 07/29/20 22:49 Plt Count 151 K/mm3 (140-440) 07/29/20 22:49 Lymph % (Auto) 8.5 % (13.4-35.0) L 07/29/20 22:49 [place] % (Auto) 9.4 % (0.0-7.3) H 07/29/20 22:49 Eos % (Auto) 0.7 % (0.0-4.3) 07/29/20 22:49 Baso % (Auto) 0.4 % (0.0-1.8) 07/29/20 22:49 Lymph # (Auto) 0.7 K/mm3 (1.2-5.4) L 07/29/20 22:49 [place] # (Auto) 0.7 K/mm3 (0.0-0.8) 07/29/20 22:49 Eos # (Auto) 0.1 K/mm3 (0.0-0.4) 07/29/20 22:49 Baso # (Auto) 0.0 K/mm3 (0.0-0.1) 07/29/20 22:49 Seg Neutrophils % 81.0 % (40.0-70.0) H 07/29/20 22:49 Seg Neutrophils # 6.3 K/mm3 (1.8-7.7) 07/29/20 22:49 D-Dimer 620.21 ng/mlDDU (0-234) H 07/30/20 03:58 Sodium 137 mmol/L (137-145) 07/29/20 22:49 Potassium 4.9 mmol/L (3.6-5.0) 07/29/20 22:49 Chloride 94.6 mmol/L (98-107) L 07/29/20 22:49 Carbon Dioxide 29 mmol/L (22-30) 07/29/20 22:49 Anion Gap 18 mmol/L 07/29/20 22:49 BUN 33 mg/dL (7-17) H 07/29/20 22:49 Creatinine 2.4 mg/dL (0.6-1.2) H 07/29/20 22:49 Estimated GFR 20 ml/min 07/29/20 22:49 BUN/Creatinine Ratio 14 % 07/29/20 22:49 Glucose 139 mg/dL (65-100) H 07/30/20 03:58 Lactic Acid 1.10 mmol/L (0.7-2.0) 07/30/20 04:00 Calcium 8.4 mg/dL (8.4-10.2) 07/29/20 22:49 Ferritin 223.5 ng/mL (10.0-200.0) H 07/30/20 03:58 Lactate Dehydrogenase 222 units/L (91-180) H 07/30/20 03:58 C-Reactive Protein 10.80 mg/dL (0.00-1.30) H 07/30/20 03:58 - Imaging and Cardiology Chest x-ray: report reviewed Assessment and Plan VTE prophylaxis?: Chemical Plan of care discussed with patient/family: Yes - Patient Problems (1) Person under investigation for COVID-19 Current Visit: Yes Status: Acute Plan to address problem: Admit the patient to the medical telemetry. 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 DuoNeb by nebulizer every 4 hours. Albuterol via nebulizer every 4 hours as needed. Levaquin 750 mg IV daily. Dexamethasone 6 mg IV daily. We do the blood culture in sputum culture. Follow the Covid inflammatory markers. Will consult infectious disease (2) COPD exacerbation Current Visit: Yes Status: Acute Plan to address problem: DuoNeb by nebulizer every 4 hours. Albuterol via nebulizer every 4 hours as needed. Levaquin 750 mg IV daily. Dexamethasone 6 mg IV daily. We do the blood culture in sputum culture. (3) Fever Current Visit: Yes Status: Acute Qualifiers: Fever type: unspecified Qualified Code(s): R50.9 - Fever, unspecified Plan to address problem: Tylenol 650 mg p.o. every 6 hours as needed. Levaquin 750 mg IV daily. We do the blood culture in sputum culture. Follow the Covid inflammatory markers. Will consult infectious disease (4) Acute kidney injury (nontraumatic) Current Visit: No Status: Acute Plan to address problem: Avoid nephrotoxic drug. Half-normal saline at the rate of 75 cc/h. Renally dose medication. BMP in the morning (5) Diabetes Current Visit: No Status: Acute Plan to address problem: Glimepiride 4 mg p.o. daily. 1800 kcal ADA diet. Humalog sliding scale moderate dose Accu-Chek before meals and at bedtime. Diabetic education (6) DVT prophylaxis Current Visit: No Status: Acute Plan to address problem: Heparin 5000 units subcu every 8 hours for DVT prophylaxis. Pepcid 20 mg p.o. twice daily for GI prophylaxis. Patient is a full code
[2020-07-30] MEDS ORDERED: SODIUM CHLORIDE 0.45% 1000 ML 1,000 ML IV SCH (07:00)
[2020-07-30] MEDS: GLIMEPIRIDE 4 MG TAB PO SCH (08:00)
[2020-07-30] MEDS: INSULIN LISPRO 100 UNIT/ML SUB-Q SCH ×3 (08:24→17:17)
[2020-07-30] MEDS: FAMOTIDINE 20 MG TAB PO SCH (09:34)
--- NOTE | 2020-07-30 10:02 | Nuclear Medicine Report ---
NUCLEAR MEDICINE PERFUSION SCAN INDICATION: SOB,elevated d-dimer CORRELATION: Chest x-ray performed 07/29/2020 at 1034 hours RADIOPHARMACEUTICAL: Perfusion: mCi Tc-99m MAA given IV FINDINGS: The perfusion images demonstrate multiple bilateral perfusion defects primarily in the lower lung zon es concerning for bilateral pulmonary emboli. The lungs are clear on chest x-ray. IMPRESSION: High probability perfusion scan for pulmonary embolism. Signer Name: Mitch Pagan Jr, MD Signed: 07/30/2020 9:54 AM Workstation Name: [id number]
--- NOTE | 2020-07-30 11:11 | Event Note ---
Date: 07/30/20 Patient was seen and evaluated this morning, patient stated shortness of breath is getting better. Patient is on IV antibiotics. COVID-19 test is pending. Patient was admitted earlier this morning and continue management as outlined in HPI.
[2020-07-30 11:16] LABS: Calcium 8.5 mg/dL (8.4-10.2)
--- NOTE | 2020-07-30 13:40 | Consultation ---
History of Present Illness - Reason for Consult Consult date: 07/30/20 - History of Present Illness 64 yo F PMHx COPD, Dm2 presented to the hospital complaining of shortness of breath, fevers, and cough. This began approximately 2 days prior to admission and have been progressively worse since onset. She denies having the COVID vaccine. Afebrile with a normal white count. GFR 21 (value has fluctuated in the past, unclear true baseline). Procalcitonin mildly elevated. On Levaquin. COVID CPR pending. Imaging personally reviewed: CXR: No evidence of PNA V/Q Scan: high probability for PE. Review of systems: Deferred to reduce to the risk of transmission of COVID-19 Past History Past Medical History: COPD, diabetes Medications and Allergies Allergies Allergy/AdvReac Type Severity Reaction Status Date / Time codeine Allergy Hives Verified 02/24/18 11:22 Penicillins Allergy Hives Verified 02/24/18 11:22 Home Medications Medication Instructions Recorded Confirmed Last Taken Type ALBUTEROL Inhaler(NF) [VENTOLIN 1 puff IH Q4H PRN #1 inha 12/10/17 07/30/20 07/29/20 Rx Inhaler(NF)] Glimepiride [Amaryl] 4 mg PO DAILY 04/10/18 07/30/20 07/29/20 History Potassium Chloride 20 meq PO BID #20 packet 04/11/18 07/30/20 07/30/20 Rx Calcium Carbonate [Tums 500MG CHEW] 2,000 mg PO Q8HR #180 tab 04/13/18 07/30/20 07/29/20 Rx Active Meds: Active Medications Acetaminophen (Acetaminophen 325 Mg Tab) 650 mg PO Q4H PRN PRN Reason: Pain MILD(1-3)/Fever >100.5/PIERSON Albuterol (Albuterol 2.5 Mg/3 Ml Nebu) 2.5 mg IH Q4HRT PRN PRN Reason: Shortness Of Breath Calcium Carbonate/Glycine (Calcium Carbonate 500 Mg Tab Chew) 2,000 mg PO Q8HR CAREN Dextrose (Dextrose 50% In Water (25gm) 50 Ml Syringe) 0 ml IV Q30MIN PRN; Prot ocol PRN Reason: Hypoglycemia Famotidine (Famotidine 20 Mg Tab) 20 mg PO QAM CAREN Last Admin: 07/30/20 09:34 Dose: 20 mg Documented by: Glimepiride (Glimepiride 4 Mg Tab) 4 mg PO QDDIAB [facility] Heparin Sodium (Porcine) (Heparin 5,000 Unit/1 Ml Vial) 5,000 unit SUB-Q Q8HR CAREN Hydralazine HCl (Hydralazine 20 Mg/1 Ml Inj) 10 mg IV Q6H PRN PRN Reason: htn Sodium Chloride (Nacl 0.45% 1000 Ml) 1,000 mls @ 75 mls/hr IV DIRECT CAREN Levofloxacin/Dextrose (Levaquin 750mg/150ml) 750 mg in 150 mls @ 100 mls/hr IV Q48H [facility]; Protocol Last Admin: 07/30/20 09:15 Dose: 100 mls/hr Documented by: Insulin Human Lispro (Insulin Lispro 100 Unit/Ml) 0 unit SUB-Q ACHS [facility]; Protocol Last Admin: 07/30/20 08:24 Dose: 3 unit Documented by: Ondansetron HCl (Ondansetron 4 Mg/2 Ml Inj) 4 mg IV Q8H PRN PRN Reason: Nausea And Vomiting Sodium Chloride (Sodium Chloride 0.9% 10 Ml Flush Syringe) 10 ml IV BID [facility] Last Admin: 07/30/20 09:34 Dose: 10 ml Documented by: Sodium Chloride (Sodium Chloride 0.9% 10 Ml Flush Syringe) 10 ml IV PRN PRN PRN Reason: LINE FLUSH Physical Examination - Physical Exam Narrative exam: Physical exam deferred to reduce risk of transmission of COVID-19. Please refer to primary team's note. - Constitutional Vitals: Vital Signs Temp Pulse Resp BP Pulse Ox 97.8 F 81 18 128/41 100 07/30/20 11:55 07/30/20 11:55 07/30/20 11:55 07/30/20 12:36 07/30/20 11:55 Temperature -Last 24 Hours Temperature 97.8 F Temperature 98.5 F Results - Labs CBC & Chem 7: 07/29/20 22:49 07/30/20 10:13 Labs: Abnormal lab results 07/29/20 07/29/20 07/30/20 Range/Units 22:49 22:49 03:58 RDW 15.5 H (13.2-15.2) % Lymph % (Auto) 8.5 L (13.4-35.0) % [place] % (Auto) 9.4 H (0.0-7.3) % Lymph # (Auto) 0.7 L (1.2-5.4) K/mm3 Seg Neutrophils % 81.0 H (40.0-70.0) % D-Dimer 620.21 H (0-234) ng/mlDDU Sodium (137-145) mmol/L Potassium (3.6-5.0) mmol/L Chloride 94.6 L (98-107) mmol/L BUN 33 H (7-17) mg/dL Creatinine 2.4 H (0.6-1.2) mg/dL Glucose 211 H (65-100) mg/dL POC Glucose (70-105) mg/dL Ferritin (10.0-200.0) ng/mL Lactate Dehydrogenase (91-180) units/L C-Reactive Protein (0.00-1.30) mg/dL 07/30/20 07/30/20 07/30/20 Range/Units 03:58 03:58 08:05 RDW (13.2-15.2) % Lymph % (Auto) (13.4-35.0) % [place] % (Auto) (0.0-7.3) % Lymph # (Auto) (1.2-5.4) K/mm3 Seg Neutrophils % (40.0-70.0) % D-Dimer (0-234) ng/mlDDU Sodium (137-145) mmol/L Potassium (3.6-5.0) mmol/L Chloride (98-107) mmol/L BUN (7-17) mg/dL Creatinine (0.6-1.2) mg/dL Glucose 139 H (65-100) mg/dL POC Glucose 201 H (70-105) mg/dL Ferritin 223.5 H (10.0-200.0) ng/mL Lactate Dehydrogenase 222 H (91-180) units/L C-Reactive Protein 10.80 H (0.00-1.30) mg/dL 07/30/20 Range/Units 10:13 RDW (13.2-15.2) % Lymph % (Auto) (13.4-35.0) % [place] % (Auto) (0.0-7.3) % Lymph # (Auto) (1.2-5.4) K/mm3 Seg Neutrophils % (40.0-70.0) % D-Dimer (0-234) ng/mlDDU Sodium 135 L (137-145) mmol/L Potassium 5.4 H (3.6-5.0) mmol/L Chloride 97.2 L (98-107) mmol/L BUN 40 H (7-17) mg/dL Creatinine 2.3 H (0.6-1.2) mg/dL Glucose 283 H (65-100) mg/dL POC Glucose (70-105) mg/dL Ferritin (10.0-200.0) ng/mL Lactate Dehydrogenase (91-180) units/L C-Reactive Protein (0.00-1.30) mg/dL Assessment and Plan Cultures: Blood culture 07/30/2020 no growth so far. COVID PCR: pending A/P: 64 yo F PMHx COPD, Dm2, stage IV lung cancer presented to the hospital complaining of shortness of breath, fevers, and cough #COVID PUI: moderate suspicion, await PCR testing. Noted she does have a PE as well. Afebrile, normal white count. #PE: Anticoagulation per primary. Could be associated with possible COVID vs background of lung cancer. #UZIEL on CKD: renally dose medications. #Penicillin allergy #Stage IV lung cancer: She reports getting monthly shots of denosumab but otherwise denies chemotherapy, though she does report her memory has been failing her. She follows with Dr. Galvan. Recs: -Follow up COVID CPR, if positive and patient hypoxic would start remdesivir. -Anticoagulation per primary team -Could consult Dr. Bang, Dr. Galvan's partner, as she now has PE in the setting of Stage IV lung cancer -Procalcitonin elevation in the setting of UZIEL likely falsely elevated. As she is afebrile with no pneumonia on chest x-ray, would stop antibiotics at the present time. Thank you for the consult, we will continue to follow. Reggie Mcelroy MD [facility] ([facility] O: [phone] F: [phone]
[2020-07-30] MEDS: CALCIUM CARBONATE 500 MG TAB CHEW PO SCH ×2 (13:52→23:43)
[2020-07-30] MEDS ORDERED: HEPARIN 5,000 UNIT/1 ML VIAL SUB-Q SCH (14:00)
[2020-07-30] MEDS ORDERED: HEPARIN 10,000 UNITS/10 ML VIAL IV PRN (16:57)
[2020-07-30] MEDS ORDERED: HEPARIN/ 0.45% NACL DRIP 25,000 UNIT/500 ML BAG IV SCH (17:00)
--- NOTE | 2020-07-30 17:03 | Event Note ---
Date: 07/30/20 patient has v/q scan; high probability for PE started on heparin drip and echo ordered to assess RV strain.
[2020-07-30] MEDS: HEPARIN 10,000 UNITS/10 ML VIAL IV ONE ×2 (17:36→23:43)
[2020-07-30 20:41] LABS: Hematocrit 35.9 % (30.3-42.9); Hemoglobin 11.3 gm/dl (10.1-14.3)
[2020-07-30 20:52] LABS: INR 1.11 (0.87-1.13)
[2020-07-31] MEDS: INSULIN LISPRO 100 UNIT/ML SUB-Q SCH ×5 (02:56→22:20)
[2020-07-31] MEDS: CALCIUM CARBONATE 500 MG TAB CHEW PO SCH ×3 (05:52→22:19)
[2020-07-31] MEDS: GLIMEPIRIDE 4 MG TAB PO SCH (08:00)
--- NOTE | 2020-07-31 08:28 | Progress Note ---
Assessment and Plan Assessment and plan: 1) Person under investigation for COVID-19 Current Visit: Yes Status: Acute Plan to address problem: Admit the patient to the medical telemetry. Oxygen via nasal current office copy selector pulmonate. DuoNeb by nebulizer every 4 hours. Albuterol via nebulizer every 4 hours as needed. Levaquin 750 mg IV daily. Dexamethasone 6 mg IV daily. We do the blood culture in sputum culture. Follow the Covid inflammatory markers. Will consult infectious disease (2) COPD exacerbation Current Visit: Yes Status: Acute Plan to address problem: DuoNeb by nebulizer every 4 hours. Albuterol via nebulizer every 4 hours as needed. Levaquin 750 mg IV daily. Dexamethasone 6 mg IV daily. We do the blood culture in sputum culture. (3) Fever Current Visit: Yes Status: Acute Qualifiers: Fever type: unspecified Qualified Code(s): R50.9 - Fever, unspecified Plan to address problem: Tylenol 650 mg p.o. every 6 hours as needed. Levaquin 750 mg IV daily. We do the blood culture in sputum culture. Follow the Covid inflammatory markers. Will consult infectious disease (4) Acute kidney injury (nontraumatic) Current Visit: No Status: Acute Plan to address problem: Avoid nephrotoxic drug. Half-normal saline at the rate of 75 cc/h. Renally dose medication. BMP in the morning (5) Diabetes Current Visit: No Status: Acute Plan to address problem: Glimepiride 4 mg p.o. daily. 1800 kcal ADA diet. Humalog sliding scale moderate dose Accu-Chek before meals and at bedtime. Diabetic education (6) DVT prophylaxis Current Visit: No Status: Acute Plan to address problem: Heparin 5000 units subcu every 8 hours for DVT prophylaxis. Pepcid 20 mg p.o. twice daily for GI prophylaxis. Patient is a full code 07/31/2020 -Acute respiratory failure; requiring supplemental oxygen -VQ scan yesterday showed bilateral pulmonary perfusion defect primarily on lower lung zones, high probability for bilateral PE. Patient was on heparin drip and currently on Lovenox renally dosed. Echo was done and reading is pending -UZIEL; IV fluids, monitor BMP. Hyperkalemia BMP still pending -COVID-19 test was done and negative -Patient was seen by ID and discontinue IV antibiotics. -Patient is diabetic was on glimepiride at home, discontinued glimepiride and patient is currently on Lantus and sliding scale insulin -COPD exacerbation; patient is on nebulizer treatment, oxygen support -Patient had stage IV lung cancer and follow with Dr. Galvan as an outpatient, I put a consult for pulmonary to see her while she is in the hospital History Interval history: Patient was seen and evaluated this morning Patient states shortness of breath is getting better Hospitalist Physical - Physical exam Narrative exam: Not in cardiopulmonary distress. The patient appeared well nourished and normally developed. Vital signs as documented. Head exam is unremarkable. No scleral icterus . Neck is without jugular venous distension, thyromegaly, or carotid bruits. Lungs are clear to auscultation. Cardiac exam reveals regular rate and Rhythm. Abdominal exam reveals normal bowel sounds, nontender, no organomegaly. Extremities are nonedematous and both femoral and pedal pulses are normal. 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 No focal weakness. - Constitutional Vitals: Temp Pulse Resp BP Pulse Ox 97.9 F 86 18 147/41 98 07/31/20 05:21 07/31/20 05:21 07/31/20 05:21 07/31/20 05:21 07/31/20 08:23 General appearance: Present: no acute distress, well-nourished Results - Labs CBC & Chem 7: 07/31/20 06:54 07/31/20 06:54 Labs: Laboratory Last Values WBC 7.8 K/mm3 (4.5-11.0) 07/29/20 22:49 RBC 4.04 M/mm3 (3.65-5.03) 07/29/20 22:49 Hgb 11.3 gm/dl (10.1-14.3) 07/30/20 20:01 Hct 35.9 % (30.3-42.9) 07/30/20 20:01 MCV 91 fl (79-97) 07/29/20 22:49 MCH 30 pg (28-32) 07/29/20 22:49 MCHC 33 % (30-34) 07/29/20 22:49 RDW 15.5 % (13.2-15.2) H 07/29/20 22:49 Plt Count 146 K/mm3 (140-440) 07/30/20 20:01 Lymph % (Auto) 8.5 % (13.4-35.0) L 07/29/20 22:49 Bailey % (Auto) 9.4 % (0.0-7.3) H 07/29/20 22:49 Eos % (Auto) 0.7 % (0.0-4.3) 07/29/20 22:49 Baso % (Auto) 0.4 % (0.0-1.8) 07/29/20 22:49 Lymph # (Auto) 0.7 K/mm3 (1.2-5.4) L 07/29/20 22:49 Bailey # (Auto) 0.7 K/mm3 (0.0-0.8) 07/29/20 22:49 Eos # (Auto) 0.1 K/mm3 (0.0-0.4) 07/29/20 22:49 Baso # (Auto) 0.0 K/mm3 (0.0-0.1) 07/29/20 22:49 Seg Neutrophils % 81.0 % (40.0-70.0) H 07/29/20 22:49 Seg Neutrophils # 6.3 K/mm3 (1.8-7.7) 07/29/20 22:49 PT 14.8 Sec. (12.2-14.9) 07/30/20 20:01 INR 1.11 (0.87-1.13) 07/30/20 20:01 APTT 26.0 Sec. (24.2-36.6) 07/30/20 20:01 D-Dimer 620.21 ng/mlDDU (0-234) H 07/30/20 03:58 Sodium 135 mmol/L (137-145) L 07/30/20 10:13 Potassium 5.4 mmol/L (3.6-5.0) H 07/30/20 10:13 Chloride 97.2 mmol/L (98-107) L 07/30/20 10:13 Carbon Dioxide 24 mmol/L (22-30) 07/30/20 10:13 Anion Gap 19 mmol/L 07/30/20 10:13 BUN 40 mg/dL (7-17) H 07/30/20 10:13 Creatinine 2.3 mg/dL (0.6-1.2) H 07/30/20 10:13 Estimated GFR 21 ml/min 07/30/20 10:13 BUN/Creatinine Ratio 17 % 07/30/20 10:13 Glucose 283 mg/dL (65-100) H 07/30/20 10:13 POC Glucose 181 mg/dL (70-105) H 07/30/20 16:42 Lactic Acid 1.10 mmol/L (0.7-2.0) 07/30/20 04:00 Calcium 8.5 mg/dL (8.4-10.2) 07/30/20 10:13 Ferritin 223.5 ng/mL (10.0-200.0) H 07/30/20 03:58 Lactate Dehydrogenase 222 units/L (91-180) H 07/30/20 03:58 C-Reactive Protein 10.80 mg/dL (0.00-1.30) H 07/30/20 03:58 Procalcitonin 0.42 ng/mL (<0.15) 07/30/20 03:58 Coronavirus (PCR) Negative (Negative) 07/30/20 08:45 Microbiology: Microbiology 07/30/20 04:31 Peripheral/Venous Blood Culture - Preliminary NO GROWTH AFTER 24 HOURS 07/30/20 04:00 Peripheral/Venous Blood Culture - Preliminary NO GROWTH AFTER 24 HOURS Trinh/IV: Voiding Method Toilet Active Medications - Current Medications Current Medications: Generic Name Dose Route Start Last Admin Trade Name Freq PRN Reason Stop Dose Admin Acetaminophen 650 mg 07/30/20 06:18 Acetaminophen 325 Mg Tab PO Q4H PRN Pain MILD(1-3)/Fever >100.5/PIERSON Albuterol 2.5 mg 07/30/20 06:18 Albuterol 2.5 Mg/3 Ml Nebu IH Q4HRT PRN Shortness Of Breath Calcium Carbonate/Glycine 2,000 mg 07/30/20 14:00 07/31/20 05:52 Calcium Carbonate 500 Mg Tab Chew PO 2,000 mg Q8HR CAREN Administration Dextrose 0 ml 07/30/20 06:18 Dextrose 50% In Water (25gm) 50 Ml Syringe IV Q30MIN PRN Hypoglycemia Protocol Famotidine 20 mg 07/30/20 10:00 07/30/20 09:34 Famotidine 20 Mg Tab PO 20 mg QAM CAREN Administration Heparin Sodium (Porcine) 2,600 unit 07/30/20 16:57 Heparin 10,000 Units/10 Ml Vial 40 unit/kg (2600 unit) IV Q6H PRN Anti-Xa Assay < 0.1 units/ml Hydralazine HCl 10 mg 07/30/20 06:22 Hydralazine 20 Mg/1 Ml Inj IV Q6H PRN htn Sodium Chloride 1,000 mls @ 75 mls/hr 07/30/20 07:00 Nacl 0.45% 1000 Ml IV DIRECT CAREN Heparin Sodium/Sodium Chloride 25,000 unit in 500 mls @ 18 mls/hr 07/30/20 17:00 07/30/20 23:43 Heparin/ 0.45% Nacl-25,000 Unit/500 Ml IV 900 units/hr TITR CAREN 18 mls/hr Administration Protocol 900 UNITS/HR Insulin Glargine 15 units 08/01/20 08:00 Insulin Glargine 100 Units/Ml SUB-Q QAMDIAB CAREN Insulin Human Lispro 0 unit 07/30/20 07:30 07/31/20 02:56 Insulin Lispro 100 Unit/Ml SUB-Q Not Given ACHS [facility] Protocol Ondansetron HCl 4 mg 07/30/20 06:18 Ondansetron 4 Mg/2 Ml Inj IV Q8H PRN Nausea And Vomiting Sodium Chloride 10 ml 07/30/20 10:00 07/31/20 02:57 Sodium Chloride 0.9% 10 Ml Flush Syringe IV 10 ml BID CAREN Administration Sodium Chloride 10 ml 07/30/20 06:18 Sodium Chloride 0.9% 10 Ml Flush Syringe IV PRN PRN LINE FLUSH Nutrition/Malnutrition Assess - Dietary Evaluation Nutrition/Malnutrition Findings: Nutrition Notes Start: 07/30/20 15:56 Freq: Status: Active Protocol: Document 07/30/20 15:56 NORIS (Rec: 07/30/20 15:57 NORIS [id number]) Nutrition Notes Need for Assessment generated from: MD Order,Education Initial or Follow up Brief Note Current Diagnosis Acute Kidney Injury,COPD, Diabetes Other Pertinent Diagnosis r/o COVID-19, COPD exacerbation, fever Current Diet Cardiac/Consistent CHO Subjective/Other Information RD consulted for diet education. Burn Absent Trauma Absent Nutrition Intervention Follow-Up By: 08/04/20 Additional Comments F/U: diet education needs, intakes, need for full assessment
[2020-07-31 08:43] LABS: Basophils % (Auto) 0.3 % (0.0-1.8); Eosinophils % (Auto) 0.1 % (0.0-4.3); Hemoglobin 10.4 gm/dl (10.1-14.3); Lymphocytes # (Auto) 0.5 K/mm3 (1.2-5.4); Lymphocytes % (Auto) 9.9 % (13.4-35.0); Mean Corpuscular HGB Conc 33 % (30-34); Mean Corpuscular Volume 89 fl (79-97); Monocytes # (Auto) 0.5 K/mm3 (0.0-0.8); Platelet Count 143 K/mm3 (140-440); Red Blood Count 3.58 M/mm3 (3.65-5.03); Red Cell Distribution Width 15.1 % (13.2-15.2)
[2020-07-31] MEDS: INSULIN GLARGINE 100 UNITS/ML SUB-Q SCH (09:00)
[2020-07-31 09:55] LABS: Calcium 8.2 mg/dL (8.4-10.2)
--- NOTE | 2020-07-31 11:22 | Consultation ---
History of Present Illness Consult date: 07/31/20 Requesting physician: SUSAN WOOD Reason for consult: pulmonary embolism, other (cancer, stage IV) History of present illness: 64 y/o with known COPD and lung CA, admitted with back pain and difficulty breathing. V/Q high prob for PE. IMS consulted us for further help. Last saw Mandy in Mar of this year. Past History Past Medical History: COPD, diabetes Medications and Allergies Allergies Allergy/AdvReac Type Severity Reaction Status Date / Time codeine Allergy Hives Verified 02/24/18 11:22 Penicillins Allergy Hives Verified 02/24/18 11:22 Home Medications Medication Instructions Recorded Confirmed Last Taken Type ALBUTEROL Inhaler(NF) [VENTOLIN 1 puff IH Q4H PRN #1 inha 12/10/17 07/30/20 07/29/20 Rx Inhaler(NF)] Glimepiride [Amaryl] 4 mg PO DAILY 04/10/18 07/30/20 07/29/20 History Potassium Chloride 20 meq PO BID #20 packet 04/11/18 07/30/20 07/30/20 Rx Calcium Carbonate [Tums 500MG CHEW] 2,000 mg PO Q8HR #180 tab 04/13/18 07/30/20 07/29/20 Rx Apixaban [Eliquis] 5 mg PO Q12HR #74 tablet 08/01/20 Unknown Rx methylPREDNISolone [Medrol 4MG 4 mg PO DAILY #1 tab.ds.pk 08/01/20 Unknown Rx DOSEPAK (21 tabs)] Active Meds: Active Medications Acetaminophen (Acetaminophen 325 Mg Tab) 650 mg PO Q4H PRN PRN Reason: Pain MILD(1-3)/Fever >100.5/PIERSON Albuterol (Albuterol 2.5 Mg/3 Ml Nebu) 2.5 mg IH Q4HRT PRN PRN Reason: Shortness Of Breath Calcium Carbonate/Glycine (Calcium Carbonate 500 Mg Tab Chew) 2,000 mg PO Q8HR [facility] Last Admin: 07/31/20 05:52 Dose: 2,000 mg Documented by: Dextrose (Dextrose 50% In Water (25gm) 50 Ml Syringe) 0 ml IV Q30MIN PRN; Protocol PRN Reason: Hypoglycemia Famotidine (Famotidine 20 Mg Tab) 20 mg PO QAM [facility] Last Admin: 07/30/20 09:34 Dose: 20 mg Documented by: Heparin Sodium (Porcine) (Heparin 10,000 Units/10 Ml Vial) 2,600 unit 40 unit/kg (2600 unit) IV Q6H PRN PRN Reason: Anti-Xa Assay < 0.1 units/ml Hydralazine HCl (Hydralazine 20 Mg/1 Ml Inj) 10 mg IV Q6H PRN PRN Reason: htn Sodium Chloride (Nacl 0.45% 1000 Ml) 1,000 mls @ 75 mls/hr IV DIRECT CAREN Heparin Sodium/Sodium Chloride (Heparin/ 0.45% Nacl-25,000 Unit/500 Ml) 25,000 unit in 500 mls @ 18 mls/hr IV TITR [facility]; Protocol Last Admin: 07/30/20 23:43 Dose: 900 units/hr, 18 mls/hr Documented by: Insulin Glargine (Insulin Glargine 100 Units/Ml) 15 units SUB-Q QAMDIAB [facility] Insulin Human Lispro (Insulin Lispro 100 Unit/Ml) 0 unit SUB-Q ACHS [facility]; Protocol Last Admin: 07/31/20 02:56 Dose: Not Given Documented by: Ondansetron HCl (Ondansetron 4 Mg/2 Ml Inj) 4 mg IV Q8H PRN PRN Reason: Nausea And Vomiting Sodium Chloride (Sodium Chloride 0.9% 10 Ml Flush Syringe) 10 ml IV BID [facility] Last Admin: 07/31/20 02:57 Dose: 10 ml Documented by: Sodium Chloride (Sodium Chloride 0.9% 10 Ml Flush Syringe) 10 ml IV PRN PRN PRN Reason: LINE FLUSH Physical Examination Vital signs: Vital Signs Temp Pulse Resp BP Pulse Ox 98.5 F 117 H 18 121/66 94 07/29/20 21:58 07/29/20 21:58 07/29/20 21:58 07/29/20 21:58 07/29/20 21:58 General appearance: no acute distress, alert Eyes: non-icteric ENT: oropharynx moist Effort: normal Ascultation: Bilateral: clear Results - Laboratory Findings CBC and BMP: 08/01/20 10:11 08/01/20 10:11 PT/INR, D-dimer PT 14.8 Sec. (12.2-14.9) 07/30/20 20:01 INR 1.11 (0.87-1.13) 07/30/20 20:01 D-Dimer 620.21 ng/mlDDU (0-234) H 07/30/20 03:58 Abnormal lab findings: Abnormal Labs 07/29/20 07/29/20 07/30/20 22:49 22:49 03:58 RBC RDW 15.5 H Lymph % (Auto) 8.5 L [place] % (Auto) 9.4 H Lymph # (Auto) 0.7 L Seg Neutrophils % 81.0 H D-Dimer 620.21 H Sodium Potassium Chloride 94.6 L BUN 33 H Creatinine 2.4 H Glucose 211 H POC Glucose Calcium Ferritin Lactate Dehydrogenase C-Reactive Protein 07/30/20 07/30/20 07/30/20 03:58 03:58 08:05 RBC RDW Lymph % (Auto) [place] % (Auto) Lymph # (Auto) Seg Neutrophils % D-Dimer Sodium Potassium Chloride BUN Creatinine Glucose 139 H POC Glucose 201 H Calcium Ferritin 223.5 H Lactate Dehydrogenase 222 H C-Reactive Protein 10.80 H 07/30/20 07/30/20 07/30/20 10:13 11:52 16:42 RBC RDW Lymph % (Auto) [place] % (Auto) Lymph # (Auto) Seg Neutrophils % D-Dimer Sodium 135 L Potassium 5.4 H Chloride 97.2 L BUN 40 H Creatinine 2.3 H Glucose 283 H POC Glucose 217 H 181 H Calcium Ferritin Lactate Dehydrogenase C-Reactive Protein 07/31/20 07/31/20 06:54 06:54 RBC 3.58 L RDW Lymph % (Auto) 9.9 L [place] % (Auto) 9.0 H Lymph # (Auto) 0.5 L Seg Neutrophils % 80.7 H D-Dimer Sodium Potassium 5.7 H Chloride BUN 40 H Creatinine 2.2 H Glucose POC Glucose Calcium 8.2 L Ferritin Lactate Dehydrogenase C-Reactive Protein - Diagnostic Findings Chest x-ray: image reviewed CT scan - chest: image reviewed Assessment and Plan 64 y/o female with COPD exacerbation and newly diagnosed PE 1. Follow up echo, but doubt patient is going to be a candidate for EKOS 2. Suggest anticoagulation given current diagnosis of malignancy with lovenox. If she does have EKOS can discuss with vascular their thoughts on emt intermediate oral anticoagulation. 3. Put on IV solumedrol. 4. Will add BID Pulmicort and Brovana 5. SUggest stopping IVF's
[2020-07-31] MEDS: ARFORMOTEROL 15 MCG/2 ML NEBU IH SCH ×2 (12:07→20:41)
[2020-07-31] MEDS: BUDESONIDE 0.5 MG/2 ML NEBU IH SCH ×2 (12:07→20:41)
[2020-07-31] MEDS ORDERED: SODIUM POLYSTYRENE 15 GM/60 ML ORAL LIQD PO NR (12:30)
[2020-07-31] MEDS ORDERED: ENOXAPARIN 60 MG/0.6 ML INJ SUB-Q SCH ×2 (13:00)
--- NOTE | 2020-07-31 13:07 | Progress Note ---
Assessment and Plan Cultures: Blood culture 07/30/2020 no growth so far. COVID PCR: negativr A/P: 64 yo F PMHx COPD, Dm2, stage IV lung cancer presented to the hospital complaining of shortness of breath, fevers, and cough #PE: Anticoagulation per primary. Likely secondary to her known lung cancer. #UZIEL on CKD: renally dose medications. #Penicillin allergy #Stage IV lung cancer: She reports getting monthly shots of denosumab but otherwise denies chemotherapy, though she does report her memory has been failing her. She follows with Dr. Galvan. Recs: -Anticoagulation per primary team -continue off antibiotics given lack of infectious data Thank you for the consult, we will sign off. Please call with questions. Reggie Mcelroy MD [facility] ([facility]) O: [phone] F: [phone] Subjective Date of service: 07/31/20 Interval history: Afebrile, normal white count. COVID negative. On 1.5 L NC. Objective - Exam Narrative Exam: Physical exam deferred to reduce risk of transmission of COVID-19. Please refer to primary team's note. - Constitutional Vitals: Vital Signs Temp Pulse Resp BP Pulse Ox 97.9 F 86 18 147/41 98 07/31/20 05:21 07/31/20 05:21 07/31/20 05:21 07/31/20 05:21 07/31/20 08:23 Temperature -Last 24 Hours Temperature 97.9 F Temperature 98.0 F Temperature 98.0 F - Labs CBC & Chem 7: 07/31/20 06:54 07/31/20 06:54 Labs: Abnormal lab results 07/30/20 07/30/20 07/31/20 Range/Units 11:52 16:42 06:54 RBC 3.58 L (3.65-5.03) M/mm3 Lymph % (Auto) 9.9 L (13.4-35.0) % [place] % (Auto) 9.0 H (0.0-7.3) % Lymph # (Auto) 0.5 L (1.2-5.4) K/mm3 Seg Neutrophils % 80.7 H (40.0-70.0) % Potassium (3.6-5.0) mmol/L BUN (7-17) mg/dL Creatinine (0.6-1.2) mg/dL POC Glucose 217 H 181 H (70-105) mg/dL Calcium (8.4-10.2) mg/dL 07/31/20 Range/Units 06:54 RBC (3.65-5.03) M/mm3 Lymph % (Auto) (13.4-35.0) % [place] % (Auto) (0.0-7.3) % Lymph # (Auto) (1.2-5.4) K/mm3 Seg Neutrophils % (40.0-70.0) % Potassium 5.7 H (3.6-5.0) mmol/L BUN 40 H (7-17) mg/dL Creatinine 2.2 H (0.6-1.2) mg/dL POC Glucose (70-105) mg/dL Calcium 8.2 L (8.4-10.2) mg/dL
[2020-07-31] MEDS: FAMOTIDINE 20 MG TAB PO SCH (14:26)
[2020-07-31] MEDS: methylPREDNISolone Sod Succinate 40 MG/1 ML INJ IV SCH ×2 (14:27→22:19)
[2020-07-31] MEDS: LACTATED RINGERS 1,000 ML IV SCH (22:27)
[2020-08-01] MEDS: CALCIUM CARBONATE 500 MG TAB CHEW PO SCH ×2 (06:08→14:30)
[2020-08-01] MEDS: methylPREDNISolone Sod Succinate 40 MG/1 ML INJ IV SCH ×2 (06:09→14:30)
[2020-08-01] MEDS: LACTATED RINGERS 1,000 ML IV SCH (06:11)
[2020-08-01 06:41] VITALS: BP 149/58
[2020-08-01] MEDS: INSULIN LISPRO 100 UNIT/ML SUB-Q SCH ×2 (07:30→11:30)
[2020-08-01] MEDS: INSULIN GLARGINE 100 UNITS/ML SUB-Q SCH (08:00)
[2020-08-01] MEDS: ARFORMOTEROL 15 MCG/2 ML NEBU IH SCH (08:31)
[2020-08-01] MEDS: BUDESONIDE 0.5 MG/2 ML NEBU IH SCH (08:31)
[2020-08-01] MEDS: FAMOTIDINE 20 MG TAB PO SCH (09:12)
[2020-08-01] MEDS ORDERED: SODIUM POLYSTYRENE 15 GM/60 ML ORAL LIQD PO SCH (10:00)
[2020-08-01] MEDS ORDERED: APIXABAN 5 MG TAB PO SCH (10:00)
--- NOTE | 2020-08-01 10:02 | Discharge Summary ---
Providers - Providers Date of Admission: 07/31/20 08:23 Date of discharge: 08/01/20 Attending physician: SUSAN WOOD MD 07/30/20 05:28 Consult to Physician [CONS] Routine Comment: Consulting Provider: JULIENNE BRENNAN Physician Instructions: Reason For Exam: PUI 07/30/20 06:18 Consult to Dietitian/Nutrition [CONS] Routine Physician Instructions: Reason For Exam: Reason for Consult: Diet education 07/31/20 08:19 Consult to Physician [CONS] Routine Comment: Patient has been followed with Dr Galvan Consulting Provider: IVANNA WOLF Physician Instructions: Reason For Exam: PE, stage 4 lung cancer 07/31/20 12:24 Consult to Physician [CONS] Routine Comment: Consulting Provider: RYAN MEZA Physician Instructions: Reason For Exam: UZIEL 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 Patient states her symptoms are worsening. Patient states it is hard for her to catch her breath. Patient states her fever was only for 1 to 2 days. Patient patient states she is not had a Covid vaccine. Patient states she is not sure if she had a Covid exposure. Patient denies loss of smell. Patient denies diarrhea. Patient states she has a history of COPD, diabetes. Patient states been taking her nebulizer treatments more often. Hospital course 1) Person under investigation for COVID-19 Current Visit: Yes Status: Acute Plan to address problem: Admit the patient to the medical telemetry. Oxygen via nasal current candy mixer pulmonate. DuoNeb by nebulizer every 4 hours. Albuterol via nebulizer every 4 hours as needed. Levaquin 750 mg IV daily. Dexamethasone 6 mg IV daily. We do the blood culture in sputum culture. Follow the Covid inflammatory markers. Will consult infectious disease (2) COPD exacerbation Current Visit: Yes Status: Acute Plan to address problem: DuoNeb by nebulizer every 4 hours. Albuterol via nebulizer every 4 hours as needed. Levaquin 750 mg IV daily. Dexamethasone 6 mg IV daily. We do the blood culture in sputum culture. (3) Fever Current Visit: Yes Status: Acute Qualifiers: Fever type: unspecified Qualified Code(s): R50.9 - Fever, unspecified Plan to address problem: Tylenol 650 mg p.o. every 6 hours as needed. Levaquin 750 mg IV daily. We do the blood culture in sputum culture. Follow the Covid inflammatory markers. Will consult infectious disease (4) Acute kidney injury (nontraumatic) Current Visit: No Status: Acute Plan to address problem: Avoid nephrotoxic drug. Half-normal saline at the rate of 75 cc/h. Renally dose medication. BMP in the morning (5) Diabetes Current Visit: No Status: Acute Plan to address problem: Glimepiride 4 mg p.o. daily. 1800 kcal ADA diet. Humalog sliding scale moderate dose Accu-Chek before meals and at bedtime. Diabetic education (6) DVT prophylaxis Current Visit: No Status: Acute Plan to address problem: Heparin 5000 units subcu every 8 hours for DVT prophylaxis. Pepcid 20 mg p.o. twice daily for GI prophylaxis. Patient is a full code 07/31/2020 -Acute respiratory failure; requiring supplemental oxygen -VQ scan yesterday showed bilateral pulmonary perfusion defect primarily on lower lung zones, high probability for bilateral PE. Patient was on heparin drip and currently on Lovenox renally dosed. Echo was done and reading is pending -UZIEL; IV fluids, monitor BMP. Hyperkalemia BMP still pending -COVID-19 test was done and negative -Patient was seen by ID and discontinue IV antibiotics. -Patient is diabetic was on glimepiride at home, discontinued glimepiride and patient is currently on Lantus and sliding scale insulin -COPD exacerbation; patient is on nebulizer treatment, oxygen support -Patient had stage IV lung cancer and follow with Dr. Galvan as an outpatient, I put a consult for pulmonary to see her while she is in the hospital 08/01/2020 -Discussed with pulmonary and recommend to do CT head which was negative for any mass or hemorrhage -Patient stable to be discharged with [facility] -Patient does not want to be on diabetic medications and she want to follow with her primary care physician -Patient has CKD and is being followed with nephrology and will follow on 08/11/2020 Patient discharged home in a stable condition. Patient discharged with steroids and Eliquis. Patient advised to follow-up with her primary care physician for refill of her Eliquis. Disposition: DC-01 TO HOME OR SELFCARE Final Discharge Diagnosis (Prints w/discharge instructions): PE. UZIEL. Acute on chronic respiratory failure Time spent for discharge: 35 minutes - Discharge Diagnoses (1) Pulmonary emboli Status: Acute (2) COPD exacerbation Status: Acute (3) Acute kidney injury (nontraumatic) Status: Acute Core Measure Documentation - Palliative Care Palliative Care/ Comfort Measures: Not Applicable - Core Measures Any of the following diagnoses?: none Exam - Physical Exam Narrative exam: Not in cardiopulmonary distress. The patient appeared well nourished and normally developed. Vital signs as documented. Head exam is unremarkable. No scleral icterus . Neck is without jugular venous distension, thyromegaly, or carotid bruits. Lungs are clear to auscultation. Cardiac exam reveals regular rate and Rhythm. Abdominal exam reveals normal bowel sounds, nontender, no organomegaly. Extremities are nonedematous and both femoral and pedal pulses are normal. 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 No focal weakness. - Constitutional Vitals: Temp Pulse Resp BP Pulse Ox 98 F 72 18 149/58 99 08/01/20 06:00 08/01/20 06:00 08/01/20 06:00 08/01/20 06:00 08/01/20 09:55 Plan Activity: no restrictions Weight Bearing Status: Full Weight Bearing Diet: diabetic Additional Instructions: Patient scheduled to see nephrology Dr Terrell jhaveri on 08/11 Follow up with: LIZETTE HOFFMAN MD [Primary Care Provider] - 7 Days CODY GALVAN MD [Staff Physician] - 7 Days Prescriptions: Apixaban [Eliquis] 5 mg PO Q12HR #74 tablet methylPREDNISolone [Medrol 4MG DOSEPAK (21 tabs)] 4 mg PO DAILY #1 tab.ds.pk
--- NOTE | 2020-08-01 10:03 | Progress Note ---
Assessment and Plan 64 y/o female with COPD exacerbation and newly diagnosed PE 08/01/20: to be safe, consider head CT. I know she has stage IV lung ca, but I don't know if she has extrathoracic mets and where they are. No objection to oral anticoagulation. Not able to access office notes remotely. Continue supplemental O2. 1. Follow up echo, but doubt patient is going to be a candidate for EKOS 2. Suggest anticoagulation given current diagnosis of malignancy with lovenox. If she does have EKOS can discuss with vascular their thoughts on intermediate oral anticoagulation. 3. Put on IV solumedrol. 4. Will add BID Pulmicort and Brovana 5. SUggest stopping IVF's Subjective Date of service: 08/01/20 Interval history: Stable on 2 liters. Echo was normal so IMS started on eliquis. Objective Vital Signs - 12hr 08/01/20 08/01/20 08/01/20 00:01 06:00 08:55 Temperature 99.2 F 98 F Pulse Rate 58 L 72 Pulse Rate [ 73 Bilateral] Respiratory 18 Rate Respiratory 18 Rate [Bilateral ] Blood Pressure 147/46 149/58 [Left] O2 Sat by Pulse Oximetry 08/01/20 09:55 Temperature Pulse Rate Pulse Rate [ Bilateral] Respiratory Rate Respiratory Rate [Bilateral ] Blood Pressure [Left] O2 Sat by Pulse 99 Oximetry CBC and BMP: 07/31/20 06:54 08/01/20 04:50 ABG, PT/INR, D-dimer: PT/INR, D-dimer PT 14.8 Sec. (12.2-14.9) 07/30/20 20:01 INR 1.11 (0.87-1.13) 07/30/20 20:01 D-Dimer 620.21 ng/mlDDU (0-234) H 07/30/20 03:58 Abnormal lab findings: Abnormal Labs 07/29/20 07/29/20 07/30/20 22:49 22:49 03:58 RBC RDW 15.5 H Lymph % (Auto) 8.5 L Holt % (Auto) 9.4 H Lymph # (Auto) 0.7 L Seg Neutrophils % 81.0 H D-Dimer 620.21 H Heparin Anti-Xa Level Sodium Potassium Chloride 94.6 L BUN 33 H Creatinine 2.4 H Glucose 211 H POC Glucose Calcium Ferritin Lactate Dehydrogenase C-Reactive Protein 07/30/20 07/30/20 07/30/20 03:58 03:58 08:05 RBC RDW Lymph % (Auto) Holt % (Auto) Lymph # (Auto) Seg Neutrophils % D-Dimer Heparin Anti-Xa Level Sodium Potassium Chloride BUN Creatinine Glucose 139 H POC Glucose 201 H Calcium Ferritin 223.5 H Lactate Dehydrogenase 222 H C-Reactive Protein 10.80 H 07/30/20 07/30/20 07/30/20 10:13 11:52 16:42 RBC RDW Lymph % (Auto) Holt % (Auto) Lymph # (Auto) Seg Neutrophils % D-Dimer Heparin Anti-Xa Level Sodium 135 L Potassium 5.4 H Chloride 97.2 L BUN 40 H Creatinine 2.3 H Glucose 283 H POC Glucose 217 H 181 H Calcium Ferritin Lactate Dehydrogenase C-Reactive Protein 07/31/20 07/31/20 07/31/20 06:54 06:54 14:13 RBC 3.58 L RDW Lymph % (Auto) 9.9 L Holt % (Auto) 9.0 H Lymph # (Auto) 0.5 L Seg Neutrophils % 80.7 H D-Dimer Heparin Anti-Xa Level < 0.10 L Sodium Potassium 5.7 H Chloride BUN 40 H Creatinine 2.2 H Glucose POC Glucose Calcium 8.2 L Ferritin Lactate Dehydrogenase C-Reactive Protein 07/31/20 07/31/20 08/01/20 16:51 20:40 04:50 RBC RDW Lymph % (Auto) Holt % (Auto) Lymph # (Auto) Seg Neutrophils % D-Dimer Heparin Anti-Xa Level Sodium Potassium Chloride BUN 43 H Creatinine 1.9 H Glucose 165 H POC Glucose 155 H 199 H Calcium 8.0 L Ferritin Lactate Dehydrogenase C-Reactive Protein 08/01/20 07:27 RBC RDW Lymph % (Auto) Holt % (Auto) Lymph # (Auto) Seg Neutrophils % D-Dimer Heparin Anti-Xa Level Sodium Potassium Chloride BUN Creatinine Glucose POC Glucose 157 H Calcium Ferritin Lactate Dehydrogenase C-Reactive Protein
--- NOTE | 2020-08-01 10:17 | Progress Note ---
Assessment and Plan Assessment and plan: 1) Person under investigation for COVID-19 Current Visit: Yes Status: Acute Plan to address problem: Admit the patient to the medical telemetry. 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 DuoNeb by nebulizer every 4 hours. Albuterol via nebulizer every 4 hours as needed. Levaquin 750 mg IV daily. Dexamethasone 6 mg IV daily. We do the blood culture in sputum culture. Follow the Covid inflammatory markers. Will consult infectious disease (2) COPD exacerbation Current Visit: Yes Status: Acute Plan to address problem: DuoNeb by nebulizer every 4 hours. Albuterol via nebulizer every 4 hours as needed. Levaquin 750 mg IV daily. Dexamethasone 6 mg IV daily. We do the blood culture in sputum culture. (3) Fever Current Visit: Yes Status: Acute Qualifiers: Fever type: unspecified Qualified Code(s): R50.9 - Fever, unspecified Plan to address problem: Tylenol 650 mg p.o. every 6 hours as needed. Levaquin 750 mg IV daily. We do the blood culture in sputum culture. Follow the Covid inflammatory markers. Will consult infectious disease (4) Acute kidney injury (nontraumatic) Current Visit: No Status: Acute Plan to address problem: Avoid nephrotoxic drug. Half-normal saline at the rate of 75 cc/h. Renally dose medication. BMP in the morning (5) Diabetes Current Visit: No Status: Acute Plan to address problem: Glimepiride 4 mg p.o. daily. 1800 kcal ADA diet. Humalog sliding scale moderate dose Accu-Chek before meals and at bedtime. Diabetic education (6) DVT prophylaxis Current Visit: No Status: Acute Plan to address problem: Heparin 5000 units subcu every 8 hours for DVT prophylaxis. Pepcid 20 mg p.o. twice daily for GI prophylaxis. Patient is a full code 07/31/2020 -Acute respiratory failure; requiring supplemental oxygen -VQ scan yesterday showed bilateral pulmonary perfusion defect primarily on lower lung zones, high probability for bilateral PE. Patient was on heparin drip and currently on Lovenox renally dosed. Echo was done and reading is pending -UZIEL; IV fluids, monitor BMP. Hyperkalemia BMP still pending -COVID-19 test was done and negative -Patient was seen by ID and discontinue IV antibiotics. -Patient is diabetic was on glimepiride at home, discontinued glimepiride and patient is currently on Lantus and sliding scale insulin -COPD exacerbation; patient is on nebulizer treatment, oxygen support -Patient had stage IV lung cancer and follow with Dr. Galvan as an outpatient, I put a consult for pulmonary to see her while she is in the hospital 08/01/2020 -Discussed with pulmonary and wants to do CT head to assess for metastasis -Patient stable to be discharged with Mat -Patient does not want to be on diabetic medications and she want to follow with her primary care physician -Patient has CKD and is being followed with nephrology and will follow on 08/11/2020 - Patient Problems (1) Pulmonary emboli Current Visit: Yes Status: Acute (2) COPD exacerbation Current Visit: Yes Status: Acute (3) Acute kidney injury (nontraumatic) Current Visit: No Status: Acute History Interval history: Patient was seen and evaluated this morning Patient states shortness of breath is getting better Patient is on 2 L of oxygen Hospitalist Physical - Physical exam Narrative exam: Not in cardiopulmonary distress. The patient appeared well nourished and normally developed. Vital signs as documented. Head exam is unremarkable. No scleral icterus . Neck is without jugular venous distension, thyromegaly, or carotid bruits. Lungs are clear to auscultation. Cardiac exam reveals regular rate and Rhythm. Abdominal exam reveals normal bowel sounds, nontender, no organomegaly. Extremities are nonedematous and both femoral and pedal pulses are normal. EVS ATTENDANT: Alert and oriented 3. No focal weakness. - Constitutional Vitals: Temp Pulse Resp BP Pulse Ox 98 F 73 18 149/58 99 08/01/20 06:00 08/01/20 08:55 08/01/20 08:55 08/01/20 06:00 08/01/20 09:55 General appearance: Present: no acute distress, well-nourished Results - Labs CBC & Chem 7: 07/31/20 06:54 08/01/20 04:50 Labs: Laboratory Last Values WBC 5.3 K/mm3 (4.5-11.0) 07/31/20 06:54 RBC 3.58 M/mm3 (3.65-5.03) L 07/31/20 06:54 Hgb 10.4 gm/dl (10.1-14.3) 07/31/20 06:54 Hct 32.0 % (30.3-42.9) 07/31/20 06:54 MCV 89 fl (79-97) 07/31/20 06:54 MCH 29 pg (28-32) 07/31/20 06:54 MCHC 33 % (30-34) 07/31/20 06:54 RDW 15.1 % (13.2-15.2) 07/31/20 06:54 Plt Count 143 K/mm3 (140-440) 07/31/20 06:54 Lymph % (Auto) 9.9 % (13.4-35.0) L 07/31/20 06:54 [place] % (Auto) 9.0 % (0.0-7.3) H 07/31/20 06:54 Eos % (Auto) 0.1 % (0.0-4.3) 07/31/20 06:54 Baso % (Auto) 0.3 % (0.0-1.8) 07/31/20 06:54 Lymph # (Auto) 0.5 K/mm3 (1.2-5.4) L 07/31/20 06:54 [place] # (Auto) 0.5 K/mm3 (0.0-0.8) 07/31/20 06:54 Eos # (Auto) 0.0 K/mm3 (0.0-0.4) 07/31/20 06:54 Baso # (Auto) 0.0 K/mm3 (0.0-0.1) 07/31/20 06:54 Seg Neutrophils % 80.7 % (40.0-70.0) H 07/31/20 06:54 Seg Neutrophils # 4.3 K/mm3 (1.8-7.7) 07/31/20 06:54 PT 14.8 Sec. (12.2-14.9) 07/30/20 20:01 INR 1.11 (0.87-1.13) 07/30/20 20:01 APTT 26.0 Sec. (24.2-36.6) 07/30/20 20:01 D-Dimer 620.21 ng/mlDDU (0-234) H 07/30/20 03:58 Heparin Anti-Xa Level < 0.10 U.I./ml (0.3-0.7) L 07/31/20 14:13 Sodium 142 mmol/L (137-145) 08/01/20 04:50 Potassium 4.5 mmol/L (3.6-5.0) D 08/01/20 04:50 Chloride 102.8 mmol/L (98-107) 08/01/20 04:50 Carbon Dioxide 30 mmol/L (22-30) 08/01/20 04:50 Anion Gap 14 mmol/L 08/01/20 04:50 BUN 43 mg/dL (7-17) H 08/01/20 04:50 Creatinine 1.9 mg/dL (0.6-1.2) H 08/01/20 04:50 Estimated GFR 26 ml/min 08/01/20 04:50 BUN/Creatinine Ratio 23 % 08/01/20 04:50 Glucose 165 mg/dL (65-100) H 08/01/20 04:50 POC Glucose 157 mg/dL (70-105) H 08/01/20 07:27 Lactic Acid 1.10 mmol/L (0.7-2.0) 07/30/20 04:00 Calcium 8.0 mg/dL (8.4-10.2) L 08/01/20 04:50 Ferritin 223.5 ng/mL (10.0-200.0) H 07/30/20 03:58 Lactate Dehydrogenase 222 units/L (91-180) H 07/30/20 03:58 C-Reactive Protein 10.80 mg/dL (0.00-1.30) H 07/30/20 03:58 Procalcitonin 0.42 ng/mL (<0.15) 07/30/20 03:58 Coronavirus (PCR) Negative (Negative) 07/30/20 08:45 Microbiology: Microbiology 07/30/20 04:31 Peripheral/Venous Blood Culture - Preliminary NO GROWTH AFTER 48 HOURS 07/30/20 04:00 Peripheral/Venous Blood Culture - Preliminary NO GROWTH AFTER 48 HOURS Trinh/IV: Voiding Method Toilet Active Medications - Current Medications Current Medications: Generic Name Dose Route Start Last Admin Trade Name Freq PRN Reason Stop Dose Admin Acetaminophen 650 mg 07/30/20 06:18 Acetaminophen 325 Mg Tab PO Q4H PRN Pain MILD(1-3)/Fever >100.5/PIERSON Albuterol 2.5 mg 07/30/20 06:18 Albuterol 2.5 Mg/3 Ml Nebu IH Q4HRT PRN Shortness Of Breath Apixaban 10 mg 08/01/20 10:00 08/01/20 09:17 Apixaban 5 Mg Tab PO 08/07/20 22:01 10 mg Q12HR CAREN Administration Protocol Apixaban 5 mg 08/08/20 10:00 Apixaban 5 Mg Tab PO Q12HR CAREN Protocol Arformoterol Tartrate 15 mcg 07/31/20 11:30 08/01/20 08:31 Arformoterol 15 Mcg/2 Ml Nebu IH 15 mcg Q12HRT CAREN Administration Budesonide 0.5 mg 07/31/20 11:30 08/01/20 08:31 Budesonide 0.5 Mg/2 Ml Nebu IH 0.5 mg Q12HRT CAREN Administration Calcium Carbonate/Glycine 2,000 mg 07/30/20 14:00 08/01/20 06:08 Calcium Carbonate 500 Mg Tab Chew PO 2,000 mg Q8HR CAREN Administration Dextrose 0 ml 07/30/20 06:18 Dextrose 50% In Water (25gm) 50 Ml Syringe IV Q30MIN PRN Hypoglycemia Protocol Famotidine 20 mg 07/30/20 10:00 08/01/20 09:12 Famotidine 20 Mg Tab PO 20 mg QAM CAREN Administration Hydralazine HCl 10 mg 07/30/20 06:22 Hydralazine 20 Mg/1 Ml Inj IV Q6H PRN htn Lactated Ringer's 1,000 mls @ 150 mls/hr 07/31/20 18:15 08/01/20 06:11 Lactated Ringers IV 150 mls/hr DIRECT CAREN Administration Insulin Glargine 15 units 07/31/20 09:00 08/01/20 08:00 Insulin Glargine 100 Units/Ml SUB-Q 15 units QAMDIAB CAREN Administration Insulin Human Lispro 0 unit 07/30/20 07:30 08/01/20 07:30 Insulin Lispro 100 Unit/Ml SUB-Q 2 unit ACHS CAREN Administration Protocol Methylprednisolone Sodium Succinate 40 mg 07/31/20 14:00 08/01/20 06:09 Methylprednisolone Sod Succinate 40 Mg/1 Ml Inj IV 40 mg Q8HR CAREN Administration Ondansetron HCl 4 mg 07/30/20 06:18 Ondansetron 4 Mg/2 Ml Inj IV Q8H PRN Nausea And Vomiting Sodium Chloride 10 ml 07/30/20 10:00 08/01/20 09:12 Sodium Chloride 0.9% 10 Ml Flush Syringe IV 10 ml BID CAREN Administration Sodium Chloride 10 ml 07/30/20 06:18 Sodium Chloride 0.9% 10 Ml Flush Syringe IV PRN PRN LINE FLUSH Nutrition/Malnutrition Assess - Dietary Evaluation Nutrition/Malnutrition Findings: Nutrition Notes Start: 07/30/20 15:56 Freq: Status: Active Protocol: Document 07/30/20 15:56 NORIS (Rec: 07/30/20 15:57 NORIS [id number]) Nutrition Notes Need for Assessment generated from: MD Order,Education Initial or Follow up Brief Note Current Diagnosis Acute Kidney Injury,COPD, Diabetes Other Pertinent Diagnosis r/o COVID-19, COPD exacerbation, fever Current Diet Cardiac/Consistent CHO Subjective/Other Information RD consulted for diet education. Burn Absent Trauma Absent Nutrition Intervention Follow-Up By: 08/04/20 Additional Comments F/U: diet education needs, intakes, need for full assessment
[2020-08-01 10:31] LABS: Hematocrit 33.7 % (30.3-42.9); Hemoglobin 11.1 gm/dl (10.1-14.3); Mean Corpuscular HGB Conc 33 % (30-34); Mean Corpuscular Volume 91 fl (79-97); Platelet Count 180 K/mm3 (140-440); Red Blood Count 3.72 M/mm3 (3.65-5.03); Red Cell Distribution Width 15.7 % (13.2-15.2)
[2020-08-01 11:07] LABS: INR 1.04 (0.87-1.13); Partial Thromboplastin Time 26.9 Sec. (24.2-36.6)
--- NOTE | 2020-08-01 12:18 | Cat Scan Report ---
NONENHANCED CT SCAN OF THE HEAD: INDICATION / CLINICAL INFORMATION: 64 years Female; stage 4 lung cancer. TECHNIQUE: Routine CT head without contrast. All CT scans at this location are performed using CT dos e reduction for ALARA by means of automated exposure control. COMPARISON: None. FINDINGS: BRAIN / INTRACRANIAL CONTENTS: No acute hemorrhage, mass effect, midline shift, hydrocephalus, or acu te, large territorial infarct. Mild cortical involution No significant white matter abnormality. Prev iously described low attenuation areas bilaterally in the parieto-occipital region has resolved compl etely Spotty sclerotic areas in the central and posterior skull base remain unchanged CRANIOCERVICAL JUNCTION: No significant abnormality. ORBITS: No significant abnormality of visualized orbits. SINUSES / MASTOIDS: No significant abnormality of the visualized paranasal sinuses or mastoid air ghulam ls. ADDITIONAL FINDINGS: None. IMPRESSION: No focal mass, hemorrhage, hydrocephalus, or acute, large territorial infarct. Signer Name: Alan Christianson MD Signed: 08/01/2020 12:14 PM Workstation Name: [id number]
--- NOTE | 2020-08-01 20:21 | Consultation ---
History of Present Illness - Reason for Consult Consult date: 08/01/20 acute renal failure, hyperkalemia - History of Present Illness This is a 64-year-old woman with lung cancer, COPD and diabetes who presented with fever, cough and shortness of breath. She was diagnosed with pulmonary embolism during this hospital stay and lab work obtained was notable for acute kidney injury and hyperkalemia for which nephrology was consulted. Patient states she has underlying chronic kidney disease but is unable to verify stage and baseline creatinine. She denies nausea, vomiting, diarrhea, hematuria and decreased urine output. Past History Past Medical History: COPD, diabetes Medications and Allergies Allergies Allergy/AdvReac Type Severity Reaction Status Date / Time codeine Allergy Hives Verified 02/24/18 11:22 Penicillins Allergy Hives Verified 02/24/18 11:22 Home Medications Medication Instructions Recorded Confirmed Last Taken Type ALBUTEROL Inhaler(NF) [VENTOLIN 1 puff IH Q4H PRN #1 inha 12/10/17 07/30/20 07/29/20 Rx Inhaler(NF)] Glimepiride [Amaryl] 4 mg PO DAILY 04/10/18 07/30/20 07/29/20 History Potassium Chloride 20 meq PO BID #20 packet 04/11/18 07/30/20 07/30/20 Rx Calcium Carbonate [Tums 500MG CHEW] 2,000 mg PO Q8HR #180 tab 04/13/18 07/30/20 07/29/20 Rx Apixaban [Eliquis] 5 mg PO Q12HR #74 tablet 08/01/20 Unknown Rx methylPREDNISolone [Medrol 4MG 4 mg PO DAILY #1 tab.ds.pk 08/01/20 Unknown Rx DOSEPAK (21 tabs)] Review of Systems Constitutional: fever, chills Ears, nose, mouth and throat: no nasal congestion, no nasal discharge Cardiovascular: no chest pain, no orthopnea Respiratory: cough, shortness of breath Gastrointestinal: no nausea, no vomiting, no diarrhea Genitourinary Female: no dysuria Musculoskeletal: no muscle weakness, no muscle cramps Integumentary: no rash, no pruritis Neurological: no weakness, no parathesias Psychiatric: no paranoia, no anhedonia Endocrine: no excessive sweating, no flushing Exam - Vital Signs Vital signs: Vital Signs Temp Pulse Resp BP Pulse Ox 98.5 F 117 H 18 121/66 94 07/29/20 21:58 07/29/20 21:58 07/29/20 21:58 07/29/20 21:58 07/29/20 21:58 - Physical Exam Narrative exam: General: No acute distress HEENT: Oral mucosa moist Neck: Supple, no JVD Chest: Decreased bibasilar breath sounds, wheezing Heart: RRR, S1 and S2, no pericardial rub Abdomen: Soft, nontender, no renal bruit Extremity: No peripheral cyanosis, edema Neurological: Alert, awake, no asterixis Dermatology: No skin rash Psych: No agitation Musculoskeletal: No joint effusion Results - Lab Results 08/01/20 10:11 08/01/20 10:11 Most recent lab results Calcium 8.0 mg/dL (8.4-10.2) L 08/01/20 04:50 Assessment and Plan Assessment Acute kidney injury on CKD, unknown baseline Lung cancer Hyperkalemia Hyponatremia, mild Pulmonary embolism S/p Kayexalate 1 Discussed potassium restricted diet in detail S/p IV hydration Renally dose medications Avoid nephrotoxins Renal diet
[2020-08-08] MEDS ORDERED: APIXABAN 5 MG TAB PO SCH (10:00)
== END 2020-08-01 15:52 | disposition home health service (06) | DRG 189 ==
LOC: ED 21:48 → 3A 07-30 05:28 → OBSVTOIN 07-31 08:23
PROVIDERS: ADMIT Hospitalist; ATTEND Internal Medicine
DX: J96.01 Acute respiratory failure with hypoxia (principal); I26.99 Other pulmonary embolism without acute cor pulmonale; J44.1 Chronic obstructive pulmonary disease with (acute) exacerbation; N17.9 Acute kidney failure, unspecified; C34.90 Malignant neoplasm of unspecified part of unspecified bronchus or lung; E87.1 Hypo-osmolality and hyponatremia; Z20.822 Contact with and (suspected) exposure to COVID-19; E11.9 Type 2 diabetes mellitus without complications; Z85.830 Personal history of malignant neoplasm of bone; Z98.51 Tubal ligation status; Z87.891 Personal history of nicotine dependence; E11.22 Type 2 diabetes mellitus with diabetic chronic kidney disease; N18.9 Chronic kidney disease, unspecified; E87.5 Hyperkalemia
CPT/HCPCS: 36415; 70450; 71046; 78580; 80048; 82140; 82565; 82728; 82947; 82962; 83615; 84145; 85014; 85018; 85025; 85027; 85049; 85379; 85520; 85610; 85730; 86140; 87040; 93306; 94640; 94644; 96374; G0378; A9540; J0456; J1100; J1644; J1650; J1815; J1956; J2920; J3475; J7120; U0003

== ENCOUNTER 2020-11-16 13:28 | Outpatient (CLI) | payer OTHER ==
[2020-11-16 14:09] LABS: Hematocrit 30.8 % (30.3-42.9); Hemoglobin 10.2 gm/dl (10.1-14.3); Mean Corpuscular HGB Conc 33 % (30-34); Mean Corpuscular Volume 90 fl (79-97); Platelet Count 132 K/mm3 (140-440); Red Blood Count 3.42 M/mm3 (3.65-5.03); Red Cell Distribution Width 14.5 % (13.2-15.2)
[2020-11-16 14:15] LABS: Calcium 8.4 mg/dL (8.4-10.2)
[2020-11-16 15:52] LABS: Bilirubin,Urine NEG (Negative); Blood,Urine SM (Negative); Color,Urine Yellow (Yellow); Urobilinogen,Urine < 2.0 mg/dL (<2.0)
[2020-11-16 16:06] LABS: Protein/Creatinine Ratio,Urine 0.13
== END 2020-11-16 13:29 | disposition home or self-care (01) ==
LOC: LAB 13:28
PROVIDERS: ATTEND Internal Medicine Nephrology
DX: N18.4 Chronic kidney disease, stage 4 (severe) (principal)
CPT/HCPCS: 36415; 80048; 81001; 82306; 82570; 84100; 84156; 85027

== ENCOUNTER 2021-03-05 10:30 | Outpatient (CLI) | payer MEDICARE ==
[2021-03-05 11:10] LABS: Mean Corpuscular HGB Conc 30 % (30-34); Mean Corpuscular Volume 89 fl (79-97); Platelet Count 246 K/mm3 (140-440); Red Blood Count 3.77 M/mm3 (3.65-5.03); Red Cell Distribution Width 15.4 % (13.2-15.2)
[2021-03-05 11:12] LABS: Hematocrit 33.6 % (30.3-42.9); Hemoglobin 10.1 gm/dl (10.1-14.3)
[2021-03-05 11:24] LABS: Calcium 8.9 mg/dL (8.4-10.2)
[2021-03-05 11:35] LABS: Bilirubin,Urine 2 (Negative); Blood,Urine Trace (Negative); Color,Urine Amber (Yellow)
[2021-03-05 11:36] LABS: Urobilinogen,Urine < 2.0 mg/dL (<2.0)
[2021-03-05 11:39] LABS: Creatinine,Urine 423.6 mg/dL (0.1-20.0); Protein/Creatinine Ratio,Urine 0.39
== END 2021-03-05 10:31 | disposition home or self-care (01) ==
LOC: LAB 10:30
PROVIDERS: ATTEND Internal Medicine Nephrology
DX: N18.4 Chronic kidney disease, stage 4 (severe) (principal)
CPT/HCPCS: 36415; 80048; 81001; 82570; 84100; 84156; 85027

== ENCOUNTER 2021-08-07 13:19 | Inpatient (IN) | payer MEDICARE ==
--- NOTE | 2021-08-07 13:34 | Emergency Department Report ---
ED General Adult HPI - General Chief complaint: Neuro Symptoms/Deficit Stated complaint: SLURRED SPEECH Time Seen by Provider: 08/07/21 13:22 Source: patient, RN notes reviewed, old records reviewed Mode of arrival: Ambulatory Limitations: Physical Limitation - History of Present Illness Initial comments: M the patient was evaluated in the emergency department for symptoms described in the history of present illness. He/she was evaluated in the context of the global COVID-19 pandemic, which necessitated consideration that the patient might be at risk for infection with the virus that causes COVID-19. Institutional protocols and algorithms that pertain to the evaluation of patients at risk for COVID-19 are in a state of rapid change based on in formation released by regulatory bodies including the CDC and federal and state organizations. These policies and algorithms were followed during the patient's care in the emergency department. Please note that these policies, procedures and recommendations changed on a rapid basis. This is a pleasant and cooperative 65-year-old female. 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 She is currently on targisso therapy She presents to the emergency room today with family with a complaint of slurred speech and change in speech since 9:30 PM yesterday. Also reports a mechanical fall a few days ago, landing on her right forearm and back. She did not seek medical attention at that time. She complains of lower back pain. She denies midline neck pain, chest pain, abdominal pain, new/different shortness of breath and dysuria. She denies focal extremity weakness/numbness. -: days(s) Consistency: constant Improves with: none Worsens with: none - Related Data Home Medications Medication Instructions Recorded Confirmed Last Taken Glimepiride [Amaryl] 4 mg PO DAILY 04/10/18 07/30/20 07/29/20 Previous Rx's Medication Instructions Recorded Last Taken Type ALBUTEROL Inhaler(NF) [VENTOLIN 1 puff IH Q4H PRN #1 inha 12/10/17 07/29/20 Rx Inhaler(NF)] Potassium Chloride 20 meq PO BID #20 packet 04/11/18 07/30/20 Rx Calcium Carbonate [Tums 500MG CHEW] 2,000 mg PO Q8HR #180 tab 04/13/18 07/29/20 Rx Apixaban [Eliquis] 5 mg PO Q12HR #74 tablet 08/01/20 Unknown Rx methylPREDNISolone [Medrol 4MG 4 mg PO DAILY #1 tab.ds.pk 08/01/20 Unknown Rx DOSEPAK (21 tabs)] Allergies Allergy/AdvReac Type Severity Reaction Status Date / Time codeine Allergy Hives Verified 08/07/21 13:25 Penicillins Allergy Hives Verified 08/07/21 13:25 ED Review of Systems ROS: Stated complaint: SLURRED SPEECH Other details as noted in HPI Constitutional: denies: fever Eyes: denies: eye discharge ENT: denies: epistaxis Respiratory: shortness of breath. denies: cough Cardiovascular: denies: chest pain Gastrointestinal: denies: abdominal pain, hematemesis, melena, hematochezia Genitourinary: denies: dysuria Musculoskeletal: back pain, arthralgia, myalgia Skin: lesions Neurological: other (Slurred speech) ED Past Medical Hx - Past Medical History Hx Hypertension: No Hx Heart Attack/AMI: No Hx Congestive Heart Failure: No Hx Diabetes: Yes Hx Deep Vein Thrombosis: No Hx Pulmonary Embolism: No Hx Liver Disease: No Hx Renal Disease: No Hx Sickle Cell Disease: No Hx Arthritis: No Hx Seizures: No Hx Kidney Stones: No Hx Asthma: No Hx COPD: Yes Hx Tuberculosis: No Hx Dementia: No Hx HIV: No Additional medical history: bone cancer - Surgical History Hx Coronary Stent: No Hx Pacemaker: No Hx Internal Defibrillator: No Additional Surgical History: TUBAL LIGATION. chest tubex2 - Social History Smoking Status: Former Smoker - Medications Home Medications: Home Medications Medication Instructions Recorded Confirmed Last Taken Type ALBUTEROL Inhaler(NF) [VENTOLIN 1 puff IH Q4H PRN #1 inha 12/10/17 07/30/20 07/29/20 Rx Inhaler(NF)] Glimepiride [Amaryl] 4 mg PO DAILY 04/10/18 07/30/20 07/29/20 History Potassium Chloride 20 meq PO BID #20 packet 04/11/18 07/30/20 07/30/20 Rx Calcium Carbonate [Tums 500MG CHEW] 2,000 mg PO Q8HR #180 tab 04/13/18 07/30/20 07/29/20 Rx Apixaban [Eliquis] 5 mg PO Q12HR #74 tablet 08/01/20 Unknown Rx methylPREDNISolone [Medrol 4MG 4 mg PO DAILY #1 tab.ds.pk 08/01/20 Unknown Rx DOSEPAK (21 tabs)] ED Physical Exam - General Limitations: No Limitations General appearance: alert, in no apparent distress - Head Head exam: Present: atraumatic, normocephalic - Eye Eye exam: Present: normal appearance, EOMI. Absent: nystagmus - ENT ENT exam: Present: normal exam, normal orophraynx, mucous membranes moist, normal external ear exam - Neck Neck exam: Present: normal inspection, full ROM. Absent: tenderness, meningismus - Respiratory Respiratory exam: Present: normal lung sounds bilaterally. Absent: respiratory distress, wheezes, rales, rhonchi, stridor, decreased breath sounds - Cardiovascular Cardiovascular Exam: Present: regular rate, normal rhythm, normal heart sounds. Absent: bradycardia, tachycardia, irregular rhythm, systolic murmur, diastolic murmur, rubs, gallop - GI/Abdominal GI/Abdominal exam: Present: soft. Absent: distended, tenderness, guarding, rebound, rigid, pulsatile mass - Extremities Exam Extremities exam: Present: full ROM, other (2+ pulses noted in the bilateral upper and lower extremities. There is no palpable cord. negative Homans sign. Muscular compartments are soft. The pelvis is stable.). Absent: normal inspection (There is a right upper extremity abrasion), calf tenderness - Back Exam Back exam: Present: normal inspection, paraspinal tenderness. Absent: tenderness, CVA tenderness (R), CVA tenderness (L) - Neurological Exam Neurological exam: Present: alert, oriented X3, normal gait, other (No facial droop. Tongue midline. Extraocular movements intact bilaterally. Facial sensation intact to light touch in V1, V2, V3 distribution bilaterally. 5 and a 5 strength in 4 extremities. Sensation intact to light touch in 4 extremities .). Absent: motor sensory deficit - Psychiatric Psychiatric exam: Present: normal affect, normal mood - Skin Skin exam: Present: warm, abrasion, ecchymosis ED Course Vital Signs 08/07/21 08/07/21 13:22 14:39 Temperature 97 F L Pulse Rate 90 Respiratory 18 Rate Blood Pressure 144/56 [Right] O2 Sat by Pulse 99 96 Oximetry - Reevaluation(s) Reevaluation #1: 08/07/21 15:40 Differential diagnosis, include not limited to: Subacute stroke, pneumonia, urinary tract infection, electrolyte derangement, thyroid derangement Assessment and plan: 65-year-old female, presenting with slurred speech more than 4.5 hours after her last known well time. tPA is contraindicated. Her examination is nonfocal, and not suggestive of a large vessel occlusion. I do not appreciate any dysarthria or slurred speech on my examination, and the patient is ambulatory with a steady gait. Examination and history are not sug gestive of a large vessel occlusion or dissection. She denies headache and neck pain. She is clinically sober at this time, with a GCS of 15. Laboratory studies thus far demonstrate chronic renal insufficiency. Urinalysis is pending. A right upper extremity x-ray showed no fracture or dislocation. Given advanced age, known history of metastatic disease, fall, x-rays with poor sensitivity, decision made to obtain CT scan of the pelvis and lumbar spine. A noncontrast CT scan of the brain is also obtained. We will reassess after initial data points. Patient seen in conjunction with stroke neurology, Dr. Dyer She agrees with the aforementioned. Plan on admitting this patient to the [facility] service for further work-up and evaluation which initial diagnostic studies have resulted. 08/07/21 15:54 CT scan brain suggest possible subacute stroke. CT scan lumbar spine and pelvis show no fractures or dislocations. Urinalysis pending. CBC pending. Low-dose aspirin ordered. Neurology recommendations are appreciated. Admission is recommended. Discussed this with patient and family member. They are agreeable to the plan of care. Dr Sophia Garrett to admit to [facility] 08/07/21 16:25 Urinalysis demonstrates pyuria with bacteriuria. Bactrim is ordered. CT scan L-spine with no fracture. CT scan pelvis with no fracture. Currently awaiting CBC. multiple phone calls made to lab regarding cbc ED Medical Decision Making - Lab Data Result diagrams: 08/07/21 14:46 08/07/21 14:03 Vital Signs 08/07/21 08/07/21 13:22 14:39 Temperature 97 F L Pulse Rate 90 Respiratory 18 Rate Blood Pressure 144/56 [Right] O2 Sat by Pulse 99 96 Oximetry Lab Results 08/07/21 08/07/21 08/07/21 Range/Units 13:27 14:03 14:03 WBC (4.5-11.0) K/mm3 RBC (3.65-5.03) M/mm3 Hgb (10.1-14.3) gm/dl Hct (30.3-42.9) % MCV (79-97) fl MCH (28-32) pg MCHC (30-34) % RDW (13.2-15.2) % Plt Count (140-440) K/mm3 PT 13.5 (12.2-14.9) Sec. INR 0.91 (0.87-1.13) APTT 26.5 (24.2-36.6) Sec. Thrombin Time 18.1 (15.1-19.6) Sec. Sodium 139 (137-145) mmol/L Potassium 4.7 (3.6-5.0) mmol/L Chloride 98.7 (98-107) mmol/L Carbon Dioxide 26 (22-30) mmol/L Anion Gap 19 mmol/L BUN 43 H (7-17) mg/dL Creatinine 2.2 H (0.6-1.2) mg/dL Estimated GFR 22 ml/min BUN/Creatinine Ratio 20 % Glucose 200 H (65-100) mg/dL POC Glucose 224 H (70-105) mg/dL Calcium 9.1 (8.4-10.2) mg/dL Magnesium (1.7-2.3) mg/dL Total Bilirubin 0.50 (0.1-1.2) mg/dL AST 15 (5-40) units/L ALT 9 (7-56) units/L Alkaline Phosphatase 53 (35-129) units/L Ammonia (25-60) umol/L Total Creatine Kinase 115 (30-135) units/L CK-MB (CK-2) 3.5 (0.0-4.0) ng/mL CK-MB (CK-2) Rel Index 3.0 (0-4) Troponin T < 0.010 (0.00-0.029) ng/mL Total Protein 6.6 (6.3-8.2) g/dL Albumin 4.2 (3.9-5) g/dL Albumin/Globulin Ratio 1.8 % TSH (0.270-4.200) mlU/mL Urine Color (Yellow) Urine Turbidity (Clear) Urine pH (5.0-7.0) Ur Specific Spelter (1.003-1.030) Urine Protein (Negative) mg/dL Urine Glucose (UA) (Negative) mg/dL Urine Ketones (Negative) mg/dL Urine Blood (Negative) Urine Nitrite (Negative) Urine Bilirubin (Negative) Urine Urobilinogen (<2.0) mg/dL Ur Leukocyte Esterase (Negative) Urine WBC (Auto) (0.0-6.0) /HPF Urine RBC (Auto) (0.0-6.0) /HPF U Epithel Cells (Auto) (0-13.0) /HPF Urine Bacteria (Auto) (Negative) /HPF Hyaline Casts /LPF Urine Mucus /HPF Plasma/Serum Alcohol (0-0.07) % 08/07/21 08/07/21 08/07/21 Range/Units 14:03 14:03 14:03 WBC (4.5-11.0) K/mm3 RBC (3.65-5.03) M/mm3 Hgb (10.1-14.3) gm/dl Hct (30.3-42.9) % MCV (79-97) fl MCH (28-32) pg MCHC (30-34) % RDW (13.2-15.2) % Plt Count (140-440) K/mm3 PT (12.2-14.9) Sec. INR (0.87-1.13) APTT (24.2-36.6) Sec. Thrombin Time (15.1-19.6) Sec. Sodium (137-145) mmol/L Potassium (3.6-5.0) mmol/L Chloride (98-107) mmol/L Carbon Dioxide (22-30) mmol/L Anion Gap mmol/L BUN (7-17) mg/dL Creatinine (0.6-1.2) mg/dL Estimated GFR ml/min BUN/Creatinine Ratio % Glucose (65-100) mg/dL POC Glucose (70-105) mg/dL Calcium (8.4-10.2) mg/dL Magnesium 2.60 H (1.7-2.3) mg/dL Total Bilirubin (0.1-1.2) mg/dL AST (5-40) units/L ALT (7-56) units/L Alkaline Phosphatase (35-129) units/L Ammonia 21.0 L (25-60) umol/L Total Creatine Kinase (30-135) units/L CK-MB (CK-2) (0.0-4.0) ng/mL CK-MB (CK-2) Rel Index (0-4) Troponin T (0.00-0.029) ng/mL Total Protein (6.3-8.2) g/dL Albumin (3.9-5) g/dL Albumin/Globulin Ratio % TSH 0.999 (0.270-4.200) mlU/mL Urine Color (Yellow) Urine Turbidity (Clear) Urine pH (5.0-7.0) Ur Specific Spelter (1.003-1.030) Urine Protein (Negative) mg/dL Urine Glucose (UA) (Negative) mg/dL Urine Ketones (Negative) mg/dL Urine Blood (Negative) Urine Nitrite (Negative) Urine Bilirubin (Negative) Urine Urobilinogen (<2.0) mg/dL Ur Leukocyte Esterase (Negative) Urine WBC (Auto) (0.0-6.0) /HPF Urine RBC (Auto) (0.0-6.0) /HPF U Epithel Cells (Auto) (0-13.0) /HPF Urine Bacteria (Auto) (Negative) /HPF Hyaline Casts /LPF Urine Mucus /HPF Plasma/Serum Alcohol (0-0.07) % 08/07/21 08/07/21 08/07/21 Range/Units 14:03 14:46 Unknown WBC 5.3 (4.5-11.0) K/mm3 RBC 4.40 (3.65-5.03) M/mm3 Hgb 13.3 (10.1-14.3) gm/dl Hct 40.9 (30.3-42.9) % MCV 93 (79-97) fl MCH 30 (28-32) pg MCHC 32 (30-34) % RDW 14.5 (13.2-15.2) % Plt Count 161 (140-440) K/mm3 PT (12.2-14.9) Sec. INR (0.87-1.13) APTT (24.2-36.6) Sec. Thrombin Time (15.1-19.6) Sec. Sodium (137-145) mmol/L Potassium (3.6-5.0) mmol/L Chloride (98-107) mmol/L Carbon Dioxide (22-30) mmol/L Anion Gap mmol/L BUN (7-17) mg/dL Creatinine (0.6-1.2) mg/dL Estimated GFR ml/min BUN/Creatinine Ratio % Glucose (65-100) mg/dL POC Glucose (70-105) mg/dL Calcium (8.4-10.2) mg/dL Magnesium (1.7-2.3) mg/dL Total Bilirubin (0.1-1.2) mg/dL AST (5-40) units/L ALT (7-56) units/L Alkaline Phosphatase (35-129) units/L Ammonia (25-60) umol/L Total Creatine Kinase (30-135) units/L CK-MB (CK-2) (0.0-4.0) ng/mL CK-MB (CK-2) Rel Index (0-4) Troponin T (0.00-0.029) ng/mL Total Protein (6.3-8.2) g/dL Albumin (3.9-5) g/dL Albumin/Globulin Ratio % TSH (0.270-4.200) mlU/mL Urine Color Yellow (Yellow) Urine Turbidity Slightly-cloudy (Clear) Urine pH 5.0 (5.0-7.0) Ur Specific Spelter 1.020 (1.003-1.030) Urine Protein 30 mg/dl (Negative) mg/dL Urine Glucose (UA) Neg (Negative) mg/dL Urine Ketones Tr (Negative) mg/dL Urine Blood Sm (Negative) Urine Nitrite Neg (Negative) Urine Bilirubin Neg (Negative) Urine Urobilinogen < 2.0 (<2.0) mg/dL Ur Leukocyte Esterase Lg (Negative) Urine WBC (Auto) 28.0 H (0.0-6.0) /HPF Urine RBC (Auto) 3.0 (0.0-6.0) /HPF U Epithel Cells (Auto) 8.0 (0-13.0) /HPF Urine Bacteria (Auto) 1+ (Negative) /HPF Hyaline Casts 5 /LPF Urine Mucus Few /HPF Plasma/Serum Alcohol < 0.01 (0-0.07) % - EKG Data 08/07/21 15:46 The EKG is interpreted at 14: 23 Sinus rhythm, 74 bpm. Normal axis, normal intervals, normal P wave axis, motion artifact, and poor R wave progression. This is an abnormal EKG. This is not a STEMI. - Radiology Data Radiology results: pending, report reviewed, image reviewed CT pelvis wo con INDICATION / CLINICAL INFORMATION: fall lower back pain lung ca w mets. TECHNIQUE: CT pelvis without contrast All CT scans at this location are performed using CT dose reduction for ALARA by means of automated exposure control. COMPARISON: None available. FINDINGS: There is severe and extensive sclerotic osseous metastatic disease throughout the visualized lower lumbar spine pelvis and both hips. No discrete fracture of the pelvis is identified. No discrete hip fracture is identified. IMPRESSION: Severe osseous metastatic disease without discrete pelvic or hip fracture. Signer Name: Gonzalez lOvera MD Signed: 08/07/2021 2:28 PM Workstation Name: [employer] Right forearm 2 views INDICATION: Right forearm pain IMPRESSION: The right forearm is osteopenic but grossly intact. No foreign body appreciated. Signer Name: Gonzalez Olvera MD Signed: 08/07/2021 1:11 PM Workstation Name: [employer] CHEST 1 VIEW INDICATION / CLINICAL INFORMATION: copd cva sx. Dyspnea FINDINGS: SUPPORT DEVICES: None. HEART / MEDIASTINUM: No significant abnormality. LUNGS / PLEURA: No acute airspace disease. COPD findings are identified throughout both lungs. Signer Name: Gonzalez Olvera MD Signed: 08/07/2021 1:11 PM Workstation Name: [employer] [facility] [address] [place] [address] Cat Scan Report Signed Patient: TOLU COULTER MR#: [id number] : 1955 Acct:[id number] Age/Sex: 65 / F ADM Date: 08/07/21 Loc: ED Attending Dr: Ordering Physician: TA AMEZQUITA MD Date of Service: 08/07/21 Procedure(s): CT head/brain wo con Accession Number(s): [id number] cc: TA AMEZQUITA MD CT head/brain wo con INDICATION / CLINICAL INFORMATION: 65 years Female; speech disturbance since last night. TECHNIQUE: Routine CT head without contrast. All CT scans at this location are performed using CT dose reduction for ALARA by means of automated exposure control. COMPARISON: The study is compared to previous CT of 08/01/2020. FINDINGS: BRAIN / INTRACRANIAL CONTENTS: The motion degrades image quality. However, there is mild cerebral white matter disease most consistent with microvascular angiopathy. There is relative focus of decreased attenuation within the left thalamus measuring approximately 0.8 cm AP. This finding may be exacerbated by the degree of motion though appears more conspicuous than on the prior study and correlation be needed regarding acute infarct in this region. There is mild cerebral atrophy with associated prominence of the ventricular system. There is no clear CT evidence of acute intracranial hemorrhage or significant mass effect. ORBITS: No significant abnormality of visualized orbits. SINUSES / MASTOIDS: No significant abnormality in the visualized paranasal sinuses or mastoid air cells. CRANIOCERVICAL JUNCTION: No significant abnormality. ADDITIONAL FINDINGS: None. IMPRESSION: 1. The motion degrades image quality. However, there is microvascular angiopathy with small focus of decreased attenuation involving left thalamus as detailed above. There is no CT evidence of acute intracranial hemorrhage. Signer Name: Ta Baires MD Signed: 08/07/2021 3:40 PM Workstation Name: [id number] Transcribed By: MR Dictated By: Ta Baires MD Electronically Authenticated By: Ta Baires MD Signed Date/Time: 08/07/21 1540 DD/ 1536 TD/TT: CT lumbar spine wo con INDICATION / CLINICAL INFORMATION: 65 years Female; fall lower back pain lung ca w mets. TECHNIQUE: Axial CT images of the lumbar spine were obtained with sagittal and coronal reconstructions. All CT scans at this location are performed using CT dose reduction for ALARA by means of automated exposure control. COMPARISON: None available. FINDINGS: POST-SURGICAL CHANGES: None. ALIGNMENT: There is no significant spondylolisthesis or scoliosis of the lumbar spine. VERTEBRAE: There is extensive heterogeneous appearance of the visualized bony structures including the spine and iliac bones most consistent with diffuse metastatic disease given the patient's history. There are mild endplate changes anteriorly at L2-3 and L3-4. There is no clear CT evidence of acute compression fracture. INTERVERTEBRAL DISCS: There is a slight disc bulge at L5 4-5 which appears to minimally flatten the ventral thecal sac at. There is mild right neural foraminal narrowing. There is no clear CT evidence of significant bony of stenosis involving remaining lumbar se gments. PARASPINAL SOFT TISSUES: No significant abnormality. ADDITIONAL FINDINGS: None. IMPRESSION: 1. There is extensive sclerotic metastatic disease involving visualized spine as detailed above 2. There is no clear CT evidence of acute compression fracture. Signer Name: Ta Baires MD Signed: 08/07/2021 2:45 PM Workstation Name: [id number] Critical care attestation.: If time is entered above; I have spent that time in minutes in the direct care of this critically ill patient, excluding procedure time. ED Disposition Clinical Impression: Fall, Lower back pain, Abrasion of right arm, Renal insufficiency, Lung cancer metastatic to bone, Speech disturbance, Bacteriuria with pyuria Disposition: 09 ADMITTED INPATIENT Is pt being admited?: Yes Condition: Good
[2021-08-07] MEDS ORDERED: TETANUS,DIPH,PERTUSS(ACELL) VACCINE 0.5 ML SYRINGE IM ONE (13:36)
--- NOTE | 2021-08-07 14:15 | XRay Report ---
Right forearm 2 views INDICATION: Right forearm pain IMPRESSION: The right forearm is osteopenic but grossly intact. No foreign body appreciated. Signer Name: Gonzalez Olvera MD Signed: 08/07/2021 2:11 PM Workstation Name: [email or web address]
--- NOTE | 2021-08-07 14:16 | XRay Report ---
CHEST 1 VIEW INDICATION / CLINICAL INFORMATION: copd cva sx. Dyspnea FINDINGS: SUPPORT DEVICES: None. HEART / MEDIASTINUM: No significant abnormality. LUNGS / PLEURA: No acute airspace disease. COPD findings are identified throughout both lungs. Signer Name: Gonzalez Olvera MD Signed: 08/07/2021 2:11 PM Workstation Name: [id number]
--- NOTE | 2021-08-07 14:50 | Emergency Department Report ---
Blank Doc - Documentation Documentation: [facility] Consult Note # Demographics Consult Type: Acute Stroke Level 1 (0-4.5 hrs) Patient Location: Emergency Room First Name: daphne Last Name: daisha Date of : 1955 Age: 65 Gender: Female Facility: [facility] Time of Initial Page (Eastern Time): 08/07/2021, 13:32 Time of Return Call (Eastern Time): 08/07/2021, 13:33 # HPI History: 65 year old female with hx of Lung CA with mets to the bone on tagrisso currently. Pt states for several days she has been slurring her words and generalized weakness. She had a fall few days ago with bruising on her right arm. # Scores Level of Consciousness 1a: [0] = Alert; keenly responsive LOC Questions 1b: [0] = Answers both questions correctly LOC Commands 1c: [0] = Performs both tasks correctly Best Gaze 2: [0] = Normal Visual 3: [0] = No visual loss Facial Palsy 4: [0] = Normal symmetrical movements Motor Arm Left 5a: [0] = No drift Motor Arm Right 5b: [0] = No drift Motor Leg Left 6a: [0] = No drift Motor Leg Right 6b: [0] = No drift Limb Ataxia 7: [0] = Absent Sensory 8: [0] = Normal Best Language 9: [0] = No aphasia Dysarthria 10: [1] = [id number] dysarthria Extinction and Inattention 11: [0] = No abnormality NIHSS Total: 1 # PMH-FH-SH Past Medical History: COPD Lung Cancer with mets to bone # Data Head CT: no bleed preliminarily reviewed by me, please refer to radiology read for official reading # Assessment Impression: 65 year old female with hx of lung ca with mets to bone on Tagrisso presents with slurred speech and fall several days ago. NIHSS : 1 with intermittent slurred speech otherwise no deficits. No findings concerning for acute vascular event thus less likely to be stroke. Likely metabolic but recommend to rule out any mets to brain. # Plan Thrombolytic/Intervention: NOT IV Thrombolysis or IA Intervention candidate Thrombolytic Exclusion (< 3 hour window): non-disabling deficit Intraarterial Exclusion: non-disabling Blood Pressure Management: IV fluid bolus Target Blood Pressure: SBP < 140 SBP > 110 DBP < 105 Labs: CBC comprehensive metabolic panel troponin TSH urine drug screen ua Imaging: (urgency: routine): MRI Brain without contrast Diagnostic Test: echo with bubble study Therapy/Evaluation: NPO until swallow evaluation PT/OT evaluation speech/swallow consultation Other: If patient has any neurological deterioration please call me back immediately telemetry monitoring would not pursue stroke work-up if MRI is negative I have discussed my recommendations with the referring provider Disposition: admit
[2021-08-07 14:55] LABS: INR 0.91 (0.87-1.13)
[2021-08-07 14:56] LABS: Partial Thromboplastin Time 26.5 Sec. (24.2-36.6); Thrombin Time 18.1 Sec. (15.1-19.6)
[2021-08-07 15:19] LABS: Creatine Kinase MB 3.5 ng/mL (0.0-4.0)
[2021-08-07 15:20] LABS: Alanine Aminotransferase 9 units/L (7-56); Albumin 4.2 g/dL (3.9-5); BUN/Creatinine Ratio 20; Blood Urea Nitrogen 43 mg/dL (7-17); Calcium 9.1 mg/dL (8.4-10.2); Hemolysis Index 50
--- NOTE | 2021-08-07 15:32 | Cat Scan Report ---
CT pelvis wo con INDICATION / CLINICAL INFORMATION: fall lower back pain lung ca w mets. TECHNIQUE: CT pelvis without contrast All CT scans at this location are performed using CT dose reduction for AL OLY by means of automated exposure control. COMPARISON: None available. FINDINGS: There is severe and extensive sclerotic osseous metastatic disease throughout the visualized lower yannick mbar spine pelvis and both hips. No discrete fracture of the pelvis is identified. No discrete hip fracture is identified. IMPRESSION: Severe osseous metastatic disease without discrete pelvic or hip fracture. Signer Name: Gonzalez Olvera MD Signed: 08/07/2021 3:28 PM Workstation Name: [email or web address]
--- NOTE | 2021-08-07 15:44 | Cat Scan Report ---
CT head/brain wo con INDICATION / CLINICAL INFORMATION: 65 years Female; speech disturbance since last night. TECHNIQUE: Routine CT head without contrast. All CT scans at this location are performed using CT dos e reduction for ALARA by means of automated exposure control. COMPARISON: The study is compared to previous CT of 08/01/2020. FINDINGS: BRAIN / INTRACRANIAL CONTENTS: The motion degrades image quality. However, there is mild cerebral whi te matter disease most consistent with microvascular angiopathy. There is relative focus of decreased attenuation within the left thalamus measuring approximately 0.8 cm AP. This finding may be exacerba radha by the degree of motion though appears more conspicuous than on the prior study and correlation b e needed regarding acute infarct in this region. There is mild cerebral atrophy with associated prominence of the ventricular system. There is no geri r CT evidence of acute intracranial hemorrhage or significant mass effect. ORBITS: No significant abnormality of visualized orbits. SINUSES / MASTOIDS: No significant abnormality in the visualized paranasal sinuses or mastoid air ghulam ls. CRANIOCERVICAL JUNCTION: No significant abnormality. ADDITIONAL FINDINGS: None. IMPRESSION: 1. The motion degrades image quality. However, there is microvascular angiopathy with small focus of decreased attenuation involving left thalamus as detailed above. There is no CT evidence of acute int racranial hemorrhage. Signer Name: Ta Baires MD Signed: 08/07/2021 3:40 PM Workstation Name: [id number]
--- NOTE | 2021-08-07 15:50 | Cat Scan Report ---
CT lumbar spine wo con INDICATION / CLINICAL INFORMATION: 65 years Female; fall lower back pain lung ca w mets. TECHNIQUE: Axial CT images of the lumbar spine were obtained with sagittal and coronal reconstructions. All CT s cans at this location are performed using CT dose reduction for ALARA by means of automated exposure control. COMPARISON: None available. FINDINGS: POST-SURGICAL CHANGES: None. ALIGNMENT: There is no significant spondylolisthesis or scoliosis of the lumbar spine. VERTEBRAE: There is extensive heterogeneous appearance of the visualized bony structures including th e spine and iliac bones most consistent with diffuse metastatic disease given the patient's history. There are mild endplate changes anteriorly at L2-3 and L3-4. There is no clear CT evidence of acute c ompression fracture. INTERVERTEBRAL DISCS: There is a slight disc bulge at L5 4-5 which appears to minimally flatten the v entral thecal sac at. There is mild right neural foraminal narrowing. There is no clear CT evidence o f significant bony of stenosis involving remaining lumbar segments. PARASPINAL SOFT TISSUES: No significant abnormality. ADDITIONAL FINDINGS: None. IMPRESSION: 1. There is extensive sclerotic metastatic disease involving visualized spine as detailed above 2. There is no clear CT evidence of acute compression fracture. Signer Name: Ta Baires MD Signed: 08/07/2021 3:45 PM Workstation Name: [id number]
[2021-08-07] MEDS ORDERED: ASPIRIN 81 MG TAB CHEW PO ONE (15:53)
[2021-08-07] MEDS ORDERED: ONDANSETRON 4 MG/2 ML INJ IV ONE (15:59)
[2021-08-07 16:17] LABS: Bilirubin,Urine NEG (Negative); Blood,Urine SM (Negative); Color,Urine Yellow (Yellow); Urobilinogen,Urine < 2.0 mg/dL (<2.0)
[2021-08-07 16:21] LABS: Bacteria,Urine 1+ /HPF (Negative); Hyaline Casts,Urine 5 /LPF; Mucus,Urine FEW /HPF
[2021-08-07] MEDS ORDERED: SULFAMETHOXAZOLE/TRIMETHOPRIM 800/160MG DS TAB PO ONE (16:24)
[2021-08-07 16:27] LABS: Hematocrit 40.9 % (30.3-42.9); Hemoglobin 13.3 gm/dl (10.1-14.3); Mean Corpuscular HGB Conc 32 % (30-34); Mean Corpuscular Volume 93 fl (79-97); Platelet Count 161 K/mm3 (140-440); Red Cell Distribution Width 14.5 % (13.2-15.2)
[2021-08-07 17:31] LABS: Basophils % (Manual) 0 % (0.0-1.8); Total Cells Counted 100
[2021-08-07 17:32] LABS: Platelet Estimate Consistent w Auto; RBC Morphology Normal
--- NOTE | 2021-08-07 19:55 | History and Physical Report ---
History of Present Illness Date of examination: 08/07/21 Date of admission: 08/07/2021 Chief complaint: Slurred speech and unsteadiness for 1 week History of present illness: 65-year-old female with past medical history significant for asthma, type 2 diabetes and on Eliquis, lung cancer with metastasis to bones apparently fell a couple days ago and sustained huge ecchymosis to the right forearm. Patient is unsteady while walking.. No nausea or vomiting. No diplopia. Dysarthria is persistent. No nasal regurgitation of fluids. ED course; patient seen by teleneurology and ER physician. Their recommendation was to do an MRI of the brain and echocardiogram with bubble study. - Past Medical History --Diabetes: Yes --COPD: Yes --Additional medical history: bone cancer with mets to bone - Surgical History --TUBAL LIGATION. chest tubex2 - Social History Smoking Status: Former Smoker -family history --hTN - Medications Home Medications: Home Medications Medication Instructions Recorded Confirmed Last Taken Type ALBUTEROL Inhaler(NF) [VENTOLIN 1 puff IH Q4H PRN #1 inha 12/10/17 07/30/20 07/29/20 Rx Inhaler(NF)] Glimepiride [Amaryl] 4 mg PO DAILY 04/10/18 07/30/20 07/29/20 History Potassium Chloride 20 meq PO BID #20 packet 04/11/18 07/30/20 07/30/20 Rx Calcium Carbonate [Tums 500MG CHEW] 2,000 mg PO Q8HR #180 tab 04/13/18 07/30/20 07/29/20 Rx Apixaban [Eliquis] 5 mg PO Q12HR #74 tablet 08/01/20 Unknown Rx methylPREDNISolone [Medrol 4MG 4 mg PO DAILY #1 tab.ds.pk 08/01/20 Unknown Rx DOSEPAK (21 tabs)] Review of Systems ROS: Stated complaint: SLURRED SPEECH Unsteady gait Constitutional: denies: fever Eyes: denies: eye discharge ENT: denies: epistaxis Respiratory: shortness of breath. denies: cough Cardiovascular: denies: chest pain Gastrointestinal: denies: abdominal pain, hematemesis, melena, hematochezia Genitourinary: denies: dysuria Musculoskeletal: back pain, arthralgia, myalgia Skin: lesions--ecchymosis on the right forearm and the distal third on the volar aspect Neurological: other (Slurred speech) Medications and Allergies Allergies Allergy/AdvReac Type Severity Reaction Status Date / Time codeine Allergy Hives Verified 08/07/21 13:25 Penicillins Allergy Hives Verified 08/07/21 13:25 Home Medications Medication Instructions Recorded Confirmed Last Taken Type ALBUTEROL Inhaler(NF) [VENTOLIN 1 puff IH Q4H PRN #1 inha 12/10/17 07/30/20 07/29/20 Rx Inhaler(NF)] Glimepiride [Amaryl] 4 mg PO DAILY 04/10/18 07/30/20 07/29/20 History Potassium Chloride 20 meq PO BID #20 packet 04/11/18 07/30/20 07/30/20 Rx Calcium Carbonate [Tums 500MG CHEW] 2,000 mg PO Q8HR #180 tab 04/13/18 07/30/20 07/29/20 Rx Apixaban [Eliquis] 5 mg PO Q12HR #74 tablet 08/01/20 Unknown Rx methylPREDNISolone [Medrol 4MG 4 mg PO DAILY #1 tab.ds.pk 08/01/20 Unknown Rx DOSEPAK (21 tabs)] Exam - Constitutional Vitals: Temp Pulse Resp BP Pulse Ox 97 F L 90 18 144/56 96 08/07/21 13:22 08/07/21 13:22 08/07/21 13:22 08/07/21 13:22 08/07/21 14:39 General appearance: Present: no acute distress, well-nourished - EENT Eyes: Present: PERRL ENT: hearing intact, clear oral mucosa, other (Dysarthria present) - Neck Neck: Present: supple, normal ROM - Respiratory Respiratory effort: normal Respiratory: bilateral: CTA - Cardiovascular Heart Sounds: Present: S1 & S2. Absent: rub, click - Extremities Extremities: pulses symmetrical, No edema, abnormal (Severe ecchymosis on the right wrist and distal one third of the right forearm) Extremity abnormal: other (Severe ecchymosis on the right forearm) Peripheral Pulses: within normal limits - Abdominal General gastrointestinal: Present: soft, non-tender, non-distended, normal bowel sounds Female genitourinary: Present: normal - Integumentary Integumentary: Present: clear, warm, dry - Musculoskeletal Musculoskeletal: gait normal, strength equal bilaterally - Psychiatric Psychiatric: appropriate mood/affect, intact judgment & insight - Neurologic Neurologic: CNII-XII intact, moves all extremities HEART Score - HEART Score History: Slightly suspicious Age: > 65 Risk factors: 1-2 risk factors Troponin: Troponin T < 0.010 ng/mL (0.00-0.029) 08/07/21 14:03 Troponin: < normal limit - Critical Actions Critical Actions: 0-3 pts:0.9-1.7%risk of adverse cardiac event.Candidate for discharge Results - Labs CBC & Chem 7: 08/07/21 14:46 08/07/21 14:03 Labs: Laboratory Last Values WBC 5.3 K/mm3 (4.5-11.0) 08/07/21 14:46 RBC 4.40 M/mm3 (3.65-5.03) 08/07/21 14:46 Hgb 13.3 gm/dl (10.1-14.3) 08/07/21 14:46 Hct 40.9 % (30.3-42.9) 08/07/21 14:46 MCV 93 fl (79-97) 08/07/21 14:46 MCH 30 pg (28-32) 08/07/21 14:46 MCHC 32 % (30-34) 08/07/21 14:46 RDW 14.5 % (13.2-15.2) 08/07/21 14:46 Plt Count 161 K/mm3 (140-440) 08/07/21 14:46 Add Manual Diff Complete 08/07/21 14:46 Total Counted 100 08/07/21 14:46 Seg Neuts % (Manual) 77.0 % (40.0-70.0) H 08/07/21 14:46 Band Neutrophils % 0 % 08/07/21 14:46 Lymphocytes % (Manual) 14.0 % (13.4-35.0) 08/07/21 14:46 Reactive Lymphs % (Man) 0 % 08/07/21 14:46 Monocytes % (Manual) 8.0 % (0.0-7.3) H 08/07/21 14:46 Eosinophils % (Manual) 1.0 % (0.0-4.3) 08/07/21 14:46 Basophils % (Manual) 0 % (0.0-1.8) 08/07/21 14:46 Metamyelocytes % 0 % 08/07/21 14:46 Myelocytes % 0 % 08/07/21 14:46 Promyelocytes % 0 % 08/07/21 14:46 Blast Cells % 0 % 08/07/21 14:46 Nucleated RBC % Not Reportable 08/07/21 14:46 Seg Neutrophils # Man 4.1 K/mm3 (1.8-7.7) 08/07/21 14:46 Band Neutrophils # 0.0 K/mm3 08/07/21 14:46 Lymphocytes # (Manual) 0.7 K/mm3 (1.2-5.4) L 08/07/21 14:46 Abs React Lymphs (Man) 0.0 K/mm3 08/07/21 14:46 Monocytes # (Manual) 0.4 K/mm3 (0.0-0.8) 08/07/21 14:46 Eosinophils # (Manual) 0.1 K/mm3 (0.0-0.4) 08/07/21 14:46 Basophils # (Manual) 0.0 K/mm3 (0.0-0.1) 08/07/21 14:46 Metamyelocytes # 0.0 K/mm3 08/07/21 14:46 Myelocytes # 0.0 K/mm3 08/07/21 14:46 Promyelocytes # 0.0 K/mm3 08/07/21 14:46 Blast Cells # 0.0 K/mm3 08/07/21 14:46 WBC Morphology Not Reportable 08/07/21 14:46 WBC Morphology TNR 08/07/21 14:46 Hypersegmented Neuts Not Reportable 08/07/21 14:46 Hyposegmented Neuts Not Reportable 08/07/21 14:46 Hypogranular Neuts Not Reportable 08/07/21 14:46 Smudge Cells Not Reportable 08/07/21 14:46 Toxic Granulation Not Reportable 08/07/21 14:46 Toxic Vacuolation Not Reportable 08/07/21 14:46 Dohle Bodies Not Reportable 08/07/21 14:46 Pelger-Huet Anomaly Not Reportable 08/07/21 14:46 Jc Rods Not Reportable 08/07/21 14:46 Platelet Estimate Consistent w auto 08/07/21 14:46 Clumped Platelets Not Reportable 08/07/21 14:46 Plt Clumps, EDTA Not Reportable 08/07/21 14:46 Large Platelets Not Reportable 08/07/21 14:46 Giant Platelets Not Reportable 08/07/21 14:46 Platelet Satelliting Not Reportable 08/07/21 14:46 Plt Morphology Comment Not Reportable 08/07/21 14:46 RBC Morphology Normal 08/07/21 14:46 Dimorphic RBCs Not Reportable 08/07/21 14:46 Polychromasia Not Reportable 08/07/21 14:46 Hypochromasia Not Reportable 08/07/21 14:46 Poikilocytosis Not Reportable 08/07/21 14:46 Anisocytosis Not Reportable 08/07/21 14:46 Microcytosis Not Reportable 08/07/21 14:46 Macrocytosis Not Reportable 08/07/21 14:46 Spherocytes Not Reportable 08/07/21 14:46 Pappenheimer Bodies Not Reportable 08/07/21 14:46 Sickle Cells Not Reportable 08/07/21 14:46 Target Cells Not Reportable 08/07/21 14:46 Tear Drop Cells Not Reportable 08/07/21 14:46 Ovalocytes Not Reportable 08/07/21 14:46 Helmet Cells Not Reportable 08/07/21 14:46 [place] Bodies Not Reportable 08/07/21 14:46 [place] Rings Not Reportable 08/07/21 14:46 Kurt Cells Not Reportable 08/07/21 14:46 Bite Cells Not Reportable 08/07/21 14:46 Crenated Cell Not Reportable 08/07/21 14:46 Elliptocytes Not Reportable 08/07/21 14:46 Acanthocytes (Spur) Not Reportable 08/07/21 14:46 Rouleaux Not Reportable 08/07/21 14:46 Hemoglobin C Crystals Not Reportable 08/07/21 14:46 Schistocytes Not Reportable 08/07/21 14:46 Malaria parasites Not Reportable 08/07/21 14:46 Lino Bodies Not Reportable 08/07/21 14:46 Hem Pathologist Commnt No 08/07/21 14:46 PT 13.5 Sec. (12.2-14.9) 08/07/21 14:03 INR 0.91 (0.87-1.13) 08/07/21 14:03 APTT 26.5 Sec. (24.2-36.6) 08/07/21 14:03 Thrombin Time 18.1 Sec. (15.1-19.6) 08/07/21 14:03 Sodium 139 mmol/L (137-145) 08/07/21 14:03 Potassium 4.7 mmol/L (3.6-5.0) 08/07/21 14:03 Chloride 98.7 mmol/L (98-107) 08/07/21 14:03 Carbon Dioxide 26 mmol/L (22-30) 08/07/21 14:03 Anion Gap 19 mmol/L 08/07/21 14:03 BUN 43 mg/dL (7-17) H 08/07/21 14:03 Creatinine 2.2 mg/dL (0.6-1.2) H 08/07/21 14:03 Estimated GFR 22 ml/min 08/07/21 14:03 BUN/Creatinine Ratio 20 % 08/07/21 14:03 Glucose 200 mg/dL (65-100) H 08/07/21 14:03 POC Glucose 224 mg/dL (70-105) H 08/07/21 13:27 Calcium 9.1 mg/dL (8.4-10.2) 08/07/21 14:03 Magnesium 2.60 mg/dL (1.7-2.3) H 08/07/21 14:03 Total Bilirubin 0.50 mg/dL (0.1-1.2) 08/07/21 14:03 AST 15 units/L (5-40) 08/07/21 14:03 ALT 9 units/L (7-56) 08/07/21 14:03 Alkaline Phosphatase 53 units/L (35-129) 08/07/21 14:03 Ammonia 21.0 umol/L (25-60) L 08/07/21 14:03 Total Creatine Kinase 115 units/L (30-135) 08/07/21 14:03 CK-MB (CK-2) 3.5 ng/mL (0.0-4.0) 08/07/21 14:03 CK-MB (CK-2) Rel Index 3.0 (0-4) 08/07/21 14:03 Troponin T < 0.010 ng/mL (0.00-0.029) 08/07/21 14:03 Total Protein 6.6 g/dL (6.3-8.2) 08/07/21 14:03 Albumin 4.2 g/dL (3.9-5) 08/07/21 14:03 Albumin/Globulin Ratio 1.8 % 08/07/21 14:03 TSH 0.999 mlU/mL (0.270-4.200) 08/07/21 14:03 Urine Color Yellow (Yellow) 08/07/21 Unknown Urine Turbidity Slightly-cloudy (Clear) 08/07/21 Unknown Urine pH 5.0 (5.0-7.0) 08/07/21 Unknown Ur Specific [place] 1.020 (1.003-1.030) 08/07/21 Unknown Urine Protein 30 mg/dl mg/dL (Negative) 08/07/21 Unknown Urine Glucose (UA) Neg mg/dL (Negative) 08/07/21 Unknown Urine Ketones Tr mg/dL (Negative) 08/07/21 Unknown Urine Blood Sm (Negative) 08/07/21 Unknown Urine Nitrite Neg (Negative) 08/07/21 Unknown Urine Bilirubin Neg (Negative) 08/07/21 Unknown Urine Urobilinogen < 2.0 mg/dL (<2.0) 08/07/21 Unknown Ur Leukocyte Esterase Lg (Negative) 08/07/21 Unknown Urine WBC (Auto) 28.0 /HPF (0.0-6.0) H 08/07/21 Unknown Urine RBC (Auto) 3.0 /HPF (0.0-6.0) 08/07/21 Unknown U Epithel Cells (Auto) 8.0 /HPF (0-13.0) 08/07/21 Unknown Urine Bacteria (Auto) 1+ /HPF (Negative) 08/07/21 Unknown Hyaline Casts 5 /LPF 08/07/21 Unknown Urine Mucus Few /HPF 08/07/21 Unknown Plasma/Serum Alcohol < 0.01 % (0-0.07) 08/07/21 14:03 Short CBC 08/07/21 Range/Units 14:46 WBC 5.3 (4.5-11.0) K/mm3 Hgb 13.3 (10.1-14.3) gm/dl Hct 40.9 (30.3-42.9) % Plt Count 161 (140-440) [place]/mm3 [facility] [place] 14:03 Sodium 139 Potassium 4.7 Chloride 98.7 Carbon Dioxide 26 BUN 43 H Creatinine 2.2 H Glucose 200 H Calcium 9.1 Cardiac Enzymes 08/07/21 Range/Units 14:03 Total Creatine Kinase 115 (30-135) units/L CK-MB (CK-2) 3.5 (0.0-4.0) ng/mL Troponin T < 0.010 (0.00-0.029) ng/mL Liver Function 08/07/21 Range/Units 14:03 Total Bilirubin 0.50 (0.1-1.2) mg/dL AST 15 (5-40) units/L ALT 9 (7-56) units/L Alkaline Phosphatase 53 (35-129) units/L Albumin 4.2 (3.9-5) g/dL Urine 08/07/21 Range/Units Unknown Urine Color Yellow (Yellow) Urine pH 5.0 (5.0-7.0) Ur Specific [place] 1.020 (1.003-1.030) Urine Protein 30 mg/dl (Negative) mg/dL Urine Glucose (UA) Neg (Negative) mg/dL Short CBC 08/07/21 Range/Units 14:46 WBC 5.3 (4.5-11.0) K/mm3 Hgb 13.3 (10.1-14.3) gm/dl Hct 40.9 (30.3-42.9) % Plt Count 161 (140-440) K/mm3 [facility] [place] 14:03 Sodium 139 Potassium 4.7 Chloride 98.7 Carbon Dioxide 26 BUN 43 H Creatinine 2.2 H Glucose 200 H Calcium 9.1 Cardiac Enzymes 08/07/21 Range/Units 14:03 Total Creatine Kinase 115 (30-135) units/L CK-MB (CK-2) 3.5 (0.0-4.0) ng/mL Troponin T < 0.010 (0.00-0.029) ng/mL Liver Function 08/07/21 Range/Units 14:03 Total Bilirubin 0.50 (0.1-1.2) mg/dL AST 15 (5-40) units/L ALT 9 (7-56) units/L Alkaline Phosphatase 53 (35-129) units/L Albumin 4.2 (3.9-5) g/dL Urine 08/07/ Range/Units Unknown Urine Color Yellow (Yellow) Urine pH 5.0 (5.0-7.0) Ur Specific [place] 1.020 (1.003-1.030) Urine Protein 30 mg/dl (Negative) mg/dL Urine Glucose (UA) Neg (Negative) mg/dL - Imaging and Cardiology EKG: report reviewed (EKG sinus rhythm, anteroseptal infarct) Imaging and Cardiology: CT head [employer] degrades image quality. However there is a microvascular angiopathy with small focus of decreased attenuation involving the left thalamus as detailed above. There is no CT evidence of acute intracranial hemorrhage. Chest x-ray No acute airspace disease. COPD findings are identified throughout both lungs Forearm x-ray Right forearm is osteopenic but grossly intact. No foreign body appreciated. Pelvis CT Severe osseous metastatic disease without discrete pelvic or hip fracture. There is extensive sclerotic osseous metastatic disease throughout the v isualized lower lumbar spine pelvis and both hips. Assessment and Plan Advance Directives: Yes (Full code) VTE prophylaxis?: Chemical Plan of care discussed with patient/family: Yes - Patient Problems (1) Acute CVA (cerebrovascular accident) Current Visit: Yes Status: Acute Plan to address problem: Patient has dysarthria and unsteadiness MRI and echo with variable study ordered Telemetry neurology has seen the patient Neuro consult by Dr. [facility] on Monday CVA protocol requested High intensity statins initiated Physical therapy and Occupational Therapy requested Aspirin and Plavix initiated (2) T2DM (type 2 diabetes mellitus) Current Visit: Yes Status: Chronic Qualifiers: Diabetes mellitus nursing home insulin use: without long chain quiller tender use Plan to address problem: Oral hypoglycemics resumed Accu-Cheks before meals and at bedtime Coverage with moderate dose sliding scale protocol Check hemoglobin A1c (3) UZIEL (acute kidney injury) Current Visit: Yes Status: Acute Plan to address problem: IV fluids for now Nephrology consult requested (4) Traumatic ecchymosis of right forearm Current Visit: Yes Status: Acute Qualifiers: Encounter type: initial encounter Qualified Code(s): S50.11XA - Contusion of right forearm, initial encounter Plan to address problem: No fracture Ecchymosis should resolve itself Reason for Eliquis not known Patient is not on A. fib We will hold Eliquis for the time being (5) COPD (chronic obstructive pulmonary disease) Current Visit: Yes Status: Acute (6) UTI (urinary tract infection) Current Visit: Yes Status: Acute Qualifiers: Urinary tract infection type: acute cystitis Plan to address problem: Initiated on Macrobid 100 twice daily pending urine cultures (7) DVT prophylaxis Current Visit: Yes Status: Acute Plan to address problem: Hold Eliquis SCDs and GI prophylaxis (8) Advance care planning Current Visit: Yes Status: Acute Plan to address problem: Disease education conducted, care plan discussed, diagnosis discussed, prognosis discussed. Patient is full code. Patient acknowledges understanding and agreement with care plan. +30 minutes
[2021-08-07] MEDS ORDERED: ALBUTEROL 8.5 GM MDI INHALATION IH PRN (19:56)
[2021-08-07] MEDS ORDERED: MORPHINE 2 MG/1 ML INJ IV PRN (20:05)
[2021-08-07] MEDS ORDERED: HYDROmorphone 0.5 MG/0.5 ML INJ IV PRN (20:05)
[2021-08-07] MEDS ORDERED: METOCLOPRAMIDE 10 MG/2 ML INJ IV PRN (20:05)
[2021-08-07] MEDS ORDERED: oxyCODONE /ACETAMINOPHEN 5-325MG TAB PO PRN (20:05)
[2021-08-07] MEDS ORDERED: INSULIN LISPRO 100 UNIT/ML SUB-Q ONE (20:21)
[2021-08-07] MEDS ORDERED: SODIUM CHLORIDE 0.9% 1000 ML 1,000 ML IV SCH (23:45)
[2021-08-08] MEDS: HEPARIN 5,000 UNIT/1 ML VIAL SUB-Q SCH ×3 (02:10→22:30)
[2021-08-08] MEDS: APIXABAN 5 MG TAB PO SCH ×2 (02:10→10:30)
[2021-08-08] MEDS: NITROFURANTOIN MONOHYD/M-CRYST 100 MG CAP PO SCH ×3 (02:11→22:30)
[2021-08-08] MEDS: ONDANSETRON 4 MG/2 ML INJ IV PRN ×2 (03:54→11:25)
[2021-08-08] MEDS: methylPREDNISolone 4 MG TAB PO SCH ×2 (04:53→10:30)
[2021-08-08] MEDS: POTASSIUM CHLORIDE 20 MEQ PACKET PO SCH ×3 (04:53→22:30)
[2021-08-08] MEDS: CALCIUM CARBONATE 500 MG TAB CHEW PO SCH ×4 (04:54→22:29)
[2021-08-08 05:08] LABS: Basophils % (Auto) 0.7 % (0.0-1.8); Eosinophils # (Auto) 0.1 K/mm3 (0.0-0.4); Eosinophils % (Auto) 1.4 % (0.0-4.3); Hematocrit 36.2 % (30.3-42.9); Hemoglobin 11.8 gm/dl (10.1-14.3); Lymphocytes # (Auto) 0.6 K/mm3 (1.2-5.4); Lymphocytes % (Auto) 14.5 % (13.4-35.0); Mean Corpuscular HGB Conc 33 % (30-34); Mean Corpuscular Volume 93 fl (79-97); Monocytes # (Auto) 0.3 K/mm3 (0.0-0.8); Monocytes % (Auto) 8.6 % (0.0-7.3); Platelet Count 119 K/mm3 (140-440); Red Blood Count 3.88 M/mm3 (3.65-5.03); Red Cell Distribution Width 14.2 % (13.2-15.2)
[2021-08-08 05:30] LABS: Albumin 3.7 g/dL (3.9-5); Calcium 8.1 mg/dL (8.4-10.2); Chol/HDL Ratio 3.2 %
[2021-08-08] MEDS: GLIMEPIRIDE 4 MG TAB PO SCH (08:29)
[2021-08-08] MEDS ORDERED: cefTRIAXone/NS 1 GM/50 ML 1 GM/50 ML BAG IV SCH (09:00)
--- NOTE | 2021-08-08 09:15 | Progress Note ---
Assessment and Plan Assessment and plan: #Presumed acute ischemic CVA Unremarkable CT head noncontrast. Pending MRI brain without to evaluate for acute ischemic CVA given the patient's dysarthria and unsteadiness with her gait. Pending TTE with bubble study to evaluate for PFO. Neurology consulted; pending recs. Physical therapy and Occupational Therapy consulted; pending recs. Triglycerides 112, cholesterol 234, LDL 137, HDL 73. Hemoglobin A1c 5.5. Starting atorvastatin 40 mg daily, aspirin 81 mg daily, and Plavix 75 mg daily. #Non-insulin dependent type II diabetes mellitus - hemoglobin A1c: 5.5 - home regimen: Glimepiride 4 mg daily - current regimen: Glimepiride 4 mg daily - blood glucose goal 140-180 while inpatient - continue to monitor #UZIEL Etiology currently unknown. Creatinine 2.0 (baseline unknown); monitor with repeat daily BMP Renally dose meds and avoid nephrotoxic drugs. Nephrology consulted on admission; pending recs. Continue IV fluid resuscitation #Ground-level fall #Ecchymosis CT L-spine, CT pelvis, forearm x-ray Continue analgesics as needed. Holding home Eliquis (reason for administration is unknown). Continue to monitor. #History of COPD #Chronic hypoxic respiratory failure Continue baseline oxygen requirement of 2 L nasal cannula Continue DuoNebs every 6 hours and albuterol nebs every 4 hours as needed #Acute cystitis without hematuria - Urinalysis revealing large leukocyte esterase, WBC 28, bacteria 1+ Continue Macrobid 100 mg twice daily x7 days #Advanced care planning -Disease education conducted, care plan discussed, diagnoses discussed, prognosis discussed, and patient acknowledges understanding with care plan -Time: +30 min Disposition Plan: Continue medical management Total Time Spent with Patient (Minutes): 30 min History Interval history: No acute events overnight. Hospitalist Physical - Constitutional Vitals: Temp Pulse Resp BP Pulse Ox 98.6 F 73 16 128/46 96 08/08/21 07:20 08/08/21 07:20 08/08/21 07:20 08/08/21 07:20 08/08/21 08:46 General appearance: Present: mild distress, well-nourished - EENT Eyes: Present: PERRL, EOM intact ENT: hearing intact, clear oral mucosa, edentulous - Neck Neck: Present: supple, normal ROM - Respiratory Respiratory effort: normal Respiratory: bilateral: diminished (on 2L nasal cannula (baseline)) - Cardiovascular Rhythm: regular Heart Sounds: Present: S1 & S2 - Extremities Extremities: no ischemia, pulses intact, pulses symmetrical, No edema, normal temperature, normal color Peripheral Pulses: within normal limits - Abdominal General gastrointestinal: soft, non-tender, non-distended, normal bowel sounds - Integumentary Integumentary: Present: clear, warm, dry - Psychiatric Psychiatric: appropriate mood/affect, intact judgment & insight, memory intact, cooperative - Neurologic Neurologic: CNII-XII intact - Allied Health Allied health notes reviewed: nursing HEART Score - HEART Score Age: > 65 Risk factors: 1-2 risk factors Troponin: Troponin T < 0.010 ng/mL (0.00-0.029) 08/07/21 14:03 Troponin: < normal limit - Critical Actions Critical Actions: 0-3 pts:0.9-1.7%risk of adverse cardiac event.Candidate for discharge Results - Labs CBC & Chem 7: 08/08/21 04:10 08/08/21 04:10 Labs: Laboratory Last Values WBC 4.0 K/mm3 (4.5-11.0) L 08/08/21 04:10 RBC 3.88 M/mm3 (3.65-5.03) 08/08/21 04:10 Hgb 11.8 gm/dl (10.1-14.3) 08/08/21 04:10 Hct 36.2 % (30.3-42.9) 08/08/21 04:10 MCV 93 fl (79-97) 08/08/21 04:10 MCH 31 pg (28-32) 08/08/21 04:10 MCHC 33 % (30-34) 08/08/21 04:10 RDW 14.2 % (13.2-15.2) 08/08/21 04:10 Plt Count 119 K/mm3 (140-440) L 08/08/21 04:10 Lymph % (Auto) 14.5 % (13.4-35.0) 08/08/21 04:10 [place] % (Auto) 8.6 % (0.0-7.3) H 08/08/21 04:10 Eos % (Auto) 1.4 % (0.0-4.3) 08/08/21 04:10 Baso % (Auto) 0.7 % (0.0-1.8) 08/08/21 04:10 Lymph # (Auto) 0.6 K/mm3 (1.2-5.4) L 08/08/21 04:10 [place] # (Auto) 0.3 K/mm3 (0.0-0.8) 08/08/21 04:10 Eos # (Auto) 0.1 K/mm3 (0.0-0.4) 08/08/21 04:10 Baso # (Auto) 0.0 K/mm3 (0.0-0.1) 08/08/21 04:10 Add Manual Diff Complete 08/07/21 14:46 Total Counted 100 08/07/21 14:46 Seg Neutrophils % 74.8 % (40.0-70.0) H 08/08/21 04:10 Seg Neuts % (Manual) 77.0 % (40.0-70.0) H 08/07/21 14:46 Band Neutrophils % 0 % 08/07/21 14:46 Lymphocytes % (Manual) 14.0 % (13.4-35.0) 08/07/21 14:46 Reactive Lymphs % (Man) 0 % 08/07/21 14:46 Monocytes % (Manual) 8.0 % (0.0-7.3) H 08/07/21 14:46 Eosinophils % (Manual) 1.0 % (0.0-4.3) 08/07/21 14:46 Basophils % (Manual) 0 % (0.0-1.8) 08/07/21 14:46 Metamyelocytes % 0 % 08/07/21 14:46 Myelocytes % 0 % 08/07/21 14:46 Promyelocytes % 0 % 08/07/21 14:46 Blast Cells % 0 % 08/07/21 14:46 Nucleated RBC % Not Reportable 08/07/21 14:46 Seg Neutrophils # 3.0 K/mm3 (1.8-7.7) 08/08/21 04:10 Seg Neutrophils # Man 4.1 K/mm3 (1.8-7.7) 08/07/21 14:46 Band Neutrophils # 0.0 K/mm3 08/07/21 14:46 Lymphocytes # (Manual) 0.7 K/mm3 (1.2-5.4) L 08/07/21 14:46 Abs React Lymphs (Man) 0.0 K/mm3 08/07/21 14:46 Monocytes # (Manual) 0.4 K/mm3 (0.0-0.8) 08/07/21 14:46 Eosinophils # (Manual) 0.1 K/mm3 (0.0-0.4) 08/07/21 14:46 Basophils # (Manual) 0.0 K/mm3 (0.0-0.1) 08/07/21 14:46 Metamyelocytes # 0.0 K/mm3 08/07/21 14:46 Myelocytes # 0.0 K/mm3 08/07/21 14:46 Promyelocytes # 0.0 K/mm3 08/07/21 14:46 Blast Cells # 0.0 K/mm3 08/07/21 14:46 WBC Morphology Not Reportable 08/07/21 14:46 WBC Morphology TNR 08/07/21 14:46 Hypersegmented Neuts Not Reportable 08/07/21 14:46 Hyposegmented Neuts Not Reportable 08/07/21 14:46 Hypogranular Neuts Not Reportable 08/07/21 14:46 Smudge Cells Not Reportable 08/07/21 14:46 Toxic Granulation Not Reportable 08/07/21 14:46 Toxic Vacuolation Not Reportable 08/07/21 14:46 Dohle Bodies Not Reportable 08/07/21 14:46 Pelger-Huet Anomaly Not Reportable 08/07/21 14:46 Jc Rods Not Reportable 08/07/21 14:46 Platelet Estimate Consistent w auto 08/07/21 14:46 Clumped Platelets Not Reportable 08/07/21 14:46 Plt Clumps, EDTA Not Reportable 08/07/21 14:46 Large Platelets Not Reportable 08/07/21 14:46 Giant Platelets Not Reportable 08/07/21 14:46 Platelet Satelliting Not Reportable 08/07/21 14:46 Plt Morphology Comment Not Reportable 08/07/21 14:46 RBC Morphology Normal 08/07/21 14:46 Dimorphic RBCs Not Reportable 08/07/21 14:46 Polychromasia Not Reportable 08/07/21 14:46 Hypochromasia Not Reportable 08/07/21 14:46 Poikilocytosis Not Reportable 08/07/21 14:46 Anisocytosis Not Reportable 08/07/21 14:46 Microcytosis Not Reportable 08/07/21 14:46 Macrocytosis Not Reportable 08/07/21 14:46 Spherocytes Not Reportable 08/07/21 14:46 Pappenheimer Bodies Not Reportable 08/07/21 14:46 Sickle Cells Not Reportable 08/07/21 14:46 Target Cells Not Reportable 08/07/21 14:46 Tear Drop Cells Not Reportable 08/07/21 14:46 Ovalocytes Not Reportable 08/07/21 14:46 Helmet Cells Not Reportable 08/07/21 14:46 Cook-Mildred Bodies Not Reportable 08/07/21 14:46 [place] Rings Not Reportable 08/07/21 14:46 [place] Cells Not Reportable 08/07/21 14:46 Bite Cells Not Reportable 08/07/21 14:46 Crenated Cell Not Reportable 08/07/21 14:46 Elliptocytes Not Reportable 08/07/21 14:46 Acanthocytes (Spur) Not Reportable 08/07/21 14:46 Rouleaux Not Reportable 08/07/21 14:46 Hemoglobin C Crystals Not Reportable 08/07/21 14:46 Schistocytes Not Reportable 08/07/21 14:46 Malaria parasites Not Reportable 08/07/21 14:46 Lino Bodies Not Reportable 08/07/21 14:46 Hem Pathologist Commnt No 08/07/21 14:46 PT 13.5 Sec. (12.2-14.9) 08/07/21 14:03 INR 0.91 (0.87-1.13) 08/07/21 14:03 APTT 26.5 Sec. (24.2-36.6) 08/07/21 14:03 Thrombin Time 18.1 Sec. (15.1-19.6) 08/07/21 14:03 Sodium 137 mmol/L (137-145) 08/08/21 04:10 Potassium 4.4 mmol/L (3.6-5.0) 08/08/21 04:10 Chloride 103.3 mmol/L (98-107) 08/08/21 04:10 Carbon Dioxide 22 mmol/L (22-30) 08/08/21 04:10 Anion Gap 16 mmol/L 08/08/21 04:10 BUN 41 mg/dL (7-17) H 08/08/21 04:10 Creatinine 2.0 mg/dL (0.6-1.2) H 08/08/21 04:10 Estimated GFR 25 ml/min 08/08/21 04:10 BUN/Creatinine Ratio 21 % 08/08/21 04:10 Glucose 111 mg/dL (65-100) H 08/08/21 04:10 POC Glucose 101 mg/dL (70-105) 08/08/21 07:49 Hemoglobin A1c 5.5 % (4-6) 08/08/21 04:10 Calcium 8.1 mg/dL (8.4-10.2) L 08/08/21 04:10 Magnesium 2.60 mg/dL (1.7-2.3) H 08/07/21 14:03 Total Bilirubin 0.40 mg/dL (0.1-1.2) 08/08/21 04:10 AST 11 units/L (5-40) 08/08/21 04:10 ALT 7 units/L (7-56) 08/08/21 04:10 Alkaline Phosphatase 43 units/L (35-129) 08/08/21 04:10 Ammonia 21.0 umol/L (25-60) L 08/07/21 14:03 Total Creatine Kinase 115 units/L (30-135) 08/07/21 14:03 CK-MB (CK-2) 3.5 ng/mL (0.0-4.0) 08/07/21 14:03 CK-MB (CK-2) Rel Index 3.0 (0-4) 08/07/21 14:03 Troponin T < 0.010 ng/mL (0.00-0.029) 08/07/21 14:03 Total Protein 5.8 g/dL (6.3-8.2) L 08/08/21 04:10 Albumin 3.7 g/dL (3.9-5) L 08/08/21 04:10 Albumin/Globulin Ratio 1.8 % 08/08/21 04:10 Triglycerides 112 mg/dL (2-149) 08/08/21 04:10 Cholesterol 234 mg/dL (50-199) H 08/08/21 04:10 LDL Cholesterol Direct 137 mg/dL (50-130) H 08/08/21 04:10 HDL Cholesterol 73 mg/dL (40-59) H 08/08/21 04:10 Cholesterol/HDL Ratio 3.20 % 08/08/21 04:10 TSH 0.999 mlU/mL (0.270-4.200) 08/07/21 14:03 Urine Color Yellow (Yellow) 08/07/21 Unknown Urine Turbidity Slightly-cloudy (Clear) 08/07/21 Unknown Urine pH 5.0 (5.0-7.0) 08/07/21 Unknown Ur Specific [place] 1.020 (1.003-1.030) 08/07/21 Unknown Urine Protein 30 mg/dl mg/dL (Negative) 08/07/21 Unknown Urine Glucose (UA) Neg mg/dL (Negative) 08/07/21 Unknown Urine Ketones Tr mg/dL (Negative) 08/07/21 Unknown Urine Blood Sm (Negative) 08/07/21 Unknown Urine Nitrite Neg (Negative) 08/07/21 Unknown Urine Bilirubin Neg (Negative) 08/07/21 Unknown Urine Urobilinogen < 2.0 mg/dL (<2.0) 08/07/21 Unknown Ur Leukocyte Esterase Lg (Negative) 08/07/21 Unknown Urine WBC (Auto) 28.0 /HPF (0.0-6.0) H 08/07/21 Unknown Urine RBC (Auto) 3.0 /HPF (0.0-6.0) 08/07/21 Unknown U Epithel Cells (Auto) 8.0 /HPF (0-13.0) 08/07/21 Unknown Urine Bacteria (Auto) 1+ /HPF (Negative) 08/07/21 Unknown Hyaline Casts 5 /LPF 08/07/21 Unknown Urine Mucus Few /HPF 08/07/21 Unknown Plasma/Serum Alcohol < 0.01 % (0-0.07) 08/07/21 14:03 Trinh/IV: Voiding Method Toilet Active Medications - Current Medications Current Medications: Generic Name Dose Route Start Last Admin Trade Name Freq PRN Reason Stop Dose Admin Acetaminophen 650 mg 08/07/21 19:57 Acetaminophen 325 Mg Tab PO Q4H PRN Pain MILD(1-3)/Fever >100.5/PIERSON Albuterol 1 puff 08/07/21 19:56 Albuterol 8.5 Gm Mdi Inhalation IH Q4HRT PRN Shortness Of Breath Apixaban 5 mg 08/07/21 22:00 08/08/21 02:10 Apixaban 5 Mg Tab PO 5 mg Q12HR CAREN Administration Atorvastatin Calcium 40 mg 08/07/21 22:00 08/08/21 02:10 Atorvastatin 40 Mg Tab PO 40 mg QHS CAREN Administration Calcium Carbonate/Glycine 2,000 mg 08/07/21 22:00 08/08/21 05:36 Calcium Carbonate 500 Mg Tab Chew PO 2,000 mg Q8HR CAREN Administration Glimepiride 4 mg 08/08/21 08:00 Glimepiride 4 Mg Tab PO QAMDIAB [facility] Heparin Sodium (Porcine) 5,000 unit 08/07/21 22:00 08/08/21 02:10 Heparin 5,000 Unit/1 Ml Vial SUB-Q 5,000 unit Q12HR CAREN Administration Hydromorphone HCl 0.5 mg 08/07/21 20:05 08/08/21 02:11 Hydromorphone 0.5 Mg/0.5 Ml Inj IV 0.5 mg Q3H PRN Administration Pain , Severe (7-10) Sodium Chloride 1,000 mls @ 75 mls/hr 08/07/21 20:15 Nacl 0.9% 1000 Ml IV DIRECT [facility] Methylprednisolone 4 mg 08/07/21 20:00 08/08/21 04:53 Methylprednisolone 4 Mg Tab PO Not Given DAILY [facility] Metoclopramide HCl 5 mg 08/07/21 20:05 Metoclopramide 10 Mg/2 Ml Inj IV Q6H PRN Nausea And Vomiting Morphine Sulfate 2 mg 08/07/21 20:05 Morphine 2 Mg/1 Ml Inj IV Q4H PRN Pain, Moderate (4-6) Nitrofurantoin Macrocrystals 100 mg 08/07/21 23:45 08/08/21 02:11 Nitrofurantoin Monohyd/M-Cryst 100 Mg Cap PO 100 mg BID CAREN Administration Ondansetron HCl 4 mg 08/07/21 19:57 08/08/21 03:54 Ondansetron 4 Mg/2 Ml Inj IV 4 mg Q3H PRN Administration Nausea And Vomiting Oxycodone/Acetaminophen 1 tab 08/07/21 20:05 Oxycodone /Acetaminophen 5-325mg Tab PO Q6H PRN Pain, Moderate (4-6) Potassium Chloride 20 meq 08/07/21 22:00 08/08/21 04:53 Potassium Chloride 20 Meq Packet PO Not Given BID CAREN Sodium Chloride 10 ml 08/07/21 22:00 08/08/21 04:54 Sodium Chloride 0.9% 10 Ml Flush Syringe IV 10 ml BID CAREN Administration Sodium Chloride 10 ml 08/07/21 19:57 Sodium Chloride 0.9% 10 Ml Flush Syringe IV PRN PRN LINE FLUSH
[2021-08-08] MEDS ORDERED: SULFAMETHOXAZOLE/TRIMETHOPRIM 800/160MG DS TAB PO SCH (10:00)
[2021-08-08] MEDS: SODIUM CHLORIDE 0.9% 1000 ML 1,000 ML IV SCH ×2 (10:26→23:50)
[2021-08-08] MEDS ORDERED: KETOROLAC 30 MG/1 ML INJ IV PRN (12:13)
[2021-08-08] MEDS: ASPIRIN EC 325 MG TAB PO SCH (13:00)
[2021-08-08] MEDS: ACETAMINOPHEN 325 MG TAB PO PRN (20:30)
[2021-08-09 05:30] LABS: Calcium 9.7 mg/dL (8.4-10.2)
[2021-08-09] MEDS ORDERED: SODIUM POLYSTYRENE 15 GM/60 ML ORAL LIQD PO NR (08:00)
[2021-08-09] MEDS: CALCIUM CARBONATE 500 MG TAB CHEW PO SCH ×3 (09:14→21:32)
[2021-08-09] MEDS: GLIMEPIRIDE 4 MG TAB PO SCH (09:15)
[2021-08-09] MEDS: HEPARIN 5,000 UNIT/1 ML VIAL SUB-Q SCH ×2 (09:35→21:33)
[2021-08-09] MEDS: NITROFURANTOIN MONOHYD/M-CRYST 100 MG CAP PO SCH ×2 (09:35→21:32)
[2021-08-09] MEDS: methylPREDNISolone 4 MG TAB PO SCH (09:37)
[2021-08-09] MEDS: ASPIRIN EC 325 MG TAB PO SCH (09:41)
--- NOTE | 2021-08-09 10:06 | Progress Note ---
Assessment and Plan Assessment and plan: #Presumed acute ischemic CVA Unremarkable CT head noncontrast. Pending MRI brain without to evaluate for acute ischemic CVA given the patient's dysarthria and unsteadiness with her gait. Pending TTE with bubble study to evaluate for PFO. Neurology consulted; pending recs. Physical therapy recommending home health with physical therapy Triglycerides 112, cholesterol 234, LDL 137, HDL 73. Hemoglobin A1c 5.5. Continue atorvastatin 40 mg daily, aspirin 81 mg daily, and Plavix 75 mg daily. #AKIimproving Etiology currently unknown. Creatinine 2.0--> 1.7 (baseline unknown); monitor with repeat daily BMP Renally dose meds and avoid nephrotoxic drugs. Nephrology consulted on admission; pending recs. Continue IV fluid resuscitation #Hyperkalemia Potassium 5.4 Inducing medical management with Kayexalate. Continue to monitor with repeat BMP tomorrow morning. #Hypertension - home medications: Amlodipine 5 mg daily - current medications: Amlodipine 5 mg daily - SBP goal <160 and DBP goal <90 while inpatient - continue to monitor #Ground-level fall #Ecchymosis CT L-spine, CT pelvis, forearm x-ray Continue analgesics as needed. Holding home Eliquis (reason for administration is unknown). Continue to monitor. #History of COPD #Chronic hypoxic respiratory failure Continue baseline oxygen requirement of 2 L nasal cannula Continue DuoNebs every 6 hours and albuterol nebs every 4 hours as needed #Acute cystitis without hematuria - Urinalysis revealing large leukocyte esterase, WBC 28, bacteria 1+ Continue Macrobid 100 mg twice daily x7 days #Advanced care planning -Disease education conducted, care plan discussed, diagnoses discussed, prognosis discussed, and patient acknowledges understanding with care plan -Time: +30 min #Discharge planning - Patient is pending TTE read, MRI brain, and neurology recommendations. - Case management has been made aware. - Discharge is tentatively 24-48 hours. Disposition Plan: Continue medical management Total Time Spent with Patient (Minutes): 45 minutes History Interval history: Patient continues to endorse mild nausea but with moderate improvement. Hospitalist Physical - Constitutional Vitals: Temp Pulse Resp BP Pulse Ox 98.6 F 80 18 163/70 95 08/09/21 08:23 08/09/21 08:23 08/09/21 08:23 08/09/21 08:23 08/09/21 08:23 General appearance: Present: mild distress, well-nourished - EENT Eyes: Present: PERRL, EOM intact ENT: hearing intact, clear oral mucosa, dentition normal - Neck Neck: Present: supple, normal ROM - Respiratory Respiratory effort: normal Respiratory: bilateral: diminished (On 2 L nasal cannula (baseline)) - Cardiovascular Rhythm: regular Heart Sounds: Present: S1 & S2 - Extremities Extremities: no ischemia, pulses intact, pulses symmetrical, No edema, normal temperature, normal color Peripheral Pulses: within normal limits - Abdominal General gastrointestinal: soft, non-tender, non-distended, normal bowel sounds - Integumentary Integumentary: Present: clear, warm, dry - Psychiatric Psychiatric: appropriate mood/affect, intact judgment & insight, memory intact, cooperative - Neurologic Neurologic: CNII-XII intact, moves all extremities - Allied Health Allied health notes reviewed: nursing HEART Score - HEART Score Age: > 65 Risk factors: 1-2 risk factors Troponin: Troponin T < 0.010 ng/mL (0.00-0.029) 08/07/21 14:03 Troponin: < normal limit - Critical Actions Critical Actions: 0-3 pts:0.9-1.7%risk of adverse cardiac event.Candidate for discharge Results - Labs CBC & Chem 7: 08/08/21 04:10 08/09/21 04:17 Labs: Laboratory Last Values WBC 4.0 K/mm3 (4.5-11.0) L 08/08/21 04:10 RBC 3.88 M/mm3 (3.65-5.03) 08/08/21 04:10 Hgb 11.8 gm/dl (10.1-14.3) 08/08/21 04:10 Hct 36.2 % (30.3-42.9) 08/08/21 04:10 MCV 93 fl (79-97) 08/08/21 04:10 MCH 31 pg (28-32) 08/08/21 04:10 MCHC 33 % (30-34) 08/08/21 04:10 RDW 14.2 % (13.2-15.2) 08/08/21 04:10 Plt Count 119 K/mm3 (140-440) L 08/08/21 04:10 Lymph % (Auto) 14.5 % (13.4-35.0) 08/08/21 04:10 [place] % (Auto) 8.6 % (0.0-7.3) H 08/08/21 04:10 Eos % (Auto) 1.4 % (0.0-4.3) 08/08/21 04:10 Baso % (Auto) 0.7 % (0.0-1.8) 08/08/21 04:10 Lymph # (Auto) 0.6 K/mm3 (1.2-5.4) L 08/08/21 04:10 [place] # (Auto) 0.3 K/mm3 (0.0-0.8) 08/08/21 04:10 Eos # (Auto) 0.1 K/mm3 (0.0-0.4) 08/08/21 04:10 Baso # (Auto) 0.0 K/mm3 (0.0-0.1) 08/08/21 04:10 Add Manual Diff Complete 08/07/21 14:46 Total Counted 100 08/07/21 14:46 Seg Neutrophils % 74.8 % (40.0-70.0) H 08/08/21 04:10 Seg Neuts % (Manual) 77.0 % (40.0-70.0) H 08/07/21 14:46 Band Neutrophils % 0 % 08/07/21 14:46 Lymphocytes % (Manual) 14.0 % (13.4-35.0) 08/07/21 14:46 Reactive Lymphs % (Man) 0 % 08/07/21 14:46 Monocytes % (Manual) 8.0 % (0.0-7.3) H 08/07/21 14:46 Eosinophils % (Manual) 1.0 % (0.0-4.3) 08/07/21 14:46 Basophils % (Manual) 0 % (0.0-1.8) 08/07/21 14:46 Metamyelocytes % 0 % 08/07/21 14:46 Myelocytes % 0 % 08/07/21 14:46 Promyelocytes % 0 % 08/07/21 14:46 Blast Cells % 0 % 08/07/21 14:46 Nucleated RBC % Not Reportable 08/07/21 14:46 Seg Neutrophils # 3.0 K/mm3 (1.8-7.7) 08/08/21 04:10 Seg Neutrophils # Man 4.1 K/mm3 (1.8-7.7) 08/07/21 14:46 Band Neutrophils # 0.0 K/mm3 08/07/21 14:46 Lymphocytes # (Manual) 0.7 K/mm3 (1.2-5.4) L 08/07/21 14:46 Abs React Lymphs (Man) 0.0 K/mm3 08/07/21 14:46 Monocytes # (Manual) 0.4 K/mm3 (0.0-0.8) 08/07/21 14:46 Eosinophils # (Manual) 0.1 K/mm3 (0.0-0.4) 08/07/21 14:46 Basophils # (Manual) 0.0 K/mm3 (0.0-0.1) 08/07/21 14:46 Metamyelocytes # 0.0 K/mm3 08/07/21 14:46 Myelocytes # 0.0 K/mm3 08/07/21 14:46 Promyelocytes # 0.0 K/mm3 08/07/21 14:46 Blast Cells # 0.0 K/mm3 08/07/21 14:46 WBC Morphology Not Reportable 08/07/21 14:46 WBC Morphology TNR 08/07/21 14:46 Hypersegmented Neuts Not Reportable 08/07/21 14:46 Hyposegmented Neuts Not Reportable 08/07/21 14:46 Hypogranular Neuts Not Reportable 08/07/21 14:46 Smudge Cells Not Reportable 08/07/21 14:46 Toxic Granulation Not Reportable 08/07/21 14:46 Toxic Vacuolation Not Reportable 08/07/21 14:46 Dohle Bodies Not Reportable 08/07/21 14:46 Pelger-Huet Anomaly Not Reportable 08/07/21 14:46 Jc Rods Not Reportable 08/07/21 14:46 Platelet Estimate Consistent w auto 08/07/21 14:46 Clumped Platelets Not Reportable 08/07/21 14:46 Plt Clumps, EDTA Not Reportable 08/07/21 14:46 Large Platelets Not Reportable 08/07/21 14:46 Giant Platelets Not Reportable 08/07/21 14:46 Platelet Satelliting Not Reportable 08/07/21 14:46 Plt Morphology Comment Not Reportable 08/07/21 14:46 RBC Morphology Normal 08/07/21 14:46 Dimorphic RBCs Not Reportable 08/07/21 14:46 Polychromasia Not Reportable 08/07/21 14:46 Hypochromasia Not Reportable 08/07/21 14:46 Poikilocytosis Not Reportable 08/07/21 14:46 Anisocytosis Not Reportable 08/07/21 14:46 Microcytosis Not Reportable 08/07/21 14:46 Macrocytosis Not Reportable 08/07/21 14:46 Spherocytes Not Reportable 08/07/21 14:46 Pappenheimer Bodies Not Reportable 08/07/21 14:46 Sickle Cells Not Reportable 08/07/21 14:46 Target Cells Not Reportable 08/07/21 14:46 Tear Drop Cells Not Reportable 08/07/21 14:46 Ovalocytes Not Reportable 08/07/21 14:46 Helmet Cells Not Reportable 08/07/21 14:46 [place] Bodies Not Reportable 08/07/21 14:46 [place] Rings Not Reportable 08/07/21 14:46 [place] Cells Not Reportable 08/07/21 14:46 Bite Cells Not Reportable 08/07/21 14:46 Crenated Cell Not Reportable 08/07/21 14:46 Elliptocytes Not Reportable 08/07/21 14:46 Acanthocytes (Spur) Not Reportable 08/07/21 14:46 Rouleaux Not Reportable 08/07/21 14:46 Hemoglobin C Crystals Not Reportable 08/07/21 14:46 Schistocytes Not Reportable 08/07/21 14:46 Malaria parasites Not Reportable 08/07/21 14:46 Lino Bodies Not Reportable 08/07/21 14:46 Hem Pathologist Commnt No 08/07/21 14:46 PT 13.5 Sec. (12.2-14.9) 08/07/21 14:03 INR 0.91 (0.87-1.13) 08/07/21 14:03 APTT 26.5 Sec. (24.2-36.6) 08/07/21 14:03 Thrombin Time 18.1 Sec. (15.1-19.6) 08/07/21 14:03 Sodium 141 mmol/L (137-145) 08/09/21 04:17 Potassium 5.4 mmol/L (3.6-5.0) H D 08/09/21 04:17 Chloride 105.1 mmol/L (98-107) 08/09/21 04:17 Carbon Dioxide 27 mmol/L (22-30) 08/09/21 04:17 Anion Gap 14 mmol/L 08/09/21 04:17 BUN 25 mg/dL (7-17) H 08/09/21 04:17 Creatinine 1.7 mg/dL (0.6-1.2) H 08/09/21 04:17 Estimated GFR 30 ml/min 08/09/21 04:17 BUN/Creatinine Ratio 15 % 08/09/21 04:17 Glucose 93 mg/dL (65-100) 08/09/21 04:17 POC Glucose 103 mg/dL (70-105) 08/09/21 08:17 Hemoglobin A1c 5.5 % (4-6) 08/08/21 04:10 Calcium 9.7 mg/dL (8.4-10.2) D 08/09/21 04:17 Magnesium 2.60 mg/dL (1.7-2.3) H 08/07/21 14:03 Total Bilirubin 0.40 mg/dL (0.1-1.2) 08/08/21 04:10 AST 11 units/L (5-40) 08/08/21 04:10 ALT 7 units/L (7-56) 08/08/21 04:10 Alkaline Phosphatase 43 units/L (35-129) 08/08/21 04:10 Ammonia 21.0 umol/L (25-60) L 08/07/21 14:03 Total Creatine Kinase 115 units/L (30-135) 08/07/21 14:03 CK-MB (CK-2) 3.5 ng/mL (0.0-4.0) 08/07/21 14:03 CK-MB (CK-2) Rel Index 3.0 (0-4) 08/07/21 14:03 Troponin T < 0.010 ng/mL (0.00-0.029) 08/07/21 14:03 Total Protein 5.8 g/dL (6.3-8.2) L 08/08/21 04:10 Albumin 3.7 g/dL (3.9-5) L 08/08/21 04:10 Albumin/Globulin Ratio 1.8 % 08/08/21 04:10 Triglycerides 112 mg/dL (2-149) 08/08/21 04:10 Cholesterol 234 mg/dL (50-199) H 08/08/21 04:10 LDL Cholesterol Direct 137 mg/dL (50-130) H 08/08/21 04:10 HDL Cholesterol 73 mg/dL (40-59) H 08/08/21 04:10 Cholesterol/HDL Ratio 3.20 % 08/08/21 04:10 TSH 0.999 mlU/mL (0.270-4.200) 08/07/21 14:03 Urine Color Yellow (Yellow) 08/07/21 Unknown Urine Turbidity Slightly-cloudy (Clear) 08/07/21 Unknown Urine pH 5.0 (5.0-7.0) 08/07/21 Unknown Ur Specific [place] 1.020 (1.003-1.030) 08/07/21 Unknown Urine Protein 30 mg/dl mg/dL (Negative) 08/07/21 Unknown Urine Glucose (UA) Neg mg/dL (Negative) 08/07/21 Unknown Urine Ketones Tr mg/dL (Negative) 08/07/21 Unknown Urine Blood Sm (Negative) 08/07/21 Unknown Urine Nitrite Neg (Negative) 08/07/21 Unknown Urine Bilirubin Neg (Negative) 08/07/21 Unknown Urine Urobilinogen < 2.0 mg/dL (<2.0) 08/07/21 Unknown Ur Leukocyte Esterase Lg (Negative) 08/07/21 Unknown Urine WBC (Auto) 28.0 /HPF (0.0-6.0) H 08/07/21 Unknown Urine RBC (Auto) 3.0 /HPF (0.0-6.0) 08/07/21 Unknown U Epithel Cells (Auto) 8.0 /HPF (0-13.0) 08/07/21 Unknown Urine Bacteria (Auto) 1+ /HPF (Negative) 08/07/21 Unknown Hyaline Casts 5 /LPF 08/07/21 Unknown Urine Mucus Few /HPF 08/07/21 Unknown Plasma/Serum Alcohol < 0.01 % (0-0.07) 08/07/21 14:03 Trinh/IV: Voiding Method Toilet Active Medications - Current Medications Current Medications: Generic Name Dose Route Start Last Admin Trade Name Freq PRN Reason Stop Dose Admin Acetaminophen 650 mg 08/07/21 19:57 08/08/21 20:30 Acetaminophen 325 Mg Tab PO 650 mg Q4H PRN Administration Pain MILD(1-3)/Fever >100.5/PIERSON Albuterol 1 puff 08/07/21 19:56 Albuterol 8.5 Gm Mdi Inhalation IH Q4HRT PRN Shortness Of Breath Aspirin 325 mg 08/08/21 13:00 08/09/21 09:41 Aspirin Ec 325 Mg Tab PO 325 mg QDAY CAREN Administration Atorvastatin Calcium 40 mg 08/07/21 22:00 08/08/21 22:30 Atorvastatin 40 Mg Tab PO 40 mg QHS CAREN Administration Calcium Carbonate/Glycine 2,000 mg 08/07/21 22:00 08/09/21 09:14 Calcium Carbonate 500 Mg Tab Chew PO Not Given Q8HR CAREN Glimepiride 4 mg 08/08/21 08:00 08/09/21 09:15 Glimepiride 4 Mg Tab PO Not Given QAMDIAB [facility] Heparin Sodium (Porcine) 5,000 unit 08/07/21 22:00 08/09/21 09:35 Heparin 5,000 Unit/1 Ml Vial SUB-Q 5,000 unit Q12HR CAREN Administration Sodium Chloride 1,000 mls @ 75 mls/hr 08/07/21 20:15 08/08/21 23:50 Nacl 0.9% 1000 Ml IV 75 mls/hr DIRECT CAREN Administration Ketorolac Tromethamine 15 mg 08/08/21 12:13 Ketorolac 30 Mg/1 Ml Inj IV 08/13/21 12:12 Q6H PRN Pain, Moderate (4-6) Methylprednisolone 4 mg 08/07/21 20:00 08/09/21 09:37 Methylprednisolone 4 Mg Tab PO Not Given DAILY [facility] Metoclopramide HCl 5 mg 08/07/21 20:05 Metoclopramide 10 Mg/2 Ml Inj IV Q6H PRN Nausea And Vomiting Morphine Sulfate 2 mg 08/07/21 20:05 Morphine 2 Mg/1 Ml Inj IV Q4H PRN Pain , Severe (7-10) Nitrofurantoin Macrocrystals 100 mg 08/07/21 23:45 08/09/21 09:35 Nitrofurantoin Monohyd/M-Cryst 100 Mg Cap PO 08/14/21 10:01 100 mg BID CAREN Administration Ondansetron HCl 4 mg 08/07/21 19:57 08/08/21 11:25 Ondansetron 4 Mg/2 Ml Inj IV 4 mg Q3H PRN Administration Nausea And Vomiting Oxycodone/Acetaminophen 1 tab 08/07/21 20:05 Oxycodone /Acetaminophen 5-325mg Tab PO Q6H PRN Pain, Moderate (4-6) Sodium Chloride 10 ml 08/07/21 22:00 08/09/21 09:36 Sodium Chloride 0.9% 10 Ml Flush Syringe IV 10 ml BID CAREN Administration Sodium Chloride 10 ml 08/07/21 19:57 Sodium Chloride 0.9% 10 Ml Flush Syringe IV PRN PRN LINE FLUSH Sodium Polystyrene Sulfonate 30 gm 08/09/21 08:00 08/09/21 09:36 Sodium Polystyrene 15 Gm/60 Ml Oral Liqd PO 08/09/21 13:00 30 gm ONCE@0800 NR Administration
--- NOTE | 2021-08-09 10:40 | Electrocardiograph Report ---
[facility] Test Date: 2021-08-07 Test Time: 14:23:02 Pat Name: TOLU COULTER Department: Room: A458 1 Gender: F Document Control Specialist: MAURICIO : [id number] Requested By: JOVANI AMEZQUITA Order Number: [id number] Reading MD: Billie Benz Measurements Intervals [place] Rate: 74 P: 62 MO: 158 QRS: 50 QRSD: 82 T: 43 QT: 390 QTc: 433 Interpretive Statements Sinus rhythm Normal ECG No previous ECG available for comparison Electronically Signed On 08-09-2021 10:39:35 EDT by Billie Benz
[2021-08-09] MEDS ORDERED: ALBUTEROL 2.5 MG/3 ML NEBU IH PRN (11:00)
[2021-08-09] MEDS: FERROUS SULFATE 325 MG TAB PO SCH (12:29)
[2021-08-09] MEDS: amLODIPine 5 MG TAB PO SCH (12:29)
[2021-08-09] MEDS: ONDANSETRON 4 MG/2 ML INJ IV PRN (12:32)
--- NOTE | 2021-08-09 13:23 | Magnetic Resonance Report ---
MRI BRAIN 08/09/2021 INDICATION / CLINICAL INFORMATION: stroke, WEAKNESS. TECHNIQUE: Multiplanar, multisequence MR images of the brain were obtained. COMPARISON: MRI brain 02/28/2018 FINDINGS: BRAIN / INTRACRANIAL CONTENTS: Unenhanced MR images of the brain were obtained and compared to prior exam from 02/28/2018. Previously seen white matter signal abnormality in the right temporal lobe and parietal and occipital lobes bilaterally is largely resolved. This may be an indication of previous episode of posterior re versible encephalopathy (PRES), ADEM, PML. On the current exam, these findings have resolved. There i s some chronic microangiopathic white matter T2 weighted hyperintensities present. In addition, there is T2 weighted signal change which is present in the region of the left upper thalamus and centrum s emiovale. This area of T2 weighted signal change was not present on the prior exam. There is no assoc iated diffusion signal abnormality, and this may be evidence of subacute ischemic injury which has oc curred in the interval since the prior exam. Underlying lesion is considered less likely based on its appearance, although postcontrast imaging would be helpful to exclude underlying lesion in this area . When compared to the prior exam, there is been some increase in the size of the lateral and third amilcar tricles. This may be due to some progression of central atrophy, although mild hydrocephalus cannot b e fully excluded. There is no evidence of acute ischemic injury, hemorrhage, or mass. There are no abnormal extra-axial fluid collections. EXTRACRANIAL: Unremarkable CRANIOCERVICAL JUNCTION: No significant abnormality. VASCULAR FLOW-VOIDS: No significant abnormality. IMPRESSION: 1. Interval resolution of previously seen extensive white matter signal abnormality. 2. Interval development of signal abnormality in the left centrum semiovale and thalamus as described above. 3. Subtle increase in size of lateral and third ventricle. Signer Name: Eder Joshi MD Signed: 08/09/2021 1:19 PM Workstation Name: [id number]
--- NOTE | 2021-08-09 14:02 | Vascular Lab Report ---
DUPLEX DOPPLER ULTRASOUND CAROTID, BILATERAL INDICATION / CLINICAL INFORMATION: stroke. COMPARISON: None available. FINDINGS: RIGHT CAROTID: There is minimal interval hyperplasia in the distal CCA and carotid bulb - PLAQUE ESTIMATE (%): < 50% - CCA velocity: 102 cm/sec. - ICA peak systolic velocity: 119 cm/sec. - ICA/CCA PSV Ratio: 1.2 Right Vertebral Artery: Antegrade flow. LEFT CAROTID: There is mild partially calcified plaque in the carotid bulb - [place] ESTIMATE (%): < 50% - CCA velocity: 95 cm/sec. - ICA peak systolic velocity: 123 cm/sec. - ICA/CCA PSV Ratio: 1.3 Left Vertebral Artery: Antegrade flow. IMPRESSION: 1. Right Internal Carotid Artery: Less than 50% diameter stenosis. 2. Left Internal Carotid Artery: Less than 50% diameter stenosis. Velocity criteria are extrapolated from diameter data as defined by the Society of Radiologists in Ul trasound Consensus Conference, Radiology 2003; 229;340-346. NO STENOSIS (NORMAL) - Plaque = none; ICA PSV < 125 cm/sec; ICA/CCA PSV Ratio < 2.0 <50% STENOSIS - Plaque < 50%; ICA PSV < 125 cm/sec; ICA/CCA PSV Ratio < 2.0 50-69% STENOSIS - Plaque > 50%; ICA PSV = 125-230 cm/sec; ICA/CCA PSV Ratio = 2.0-4.0 >70% BUT <100% STENOSIS - Plaque > 50%; ICA PSV > 230 cm/sec; ICA/CCA PSV Ratio > 4.0 NEAR OCCLUSION - Plaque = visible lumen; ICA PSV = high/low/none; ICA/CCA PSV Ratio = variable TOTAL OCCLUSION - Plaque = no lumen; ICA PSV = none; ICA/CCA PSV Ratio = N/A Signer Name: Mitch Pagan Jr, MD Signed: 08/09/2021 1:57 PM Workstation Name: [id number]
--- NOTE | 2021-08-09 17:47 | Consultation ---
History of Present Illness Consult date: 08/09/21 Reason for Consult: CVA Chief complaint: Slurred Speech / Dizziness History of present illness: 65 yo right-handed female with hypertension, lung cancer (on chemotherapy) w/ mets to the bone, dm, asthma, on anticoagulation, who presents with noted fall with ecchymosis but she notes a sense of light headedness when sitting up or standing up. Noted by her daughter (at bedside) that the patient had a bad "migraine" precede all of this a few days prior to admission, along with a fever, and then she started having her symptoms of unsteadiness and "slurred speech", along with nausea/emesis. Of note, back in 2019, the patient also had a "bad migraine" which triggered a spike in her blood pressure and was accompanied by a seizure. Also, of note, the patient has been taking her current tyrosine kinase inhibitor (chemotherapeutic agent) for the last 3 years. She notes no improvement in her symptoms since admission. Past History Past Medical History: hypertension, other (lung cancer, headaches;) Past Surgical History: Other (no pertinenet surgical history) Social history: other (no ivda;) Family history: no significant family history Medications and Allergies Allergies Allergy/AdvReac Type Severity Reaction Status Date / Time codeine Allergy Hives Verified 08/07/21 13:25 Penicillins Allergy Hives Verified 08/07/21 13:25 Home Medications Medication Instructions Recorded Confirmed Last Taken Type ALBUTEROL Inhaler(NF) [VENTOLIN 1 puff IH Q4H PRN #1 inha 12/10/17 08/09/21 08/07/21 Rx Inhaler(NF)] Apixaban [Eliquis] 5 mg PO Q12HR #74 tablet 08/01/20 08/09/21 08/07/21 Rx Ergocalciferol [Vitamin D2] 1 cap PO 1XW 08/09/21 08/09/21 08/07/21 History Ferrous Sulfate [Feosol 325 MG tab] 325 mg PO DAILY 08/09/21 08/09/21 08/07/21 History amLODIPine 5 mg PO DAILY 08/09/21 08/09/21 08/07/21 History atenoloL [Tenormin] 25 mg PO DAILY 08/09/21 08/09/21 08/07/21 History Active Meds: Active Medications Acetaminophen (Acetaminophen 325 Mg Tab) 650 mg PO Q4H PRN PRN Reason: Pain MILD(1-3)/Fever >100.5/PIERSON Last Admin: 08/08/21 20:30 Dose: 650 mg Albuterol (Albuterol 2.5 Mg/3 Ml Nebu) 2.5 mg IH Q4HRT PRN PRN Reason: Shortness Of Breath Amlodipine Besylate (Amlodipine 5 Mg Tab) 5 mg PO DAILY [facility] Last Admin: 08/09/21 12:29 Dose: 5 mg Aspirin (Aspirin Ec 325 Mg Tab) 325 mg PO QDAY [facility] Last Admin: 08/09/21 09:41 Dose: 325 mg Atorvastatin Calcium (Atorvastatin 40 Mg Tab) 40 mg PO QHS [facility] Last Admin: 08/08/21 22:30 Dose: 40 mg Calcium Carbonate/Glycine (Calcium Carbonate 500 Mg Tab Chew) 2,000 mg PO Q8HR [facility] Last Admin: 08/09/21 15:14 Dose: Not Given Ergocalciferol (Ergocalciferol (Vit D2) 50,000 Unit Cap) unit PO 1XW [facility] Ferrous Sulfate (Ferrous Sulfate 325 Mg Tab) 325 mg PO DAILY [facility] Last Admin: 08/09/21 12:29 Dose: 325 mg Glimepiride (Glimepiride 4 Mg Tab) 4 mg PO QAMDIAB [facility] Last Admin: 08/09/21 09:15 Dose: Not Given Heparin Sodium (Porcine) (Heparin 5,000 Unit/1 Ml Vial) 5,000 unit SUB-Q Q12HR [facility] Last Admin: 08/09/21 09:35 Dose: 5,000 unit Sodium Chloride (Nacl 0.9% 1000 Ml) 1,000 mls @ 75 mls/hr IV DIRECT [facility] Last Admin: 08/08/21 23:50 Dose: 75 mls/hr Ketorolac Tromethamine (Ketorolac 30 Mg/1 Ml Inj) 15 mg IV Q6H PRN PRN Reason: Pain, Moderate (4-6) Stop: 08/13/21 12:12 Metoclopramide HCl (Metoclopramide 10 Mg/2 Ml Inj) 5 mg IV Q6H PRN PRN Reason: Nausea And Vomiting Morphine Sulfate (Morphine 2 Mg/1 Ml Inj) 2 mg IV Q4H PRN PRN Reason: Pain , Severe (7-10) Nitrofurantoin Macrocrystals (Nitrofurantoin Monohyd/M-Cryst 100 Mg Cap) 100 mg PO BID [facility] Stop: 08/14/21 10:01 Last Admin: 08/09/21 09:35 Dose: 100 mg Ondansetron HCl (Ondansetron 4 Mg/2 Ml Inj) 4 mg IV Q3H PRN PRN Reason: Nausea And Vomiting Last Admin: 08/09/21 12:32 Dose: 4 mg Oxycodone/Acetaminophen (Oxycodone /Acetaminophen 5-325mg Tab) 1 tab PO Q6H PRN PRN Reason: Pain, Moderate (4-6) Sodium Chloride (Sodium Chloride 0.9% 10 Ml Flush Syringe) 10 ml IV BID [facility] Last Admin: 08/09/21 09:36 Dose: 10 ml Sodium Chloride (Sodium Chloride 0.9% 10 Ml Flush Syringe) 10 ml IV PRN PRN PRN Reason: LINE FLUSH Review of Systems All systems: negative (as per hpi;) Physical Examination - Vital Signs Vital Signs: Vital Signs Temp Pulse Resp BP Pulse Ox 97 F L 90 18 144/56 99 08/07/21 13:22 08/07/21 13:22 08/07/21 13:22 08/07/21 13:22 08/07/21 13:22 - Physical Exam Narrative exam: Gen: nad, well-nourished; Head: normocephalic; Eyes: no gaze deviation; no ptosis; ENT: normal vocalization; CVS: warm and well-perfused; Pulm: no respiratory distress; GI: appears non-distended; Ext: no cyanosis appreciated at distal extremities; Skin: no acute rash at distal extremities; Heme: +ecchymosis appreciated at distal extremities; Neuro: alert, oriented to name, month, not age/year/[facility]/name of hospital; surroundings, slight dysarthria, no aphasia, CN 2 - PERRL, visual pappas grossly intact, CN 3, 4, 6 - EOMI, CN 5 - facial sensation symmetric to light touch, CN 7 - facial movement symmetric, CN 8 - hearing grossly intact, CN 9, 10 - uvula midline, CN 11 symmetric shoulder movement, CN 12 - tongue midline; Motor - at least 4+/5 at all exts; Sensory - light touch symmetric, Cerebellar - fnf /hts intact, Gait - deferred secondary to fall risk; NIHSS (1a.) Level of Consciousness:0 (1b.) LOC Questions:1 (1c.) LOC Commands:0 (2.) Best Gaze:0 (3.) Visual:0 (4.) Facial Palsy:0 (5a.) Motor Arm, Left:0 (5b.) Motor Arm, Right:0 (6a.) Motor Leg, Left:0 (6b.) Motor Leg, Right:0 (7.) Limb Ataxia:0 (8.) Sensory:0 (9.) Best Language:0 (10.) Dysarthria:1 (11.) Extinction and [id number]:0 NIHSS Total Score: 2 Results - Laboratory Findings CBC and BMP: 08/08/21 04:10 08/09/21 04:17 Abnormal Lab Findings: Abnormal Labs 08/07/21 08/07/21 08/07/21 13:27 14:03 14:03 WBC Plt Count [place] % (Auto) Lymph # (Auto) Seg Neutrophils % Seg Neuts % (Manual) Monocytes % (Manual) Lymphocytes # (Manual) Potassium BUN 43 H Creatinine 2.2 H Glucose 200 H POC Glucose 224 H Calcium Magnesium 2.60 H Ammonia Total Protein Albumin Cholesterol LDL Cholesterol Direct HDL Cholesterol Urine WBC (Auto) 08/07/21 08/07/21 08/07/21 14:03 14:46 Unknown WBC Plt Count [place] % (Auto) Lymph # (Auto) Seg Neutrophils % Seg Neuts % (Manual) 77.0 H Monocytes % (Manual) 8.0 H Lymphocytes # (Manual) 0.7 L Potassium BUN Creatinine Glucose POC Glucose Calcium Magnesium Ammonia 21.0 L Total Protein Albumin Cholesterol LDL Cholesterol Direct HDL Cholesterol Urine WBC (Auto) 28.0 H 08/08/21 08/08/21 08/08/21 04:10 04:10 11:42 WBC 4.0 L Plt Count 119 L [place] % (Auto) 8.6 H Lymph # (Auto) 0.6 L Seg Neutrophils % 74.8 H Seg Neuts % (Manual) Monocytes % (Manual) Lymphocytes # (Manual) Potassium BUN 41 H Creatinine 2.0 H Glucose 111 H POC Glucose 110 H Calcium 8.1 L Magnesium Ammonia Total Protein 5.8 L Albumin 3.7 L Cholesterol 234 H LDL Cholesterol Direct 137 H HDL Cholesterol 73 H Urine WBC (Auto) 08/08/21 08/08/21 08/09/21 15:38 22:53 04:17 WBC Plt Count [place] % (Auto) Lymph # (Auto) Seg Neutrophils % Seg Neuts % (Manual) Monocytes % (Manual) Lymphocytes # (Manual) Potassium 5.4 H D BUN 25 H Creatinine 1.7 H Glucose POC Glucose 134 H 177 H Calcium Magnesium Ammonia Total Protein Albumin Cholesterol LDL Cholesterol Direct HDL Cholesterol Urine WBC (Auto) 08/09/21 16:09 WBC Plt Count [place] % (Auto) Lymph # (Auto) Seg Neutrophils % Seg Neuts % (Manual) Monocytes % (Manual) Lymphocytes # (Manual) Potassium BUN Creatinine Glucose POC Glucose 127 H Calcium Magnesium Ammonia Total Protein Albumin Cholesterol LDL Cholesterol Direct HDL Cholesterol Urine WBC (Auto) Assessment and Plan 65 yo right-handed female with hypertension, lung cancer (on chemotherapy) w/ mets to the bone, dm, asthma, on anticoagulation, who presents with noted fall with ecchymosis but she notes a sense of light headedness when sitting up or standing up. MRI reveals PRES w/ possible subacute stroke. 1. Acute Ischemic [facility]: secondary to PRES(?)) - continue Eliquis (per home regimen; dosing per primary team); ordered CTA Head/Neck w/ & w/o contrast, TTEcho, CUS, check LDL/HgbA1C/TSH/Covid-19/UDS, baseline CXR, EKG; telemetry, NIHSS q4 hours; SBP goal 160-200 mmHg and DBP 80-100 mmHg for now. Statin therapy for a goal LDL of 70, when patient passes swallow evaluation. PT/OT/ST/Swallow evaluation. Long-term risk-factor modification, including a strict diet/exercise regimen for secondary stroke prophylaxis. Stroke education prior to discharge. 2. PRES - in the setting of htn; also tyrosine kinase inhibitors may trigger PRES; per primary team and/or oncology. 3. Hypertension - goal SBP 160-200 mmHg and DBP 80-100 mmHg. 4. Dysarthria - st / swallow evaluation/monitoring; daughter feels this is secondary to generalized fatigue / weakness. 5. Orthostatic Dizziness - per primary team; mra head/neck ordered; non- neurogenic workup per primary team. 6. Unsteady Gait - likely secondary to #5 above; labs ordered; pt/ot evaluation/monitoring. 7. Memory Loss - labs ordered; ?uti per primary team. Nghia Nguyen MD Neurology [id number]
[2021-08-09] MEDS: ACETAMINOPHEN 325 MG TAB PO PRN (21:32)
[2021-08-10 04:52] LABS: Eosinophils # (Auto) 0.2 K/mm3 (0.0-0.4); Eosinophils % (Auto) 3.3 % (0.0-4.3); Hematocrit 35.9 % (30.3-42.9); Hemoglobin 12.2 gm/dl (10.1-14.3); Lymphocytes # (Auto) 1.1 K/mm3 (1.2-5.4); Lymphocytes % (Auto) 23.6 % (13.4-35.0); Mean Corpuscular HGB Conc 34 % (30-34); Mean Corpuscular Volume 92 fl (79-97); Monocytes # (Auto) 0.4 K/mm3 (0.0-0.8); Monocytes % (Auto) 8.8 % (0.0-7.3); Platelet Count 153 K/mm3 (140-440); Red Cell Distribution Width 13.7 % (13.2-15.2)
[2021-08-10] MEDS: ASPIRIN EC 325 MG TAB PO SCH (09:38)
[2021-08-10] MEDS: FERROUS SULFATE 325 MG TAB PO SCH (09:38)
[2021-08-10] MEDS: NITROFURANTOIN MONOHYD/M-CRYST 100 MG CAP PO SCH ×2 (09:38→21:40)
[2021-08-10] MEDS: amLODIPine 5 MG TAB PO SCH (09:38)
[2021-08-10] MEDS: GLIMEPIRIDE 4 MG TAB PO SCH (09:38)
[2021-08-10] MEDS: HEPARIN 5,000 UNIT/1 ML VIAL SUB-Q SCH ×2 (09:39→21:40)
[2021-08-10] MEDS: CALCIUM CARBONATE 500 MG TAB CHEW PO SCH ×3 (09:46→21:39)
--- NOTE | 2021-08-10 12:07 | Magnetic Resonance Report ---
MR brain w con INDICATION / CLINICAL INFORMATION: 65 years Female; metastasis. TECHNIQUE: Multiplanar, multisequence MR images of the brain were obtained. COMPARISON: The study is compared to the precontrast MRI of 08/09/2021. FINDINGS: BRAIN / INTRACRANIAL CONTENTS: On the earlier noncontrast study, scattered areas of increased FLAIR s ignal are identified, particularly within the left thalamic region. There is associated enhancement c entrally measuring approximately 1.1 cm in greatest transverse dimension. Another focus of enhancemen t is seen along the left superior temporal gyrus measuring approximately 1.0 cm transversely also wit h underlying edema. The findings may reflect subacute infarcts in this patient with history of "strok e, weakness" which may demonstrate enhancement. However, there is more subtle enhancement involving t he left temporal lesion and there would also be concerning for metastases given the previous reported history of lung and bone cancer. There is suggestion of more ill-defined enhancement within the left cerebellum though this appears be related to the degree of motion and encoding artifact. The motion significantly degrades the image quality at. There is suggestion of mild diffuse dural enh ancement which is nonspecific. There is no clear evidence of focal nodular component no further defin itive intracranial enhancing lesions are appreciated. There is continued mild prominence of the ventr icular system ADDITIONAL FINDINGS: None. IMPRESSION: 1. Additional postcontrast imaging is limited by motion. However, there are foci of enhancement invol ving the left thalamus and left superior temporal gyrus measuring approximately 1 cm in greatest dime nsion as detailed above. Possible etiology would include subacute infarcts or metastases given the hi story and correlation would be needed. Follow-up exam may also be considered, enhancement related to infarcts typically resolve over a few weeks. Signer Name: Ta Baires MD Signed: 08/10/2021 12:03 PM Workstation Name: [id number]
--- NOTE | 2021-08-10 12:15 | Magnetic Resonance Report ---
MR MRA/MRV head wo con INDICATION / CLINICAL INFORMATION: 65 years Female; cva, weakness. TECHNIQUE: 3-D time of flight. NASCET type criteria used to evaluate stenoses. COMPARISON: None available. FINDINGS: INTERNAL CAROTID ARTERIES: There is no significant focal stenosis involving intracranial ICAs by NASC ET criteria. VERTEBROBASILAR SYSTEM: The motion degrades the image quality. However, the vertebral basilar system also appears to demonstrate appropriate caliber without significant focal narrowing. CEREBRAL ARTERIES: The distal cerebral branches are particularly obscured by the degree of motion. Th ere is relative hypoplasia of the A1 segment of the right ARTI. However, there is no clear evidence of significant focal stenosis involving proximal cerebral arteries or adjacent segments. ANEURYSM: None identified. IMPRESSION: The motion degrades the image quality. However, there is no clear MRA evidence of significant focal s tenosis involving visualized intracranial vessels. Signer Name: Ta Baires MD Signed: 08/10/2021 12:10 PM Workstation Name: [id number]
--- NOTE | 2021-08-10 12:19 | Magnetic Resonance Report ---
MR MRA/MRV neck wo/w con INDICATION / CLINICAL INFORMATION: 65 years Female; cva, weakness. TECHNIQUE: 2-D time of flight performed prior to contrast. 3-D evaluation performed following IV cont rast administration. NASCET criteria used for stenosis evaluation. COMPARISON: None available. FINDINGS: CAROTID ARTERIES: The motion significantly degrades the image quality. However, there is no clear MRA evidence of significant stenosis involving cervical carotid arteries on the combination of sequences . VERTEBRAL ARTERIES: The vertebral arteries also appear to demonstrate appropriate caliber without sig nificant focal narrowing. ARCH: The arch of vessels are not well evaluated on this exam given the degree of motion artifact at. IMPRESSION: The study is limited by motion. However, there is no clear MRA evidence of significant stenosis invol ving visualized cervical carotid or vertebral arteries by NASCET criteria. Signer Name: Ta Baires MD Signed: 08/10/2021 12:15 PM Workstation Name: [id number]
--- NOTE | 2021-08-10 17:35 | Progress Note ---
Assessment and Plan Assessment and plan: #Presumed acute ischemic CVA #Likely brain metastases Unremarkable CT head noncontrast. Neurology consulted; appreciate recs. Physical therapy recommending home health with physical therapy Triglycerides 112, cholesterol 234, LDL 137, HDL 73. Hemoglobin A1c 5.5. Continue atorvastatin 40 mg daily, aspirin 325 mg daily. MRA/MRV neck with and without contrast reveals no clear evidence of significant stenosis involving visualized cervical carotid or vertebral arteries. MRI brain with contrast revealing "foci of enhancement involving the left thalamus and left superior temporal gyrus measuring approximately 1 cm in greatest dimension. Possible etiology would include subacute infarcts or metastases given the history correlation would be needed. Follow-up exam may be considered, enhancement related to infarcts typically resolve over few weeks." TTE revealing EF 60-65%, normal-sized LV, normal LV systolic plan, borderline concentric LVH, unremarkable for PFO. Higher likelihood that patient's symptoms are result of brain metastases given the resolution of white matter changes on original MRI brain without contrast. Will still continue medical management for stroke. #AKIimproving Etiology currently unknown. Creatinine 2.0--> 1.7--> 1.6 (baseline unknown); monitor with repeat daily BMP Renally dose meds and avoid nephrotoxic drugs. Nephrology consulted on admission; pending recs. Continue IV fluid resuscitation #Hyperkalemiaresolved Potassium 5.4 Inducing medical management with Kayexalate. Continue to monitor with repeat BMP tomorrow morning. #Lung cancer with metastases to bone Continuing tyrosine kinase inhibitor (chemotherapy). Patient follows with oncologist at outside facility. #Hypertension - home medications: Amlodipine 5 mg daily - current medications: Amlodipine 5 mg daily - SBP goal <160 and DBP goal <90 while inpatient - continue to monitor #Ground-level fall #Ecchymosis CT L-spine, CT pelvis, forearm x-ray Continue analgesics as needed. Holding home Eliquis (reason for administration is unknown). Continue to monitor. #History of COPD #Chronic hypoxic respiratory failure Continue baseline oxygen requirement of 2 L nasal cannula Continue DuoNebs every 6 hours and albuterol nebs every 4 hours as needed #Acute cystitis without hematuria - Urinalysis revealing large leukocyte esterase, WBC 28, bacteria 1+ Continue Macrobid 100 mg twice daily x7 days #Advanced care planning -Disease education conducted, care plan discussed, diagnoses discussed, prognosis discussed, and patient acknowledges understanding with care plan -Time: +30 min Disposition Plan: Continue medical management Total Time Spent with Patient (Minutes): 45 minutes History Interval history: No acute events overnight. Hospitalist Physical - Constitutional Vitals: Temp Pulse Resp BP Pulse Ox 97.4 F L 107 H 22 148/64 100 08/10/21 12:12 08/10/21 12:12 08/10/21 08:33 08/10/21 12:12 08/10/21 12:12 General appearance: Present: no acute distress, well-nourished, other (Mild dysarthria) - EENT Eyes: Present: PERRL, EOM intact ENT: hearing intact, clear oral mucosa, dentition normal - Neck Neck: Present: supple, normal ROM - Respiratory Respiratory effort: normal Respiratory: bilateral: diminished (2 L nasal cannula (baseline)) - Cardiovascular Rhythm: regular Heart Sounds: Present: S1 & S2 - Extremities Extremities: no ischemia, pulses intact, pulses symmetrical, No edema, normal temperature, normal color Peripheral Pulses: within normal limits - Abdominal General gastrointestinal: soft, non-tender, non-distended, normal bowel sounds - Integumentary Integumentary: Present: clear, warm, dry - Psychiatric Psychiatric: appropriate mood/affect, intact judgment & insight, memory intact, cooperative - Neurologic Neurologic: CNII-XII intact, other (Right-sided weakness) - Allied Health Allied health notes reviewed: nursing HEART Score - HEART Score Age: > 65 Risk factors: 1-2 risk factors Troponin: Troponin T < 0.010 ng/mL (0.00-0.029) 08/07/21 14:03 Troponin: < normal limit - Critical Actions Critical Actions: 0-3 pts:0.9-1.7%risk of adverse cardiac event.Candidate for discharge Results - Labs CBC & Chem 7: 08/10/21 04:03 08/10/21 04:03 Labs: Laboratory Last Values WBC 4.5 K/mm3 (4.5-11.0) 08/10/21 04:03 RBC 3.90 M/mm3 (3.65-5.03) 08/10/21 04:03 Hgb 12.2 gm/dl (10.1-14.3) 08/10/21 04:03 Hct 35.9 % (30.3-42.9) 08/10/21 04:03 MCV 92 fl (79-97) 08/10/21 04:03 MCH 31 pg (28-32) 08/10/21 04:03 MCHC 34 % (30-34) 08/10/21 04:03 RDW 13.7 % (13.2-15.2) 08/10/21 04:03 Plt Count 153 K/mm3 (140-440) 08/10/21 04:03 Lymph % (Auto) 23.6 % (13.4-35.0) 08/10/21 04:03 Pershing % (Auto) 8.8 % (0.0-7.3) H 08/10/21 04:03 Eos % (Auto) 3.3 % (0.0-4.3) 08/10/21 04:03 Baso % (Auto) 1.0 % (0.0-1.8) 08/10/21 04:03 Lymph # (Auto) 1.1 K/mm3 (1.2-5.4) L 08/10/21 04:03 Pershing # (Auto) 0.4 K/mm3 (0.0-0.8) 08/10/21 04:03 Eos # (Auto) 0.2 K/mm3 (0.0-0.4) 08/10/21 04:03 Baso # (Auto) 0.0 K/mm3 (0.0-0.1) 08/10/21 04:03 Add Manual Diff Complete 08/07/21 14:46 Total Counted 100 08/07/21 14:46 Seg Neutrophils % 63.3 % (40.0-70.0) 08/10/21 04:03 Seg Neuts % (Manual) 77.0 % (40.0-70.0) H 08/07/21 14:46 Band Neutrophils % 0 % 08/07/21 14:46 Lymphocytes % (Manual) 14.0 % (13.4-35.0) 08/07/21 14:46 Reactive Lymphs % (Man) 0 % 08/07/21 14:46 Monocytes % (Manual) 8.0 % (0.0-7.3) H 08/07/21 14:46 Eosinophils % (Manual) 1.0 % (0.0-4.3) 08/07/21 14:46 Basophils % (Manual) 0 % (0.0-1.8) 08/07/21 14:46 Metamyelocytes % 0 % 08/07/21 14:46 Myelocytes % 0 % 08/07/21 14:46 Promyelocytes % 0 % 08/07/21 14:46 Blast Cells % 0 % 08/07/21 14:46 Nucleated RBC % Not Reportable 08/07/21 14:46 Seg Neutrophils # 2.9 K/mm3 (1.8-7.7) 08/10/21 04:03 Seg Neutrophils # Man 4.1 K/mm3 (1.8-7.7) 08/07/21 14:46 Band Neutrophils # 0.0 K/mm3 08/07/21 14:46 Lymphocytes # (Manual) 0.7 K/mm3 (1.2-5.4) L 08/07/21 14:46 Abs React Lymphs (Man) 0.0 K/mm3 08/07/21 14:46 Monocytes # (Manual) 0.4 K/mm3 (0.0-0.8) 08/07/21 14:46 Eosinophils # (Manual) 0.1 K/mm3 (0.0-0.4) 08/07/21 14:46 Basophils # (Manual) 0.0 K/mm3 (0.0-0.1) 08/07/21 14:46 Metamyelocytes # 0.0 K/mm3 08/07/21 14:46 Myelocytes # 0.0 K/mm3 08/07/21 14:46 Promyelocytes # 0.0 K/mm3 08/07/21 14:46 Blast Cells # 0.0 K/mm3 08/07/21 14:46 WBC Morphology Not Reportable 08/07/21 14:46 WBC Morphology TNR 08/07/21 14:46 Hypersegmented Neuts Not Reportable 08/07/21 14:46 Hyposegmented Neuts Not Reportable 08/07/21 14:46 Hypogranular Neuts Not Reportable 08/07/21 14:46 Smudge Cells Not Reportable 08/07/21 14:46 Toxic Granulation Not Reportable 08/07/21 14:46 Toxic Vacuolation Not Reportable 08/07/21 14:46 Dohle Bodies Not Reportable 08/07/21 14:46 Pelger-Huet Anomaly Not Reportable 08/07/21 14:46 Jc Rods Not Reportable 08/07/21 14:46 Platelet Estimate Consistent w auto 08/07/21 14:46 Clumped Platelets Not Reportable 08/07/21 14:46 Plt Clumps, EDTA Not Reportable 08/07/21 14:46 Large Platelets Not Reportable 08/07/21 14:46 Giant Platelets Not Reportable 08/07/21 14:46 Platelet Satelliting Not Reportable 08/07/21 14:46 Plt Morphology Comment Not Reportable 08/07/21 14:46 RBC Morphology Normal 08/07/21 14:46 Dimorphic RBCs Not Reportable 08/07/21 14:46 Polychromasia Not Reportable 08/07/21 14:46 Hypochromasia Not Reportable 08/07/21 14:46 Poikilocytosis Not Reportable 08/07/21 14:46 Anisocytosis Not Reportable 08/07/21 14:46 Microcytosis Not Reportable 08/07/21 14:46 Macrocytosis Not Reportable 08/07/21 14:46 Spherocytes Not Reportable 08/07/21 14:46 Pappenheimer Bodies Not Reportable 08/07/21 14:46 Sickle Cells Not Reportable 08/07/21 14:46 Target Cells Not Reportable 08/07/21 14:46 Tear Drop Cells Not Reportable 08/07/21 14:46 Ovalocytes Not Reportable 08/07/21 14:46 Helmet Cells Not Reportable 08/07/21 14:46 Cook-[place]ab[place] Bodies Not Reportable 08/07/21 14:46 [place] Rings Not Reportable 08/07/21 14:46 Kurt Cells Not Reportable 08/07/21 14:46 Bite Cells Not Reportable 08/07/21 14:46 Crenated Cell Not Reportable 08/07/21 14:46 Elliptocytes Not Reportable 08/07/21 14:46 Acanthocytes (Spur) Not Reportable 08/07/21 14:46 Rouleaux Not Reportable 08/07/21 14:46 Hemoglobin C Crystals Not Reportable 08/07/21 14:46 Schistocytes Not Reportable 08/07/21 14:46 Malaria parasites Not Reportable 08/07/21 14:46 Lino Bodies Not Reportable 08/07/21 14:46 Hem Pathologist Commnt No 08/07/21 14:46 PT 13.5 Sec. (12.2-14.9) 08/07/21 14:03 INR 0.91 (0.87-1.13) 08/07/21 14:03 APTT 26.5 Sec. (24.2-36.6) 08/07/21 14:03 Thrombin Time 18.1 Sec. (15.1-19.6) 08/07/21 14:03 Sodium 141 mmol/L (137-145) 08/10/21 04:03 Potassium 3.9 mmol/L (3.6-5.0) D 08/10/21 04:03 Chloride 102.2 mmol/L (98-107) 08/10/21 04:03 Carbon Dioxide 29 mmol/L (22-30) 08/10/21 04:03 Anion Gap 14 mmol/L 08/10/21 04:03 BUN 19 mg/dL (7-17) H 08/10/21 04:03 Creatinine 1.6 mg/dL (0.6-1.2) H 08/10/21 04:03 Estimated GFR 32 ml/min 08/10/21 04:03 BUN/Creatinine Ratio 12 % 08/10/21 04:03 Glucose 104 mg/dL (65-100) H 08/10/21 04:03 POC Glucose 58 mg/dL (70-105) L 08/10/21 16:37 Hemoglobin A1c 5.5 % (4-6) 08/08/21 04:10 Calcium 10.0 mg/dL (8.4-10.2) 08/10/21 04:03 Magnesium 2.60 mg/dL (1.7-2.3) H 08/07/21 14:03 Total Bilirubin 0.40 mg/dL (0.1-1.2) 08/08/21 04:10 AST 11 units/L (5-40) 08/08/21 04:10 ALT 7 units/L (7-56) 08/08/21 04:10 Alkaline Phosphatase 43 units/L (35-129) 08/08/21 04:10 Ammonia 21.0 umol/L (25-60) L 08/07/21 14:03 Total Creatine Kinase 115 units/L (30-135) 08/07/21 14:03 CK-MB (CK-2) 3.5 ng/mL (0.0-4.0) 08/07/21 14:03 CK-MB (CK-2) Rel Index 3.0 (0-4) 08/07/21 14:03 Troponin T < 0.010 ng/mL (0.00-0.029) 08/07/21 14:03 Total Protein 5.8 g/dL (6.3-8.2) L 08/08/21 04:10 Albumin 3.7 g/dL (3.9-5) L 08/08/21 04:10 Albumin/Globulin Ratio 1.8 % 08/08/21 04:10 Prealbumin 0.220 g/L (0.200-0.400) 08/10/21 04:03 Triglycerides 112 mg/dL (2-149) 08/08/21 04:10 Cholesterol 234 mg/dL (50-199) H 08/08/21 04:10 LDL Cholesterol Direct 137 mg/dL (50-130) H 08/08/21 04:10 HDL Cholesterol 73 mg/dL (40-59) H 08/08/21 04:10 Cholesterol/HDL Ratio 3.20 % 08/08/21 04:10 Vitamin B12 268.2 pg/mL (211-911) 08/10/21 04:03 Folate 8.07 ng/mL (7.3-26.0) 08/10/21 04:03 TSH 0.984 mlU/mL (0.270-4.200) 08/10/21 04:03 Urine Color Yellow (Yellow) 08/07/21 Unknown Urine Turbidity Slightly-cloudy (Clear) 08/07/21 Unknown Urine pH 5.0 (5.0-7.0) 08/07/21 Unknown Ur Specific [place] 1.020 (1.003-1.030) 08/07/21 Unknown Urine Protein 30 mg/dl mg/dL (Negative) 08/07/21 Unknown Urine Glucose (UA) Neg mg/dL (Negative) 08/07/21 Unknown Urine Ketones Tr mg/dL (Negative) 08/07/21 Unknown Urine Blood Sm (Negative) 08/07/21 Unknown Urine Nitrite Neg (Negative) 08/07/21 Unknown Urine Bilirubin Neg (Negative) 08/07/21 Unknown Urine Urobilinogen < 2.0 mg/dL (<2.0) 08/07/21 Unknown Ur Leukocyte Esterase Lg (Negative) 08/07/21 Unknown Urine WBC (Auto) 28.0 /HPF (0.0-6.0) H 08/07/21 Unknown Urine RBC (Auto) 3.0 /HPF (0.0-6.0) 08/07/21 Unknown U Epithel Cells (Auto) 8.0 /HPF (0-13.0) 08/07/21 Unknown Urine Bacteria (Auto) 1+ /HPF (Negative) 08/07/21 Unknown Hyaline Casts 5 /LPF 08/07/21 Unknown Urine Mucus Few /HPF 08/07/21 Unknown Plasma/Serum Alcohol < 0.01 % (0-0.07) 08/07/21 14:03 Trinh/IV: Voiding Method Toilet Active Medications - Current Medications Current Medications: Generic Name Dose Route Start Last Admin Trade Name Freq PRN Reason Stop Dose Admin Acetaminophen 650 mg 08/07/21 19:57 08/09/21 21:32 Acetaminophen 325 Mg Tab PO 650 mg Q4H PRN Administration Pain MILD(1-3)/Fever >100.5/PIERSON Albuterol 2.5 mg 08/09/21 11:00 Albuterol 2.5 Mg/3 Ml Nebu IH Q4HRT PRN Shortness Of Breath Amlodipine Besylate 5 mg 08/09/21 11:00 08/10/21 09:38 Amlodipine 5 Mg Tab PO 5 mg DAILY CAREN Administration Aspirin 325 mg 08/08/21 13:00 08/10/21 09:38 Aspirin Ec 325 Mg Tab PO 325 mg QDAY CAREN Administration Atorvastatin Calcium 40 mg 08/07/21 22:00 08/09/21 21:32 Atorvastatin 40 Mg Tab PO 40 mg QHS CAREN Administration Calcium Carbonate/Glycine 2,000 mg 08/07/21 22:00 08/10/21 15:29 Calcium Carbonate 500 Mg Tab Chew PO Not Given Q8HR CAREN Ergocalciferol unit 08/09/21 11:00 Ergocalciferol (Vit D2) 50,000 Unit Cap PO 1XW CAREN Ferrous Sulfate 325 mg 08/09/21 11:00 08/10/21 09:38 Ferrous Sulfate 325 Mg Tab PO 325 mg DAILY CAREN Administration Glimepiride 4 mg 08/08/21 08:00 08/10/21 09:38 Glimepiride 4 Mg Tab PO 4 mg QAMDIAB CAREN Administration Heparin Sodium (Porcine) 5,000 unit 08/07/21 22:00 08/10/21 09:39 Heparin 5,000 Unit/1 Ml Vial SUB-Q 5,000 unit Q12HR CAREN Administration Ketorolac Tromethamine 15 mg 08/08/21 12:13 Ketorolac 30 Mg/1 Ml Inj IV 08/13/21 12:12 Q6H PRN Pain, Moderate (4-6) Metoclopramide HCl 5 mg 08/07/21 20:05 Metoclopramide 10 Mg/2 Ml Inj IV Q6H PRN Nausea And Vomiting Morphine Sulfate 2 mg 08/07/21 20:05 Morphine 2 Mg/1 Ml Inj IV Q4H PRN Pain , Severe (7-10) Nitrofurantoin Macrocrystals 100 mg 08/07/21 23:45 08/10/21 09:38 Nitrofurantoin Monohyd/M-Cryst 100 Mg Cap PO 08/14/21 10:01 100 mg BID CAREN Administration Ondansetron HCl 4 mg 08/07/21 19:57 08/09/21 12:32 Ondansetron 4 Mg/2 Ml Inj IV 4 mg Q3H PRN Administration Nausea And Vomiting Oxycodone/Acetaminophen 1 tab 08/07/21 20:05 Oxycodone /Acetaminophen 5-325mg Tab PO Q6H PRN Pain, Moderate (4-6) Sodium Chloride 10 ml 08/07/21 22:00 08/10/21 09:39 Sodium Chloride 0.9% 10 Ml Flush Syringe IV 10 ml BID CAREN Administration Sodium Chloride 10 ml 08/07/21 19:57 Sodium Chloride 0.9% 10 Ml Flush Syringe IV PRN PRN LINE FLUSH
[2021-08-11] MEDS: ACETAMINOPHEN 325 MG TAB PO PRN (03:51)
[2021-08-11] MEDS: CALCIUM CARBONATE 500 MG TAB CHEW PO SCH (06:35)
--- NOTE | 2021-08-11 08:41 | Discharge Summary ---
Providers - Providers Date of Admission: 08/08/21 00:11 Date of discharge: 08/11/21 Attending physician: SEAN OBREGON MD 08/07/21 20:05 Consult to Physician [CONS] Routine Comment: Consulting Provider: LEIGHA SIU Physician Instructions: Reason For Exam: cva 08/07/21 20:17 Occupational Therapy Evaluate and Treat [CONS] Routine Comment: Reason For Exam: Neuro deficits Physical Therapy Evaluation and Treat [CONS] Routine Comment: Reason For Exam: Neuro deficits 08/10/21 07:28 Speech Therapy Evaluation and Treat [CONS] Routine Reason For Exam: Dysarthria Primary care physician: BLEACH ANALYST Hospitalization Reason for admission: Presumed acute ischemic CVA, possible brain metastases, UZIEL Condition: Good Pertinent studies: Reviewed. Procedures: None. 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 In the ED, the patient was found to be hemodynamically stable. Imaging (forearm x-ray, CT pelvis, CT L-spine) secondary to her ground- level fall were all found to be unremarkable. Due to the patient's presentation of dysarthria and mildly ataxic gait, the patient underwent stroke work-up. Patient had unremarkable CT head noncontrast. She underwent a MRI brain without contrast (08/09/2021) revealing "interval resolution of previously seen extensive white matter signal abnormality. Interval development of signal abnormality in the left centrum semiovale and thalamus. This may be an indication of previous episode of posterior reversible encephalopathy (press), ADEM, PML." Neurology was consulted for further management, the patient underwent additional imaging (MRA/MRV head and neck and MRI brain with contrast). MRA/MRV head and neck with and without contrast revealed no clear indication of significant stenosis involving visualized cervical carotid or vertebral arteries. The MRI brain with contrast revealed "foci of enhancement involving the left thalamus and left superior temporal gyrus measuring approximately 1 cm in greatest dimension. Possible etiology would include subacute infarcts or metastases given the history correlation would be needed. Follow-up exam may be considered, enhancement relative to infarcts typically resolve over few weeks." TTE was unremarkable with an EF of 60-65% and no PFO visualized. The patient symptoms have a higher likelihood of being secondary to brain metastases given the original resolution of white matter changes on her original MRI brain without contrast. The patient will still be continued for medical management for acute ischemic CVA. Patient will follow up with neurology in the outpatient setting where she can undergo a repeat MRI brain with and without contrast in a few weeks. Patient still follows with her oncologist, and she will continue to do so after discharge. On presentation the patient also had an UZIEL that is since been improving. Physical therapy evaluated the patient and recommended home PT. The patient is medically clear for discharge. Disposition: 01 HOME / SELF CARE / HOMELESS Final Discharge Diagnosis (Prints w/discharge instructions): Presumed acute ischemic CVA, likely brain metastases, UZIEL secondary to vasomotor nephropathy, hyperkalemia, lung cancer with metastases to bone, hypertension, ground-level fall, ecchymosis, history of COPD, chronic hypoxic respiratory failure, acute cystitis without hematuria Time spent for discharge: 45 min Core Measure Documentation - Palliative Care Palliative Care/ Comfort Measures: Not Applicable - Core Measures Any of the following diagnoses?: stroke, none - Stroke Discharge Requirements Statin for LDL = or >70 mg/dl on DC: Yes Anticoag for atrial fib/atrial flutter: No Reason for no anticoag for AF/F on DC: Not Indicated Antithrombotic for ischemic stroke: No Reason for no antithrombotic on DC: Medical Contraindication Exam - Constitutional Vitals: Temp Pulse Resp BP Pulse Ox 97.8 F 99 H 18 149/65 95 08/11/21 03:36 08/11/21 03:36 08/11/21 03:36 08/11/21 03:36 08/11/21 03:36 General appearance: Present: no acute distress, well-nourished, other (Mild dysarthria) - EENT Eyes: Present: PERRL, EOM intact ENT: hearing intact, clear oral mucosa, dentition normal - Neck Neck: Present: supple, normal ROM - Respiratory Respiratory effort: normal Respiratory: bilateral: diminished (On 2 L nasal cannula (baseline)) - Cardiovascular Rhythm: regular Heart Sounds: Present: S1 & S2 - Extremities Extremities: no ischemia, pulses intact, pulses symmetrical, No edema, normal temperature, normal color Peripheral Pulses: within normal limits - Abdominal General gastrointestinal: Present: soft, non-tender, non-distended, normal bowel sounds Female genitourinary: Present: deferred - Rectal Rectal Exam: deferred - Integumentary Integumentary: Present: clear, warm, dry - Musculoskeletal Musculoskeletal: right sided weakness, generalized weakness - Psychiatric Psychiatric: appropriate mood/affect, agitated - Neurologic Neurologic: CNII-XII intact, moves all extremities - Allied Health Allied health notes reviewed: nursing Plan Activity: advance as tolerated Diet: low salt, diabetic Additional Instructions: Patient is a 65-year-old female past medical history of asthma, nfi-fklqviy-wqmvofqix type 2 diabetes mellitus, 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 In the ED, the patient was found to be hemodynamically stable. Imaging (forearm x-ray, CT pelvis, CT L-spine) secondary to her ground-level fall were all found to be unremarkable. Due to the patient's presentation of dysarthria and mildly ataxic gait, the patient underwent stroke work-up. Patient had unremarkable CT head noncontrast. She underwent a MRI brain without contrast (08/09/2021) revealing "interval resolution of previously seen extensive white matter signal abnormality. Interval development of signal abnormality in the left centrum semiovale and thalamus. This may be an indication of previous episode of posterior reversible encephalopathy (press), ADEM, PML." Neurology was consulted for further management, the patient underwent additional imaging (MRA/MRV head and neck and MRI brain with contrast). MRA/MRV head and neck with and without contrast revealed no clear indication of significant stenosis involving visualized cervical carotid or vertebral arteries. The MRI brain with contrast revealed "foci of enhancement involving the left thalamus and left superior temporal gyrus measuring approximately 1 cm in greatest dimension. Possible etiology would include subacute infarcts or metastases given the history correlation would be needed. Follow-up exam may be considered, enhancement relative to infarcts typically resolve over few weeks." TTE was unremarkable with an EF of 60-65% and no PFO visualized. The patient symptoms have a higher likelihood of being secondary to brain metastases given the original resolution of white matter changes on her original MRI brain without contrast. The patient will still be continued for medical management for acute ischemic CVA. Patient will follow up with neurology in the outpatient setting where she can undergo a repeat MRI brain with and without contrast in a few weeks. Patient still follows with her oncologist, and she will continue to do so after discharge. On presentation the patient also had an UZIEL that is since been improving. Physical therapy evaluated the patient and recommended home PT. The patient is medically clear for discharge. Care Plan Goals: Patient is medically clear for discharge. 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 In the ED, the patient was found to be hemodynamically stable. Imaging (forearm x-ray, CT pelvis, CT L-spine) secondary to her ground- level fall were all found to be unremarkable. Due to the patient's presentation of dysarthria and mildly ataxic gait, the patient underwent stroke work-up. Patient had unremarkable CT head noncontrast. She underwent a MRI brain without contrast (08/09/2021) revealing "interval resolution of previously seen extensive white matter signal abnormality. Interval development of signal abnormality in the left centrum semiovale and thalamus. This may be an indication of previous episode of posterior reversible encephalopathy (press), ADEM, PML." Neurology was consulted for further management, the patient underwent additional imaging (MRA/MRV head and neck and MRI brain with contrast). MRA/MRV head and neck with and without contrast revealed no clear indication of significant stenosis involving visualized cervical carotid or vertebral arteries. The MRI brain with contrast revealed "foci of enhancement involving the left thalamus and left superior temporal gyrus measuring approximately 1 cm in greatest dimension. Possible etiology would include subacute infarcts or metastases given the history correlation would be needed. Follow-up exam may be considered, enhancement relative to infarcts typically resolve over few weeks." TTE was unremarkable with an EF of 60-65% and no PFO visualized. The patient symptoms have a higher likelihood of being secondary to brain metastases given the original resolution of white matter changes on her original MRI brain without contrast. The patient will still be continued for medical management for acute ischemic CVA. Patient will follow up with neurology in the outpatient setting where she can undergo a repeat MRI brain with and without contrast in a few weeks. Patient still follows with her oncologist, and she will continue to do so after discharge. On presentation the patient also had an UZIEL that is since been improving. Physical therapy evaluated the patient and recommended home PT. The patient is medically clear for discharge. Follow up with: PRIMARY MD YASMIN [Primary Care Provider] - 7 Days LEIGHA SIU MD [Staff Physician] - 7 Days Prescriptions: AtorvaSTATin [Lipitor] 40 mg PO QHS #30 tablet Aspirin EC [Ecotrin] 325 mg PO QDAY #21 tablet Nitrofurantoin [place]/M-Cryst [Macrobid CAP] 100 mg PO BID #13 capsule
[2021-08-11] MEDS: ASPIRIN EC 325 MG TAB PO SCH (09:47)
[2021-08-11] MEDS: NITROFURANTOIN MONOHYD/M-CRYST 100 MG CAP PO SCH (09:47)
[2021-08-11] MEDS: amLODIPine 5 MG TAB PO SCH (09:47)
[2021-08-11] MEDS: HEPARIN 5,000 UNIT/1 ML VIAL SUB-Q SCH (09:47)
[2021-08-11] MEDS: FERROUS SULFATE 325 MG TAB PO SCH (09:48)
[2021-08-11 12:08] VITALS: BP 152/62
[2021-08-15] MEDS ORDERED: ERGOCALCIFEROL (VIT D2) 50,000 UNIT CAP PO SCH (11:00)
== END 2021-08-11 16:22 | disposition home health service (06) | DRG 64 ==
LOC: ED 13:19 → 4A 08-08 00:11
PROVIDERS: ADMIT Internal Medicine; ATTEND Student in an Organized Health Care Education/Training Program
DX: I63.9 Cerebral infarction, unspecified (principal); N17.0 Acute kidney failure with tubular necrosis; N30.00 Acute cystitis without hematuria; J96.11 Chronic respiratory failure with hypoxia; C34.90 Malignant neoplasm of unspecified part of unspecified bronchus or lung; C79.51 Secondary malignant neoplasm of bone; C79.31 Secondary malignant neoplasm of brain; E11.9 Type 2 diabetes mellitus without complications; J44.9 Chronic obstructive pulmonary disease, unspecified; R58 Hemorrhage, not elsewhere classified; E87.5 Hyperkalemia; I10 Essential (primary) hypertension; Z87.891 Personal history of nicotine dependence; Z79.84 Long term (current) use of oral hypoglycemic drugs
CPT/HCPCS: 36415; 70450; 70544; 70549; 70551; 70552; 71045; 72131; 72192; 80048; 80053; 80061; 80320; 81001; 82140; 82306; 82550; 82553; 82607; 82747; 82962; 83036; 83735; 84134; 84425; 84443; 84484; 85007; 85025; 85610; 85670; 85730; 87086; 90715; 93005; 93306; 93880; 94760; G0378; A9575; C8929; G0480; J1170; J1644; J2405; J7030

== ENCOUNTER 2021-08-21 19:08 | Emergency (ER) | payer MEDICARE ==
[2021-08-21] MEDS ORDERED: ACETAMINOPHEN 325 MG TAB PO STA (19:19)
--- NOTE | 2021-08-21 19:20 | Event Note ---
Date: 08/21/21 Verbal report received from emergency medical services. EMS documentation not available at time of chart dictation 65-year-old female with complex past medical history, recently discharged from this hospital after prolonged work-up, found to have deconditioning, recommended for rehabilitation. Ultimately, it appears that the patient was not approved for rehab and was discharged home with plan for home physical therapy Presents today with EMS with a complaint of mechanical fall without hitting her head, while attempting to use the bathroom. Patient reports that she is using a walker and cane at home. Patient complains of tailbone pain. She is moving 4 extremities. She otherwise denies additional acute injuries or complaints. She is speaking in full sentences, protecting her airway, does not appear to be in any acute distress. EMS reports unremarkable vital signs in the field. Most likely deconditioning with mild blunt trauma. Patient was just discharged from the hospital yesterday. Give Tylenol for pain, obtain x-ray of the pelvis, detailed history and physical to be performed by oncoming ER provider. Recent history, physical, notes, discharge summary laboratory studies are reviewed and appreciated Discharge to: Home Support at Home: Daughter [facility] [phone]. Transportation on Discharge: Family to slat pickler Durable Medical Equipment needed on discharge: None recommend by PT/OT. At Home Durable Medical Equipment: Walker and Cane Home Health Service: [facility] ([phone]) to follow-up Resources Provided: N Patient was declined approval with her insurance for access to [employer] on 08/20/21. MICHELLE informed daughter (Ami) about denial and provided her with patient /family member appeal number [phone]) ([phone]) for [employer]. MICHELLE informed daughter that patient has discharge and that she will need to make arrangements for slat pickler patient. Daughter waiting on her auntie to assist with transport. * MICHELLE had patient's nurse listen to call. The patient's daughter reports that she can come to the hospital to slat pickler patient after she gets off work@5:30 P.M. MICHELLE will continue to follow and assist with discharge need
--- NOTE | 2021-08-21 20:36 | Emergency Department Report ---
ED General Adult HPI - General Chief complaint: Fall Stated complaint: i fell Time Seen by Provider: 08/21/21 20:34 Source: patient, family, EMS (Verbal report received from emergency medical services. EMS documentation not available at time of chart dictation ), RN notes reviewed, old records reviewed Mode of arrival: Stretcher Limitations: Physical Limitation - History of Present Illness Initial comments: The patient was evaluated in the emergency department for symptoms described in the history of present illness. He/she was evaluated in the context of the global COVID-19 pandemic, which necessitated consideration that the patient might be at risk for infection with the virus that causes COVID-19. Institutional protocols and algorithms that pertain to the evaluation of patients at risk for COVID-19 are in a state of rapid change based on information released by regulatory bodies including the CDC and federal and state organizations. These policies and algorithms were followed during the patient's care in the emergency department. Please note that these policies, procedures and recommendations changed on a rapid basis. This is a 65-year-old female. The patient presents to the ER today with a complaint of mechanical fall. Patient has a history of deconditioning, renal insufficiency, hypertension, stroke, COPD, known metastatic disease. She was discharged from this hospital yesterday after a thorough and appropriate work-up and evaluation. She was seen in evaluation with case management and physical therapy, who recommended rehabilitation. Patient was reportedly refused for rehabilitation by her insurance company, and patient's daughter was provided with the family member appeal number at [phone]. The patient's daughter reports that she call this number, and also called the primary care doctor to facilitate outpatient arrangements. The patient lives at home with only her daughter, and uses a cane and rolling walker. She landed on her buttocks today. She has mild buttock pain. She otherwise denies headache, neck pain, chest pain, abdominal pain, dysuria, focal extremity weakness/numb ness, and irritative urinary symptoms. Patient has a history of deconditioning and frequent falls. -: Sudden Location: buttocks Severity scale (0 -10): 7 Quality: aching Consistency: constant Improves with: rest Worsens with: movement - Related Data Home Medications Medication Instructions Recorded Confirmed Last Taken Ergocalciferol [Vitamin D2] 1 cap PO 1XW 08/09/21 08/18/21 08/07/21 Ferrous Sulfate [Feosol 325 MG tab] 325 mg PO DAILY 08/09/21 08/18/21 08/07/21 amLODIPine 5 mg PO DAILY 08/09/21 08/18/21 08/07/21 atenoloL [Tenormin] 25 mg PO DAILY 08/09/21 08/18/21 08/07/21 Previous Rx's Medication Instructions Recorded Last Taken Type ALBUTEROL Inhaler(NF) [VENTOLIN 1 puff IH Q4H PRN #1 inha 12/10/17 08/07/21 Rx Inhaler(NF)] Apixaban [Eliquis] 5 mg PO Q12HR #74 tablet 08/01/20 08/07/21 Rx Aspirin EC [Ecotrin] 325 mg PO QDAY #21 tablet 08/11/21 Unknown Rx AtorvaSTATin [Lipitor] 40 mg PO QHS #30 tablet 08/11/21 Unknown Rx Promethazine [Phenergan] 25 mg PO Q6HR PRN #32 tab 08/11/21 Unknown Rx Allergies Allergy/AdvReac Type Severity Reaction Status Date / Time codeine Allergy Hives Verified 08/21/21 20:04 Penicillins Allergy Hives Verified 08/21/21 20:04 ED Review of Systems ROS: Stated complaint: HIP PAIN/POST FALL Other details as noted in HPI Constitutional: denies: fever Eyes: denies: eye discharge ENT: denies: epistaxis Respiratory: other (Chronic shortness of breath) Cardiovascular: denies: chest pain Gastrointestinal: denies: abdominal pain Genitourinary: denies: dysuria Musculoskeletal: arthralgia, myalgia Neurological: weakness (Chronic) ED Past Medical Hx - Past Medical History Hx Hypertension: No Hx Heart Attack/AMI: No Hx Congestive Heart Failure: No Hx Diabetes: Yes Hx Deep Vein Thrombosis: No Hx Pulmonary Embolism: No Hx Liver Disease: No Hx Renal Disease: No Hx Sickle Cell Disease: No Hx Arthritis: No Hx Seizures: No Hx Kidney Stones: No Hx Asthma: No Hx COPD: Yes Hx Tuberculosis: No Hx Dementia: No Hx HIV: No Additional medical history: bone cancer - Surgical History Hx Coronary Stent: No Hx Pacemaker: No Hx Internal Defibrillator: No Additional Surgical History: TUBAL LIGATION. chest tubex2 - Social History Smoking Status: Former Smoker - Medications Home Medications: Home Medications Medication Instructions Recorded Confirmed Last Taken Type ALBUTEROL Inhaler(NF) [VENTOLIN 1 puff IH Q4H PRN #1 inha 12/10/17 08/18/21 08/07/21 Rx Inhaler(NF)] Apixaban [Eliquis] 5 mg PO Q12HR #74 tablet 08/01/20 08/18/21 08/07/21 Rx Ergocalciferol [Vitamin D2] 1 cap PO 1XW 08/09/21 08/18/21 08/07/21 History Ferrous Sulfate [Feosol 325 MG tab] 325 mg PO DAILY 08/09/21 08/18/21 08/07/21 History amLODIPine 5 mg PO DAILY 08/09/21 08/18/21 08/07/21 History atenoloL [Tenormin] 25 mg PO DAILY 08/09/21 08/18/21 08/07/21 History Aspirin EC [Ecotrin] 325 mg PO QDAY #21 tablet 08/11/21 08/18/21 Unknown Rx AtorvaSTATin [Lipitor] 40 mg PO QHS #30 tablet 08/11/21 08/18/21 Unknown Rx Promethazine [Phenergan] 25 mg PO Q6HR PRN #32 tab 08/11/21 08/18/21 Unknown Rx ED Physical Exam - General Limitations: No Limitations General appearance: alert, in no apparent distress - Head Head exam: Present: atraumatic, normocephalic - Eye Eye exam: Present: normal appearance, EOMI. Absent: nystagmus - ENT ENT exam: Present: normal exam, normal orophraynx, mucous membranes moist, normal external ear exam - Neck Neck exam: Present: normal inspection, full ROM. Absent: tenderness, meningismus - Respiratory Respiratory exam: Present: decreased breath sounds. Absent: respiratory distress, wheezes, rales, rhonchi, stridor - Cardiovascular Cardiovascular Exam: Present: regular rate, normal rhythm, normal heart sounds. Absent: bradycardia, tachycardia, irregular rhythm, systolic murmur, diastolic murmur, rubs, gallop - GI/Abdominal GI/Abdominal exam: Present: soft. Absent: distended, tenderness, guarding, rebound, rigid, pulsatile mass - Extremities Exam Extremities exam: Present: full ROM, other (2+ pulses noted in the bilateral upper and lower extremities. There is no palpable cord. negative Homans sign. Muscular compartments are soft. The pelvis is stable.). Absent: normal inspection (Multiple ecchymosis noted to the upper extremity), calf tenderness - Back Exam Back exam: Present: normal inspection, full ROM. Absent: tenderness, CVA tenderness (R), CVA tenderness (L), paraspinal tenderness, vertebral tenderness - Neurological Exam Neurological exam: Present: alert, other (There is no facial droop. The tongue is midline. EOMI. Sensation is intact to light touch in 4 extremities. 5 out of 5 strength in 4 extremities) - Psychiatric Psychiatric exam: Present: flat affect - Skin Skin exam: Present: warm, ecchymosis. Absent: rash ED Course Vital Signs 08/21/21 08/21/21 08/21/21 19:48 20:02 20:21 Temperature 98.3 F 98 F 97.9 F Pulse Rate 99 H 105 H 91 H Respiratory 17 18 16 Rate Blood Pressure 126/95 126/95 111/63 [Left] O2 Sat by Pulse 99 99 97 Oximetry - Reevaluation(s) Reevaluation #1: 08/21/21 20:42 Differential diagnosis, include but not limited to: Deconditioning, debility, mechanical fall Assessment and plan: 65-year-old female whom I have evaluated multiple times in the past, presenting with recurrent mechanical fall in the context of deconditioning and debility. Patient was recently recommended for physical therapy, but refused by her insurance company. She is at home with her younger daughter, and has been using a cane and walker. However, the patient has been having frequent falls. She was just cleared medically and discharged from the medical service yesterday. Case management notes are reviewed and appreciated. Daughter is following up with primary care doctor, Dr. Su Patient did not hit her head. She simply landed on her buttock from her fall. Explained natural history of deconditioning and debility to daughter. Patient does not appear to have an emergent medical condition today which would require admission or hospitalization. X-ray of the pelvis showed chronic findings. We will place case management consultation, to determine if any additional home physical therapy interventions can be pursued. However, have counseled daughter to follow-up with primary care doctor and insurance company, and to evaluate placement into prison facility. ED Medical Decision Making - Lab Data Vital Signs 0708/21/21 08/21/21 19:48 20:02 20:21 Temperature 98.3 F 98 F 97.9 F Pulse Rate 99 H 105 H 91 H Respiratory 17 18 16 Rate Blood Pressure 126/95 126/95 111/63 [Left] O2 Sat by Pulse 99 99 97 Oximetry - Radiology Data Radiology results: pending, image reviewed MRI brain MRI BRAIN WITHOUT CONTRAST NOTE: This study is dated 08/13/2021. Examination was performed between 1030 hours and 1100 hours on 08/13/2021 based on the scanner clock time. The study was marked as complete on 08/16/2021 at 0556 hours. The examination appeared on the [employer] neuroradiology work list at that time. The reason for this delay is unknown to me. INDICATION / CLINICAL INFORMATION: stroke. TECHNIQUE: Multiplanar, multisequence MR images of the brain were obtained. . COMPARISON: None available. FINDINGS: BRAIN / INTRACRANIAL CONTENTS: The third and lateral ventricles are larger than expected for the size of the cortical sulci reflecting a degree of central greater than cortical parenchymal volume loss which is somewhat greater than expected for age 65 years. The cortical sulci are normal in size and configuration. There is no mass effect. No evidence of intracranial hemorrhage or extra-axial fluid collection is seen. Periventricular, deep white matter and subcortical white matter hyperintensities are identified in both cerebral hemispheres. No additional areas of abnormal brain parenchymal signal intensity are identified. There is no indication of remote cortical infarction. Diffusion weighted scans are negative. There is no indication of acute ischemic injury. The brainstem and cerebellum have an unremarkable appearance. MIDLINE STRUCTURES:No abnormalities are seen to involve the pituitary gland. Pineal region has an unremarkable appearance. CRANIOCERVICAL JUNCTION: No abnormalities are identified at the craniocervical junction. VASCULAR FLOW- VOIDS: Normal flow-voids are present within the major intracranial vessels. ORB ITS: The orbits have an unremarkable appearance. SINUSES / MASTOIDS: There is no indication of inflammatory disease in the paranasal sinuses or mastoid air cells. IMPRESSION: 1. Central greater than cortical parenchymal volume loss. 2. No acute intracranial abnormality. Signer Name: Luis Thornton MD Signed: 08/16/2021 9:51 AM Workstation Name: [id number] [facility] [address] [place] [address] XRay Report Signed Patient: TOLU COULTER MR#: [id number] : 1955 Acct:[id number] Age/Sex: 65 / F ADM Date: 08/21/21 Loc: ED Attending Dr: Ordering Physician: JOVANI AMEZQUITA MD Date of Service: 08/21/21 Procedure(s): XR pelvis 1-2V Accession Number(s): [id number] cc: JOVANI AMEZQUITA MD Fluoro Time In Minutes: PELVIS 2 VIEWS INDICATION / CLINICAL INFORMATION: Hip pain after fall. COMPARISON: CT pelvis without contrast performed on 08/07/2021. FINDINGS: BONES and JOINT(S): No acute fracture or subluxation. The bones are demineralized with similar extensive sclerotic osseous metastases. SOFT TISSUES: No significant abnormality. ADDITIONAL FINDINGS: None. IMPRESSION: 1. No acute findings. No significant interval changes compared to the CT performed on 08/07/2021. Signer Name: Marc Ramirez MD Signed: 08/21/2021 8:38 PM Workstation Name: [id number] Transcribed By: [place] Dictated By: Marc Ramirez MD Electronically Authenticated By: Marc Ramirez MD Signed Date/Time: 08/21/212037 DD/ 35 Critical care attestation.: If time is entered above; I have spent that time in minutes in the direct care of this critically ill patient, excluding procedure time. ED Disposition Clinical Impression: Frequent falls, Physical deconditioning Disposition: 01 HOME / SELF CARE / HOMELESS Is pt being admited?: No Does the pt Need Aspirin: No Condition: Good Instructions: Fall Prevention in Hospitals, Adult Additional Instructions: Recommend follow-up with your primary care doctor within 3 to 5 days. Please also continue to follow-up with [employer] appeal number at / Patient is physically deconditioned, and is at high risk for fall in the future. Recommend that patient only ambulate with a rolling walker with 2 person assist, or preferably use a wheelchair. Please continue current outpatient medications. May take [id number] Tylenol as needed for physical pain. A case management consultation is ordered in the computer system to determine if patient is eligible for additional services. Also recommend that patient and family engage with insurance company and primary care doctor to investigate placement into a prison facility. Please return to the emergency room right away with new pain, worsened pain, migration of pain, projectile vomiting, change in mental status, confusion, inability tolerate liquid feeds, new, worsened or different symptoms not present on the initial emergency room evaluation Referrals: KELLI SU MD [Primary Care Provider] - 3-5 Days
--- NOTE | 2021-08-21 20:43 | XRay Report ---
PELVIS 2 VIEWS INDICATION / CLINICAL INFORMATION: Hip pain after fall. COMPARISON: CT pelvis without contrast performed on 08/07/2021. FINDINGS: BONES and JOINT(S): No acute fracture or subluxation. The bones are demineralized with similar extens rosalinda sclerotic osseous metastases. SOFT TISSUES: No significant abnormality. ADDITIONAL FINDINGS: None. IMPRESSION: 1. No acute findings. No significant interval changes compared to the CT performed on 08/07/2021. Signer Name: Marc Ramirez MD Signed: 08/21/2021 8:38 PM Workstation Name: [id number]
[2021-08-22 04:31] VITALS: BP 110/60
== END 2021-08-22 04:31 | disposition home or self-care (01) ==
LOC: ED 19:08
DX: M25.559 Pain in unspecified hip (principal); R29.6 Repeated falls; E11.9 Type 2 diabetes mellitus without complications; J44.1 Chronic obstructive pulmonary disease with (acute) exacerbation; Z87.891 Personal history of nicotine dependence; Z88.0 Allergy status to penicillin; Z91.09 Other allergy status, other than to drugs and biological substances; Z79.899 Other long term (current) drug therapy; W19.XXXA Unspecified fall, initial encounter; Y93.89 Activity, other specified; Y92.89 Other specified places as the place of occurrence of the external cause; Y99.8 Other external cause status
CPT/HCPCS: 72170; 99284